=== PATIENT | male | born 1975 | race Two or more races ===

== ENCOUNTER 2020-06-17 22:03 | Inpatient (IN) | payer MEDICARE, MEDICAID ==
[~2020-06-17] VITALS: Ht 170.2 cm; Wt 74.8 kg
[~2020-06-17 22:03] MED LIST: ATOR10TA PO; CYCL10TA6 PO; ERGO400T PO; GABA300C10 PO
[2020-06-17] MEDS ORDERED: HYDROmorphone HCL 2 MG/ML VL IV ONE (23:00)
[2020-06-17] MEDS ORDERED: ONDANSETRON HCL 4 MG/2 ML VIAL IV ONE (23:00)
[2020-06-17] MEDS ORDERED: SODIUM CHLORIDE 0.9% 500 ML IV ONE (23:00)
[2020-06-17 23:03] LABS: Basophils # (auto) 0.2 10 ^3/uL (0-0.2); Basophils % (auto) 2.6 % (0.0-2.0); Eosinophils # (auto) 0 10 ^3/uL (0-0.8); Hematocrit 38.9 % (41.0-53.0); Hemoglobin 13.3 g/dL (13.5-17.5); Lymphocytes # (auto) 0.4 10 ^3/uL (0.4-5.4); Lymphocytes % (auto) 5.9 % (10.0-50.0); Mean Corpuscular Hemoglobin 28.1 pg (28.0-32.0); Mean Corpuscular Hgb Conc. 34.3 g/dL (32.0-36.0); Monocytes # (auto) 0.3 10 ^3/uL (0-1.3); Monocytes % (auto) 3.6 % (0.0-12.0); Neutrophils # (auto) 6.2 10 ^3/uL (1.6-8.6); Neutrophils % (auto) 87.9 % (37.0-80.0); Nucleated Red Blood Cells % 0.1 %; Platelet Count (auto) 194 10^3/uL (140-450); Red Blood Cells 4.74 10^6/uL (4.5-5.90); Red Cell Distribution Width 15.4 % (11.8-14.3)
[2020-06-17 23:21] LABS: Albumin 2.9 g/dL (3.4-5.0); Calcium 8.7 mg/dL (8.5-10.1); Magnesium 2.1 mg/dL (1.6-2.6); Potassium 3.7 mmol/L (3.5-5.1)
[2020-06-17 23:23] LABS: INR 1.04 (0.9-1.15); Partial Thromboplastin Time 29.3 sec (23.0-31.2)
[2020-06-17 23:28] LABS: BUN/Creatinine Ratio 17.4; Bilirubin, Total 1.1 mg/dL (0.2-1.0); Total Protein 7.1 g/dL (6.4-8.2)
[2020-06-17] MEDS ORDERED: VANCOMYCIN PER PHARMACY 0 MG IV SCH (23:30)
[2020-06-17] MEDS ORDERED: levoFLOXacin 500MG 100 ML IV ONE (23:30)
[2020-06-17] MEDS ORDERED: DexAMETHasone SOD PHOS 10MG/1ML VIAL INJ IV ONE (23:30)
[2020-06-18] MEDS ORDERED: ENOXAPARIN SOD 80 MG/0.8ML SYRINGE SC ONE
[2020-06-18] MEDS ORDERED: VANCOMYCIN 1GM/250ML 250 ML IV ONE
[2020-06-18] MEDS ORDERED: TEMAZEPAM 15 MG CAP PO PRN (01:15)
[2020-06-18] MEDS ORDERED: HYDROcodone-ACET 5/325MG TAB PO PRN (01:15)
[2020-06-18] MEDS ORDERED: MORPHINE SULFATE 4 MG/ML SYR/VIAL IV PRN (01:15)
[2020-06-18] MEDS ORDERED: MORPHINE SULF INJ 2 MG/ML SYRINGE 1ML IV PRN ×2 (01:15→07:45)
[2020-06-18] MEDS ORDERED: DEXTROSE (50%) 50ML SYRG IV PRN (01:15)
[2020-06-18] MEDS ORDERED: DOCUSATE SOD 100 MG CAP PO PRN (01:15)
[2020-06-18] MEDS ORDERED: NITROGLYCERIN 0.4 MG SL TAB SL PRN (01:15)
[2020-06-18] MEDS ORDERED: ACETAMINOPHEN 325 MG TAB PO PRN (01:15)
[2020-06-18] MEDS ORDERED: ONDANSETRON HCL 4 MG/2 ML VIAL IV PRN (01:15)
[2020-06-18 02:00] VITALS: BP 130/96
[2020-06-18] MEDS ORDERED: DOXYCYCLINE 100MG/250ML 250 ML IV SCH ×2 (02:00→15:00)
[2020-06-18] MEDS ORDERED: FUROSEMIDE 20 MG/2 ML VIAL IV SCH (06:00)
[2020-06-18] MEDS ORDERED: SODIUM CHLOR 0.9% PF (SALINE LOCK) 10ML VIAL/SYR IV SCH (06:00)
[2020-06-18] MEDS ORDERED: metroNIDAZOLE 500MG/100ML 100 ML IV SCH (06:00)
[2020-06-18] MEDS ORDERED: InsuLIN REG 1unit/0.01ml Soln (100units/ml) SC SCH ×2 (07:00→22:00)
[2020-06-18] MEDS ORDERED: ACCU-CHEK COMFORT CURVE STRIP VI SCH (07:00)
[2020-06-18] MEDS ORDERED: ASPirin 81 mg TAB PO SCH (10:00)
[2020-06-18] MEDS ORDERED: MULTIPLE VITAMIN TAB PO SCH (10:00)
[2020-06-18] MEDS ORDERED: ASCORBIC ACID 500 MG TAB PO SCH (10:00)
[2020-06-18] MEDS ORDERED: ZINC SULFATE 220mg CAP or TAB PO SCH (10:00)
[2020-06-18] MEDS ORDERED: FAMOTIDINE 20 MG TAB PO SCH (10:00)
[2020-06-18] MEDS ORDERED: VANCOMYCIN 1GM/250ML 250 ML IV SCH (12:00)
[2020-06-18] MEDS ORDERED: ENOXAPARIN SOD 80 MG/0.8ML SYRINGE SC SCH (12:00)
[2020-06-18] MEDS ORDERED: ATORVASTATIN 20 MG TAB PO SCH (22:00)
== END 2020-06-18 02:56 | disposition left against medical advice (07) | DRG 280 ==
LOC: EDBD 22:03 → ER 22:04 → TELE 06-18 01:21
PROVIDERS: ADMIT Nurse Practitioner Family; ATTEND Nurse Practitioner Family
DX: I13.0 Hypertensive heart and chronic kidney disease with heart failure and stage 1 through stage 4 chronic kidney disease, or unspecified chronic kidney disease (principal); I21.A1 Myocardial infarction type 2; I50.33 Acute on chronic diastolic (congestive) heart failure; J18.9 Pneumonia, unspecified organism; E87.1 Hypo-osmolality and hyponatremia; E44.0 Moderate protein-calorie malnutrition; R65.10 Systemic inflammatory response syndrome (SIRS) of non-infectious origin without acute organ dysfunction; D63.8 Anemia in other chronic diseases classified elsewhere; E11.22 Type 2 diabetes mellitus with diabetic chronic kidney disease; E11.40 Type 2 diabetes mellitus with diabetic neuropathy, unspecified; K21.9 Gastro-esophageal reflux disease without esophagitis; E78.5 Hyperlipidemia, unspecified; R10.9 Unspecified abdominal pain; N18.9 Chronic kidney disease, unspecified; Z53.29 Procedure and treatment not carried out because of patient's decision for other reasons; E11.649 Type 2 diabetes mellitus with hypoglycemia without coma; Z68.25 Body mass index [BMI] 25.0-25.9, adult; I25.2 Old myocardial infarction; Z82.49 Family history of ischemic heart disease and other diseases of the circulatory system
CPT/HCPCS: 36415; 71045; 74176; 80053; 82150; 82728; 83605; 83690; 83735; 83880; 84484; 85025; 85610; 85730; 87040; 96361; 96374; 96375; G0378; J1100; J1956; J2405; J3490

== ENCOUNTER 2020-07-15 22:25 | Inpatient (IN) | payer MEDICARE, MEDICAID ==
[~2020-07-15] VITALS: Ht 170.2 cm; Wt 82.9 kg
[2020-07-15 23:12] LABS: Basophils # (auto) 0.2 10 ^3/uL (0-0.2); Basophils % (auto) 2.2 % (0.0-2.0); Eosinophils # (auto) 0 10 ^3/uL (0-0.8); Eosinophils % (auto) 0.2 % (0.0-7.0); Hematocrit 31.4 % (41.0-53.0); Hemoglobin 10.2 g/dL (13.5-17.5); Lymphocytes # (auto) 1.4 10 ^3/uL (0.4-5.4); Lymphocytes % (auto) 13.7 % (10.0-50.0); Mean Corpuscular Hgb Conc. 32.5 g/dL (32.0-36.0); Mean Corpuscular Volume 86.1 fL (80.0-100.0); Monocytes # (auto) 0.8 10 ^3/uL (0-1.3); Monocytes % (auto) 7.5 % (0.0-12.0); Neutrophils % (auto) 76.4 % (37.0-80.0); Nucleated Red Blood Cells % 0.2 %; Platelet Count (auto) 428 10^3/uL (140-450); Red Blood Cells 3.65 10^6/uL (4.5-5.90); Red Cell Distribution Width 17.8 % (11.8-14.3); White Blood Cell 10.4 10^3/uL (4.4-10.8)
[2020-07-15] MEDS ORDERED: ONDANSETRON HCL 4 MG/2 ML VIAL IV ONE (23:15)
[2020-07-15] MEDS ORDERED: FAMOTIDINE (10MG/ML) 2ML VL IV ONE (23:15)
[2020-07-15] MEDS ORDERED: SUCRALFATE 1 GM/10 ML ORAL SUSP PO ONE (23:15)
[2020-07-15] MEDS ORDERED: LIDOCAINE VISCOUS 2% 15ML UD PO ONE (23:45)
[2020-07-15] MEDS ORDERED: DONNATAL 5ml ORAL Elix (BELLADONNA ALK-PHENOBARB) PO ONE (23:45)
[2020-07-15 23:48] LABS: INR 1.13 (0.9-1.15); Partial Thromboplastin Time 27.9 sec (23.0-31.2)
[2020-07-15 23:53] LABS: Albumin 2.9 g/dL (3.4-5.0); Calcium 8.9 mg/dL (8.5-10.1); Magnesium 2.4 mg/dL (1.6-2.6); Potassium 4.9 mmol/L (3.5-5.1)
[2020-07-15 23:59] LABS: BUN/Creatinine Ratio 19.2; Bilirubin, Total 1.5 mg/dL (0.2-1.0); Total Protein 7.5 g/dL (6.4-8.2)
[2020-07-16] MEDS ORDERED: ACETAMINOPHEN 500 MG TAB PO PRN (04:00)
[2020-07-16] MEDS ORDERED: hydrALAZINE HCL 20 MG/ML VL IV PRN (04:00)
[2020-07-16] MEDS ORDERED: MORPHINE SULF INJ 2 MG/ML SYRINGE 1ML IV PRN (04:00)
[2020-07-16] MEDS ORDERED: NITROGLYCERIN 0.4 MG SL TAB SL PRN (04:00)
[2020-07-16] MEDS ORDERED: DEXTROSE (50%) 50ML SYRG IV PRN (04:00)
[2020-07-16] MEDS: ONDANSETRON HCL 4 MG/2 ML VIAL IV PRN ×3 (04:44→17:15)
[2020-07-16] MEDS: MORPHINE SULF INJ 2 MG/ML SYRINGE 1ML IV PRN ×5 (04:45→21:41)
[2020-07-16 05:17] VITALS: BP 157/100
[2020-07-16] MEDS ORDERED: CARV3.1240 PO (05:53)
[2020-07-16] MEDS ORDERED: ESCI5TAB PO (05:53)
[2020-07-16] MEDS ORDERED: CLOP75TA28 PO (05:53)
[2020-07-16] MEDS ORDERED: FAMO-12 PO (05:53)
[2020-07-16] MEDS ORDERED: TRAZ50TA2 PO (05:53)
[2020-07-16] MEDS ORDERED: ASPI-231 PO (05:53)
[2020-07-16] MEDS ORDERED: FURO1TAB33 PO (05:53)
[2020-07-16] MEDS ORDERED: METO25TA93 PO (05:53)
[2020-07-16 05:56] VITALS: BP 157/100
[2020-07-16] MEDS: HYDROcodone-ACET 5/325MG TAB PO PRN (06:11)
[2020-07-16] MEDS: InsuLIN REG 1unit/0.01ml Soln (100units/ml) SC SCH ×4 (07:02→22:18)
[2020-07-16] MEDS: ACCU-CHEK COMFORT CURVE STRIP VI SCH ×4 (07:03→21:42)
[2020-07-16 09:00] VITALS: BP 140/94
[2020-07-16] MEDS ORDERED: CARVEDILOL 3.125 MG TAB PO SCH (10:00)
[2020-07-16] MEDS: ASPirin-EC 81 mg tab PO SCH (10:35)
[2020-07-16] MEDS: PANTOPRAZOLE 40 MG TAB PO SCH (10:35)
[2020-07-16] MEDS: LISINOPRIL 20 MG TAB PO SCH (10:37)
[2020-07-16 13:00] VITALS: BP 125/81
[2020-07-16] MEDS ORDERED: METOPROLOL SUCCINATE XL 50 MG TAB PO ONE (13:00)
[2020-07-16] MEDS ORDERED: CYCLOBENZAPRINE HCL 10 MG TAB PO PRN (13:00)
[2020-07-16] MEDS ORDERED: ERGOCALCIFEROL 50,000 UNIT(1.25MG) CAP PO SCH (13:00)
[2020-07-16] MEDS ORDERED: AZITHROMYCIN 250 MG TAB PO ONE (13:15)
[2020-07-16] MEDS ORDERED: levoFLOXacin 500MG 100 ML IV ONE (13:15)
[2020-07-16] MEDS: GABAPENTIN 300 MG CAP PO SCH ×2 (14:14→21:42)
[2020-07-16 15:29] LABS: Urine Bacteria NONE SEEN /hpf (None Seen); Urine Blood 2+ /uL (Negative); Urine Mucus FEW (None Seen); Urine Specific Gravity 1.031 (1.001-1.035); Urine WBC 3 /hpf (0 - 3)
[2020-07-16] MEDS: metroNIDAZOLE 500MG/100ML 100 ML IV SCH ×2 (15:47→21:39)
[2020-07-16 16:55] VITALS: BP 130/87
[2020-07-16] MEDS: traZODone HCL 50 MG TAB PO SCH (21:41)
[2020-07-16] MEDS: ATORVASTATIN 20 MG TAB PO SCH (21:43)
[2020-07-16 22:00] VITALS: BP 136/96
[2020-07-17] MEDS: ONDANSETRON HCL 4 MG/2 ML VIAL IV PRN ×4 (01:54→23:16)
[2020-07-17 05:00] VITALS: BP 112/76
[2020-07-17] MEDS: GABAPENTIN 300 MG CAP PO SCH ×3 (06:00→21:45)
[2020-07-17] MEDS: InsuLIN REG 1unit/0.01ml Soln (100units/ml) SC SCH ×4 (06:23→22:00)
[2020-07-17] MEDS: ACCU-CHEK COMFORT CURVE STRIP VI SCH ×4 (06:24→21:46)
[2020-07-17 06:28] LABS: Basophils # (auto) 0.1 10 ^3/uL (0-0.2); Basophils % (auto) 1.2 % (0.0-2.0); Eosinophils # (auto) 0.1 10 ^3/uL (0-0.8); Eosinophils % (auto) 1.6 % (0.0-7.0); Hematocrit 28.4 % (41.0-53.0); Hemoglobin 9.2 g/dL (13.5-17.5); Lymphocytes # (auto) 2.3 10 ^3/uL (0.4-5.4); Lymphocytes % (auto) 26.1 % (10.0-50.0); Mean Corpuscular Hemoglobin 27.1 pg (28.0-32.0); Mean Corpuscular Hgb Conc. 32.5 g/dL (32.0-36.0); Mean Corpuscular Volume 83.4 fL (80.0-100.0); Monocytes # (auto) 0.9 10 ^3/uL (0-1.3); Monocytes % (auto) 10.5 % (0.0-12.0); Neutrophils # (auto) 5.3 10 ^3/uL (1.6-8.6); Neutrophils % (auto) 60.6 % (37.0-80.0); Nucleated Red Blood Cells % 0.1 %; Platelet Count (auto) 349 10^3/uL (140-450); Red Blood Cells 3.41 10^6/uL (4.5-5.90); Red Cell Distribution Width 17.6 % (11.8-14.3); White Blood Cell 8.8 10^3/uL (4.4-10.8)
[2020-07-17] MEDS: metroNIDAZOLE 500MG/100ML 100 ML IV SCH ×3 (06:28→21:45)
[2020-07-17] MEDS: MORPHINE SULF INJ 2 MG/ML SYRINGE 1ML IV PRN ×4 (06:40→22:15)
[2020-07-17 06:57] LABS: Albumin 2.3 g/dL (3.4-5.0); BUN/Creatinine Ratio 20.2; Bilirubin, Total 0.8 mg/dL (0.2-1.0); Calcium 8.2 mg/dL (8.5-10.1); Total Protein 6.3 g/dL (6.4-8.2)
[2020-07-17 09:00] VITALS: BP 139/93
[2020-07-17] MEDS: FUROSEMIDE 20 MG TAB PO SCH (09:59)
[2020-07-17] MEDS: ASPirin-EC 81 mg tab PO SCH (09:59)
[2020-07-17] MEDS: PANTOPRAZOLE 40 MG TAB PO SCH (09:59)
[2020-07-17] MEDS: METOPROLOL SUCCINATE XL 50 MG TAB PO SCH (10:00)
[2020-07-17] MEDS: LISINOPRIL 20 MG TAB PO SCH (10:00)
[2020-07-17] MEDS ORDERED: AZITHROMYCIN 250 MG TAB PO SCH (10:00)
[2020-07-17] MEDS ORDERED: levoFLOXacin 500MG 100 ML IV SCH (10:00)
[2020-07-17 13:00] VITALS: BP 142/87
[2020-07-17] MEDS ORDERED: ONDANSETRON HCL 4 MG/2 ML VIAL IV ONE (13:30)
[2020-07-17 17:14] VITALS: BP 114/69
[2020-07-17] MEDS: ATORVASTATIN 20 MG TAB PO SCH (21:45)
[2020-07-17] MEDS: traZODone HCL 50 MG TAB PO SCH (21:45)
[2020-07-17 22:00] VITALS: BP 141/88
[2020-07-18] MEDS: MORPHINE SULF INJ 2 MG/ML SYRINGE 1ML IV PRN ×4 (03:34→18:56)
[2020-07-18 05:00] VITALS: BP 135/94
[2020-07-18] MEDS: ONDANSETRON HCL 4 MG/2 ML VIAL IV PRN ×3 (05:06→18:44)
[2020-07-18] MEDS: metroNIDAZOLE 500MG/100ML 100 ML IV SCH ×3 (05:26→21:55)
[2020-07-18] MEDS: GABAPENTIN 300 MG CAP PO SCH ×3 (05:26→21:54)
[2020-07-18] MEDS: ACCU-CHEK COMFORT CURVE STRIP VI SCH ×4 (06:16→21:55)
[2020-07-18] MEDS: InsuLIN REG 1unit/0.01ml Soln (100units/ml) SC SCH ×4 (06:22→22:04)
[2020-07-18 06:37] LABS: Basophils # (auto) 0.2 10 ^3/uL (0-0.2); Eosinophils # (auto) 0.2 10 ^3/uL (0-0.8); Eosinophils % (auto) 1.9 % (0.0-7.0); Hemoglobin 9.6 g/dL (13.5-17.5); Lymphocytes # (auto) 2.5 10 ^3/uL (0.4-5.4); Lymphocytes % (auto) 28.2 % (10.0-50.0); Mean Corpuscular Hemoglobin 27.4 pg (28.0-32.0); Mean Corpuscular Hgb Conc. 32.9 g/dL (32.0-36.0); Mean Corpuscular Volume 83.2 fL (80.0-100.0); Monocytes # (auto) 1.1 10 ^3/uL (0-1.3); Monocytes % (auto) 12.4 % (0.0-12.0); Neutrophils % (auto) 55.5 % (37.0-80.0); Nucleated Red Blood Cells % 0.1 %; Platelet Count (auto) 368 10^3/uL (140-450); Red Blood Cells 3.49 10^6/uL (4.5-5.90); Red Cell Distribution Width 17.7 % (11.8-14.3)
[2020-07-18 06:46] LABS: Potassium 3.7 mmol/L (3.5-5.1)
[2020-07-18 06:55] LABS: Albumin 2.3 g/dL (3.4-5.0); BUN/Creatinine Ratio 15.7; Bilirubin, Total 0.8 mg/dL (0.2-1.0); Total Protein 6.3 g/dL (6.4-8.2)
[2020-07-18] MEDS: ASPirin-EC 81 mg tab PO SCH (09:09)
[2020-07-18] MEDS: levoFLOXacin 500MG 100 ML IV SCH (09:09)
[2020-07-18] MEDS: PANTOPRAZOLE 40 MG TAB PO SCH (09:09)
[2020-07-18] MEDS: FUROSEMIDE 20 MG TAB PO SCH (09:10)
[2020-07-18] MEDS: LISINOPRIL 20 MG TAB PO SCH (09:10)
[2020-07-18] MEDS: METOPROLOL SUCCINATE XL 50 MG TAB PO SCH (09:11)
[2020-07-18 09:29] VITALS: BP 119/67
[2020-07-18] MEDS: SUCRALFATE 1 GM/10 ML ORAL SUSP PO SCH ×3 (11:31→21:53)
[2020-07-18 13:00] VITALS: BP 120/77
[2020-07-18 16:54] VITALS: BP 117/63
[2020-07-18] MEDS: FUROSEMIDE 40 MG/4 ML VIAL IV SCH (18:49)
[2020-07-18] MEDS: ATORVASTATIN 20 MG TAB PO SCH (21:53)
[2020-07-18] MEDS: traZODone HCL 50 MG TAB PO SCH (21:54)
[2020-07-18 22:00] VITALS: BP 128/66
[2020-07-19] VITALS (9 sets, daily range): BP systolic 103–162; BP diastolic 64–103
[2020-07-19] MEDS: ONDANSETRON HCL 4 MG/2 ML VIAL IV PRN ×6 (02:33→23:59)
[2020-07-19] MEDS: metroNIDAZOLE 500MG/100ML 100 ML IV SCH (05:50)
[2020-07-19] MEDS: GABAPENTIN 300 MG CAP PO SCH ×3 (05:52→21:36)
[2020-07-19] MEDS: FUROSEMIDE 40 MG/4 ML VIAL IV SCH ×2 (05:52→17:24)
[2020-07-19] MEDS: InsuLIN REG 1unit/0.01ml Soln (100units/ml) SC SCH ×4 (06:05→21:49)
[2020-07-19] MEDS: ACCU-CHEK COMFORT CURVE STRIP VI SCH ×4 (06:05→21:37)
[2020-07-19] MEDS: SUCRALFATE 1 GM/10 ML ORAL SUSP PO SCH ×4 (06:34→21:35)
[2020-07-19 06:46] LABS: INR 1.26 (0.9-1.15); Partial Thromboplastin Time 30.2 sec (23.0-31.2)
[2020-07-19] MEDS ORDERED: MIDAZOLAM HCL 5 MG/ML-1ML VIAL ONE (09:20)
[2020-07-19] MEDS ORDERED: SODIUM CHLORIDE LOCK 10 ML ONE (09:20)
[2020-07-19] MEDS ORDERED: LIDOCAINE VISCOUS 2% 15ML UD ONE (09:20)
[2020-07-19] MEDS ORDERED: diphenhdrAMINE HCL 50 MG/1 ML VL ONE (09:21)
[2020-07-19] MEDS ORDERED: fentaNYL CITRATE 100 MCG/2 ML VL ONE ×2 (09:21→14:11)
[2020-07-19] MEDS: ASPirin-EC 81 mg tab PO SCH (10:00)
[2020-07-19] MEDS: PANTOPRAZOLE 40 MG TAB PO SCH (10:00)
[2020-07-19] MEDS: LISINOPRIL 20 MG TAB PO SCH (10:00)
[2020-07-19] MEDS: METOPROLOL SUCCINATE XL 50 MG TAB PO SCH (10:00)
[2020-07-19] MEDS: levoFLOXacin 500MG 100 ML IV SCH (10:52)
[2020-07-19] MEDS: MORPHINE SULF INJ 2 MG/ML SYRINGE 1ML IV PRN ×4 (10:53→23:59)
[2020-07-19] MEDS ORDERED: MIDAZOLAM HCL 1MG/1ML-2 ML VIAL ONE (14:12)
[2020-07-19] MEDS ORDERED: ONDANSETRON HCL 4 MG/2 ML VIAL IV PRN (14:45)
[2020-07-19] MEDS: ATORVASTATIN 20 MG TAB PO SCH (21:36)
[2020-07-19] MEDS: HYDROcodone-ACET 5/325MG TAB PO PRN (21:36)
[2020-07-19] MEDS: traZODone HCL 50 MG TAB PO SCH (21:36)
[2020-07-20] MEDS: ONDANSETRON HCL 4 MG/2 ML VIAL IV PRN (04:39)
[2020-07-20] MEDS: MORPHINE SULF INJ 2 MG/ML SYRINGE 1ML IV PRN ×2 (04:39→09:26)
[2020-07-20 05:00] VITALS: BP 112/62
[2020-07-20] MEDS: HYDROcodone-ACET 5/325MG TAB PO PRN ×2 (05:16→12:36)
[2020-07-20] MEDS: SUCRALFATE 1 GM/10 ML ORAL SUSP PO SCH ×2 (06:03→11:30)
[2020-07-20] MEDS: FUROSEMIDE 40 MG/4 ML VIAL IV SCH (06:03)
[2020-07-20] MEDS: GABAPENTIN 300 MG CAP PO SCH ×2 (06:03→14:03)
[2020-07-20] MEDS: ACCU-CHEK COMFORT CURVE STRIP VI SCH ×2 (06:04→11:30)
[2020-07-20] MEDS: InsuLIN REG 1unit/0.01ml Soln (100units/ml) SC SCH ×2 (06:41→11:31)
[2020-07-20 09:00] VITALS: BP 114/61
[2020-07-20] MEDS: ASPirin-EC 81 mg tab PO SCH (09:26)
[2020-07-20] MEDS: LISINOPRIL 20 MG TAB PO SCH (09:26)
[2020-07-20] MEDS: PANTOPRAZOLE 40 MG TAB PO SCH (09:27)
[2020-07-20] MEDS: METOPROLOL SUCCINATE XL 50 MG TAB PO SCH (09:27)
[2020-07-20] MEDS: levoFLOXacin 500MG 100 ML IV SCH (09:28)
[2020-07-20 09:49] LABS: Hepatitis B Surface Antibody Positive
[2020-07-20 10:19] LABS: Hepatitis A Total Antibody Negative
[2020-07-20 13:00] VITALS: BP 103/66
[2020-07-20 13:04] LABS: Hepatitis B Surface Antigen Negative (Negative)
[2020-07-20 13:18] LABS: Hepatitis C Antibody Negative (Negative)
[2020-07-20 13:28] VITALS: BP 114/61
[2020-07-20 13:32] LABS: Hepatitis B Core Total AB Negative
== END 2020-07-20 14:00 | disposition home or self-care (01) | DRG 444 ==
LOC: ER 22:26 → TELE-WESTW 07-16 03:53
PROVIDERS: ADMIT Nurse Practitioner Acute Care; ATTEND Family Medicine
PROC: 0DB68ZX Excision of Stomach, Via Natural or Artificial Opening Endoscopic, Diagnostic (ICD-10-PCS; 2020-07-19)
PROC: 0DB98ZX Excision of Duodenum, Via Natural or Artificial Opening Endoscopic, Diagnostic (ICD-10-PCS; principal; 2020-07-19 14:05)
DX: K80.00 Calculus of gallbladder with acute cholecystitis without obstruction (principal); I21.A1 Myocardial infarction type 2; I50.43 Acute on chronic combined systolic (congestive) and diastolic (congestive) heart failure; J69.0 Pneumonitis due to inhalation of food and vomit; I13.0 Hypertensive heart and chronic kidney disease with heart failure and stage 1 through stage 4 chronic kidney disease, or unspecified chronic kidney disease; E87.1 Hypo-osmolality and hyponatremia; E44.0 Moderate protein-calorie malnutrition; J98.11 Atelectasis; E88.09 Other disorders of plasma-protein metabolism, not elsewhere classified; D63.8 Anemia in other chronic diseases classified elsewhere; E11.21 Type 2 diabetes mellitus with diabetic nephropathy; I25.10 Atherosclerotic heart disease of native coronary artery without angina pectoris; K21.9 Gastro-esophageal reflux disease without esophagitis; E78.5 Hyperlipidemia, unspecified; E11.22 Type 2 diabetes mellitus with diabetic chronic kidney disease; E78.00 Pure hypercholesterolemia, unspecified; K29.70 Gastritis, unspecified, without bleeding; K29.80 Duodenitis without bleeding; Z20.822 Contact with and (suspected) exposure to COVID-19; K44.9 Diaphragmatic hernia without obstruction or gangrene; Z79.82 Long term (current) use of aspirin; Z79.899 Other long term (current) drug therapy; Z82.49 Family history of ischemic heart disease and other diseases of the circulatory system; Z79.84 Long term (current) use of oral hypoglycemic drugs; Z95.1 Presence of aortocoronary bypass graft; Z87.891 Personal history of nicotine dependence; Z83.3 Family history of diabetes mellitus; Z68.28 Body mass index [BMI] 28.0-28.9, adult; N18.31 Chronic kidney disease, stage 3a
CPT/HCPCS: 36415; 43239; 71045; 74181; 76705; 78226; 80053; 81001; 82150; 82962; 83036; 83690; 83735; 83880; 84443; 84484; 85025; 85610; 85730; 86704; 86706; 86708; 86803; 86850; 86900; 86901; 87040; 87081; 87340; 87426; 93005; 93306; 96374; 96375; A4565; G0378; J1815; J1956; J2250; J2405; J3490

== ENCOUNTER 2020-07-28 22:15 | Inpatient (IN) | payer MEDICARE, MEDICAID ==
[~2020-07-28] VITALS: Ht 170.2 cm; Wt 86.2 kg
[~2020-07-28 22:15] MED LIST changes: +ASPI1TAB20 PO; +CARV3.1240 PO; +CLOP75TA28 PO; +CYCL-839 PO; -CYCL10TA6 PO; +ESCI5TAB PO; +FAMO-12 PO; +FURO1TAB33 PO; +METO25TA93 PO; +TRAZ50TA2 PO
[2020-07-28] MEDS ORDERED: ASPirin 325 MG TAB PO ONE (23:00)
[2020-07-28] MEDS ORDERED: ACETAMINOPHEN 325 MG TAB PO ONE (23:00)
[2020-07-28 23:23] LABS: Basophils # (auto) 0.2 10 ^3/uL (0-0.2); Basophils % (auto) 1.7 % (0.0-2.0); Eosinophils # (auto) 0 10 ^3/uL (0-0.8); Hematocrit 34.3 % (41.0-53.0); Nucleated Red Blood Cells % 0.1 %
[2020-07-28 23:26] LABS: Eosinophils % (auto) 0.2 % (0.0-7.0); Hemoglobin 11.4 g/dL (13.5-17.5); Lymphocytes % (auto) 18.7 % (10.0-50.0); Mean Corpuscular Hgb Conc. 33.3 g/dL (32.0-36.0); Mean Corpuscular Volume 81.2 fL (80.0-100.0); Monocytes # (auto) 0.9 10 ^3/uL (0-1.3); Monocytes % (auto) 8.6 % (0.0-12.0); Neutrophils # (auto) 7.4 10 ^3/uL (1.6-8.6); Neutrophils % (auto) 70.8 % (37.0-80.0); Red Blood Cells 4.23 10^6/uL (4.5-5.90); Red Cell Distribution Width 18.2 % (11.8-14.3); White Blood Cell 10.5 10^3/uL (4.4-10.8)
[2020-07-28 23:33] LABS: Calcium 8.9 mg/dL (8.5-10.1); Magnesium 2.4 mg/dL (1.6-2.6); Potassium 4.3 mmol/L (3.5-5.1)
[2020-07-28 23:39] LABS: BUN/Creatinine Ratio 16.5; Bilirubin, Total 1.2 mg/dL (0.2-1.0); Total Protein 7.7 g/dL (6.4-8.2)
[2020-07-28 23:43] LABS: INR 1.17 (0.9-1.15)
[2020-07-29] VITALS (7 sets, daily range): BP systolic 124–157; BP diastolic 76–114
[2020-07-29] MEDS ORDERED: SUCRALFATE 1 GM/10 ML ORAL SUSP PO ONE
[2020-07-29] MEDS ORDERED: DONNATAL 5ml ORAL Elix (BELLADONNA ALK-PHENOBARB) PO ONE
[2020-07-29] MEDS ORDERED: MORPHINE SULFATE 4 MG/ML SYR/VIAL IV ONE
[2020-07-29] MEDS ORDERED: ONDANSETRON HCL 4 MG/2 ML VIAL IV ONE (00:15)
[2020-07-29] MEDS ORDERED: IOHEXOL 300 MG/ML 100ML BOTTLE IJ ONE (01:12)
[2020-07-29] MEDS ORDERED: METOPROLOL TARTRATE 1MG/1ML-5ML VIAL IV ONE (01:15)
[2020-07-29] MEDS ORDERED: NITROGLYCERIN 0.4 MG SL TAB SL PRN (02:45)
[2020-07-29] MEDS ORDERED: DEXTROSE (50%) 50ML SYRG IV PRN (02:45)
[2020-07-29] MEDS ORDERED: ALUM & MAG HYDROX-SIMETH LIQ(MAALOX) 30 ML PO PRN (02:45)
[2020-07-29] MEDS ORDERED: ACETAMINOPHEN 325 MG TAB PO PRN (02:45)
[2020-07-29] MEDS ORDERED: MORPHINE SULFATE INJECTION 2 MG/ML SYRG IV PRN (02:45)
[2020-07-29] MEDS: ONDANSETRON HCL 4 MG/2 ML VIAL IV PRN ×4 (02:55→17:17)
[2020-07-29] MEDS: HYDROmorphone HCL 2 MG/ML VL IV PRN ×2 (02:55→06:44)
[2020-07-29] MEDS: SODIUM CHLORIDE 0.9% 1,000 ML IV SCH (02:55)
[2020-07-29 03:07] LABS: Urine Bacteria NONE SEEN /hpf (None Seen); Urine Blood 1+ /uL (Negative); Urine Hyaline Cast MANY /lpf (0 - 2); Urine Mucus FEW (None Seen); Urine WBC 4 /hpf (0 - 3)
[2020-07-29 03:18] LABS: Urine Specific Gravity > 1.050 (1.001-1.035)
[2020-07-29] MEDS ORDERED: PANT40TA2 PO (04:42)
[2020-07-29] MEDS ORDERED: CLOP75TA70 PO (04:42)
[2020-07-29] MEDS ORDERED: BISA-65 PO (04:42)
[2020-07-29] MEDS ORDERED: SUCR1TAB PO (04:42)
[2020-07-29] MEDS ORDERED: ATOR40TA52 PO (04:42)
[2020-07-29] MEDS ORDERED: metroNIDAZOLE 500MG/100ML 100 ML IV SCH (06:00)
[2020-07-29] MEDS: ACCU-CHEK COMFORT CURVE STRIP VI SCH ×4 (06:33→21:42)
[2020-07-29] MEDS: InsuLIN REG 1unit/0.01ml Soln (100units/ml) SC SCH ×3 (06:38→17:00)
[2020-07-29] MEDS ORDERED: PROMETHAZINE HCL 25 MG/ML 1ML IV PRN (09:00)
[2020-07-29 09:25] LABS: Basophils # (auto) 0.2 10 ^3/uL (0-0.2); Eosinophils # (auto) 0.1 10 ^3/uL (0-0.8); Neutrophils % (auto) 62.9 % (37.0-80.0)
[2020-07-29 09:27] LABS: Basophils % (auto) 2.1 % (0.0-2.0); Eosinophils % (auto) 0.7 % (0.0-7.0); Lymphocytes # (auto) 2.7 10 ^3/uL (0.4-5.4); Lymphocytes % (auto) 25.1 % (10.0-50.0); Mean Corpuscular Hemoglobin 26.5 pg (28.0-32.0); Mean Corpuscular Hgb Conc. 32.3 g/dL (32.0-36.0); Mean Corpuscular Volume 82.1 fL (80.0-100.0); Monocytes % (auto) 9.2 % (0.0-12.0); Neutrophils # (auto) 6.7 10 ^3/uL (1.6-8.6); Nucleated Red Blood Cells % 0.1 %; Red Blood Cells 4.14 10^6/uL (4.5-5.90); White Blood Cell 10.6 10^3/uL (4.4-10.8)
[2020-07-29 09:47] LABS: Albumin 2.7 g/dL (3.4-5.0); Calcium 8.5 mg/dL (8.5-10.1); Potassium 4.4 mmol/L (3.5-5.1)
[2020-07-29 09:52] LABS: BUN/Creatinine Ratio 20.9
[2020-07-29] MEDS ORDERED: ASPirin 81 mg TAB PO SCH (10:00)
[2020-07-29] MEDS ORDERED: PANTOPRAZOLE 40 MG/10 ML VIAL INJ IV SCH (10:00)
[2020-07-29 10:13] LABS: Cholesterol 185 mg/dL (< 200); HDL Cholesterol 34 mg/dL (40-59); LDL Cholesterol 134 mg/dL (< 100); Triglycerides 104 mg/dL (< 150)
[2020-07-29] MEDS: ENOXAPARIN SOD 40 MG/0.4 ML SYRINGE SC SCH (10:26)
[2020-07-29] MEDS: CARVEDILOL 12.5 MG TAB PO SCH ×2 (10:27→21:41)
[2020-07-29] MEDS: SUCRALFATE 1 GM/10 ML ORAL SUSP PO SCH ×3 (11:30→21:41)
[2020-07-29] MEDS: MORPHINE SULFATE INJECTION 2 MG/ML SYRG IV PRN ×2 (12:12→19:38)
[2020-07-29] MEDS: METOCLOPRAMIDE HCL 5MG/ml INJ 2ml VIAL IV SCH ×2 (15:41→21:40)
[2020-07-29] MEDS: HYDROcodone-ACET 5/325MG TAB PO PRN ×2 (17:17→21:59)
[2020-07-29] MEDS ORDERED: InsuLIN REG 1unit/0.01ml Soln (100units/ml) SC SCH (22:00)
[2020-07-29] MEDS ORDERED: ATORVASTATIN 20 MG TAB PO SCH ×2 (22:00)
[2020-07-30] MEDS: SODIUM CHLORIDE 0.9% 1,000 ML IV SCH (01:02)
[2020-07-30] MEDS: MORPHINE SULFATE INJECTION 2 MG/ML SYRG IV PRN ×2 (01:35→08:00)
[2020-07-30] MEDS: HYDROcodone-ACET 5/325MG TAB PO PRN (04:58)
[2020-07-30 05:00] VITALS: BP 123/71
[2020-07-30 05:57] LABS: Basophils # (auto) 0.2 10 ^3/uL (0-0.2); Basophils % (auto) 2.4 % (0.0-2.0); Eosinophils # (auto) 0.3 10 ^3/uL (0-0.8); Eosinophils % (auto) 3.5 % (0.0-7.0); Hematocrit 30.9 % (41.0-53.0); Hemoglobin 10.3 g/dL (13.5-17.5); Lymphocytes # (auto) 2.4 10 ^3/uL (0.4-5.4); Lymphocytes % (auto) 31.8 % (10.0-50.0); Mean Corpuscular Hemoglobin 27.5 pg (28.0-32.0); Mean Corpuscular Hgb Conc. 33.3 g/dL (32.0-36.0); Mean Corpuscular Volume 82.7 fL (80.0-100.0); Monocytes # (auto) 0.9 10 ^3/uL (0-1.3); Monocytes % (auto) 11.6 % (0.0-12.0); Neutrophils # (auto) 3.8 10 ^3/uL (1.6-8.6); Neutrophils % (auto) 50.7 % (37.0-80.0); Nucleated Red Blood Cells % 0.2 %; Red Blood Cells 3.73 10^6/uL (4.5-5.90); White Blood Cell 7.6 10^3/uL (4.4-10.8)
[2020-07-30 06:13] LABS: Albumin 2.3 g/dL (3.4-5.0); Calcium 7.8 mg/dL (8.5-10.1); Potassium 3.8 mmol/L (3.5-5.1)
[2020-07-30] MEDS: METOCLOPRAMIDE HCL 5MG/ml INJ 2ml VIAL IV SCH (06:14)
[2020-07-30] MEDS: InsuLIN REG 1unit/0.01ml Soln (100units/ml) SC SCH (06:14)
[2020-07-30] MEDS: SUCRALFATE 1 GM/10 ML ORAL SUSP PO SCH (06:14)
[2020-07-30] MEDS: ACCU-CHEK COMFORT CURVE STRIP VI SCH (06:15)
[2020-07-30 06:23] LABS: BUN/Creatinine Ratio 14.4; Bilirubin, Total 0.9 mg/dL (0.2-1.0); Total Protein 5.9 g/dL (6.4-8.2)
[2020-07-30 09:00] VITALS: BP 123/86
[2020-07-30] MEDS ORDERED: ASPirin 81 mg TAB PO SCH (10:00)
[2020-07-30] MEDS: ENOXAPARIN SOD 40 MG/0.4 ML SYRINGE SC SCH (10:44)
[2020-07-30] MEDS: CARVEDILOL 12.5 MG TAB PO SCH (10:44)
[2020-08-10] MEDS ORDERED: SUCR1TAB PO (15:08)
[2020-08-10] MEDS ORDERED: PANT40TA2 PO (15:08)
[2020-08-10] MEDS ORDERED: FURO1TAB33 PO (15:08)
[2020-08-10] MEDS ORDERED: MUPI2CRE17 EX (15:08)
[2020-08-10] MEDS ORDERED: RAM10T PO (15:08)
[2020-08-10] MEDS ORDERED: CARV6.25 PO (15:16)
== END 2020-07-30 11:30 | disposition home or self-care (01) | DRG 392 ==
LOC: ER 22:15 → TELE-WESTW 07-29 02:34
PROVIDERS: ADMIT Nurse Practitioner Family; ATTEND Nurse Practitioner Family
DX: K29.70 Gastritis, unspecified, without bleeding (principal); E87.1 Hypo-osmolality and hyponatremia; I13.0 Hypertensive heart and chronic kidney disease with heart failure and stage 1 through stage 4 chronic kidney disease, or unspecified chronic kidney disease; K21.00 Gastro-esophageal reflux disease with esophagitis, without bleeding; E11.22 Type 2 diabetes mellitus with diabetic chronic kidney disease; E11.65 Type 2 diabetes mellitus with hyperglycemia; E78.5 Hyperlipidemia, unspecified; I25.10 Atherosclerotic heart disease of native coronary artery without angina pectoris; I50.9 Heart failure, unspecified; K27.9 Peptic ulcer, site unspecified, unspecified as acute or chronic, without hemorrhage or perforation; N18.9 Chronic kidney disease, unspecified; E11.43 Type 2 diabetes mellitus with diabetic autonomic (poly)neuropathy; K31.84 Gastroparesis; Z20.822 Contact with and (suspected) exposure to COVID-19; Z87.11 Personal history of peptic ulcer disease; I25.2 Old myocardial infarction; Z95.1 Presence of aortocoronary bypass graft; Z82.49 Family history of ischemic heart disease and other diseases of the circulatory system
CPT/HCPCS: 36415; 71260; 74177; 80053; 80061; 81001; 82962; 83735; 84484; 85025; 85610; 85730; 87081; 87426; 93005; 96365; 96375; C9113; G0378; J1815; J2405; J3490

== ENCOUNTER 2020-08-07 03:33 | Inpatient (IN) | payer MEDICARE, MEDICAID ==
[~2020-08-07] VITALS: Ht 170.2 cm; Wt 83.1 kg
[~2020-08-07 03:33] MED LIST changes: +ASPI-231 PO; -ASPI1TAB20 PO; -ATOR10TA PO; +ATOR40TA52 PO; +BISA-4 PO; -CLOP75TA28 PO; +CLOP75TA70 PO; -CYCL-839 PO; -ESCI5TAB PO; +PANT40TA2 PO; +SUCR1TAB PO
[2020-08-07 04:45] LABS: Basophils # (auto) 0.2 10 ^3/uL (0-0.2); Basophils % (auto) 2.2 % (0.0-2.0); Eosinophils # (auto) 0.5 10 ^3/uL (0-0.8); Eosinophils % (auto) 5.5 % (0.0-7.0); Hematocrit 35.7 % (41.0-53.0); Hemoglobin 11.6 g/dL (13.5-17.5); Lymphocytes # (auto) 1.8 10 ^3/uL (0.4-5.4); Mean Corpuscular Hemoglobin 26.7 pg (28.0-32.0); Mean Corpuscular Hgb Conc. 32.6 g/dL (32.0-36.0); Mean Corpuscular Volume 81.8 fL (80.0-100.0); Monocytes # (auto) 0.7 10 ^3/uL (0-1.3); Monocytes % (auto) 8.1 % (0.0-12.0); Neutrophils # (auto) 5.6 10 ^3/uL (1.6-8.6); Neutrophils % (auto) 63.2 % (37.0-80.0); Platelet Count (auto) 320 10^3/uL (140-450); Red Blood Cells 4.36 10^6/uL (4.5-5.90); Red Cell Distribution Width 19.9 % (11.8-14.3); White Blood Cell 8.8 10^3/uL (4.4-10.8)
[2020-08-07] MEDS ORDERED: ONDANSETRON HCL 4 MG/2 ML VIAL IV ONE ×2 (04:45→08:30)
[2020-08-07] MEDS ORDERED: fentaNYL CITRATE 100 MCG/2 ML VL IV ONE (04:45)
[2020-08-07 05:04] LABS: INR 1.07 (0.9-1.15); Partial Thromboplastin Time 22.5 sec (23.0-31.2)
[2020-08-07 05:06] LABS: Albumin 2.9 g/dL (3.4-5.0); Calcium 8.8 mg/dL (8.5-10.1); Magnesium 2.2 mg/dL (1.6-2.6); Potassium 4.2 mmol/L (3.5-5.1)
[2020-08-07 05:09] LABS: BUN/Creatinine Ratio 19.3; Bilirubin, Total 1.1 mg/dL (0.2-1.0); Total Protein 6.8 g/dL (6.4-8.2)
[2020-08-07] MEDS ORDERED: LABETALOL HCL 5 MG/ML 4ML SYRINGE IV ONE (07:30)
[2020-08-07] MEDS ORDERED: FUROSEMIDE 20 MG/2 ML VIAL IV ONE (08:15)
[2020-08-07] MEDS ORDERED: ENALAPRILAT 1.25 MG/ML-1ML VIAL IV ONE (08:30)
[2020-08-07] MEDS ORDERED: MORPHINE SULF INJ 2 MG/ML SYRINGE 1ML IV ONE (08:30)
[2020-08-07] MEDS ORDERED: DEXTROSE (50%) 50ML SYRG IV PRN (09:00)
[2020-08-07] MEDS ORDERED: ONDANSETRON HCL 4 MG/2 ML VIAL IV PRN (09:00)
[2020-08-07] MEDS ORDERED: NITROGLYCERIN 0.4 MG SL TAB SL PRN (09:00)
[2020-08-07] MEDS: ASPirin-EC 81 mg tab PO SCH (09:31)
[2020-08-07] MEDS: traZODone HCL 50 MG TAB PO SCH (09:31)
[2020-08-07] MEDS: DOCUSATE SOD 100 MG CAP PO SCH ×2 (09:31→21:44)
[2020-08-07 09:36] LABS: CRP High Sensitivity 0.82 mg/dL (< 0.3)
[2020-08-07] MEDS: RAMIPRIL 10 MG CAP PO SCH (09:37)
[2020-08-07] MEDS ORDERED: FAMOTIDINE 20 MG TAB PO SCH (10:00)
[2020-08-07] MEDS ORDERED: PANTOPRAZOLE 40 MG TAB PO SCH (10:00)
[2020-08-07] MEDS ORDERED: CARVEDILOL 3.125 MG TAB PO SCH (10:00)
[2020-08-07] MEDS: ACCU-CHEK COMFORT CURVE STRIP VI SCH ×3 (11:38→21:46)
[2020-08-07] MEDS: InsuLIN REG 1unit/0.01ml Soln (100units/ml) SC SCH ×3 (11:40→21:43)
[2020-08-07] MEDS: MORPHINE SULF INJ 2 MG/ML SYRINGE 1ML IV PRN ×2 (13:07→18:43)
[2020-08-07] MEDS: GABAPENTIN 300 MG CAP PO SCH ×2 (14:25→21:45)
[2020-08-07] MEDS ORDERED: PROCHLORPERAZINE EDISYLATE 5 MG/ML 2ML VIAL ONE (16:22)
[2020-08-07] MEDS ORDERED: PROCHLORPERAZINE EDISYLATE 5 MG/ML 2ML VIAL IV ONE (16:30)
[2020-08-07] MEDS ORDERED: LORazepam 2MG/ML-1ML VIAL IV ONE (17:00)
[2020-08-07] MEDS: SUCRALFATE 1 GM/10 ML ORAL SUSP PO SCH ×2 (17:17→21:44)
[2020-08-07] MEDS: FUROSEMIDE 20 MG/2 ML VIAL IV SCH (18:43)
[2020-08-07] MEDS: CARVEDILOL 12.5 MG TAB PO SCH (21:45)
[2020-08-07] MEDS: ATORVASTATIN 20 MG TAB PO SCH (21:45)
[2020-08-07] MEDS: PANTOPRAZOLE 40 MG TAB PO SCH (21:46)
[2020-08-07 23:47] VITALS: BP 112/75
[2020-08-08] MEDS: MORPHINE SULF INJ 2 MG/ML SYRINGE 1ML IV PRN ×3 (02:24→21:36)
[2020-08-08] MEDS: ONDANSETRON HCL 4 MG/2 ML VIAL IV PRN (02:30)
[2020-08-08] MEDS: InsuLIN REG 1unit/0.01ml Soln (100units/ml) SC SCH ×4 (05:37→21:38)
[2020-08-08] MEDS: GABAPENTIN 300 MG CAP PO SCH ×3 (05:41→21:38)
[2020-08-08] MEDS: SUCRALFATE 1 GM/10 ML ORAL SUSP PO SCH ×4 (05:41→21:36)
[2020-08-08] MEDS: FUROSEMIDE 20 MG/2 ML VIAL IV SCH ×2 (05:41→17:23)
[2020-08-08] MEDS: ACCU-CHEK COMFORT CURVE STRIP VI SCH ×4 (05:42→21:38)
[2020-08-08 05:55] VITALS: BP 95/61
[2020-08-08 09:00] VITALS: BP 130/85
[2020-08-08] MEDS: DOCUSATE SOD 100 MG CAP PO SCH ×2 (09:17→21:36)
[2020-08-08] MEDS: traZODone HCL 50 MG TAB PO SCH (09:17)
[2020-08-08] MEDS: CARVEDILOL 12.5 MG TAB PO SCH ×2 (09:17→21:37)
[2020-08-08] MEDS: RAMIPRIL 10 MG CAP PO SCH (09:17)
[2020-08-08] MEDS: PANTOPRAZOLE 40 MG TAB PO SCH ×2 (09:18→21:38)
[2020-08-08] MEDS: ASPirin-EC 81 mg tab PO SCH (09:18)
[2020-08-08 12:09] LABS: Urine Bacteria NONE SEEN /hpf (None Seen); Urine Blood Negative /uL (Negative); Urine Specific Gravity 1.004 (1.001-1.035); Urine WBC 3 /hpf (0 - 3)
[2020-08-08 12:22] VITALS: BP_SYST 106; BP_SYST 130; BP_DIAS 69; BP_DIAS 85
[2020-08-08] MEDS ORDERED: INSU100I4 SC (13:08)
[2020-08-08] MEDS ORDERED: DULA1INJ SC (13:08)
[2020-08-08] MEDS ORDERED: ESCI5TAB PO (13:08)
[2020-08-08] MEDS ORDERED: MULT-1018 PO (14:04)
[2020-08-08] MEDS ORDERED: DEXT4CHW PO (15:13)
[2020-08-08 16:52] VITALS: BP 113/76
[2020-08-08] MEDS: ATORVASTATIN 20 MG TAB PO SCH (21:37)
[2020-08-08 22:00] VITALS: BP 148/95
[2020-08-09] MEDS: MORPHINE SULF INJ 2 MG/ML SYRINGE 1ML IV PRN ×6 (01:34→21:50)
[2020-08-09 05:00] VITALS: BP 115/67
[2020-08-09] MEDS: ACCU-CHEK COMFORT CURVE STRIP VI SCH ×4 (05:22→21:52)
[2020-08-09] MEDS: InsuLIN REG 1unit/0.01ml Soln (100units/ml) SC SCH ×4 (05:25→21:51)
[2020-08-09] MEDS: SUCRALFATE 1 GM/10 ML ORAL SUSP PO SCH ×4 (05:31→21:26)
[2020-08-09] MEDS: GABAPENTIN 300 MG CAP PO SCH ×3 (05:31→21:27)
[2020-08-09] MEDS: FUROSEMIDE 20 MG/2 ML VIAL IV SCH ×2 (05:32→17:26)
[2020-08-09 08:09] LABS: Basophils # (auto) 0 10 ^3/uL (0-0.2); Eosinophils # (auto) 0.5 10 ^3/uL (0-0.8); Hematocrit 36.4 % (41.0-53.0); Hemoglobin 11.3 g/dL (13.5-17.5); Lymphocytes # (auto) 1.3 10 ^3/uL (0.4-5.4); Mean Corpuscular Hemoglobin 26.4 pg (28.0-32.0); Mean Corpuscular Hgb Conc. 31.1 g/dL (32.0-36.0); Monocytes # (auto) 0.5 10 ^3/uL (0-1.3); Nucleated Red Blood Cells % 0.1 %; Platelet Count (auto) 259 10^3/uL (140-450)
[2020-08-09 08:11] LABS: Basophils % (auto) 0.3 % (0.0-2.0); Eosinophils % (auto) 7.3 % (0.0-7.0); Lymphocytes % (auto) 20.2 % (10.0-50.0); Mean Corpuscular Volume 84.7 fL (80.0-100.0); Monocytes % (auto) 8.7 % (0.0-12.0); Neutrophils % (auto) 63.5 % (37.0-80.0); Red Cell Distribution Width 19.9 % (11.8-14.3); White Blood Cell 6.3 10^3/uL (4.4-10.8)
[2020-08-09 08:26] LABS: Albumin 2.6 g/dL (3.4-5.0); Calcium 8.2 mg/dL (8.5-10.1); Magnesium 1.9 mg/dL (1.6-2.6); Potassium 3.9 mmol/L (3.5-5.1)
[2020-08-09 08:31] LABS: BUN/Creatinine Ratio 11.9; Bilirubin, Total 0.8 mg/dL (0.2-1.0); Total Protein 6.5 g/dL (6.4-8.2)
[2020-08-09 09:00] VITALS: BP 101/67
[2020-08-09] MEDS: ONDANSETRON HCL 4 MG/2 ML VIAL IV PRN ×2 (09:24→17:27)
[2020-08-09] MEDS: DOCUSATE SOD 100 MG CAP PO SCH ×2 (09:24→21:26)
[2020-08-09] MEDS: BISACODYL 5 MG EC TAB PO PRN (09:25)
[2020-08-09] MEDS: traZODone HCL 50 MG TAB PO SCH (09:26)
[2020-08-09] MEDS: PANTOPRAZOLE 40 MG TAB PO SCH ×2 (09:26→21:27)
[2020-08-09] MEDS: RAMIPRIL 10 MG CAP PO SCH (09:29)
[2020-08-09] MEDS: CARVEDILOL 12.5 MG TAB PO SCH ×2 (09:29→21:50)
[2020-08-09] MEDS: ASPirin-EC 81 mg tab PO SCH (10:00)
[2020-08-09 13:00] VITALS: BP 106/69
[2020-08-09] MEDS ORDERED: MAGNESIUM SULFATE 1GM/100ML 100 ML IV ONE (14:15)
[2020-08-09 17:00] VITALS: BP 137/89
[2020-08-09] MEDS: ATORVASTATIN 20 MG TAB PO SCH (21:26)
[2020-08-09] MEDS: MUPIROCIN 2% OINT 15gm or 22gm EACHNOSTRI SCH (21:49)
[2020-08-09 22:00] VITALS: BP 122/45
[2020-08-10] MEDS: MORPHINE SULF INJ 2 MG/ML SYRINGE 1ML IV PRN ×2 (01:42→06:00)
[2020-08-10 05:00] VITALS: BP 134/88
[2020-08-10] MEDS: FUROSEMIDE 20 MG/2 ML VIAL IV SCH (06:00)
[2020-08-10] MEDS: GABAPENTIN 300 MG CAP PO SCH ×2 (06:00→14:27)
[2020-08-10] MEDS: InsuLIN REG 1unit/0.01ml Soln (100units/ml) SC SCH ×2 (06:11→11:30)
[2020-08-10] MEDS: SUCRALFATE 1 GM/10 ML ORAL SUSP PO SCH ×2 (06:12→14:26)
[2020-08-10] MEDS: ACCU-CHEK COMFORT CURVE STRIP VI SCH ×2 (06:12→11:30)
[2020-08-10] MEDS: ONDANSETRON HCL 4 MG/2 ML VIAL IV PRN (06:13)
[2020-08-10 06:34] LABS: Basophils # (auto) 0.1 10 ^3/uL (0-0.2); Basophils % (auto) 1.7 % (0.0-2.0); Eosinophils # (auto) 0.4 10 ^3/uL (0-0.8); Eosinophils % (auto) 4.9 % (0.0-7.0); Hematocrit 33.2 % (41.0-53.0); Hemoglobin 11.3 g/dL (13.5-17.5); Lymphocytes # (auto) 1.9 10 ^3/uL (0.4-5.4); Mean Corpuscular Hemoglobin 27.5 pg (28.0-32.0); Mean Corpuscular Volume 80.9 fL (80.0-100.0); Monocytes # (auto) 0.7 10 ^3/uL (0-1.3); Monocytes % (auto) 9.1 % (0.0-12.0); Neutrophils # (auto) 4.6 10 ^3/uL (1.6-8.6); Neutrophils % (auto) 59.3 % (37.0-80.0); Nucleated Red Blood Cells % 0.1 %; Platelet Count (auto) 248 10^3/uL (140-450); Red Cell Distribution Width 18.9 % (11.8-14.3); White Blood Cell 7.7 10^3/uL (4.4-10.8)
[2020-08-10 06:45] LABS: Potassium 3.8 mmol/L (3.5-5.1)
[2020-08-10 06:51] LABS: BUN/Creatinine Ratio 18.2; Calcium 7.8 mg/dL (8.5-10.1)
[2020-08-10 09:00] VITALS: BP 130/93
[2020-08-10] MEDS: MUPIROCIN 2% OINT 15gm or 22gm EACHNOSTRI SCH (10:00)
[2020-08-10] MEDS ORDERED: HYDROcodone-ACET 5/325MG TAB PO PRN (11:45)
[2020-08-10] MEDS: CARVEDILOL 12.5 MG TAB PO SCH (12:09)
[2020-08-10] MEDS: RAMIPRIL 10 MG CAP PO SCH (12:10)
[2020-08-10 13:00] VITALS: BP 144/89
[2020-08-10] MEDS: PANTOPRAZOLE 40 MG TAB PO SCH (14:26)
[2020-08-10] MEDS: BISACODYL 5 MG EC TAB PO PRN (14:26)
[2020-08-10] MEDS: DOCUSATE SOD 100 MG CAP PO SCH (14:26)
[2020-08-10] MEDS: ASPirin-EC 81 mg tab PO SCH (14:26)
[2020-08-10] MEDS: traZODone HCL 50 MG TAB PO SCH (14:26)
[2020-08-10] MEDS ORDERED: FURO1TAB33 PO (15:08)
[2020-08-10] MEDS ORDERED: SUCR1TAB PO (15:08)
[2020-08-10] MEDS ORDERED: MUPI2CRE17 EX (15:08)
[2020-08-10] MEDS ORDERED: RAM10T PO (15:08)
[2020-08-10] MEDS ORDERED: PANT40TA2 PO (15:08)
[2020-08-10] MEDS ORDERED: CARV6.25 PO (15:16)
[2020-08-10 16:17] VITALS: BP 144/89
== END 2020-08-10 17:00 | disposition home or self-care (01) | DRG 391 ==
LOC: ER 03:33 → TELE 08:48 → TELE-EAST 18:44
PROVIDERS: ADMIT Nurse Practitioner Acute Care; ATTEND Internal Medicine
PROC: 0W9B3ZZ Drainage of Left Pleural Cavity, Percutaneous Approach (ICD-10-PCS; principal; 2020-08-09)
DX: K29.80 Duodenitis without bleeding (principal); I21.A1 Myocardial infarction type 2; N17.0 Acute kidney failure with tubular necrosis; I50.23 Acute on chronic systolic (congestive) heart failure; J91.8 Pleural effusion in other conditions classified elsewhere; J98.11 Atelectasis; K29.70 Gastritis, unspecified, without bleeding; D63.8 Anemia in other chronic diseases classified elsewhere; I25.10 Atherosclerotic heart disease of native coronary artery without angina pectoris; B95.62 Methicillin resistant Staphylococcus aureus infection as the cause of diseases classified elsewhere; E11.9 Type 2 diabetes mellitus without complications; K59.00 Constipation, unspecified; K21.9 Gastro-esophageal reflux disease without esophagitis; Z20.822 Contact with and (suspected) exposure to COVID-19; E78.5 Hyperlipidemia, unspecified; I11.0 Hypertensive heart disease with heart failure; Z79.02 Long term (current) use of antithrombotics/antiplatelets; Z79.82 Long term (current) use of aspirin; Z83.3 Family history of diabetes mellitus; Z82.49 Family history of ischemic heart disease and other diseases of the circulatory system; Z95.1 Presence of aortocoronary bypass graft
CPT/HCPCS: 36415; 71045; 74177; 76705; 76942; 78226; 80048; 80053; 80061; 81001; 82150; 82306; 82962; 83605; 83690; 83735; 83880; 84443; 84484; 85025; 85610; 85730; 86141; 87070; 87081; 87205; 87426; 89051; 93005; 96372; 96374; 96375; 96376; G0378; J1815; J2405; J3490

== ENCOUNTER 2020-09-04 07:24 | Emergency (ER) | payer MEDICARE, MEDICAID ==
[~2020-09-04] VITALS: Ht 170.2 cm; Wt 72.6 kg
[~2020-09-04 07:24] MED LIST changes: -BISA-4 PO; -CARV3.1240 PO; +CARV6.25 PO; +DEXT4CHW PO; +DULA1INJ SC; -ERGO400T PO; +ESCI5TAB PO; +INSU100I4 SC; -METO25TA93 PO; +MUPI2CRE17 EX; +RAM10T PO
[2020-09-04 07:44] LABS: Basophils # (auto) 0 10 ^3/uL (0-0.2); Basophils % (auto) 0.4 % (0.0-2.0); Eosinophils # (auto) 0.1 10 ^3/uL (0-0.8); Eosinophils % (auto) 0.8 % (0.0-7.0); Hematocrit 34.3 % (41.0-53.0); Hemoglobin 11.2 g/dL (13.5-17.5); Lymphocytes # (auto) 1.4 10 ^3/uL (0.4-5.4); Lymphocytes % (auto) 17.9 % (10.0-50.0); Mean Corpuscular Hemoglobin 26.4 pg (28.0-32.0); Mean Corpuscular Hgb Conc. 32.7 g/dL (32.0-36.0); Mean Corpuscular Volume 80.7 fL (80.0-100.0); Monocytes # (auto) 0.5 10 ^3/uL (0-1.3); Monocytes % (auto) 6.6 % (0.0-12.0); Neutrophils # (auto) 5.6 10 ^3/uL (1.6-8.6); Neutrophils % (auto) 74.3 % (37.0-80.0); Nucleated Red Blood Cells % 0.1 %; Red Blood Cells 4.24 10^6/uL (4.5-5.90); Red Cell Distribution Width 19.7 % (11.8-14.3); White Blood Cell 7.6 10^3/uL (4.4-10.8)
[2020-09-04] MEDS ORDERED: ONDANSETRON HCL 4 MG/2 ML VIAL IV ONE (07:45)
[2020-09-04] MEDS ORDERED: SODIUM CHLORIDE 0.9% 1,000 ML IV ONE (07:45)
[2020-09-04] MEDS ORDERED: MORPHINE SULFATE 4 MG/ML SYR/VIAL IV ONE (07:45)
[2020-09-04 08:10] LABS: Albumin 2.6 g/dL (3.4-5.0); BUN/Creatinine Ratio 14.9; Calcium 8.7 mg/dL (8.5-10.1); Potassium 3.8 mmol/L (3.5-5.1)
[2020-09-04 08:15] LABS: Bilirubin, Total 1.2 mg/dL (0.2-1.0); Total Protein 7.3 g/dL (6.4-8.2)
[2020-09-04] MEDS ORDERED: cefTRIAXone 1GM/50ML D5W 50 ML IV ONE (09:30)
[2020-09-04] MEDS ORDERED: ASPirin 81 mg TAB PO ONE (09:30)
[2020-09-04] MEDS ORDERED: ENOXAPARIN SOD 80 MG/0.8ML SYRINGE SC ONE (09:30)
[2020-09-04] MEDS ORDERED: AZITHROMYCIN 500MG/ 250ML 250 ML IV ONE (09:30)
[2020-09-04] MEDS ORDERED: FUROSEMIDE 40 MG/4 ML VIAL IV ONE (09:30)
[2020-09-04] MEDS ORDERED: PROCHLORPERAZINE EDISYLATE 5 MG/ML 2ML VIAL ONE (09:43)
[2020-09-04] MEDS ORDERED: PROCHLORPERAZINE EDISYLATE 5 MG/ML 2ML VIAL IV ONE (09:45)
[2020-09-04 09:48] LABS: Alcohol, Urine < 3.0 mg/dL (0-10); Amphetamine Screen, Urine NEGATIVE (NEGATIVE); Barbiturate Scree,Urine NEGATIVE (NEGATIVE); Benzodiazephine Screen, Urine NEGATIVE (NEGATIVE); Cannabinoid Screen, Urine NEGATIVE (NEGATIVE); Cocaine Screen, Urine NEGATIVE (NEGATIVE); Opiate Scree,Urine POSITIVE (NEGATIVE); Phencyclidine Screen, Urine NEGATIVE (NEGATIVE)
[2020-09-04 12:07] VITALS: BP 131/96
== END 2020-09-04 13:29 | disposition left against medical advice (07) ==
LOC: ER 07:24
DX: J18.9 Pneumonia, unspecified organism (principal); R10.84 Generalized abdominal pain; I21.4 Non-ST elevation (NSTEMI) myocardial infarction; I13.0 Hypertensive heart and chronic kidney disease with heart failure and stage 1 through stage 4 chronic kidney disease, or unspecified chronic kidney disease; E11.22 Type 2 diabetes mellitus with diabetic chronic kidney disease; N18.9 Chronic kidney disease, unspecified; I50.9 Heart failure, unspecified; E78.5 Hyperlipidemia, unspecified; Z98.61 Coronary angioplasty status; Z95.1 Presence of aortocoronary bypass graft; Z20.822 Contact with and (suspected) exposure to COVID-19; Z79.4 Long term (current) use of insulin; Z79.899 Other long term (current) drug therapy; Z53.29 Procedure and treatment not carried out because of patient's decision for other reasons
CPT/HCPCS: 36415; 71250; 74176; 80053; 80307; 83605; 83690; 83880; 84484; 85025; 85049; 87040; 87426; 93005; 96361; 96365; 96368; 96372; 96375; 99285; J0456; J0696; J0780; J1650; J1940; J2270; J2405; J7030; 96366

== ENCOUNTER 2020-09-11 02:37 | Inpatient (IN) | payer MEDICARE, MEDICAID ==
[~2020-09-11] VITALS: Ht 170.2 cm; Wt 79.8 kg
[2020-09-11] MEDS ORDERED: FUROSEMIDE 40 MG/4 ML VIAL IV ONE (03:00)
[2020-09-11] MEDS ORDERED: NTG 0.1MG/HR TOPICAL PATCH TD ONE (03:00)
[2020-09-11 03:32] LABS: Basophils # (auto) 0.2 10 ^3/uL (0-0.2); Eosinophils # (auto) 0.2 10 ^3/uL (0-0.8); Mean Corpuscular Hgb Conc. 33.2 g/dL (32.0-36.0); Nucleated Red Blood Cells % 0.1 %
[2020-09-11 03:35] LABS: Basophils % (auto) 2.7 % (0.0-2.0); Eosinophils % (auto) 2.8 % (0.0-7.0); Hematocrit 32.7 % (41.0-53.0); Hemoglobin 10.9 g/dL (13.5-17.5); Lymphocytes # (auto) 2.1 10 ^3/uL (0.4-5.4); Lymphocytes % (auto) 29.1 % (10.0-50.0); Mean Corpuscular Hemoglobin 27.1 pg (28.0-32.0); Mean Corpuscular Volume 81.4 fL (80.0-100.0); Monocytes # (auto) 0.6 10 ^3/uL (0-1.3); Neutrophils # (auto) 4.1 10 ^3/uL (1.6-8.6); Neutrophils % (auto) 57.4 % (37.0-80.0); Red Blood Cells 4.01 10^6/uL (4.5-5.90); White Blood Cell 7.2 10^3/uL (4.4-10.8)
[2020-09-11 03:36] LABS: Red Cell Distribution Width 20.4 % (11.8-14.3)
[2020-09-11] MEDS ORDERED: MORPHINE SULFATE 4 MG/ML SYR/VIAL IV ONE ×2 (03:45→06:15)
[2020-09-11] MEDS ORDERED: ONDANSETRON HCL 4 MG/2 ML VIAL IV ONE (03:45)
[2020-09-11 04:08] LABS: Potassium 3.6 mmol/L (3.5-5.1)
[2020-09-11 04:12] LABS: Albumin 2.3 g/dL (3.4-5.0); BUN/Creatinine Ratio 16.9; Magnesium 2.2 mg/dL (1.6-2.6)
[2020-09-11 04:34] LABS: Bilirubin, Total 0.9 mg/dL (0.2-1.0); Total Protein 6.5 g/dL (6.4-8.2)
[2020-09-11] MEDS ORDERED: IOHEXOL 300 MG/ML 100ML BOTTLE IJ ONE (05:01)
[2020-09-11] MEDS ORDERED: TEMAZEPAM 15 MG CAP PO PRN (06:30)
[2020-09-11] MEDS ORDERED: DEXTROSE (50%) 50ML SYRG IV PRN (06:30)
[2020-09-11] MEDS ORDERED: MORPHINE SULF INJ 2 MG/ML SYRINGE 1ML IV PRN (06:30)
[2020-09-11] MEDS ORDERED: NITROGLYCERIN 0.4 MG SL TAB SL PRN (06:30)
[2020-09-11] MEDS ORDERED: ENOXAPARIN SOD 80 MG/0.8ML SYRINGE SC ONE (06:45)
[2020-09-11] MEDS: InsuLIN REG 1unit/0.01ml Soln (100units/ml) SC SCH ×4 (06:54→21:52)
[2020-09-11] MEDS: ACCU-CHEK COMFORT CURVE STRIP VI SCH ×4 (06:55→21:52)
[2020-09-11 07:29] LABS: INR 1.08 (0.9-1.15); Partial Thromboplastin Time 26.5 sec (23.0-31.2)
[2020-09-11] MEDS: CLOPIDOGREL BISULFATE 75 MG TAB PO SCH (07:49)
[2020-09-11] MEDS: FAMOTIDINE 20 MG TAB PO SCH ×2 (07:49→21:54)
[2020-09-11] MEDS: CARVEDILOL 3.125 MG TAB PO SCH ×2 (07:49→21:54)
[2020-09-11] MEDS: RAMIPRIL 10 MG CAP PO SCH (08:00)
[2020-09-11] MEDS ORDERED: hydrALAZINE HCL 20 MG/ML VL IV PRN (08:15)
[2020-09-11] MEDS: ONDANSETRON HCL 4 MG/2 ML VIAL IV PRN ×3 (08:33→16:00)
[2020-09-11] MEDS ORDERED: AZITHROMYCIN 500MG/ 250ML 250 ML IV SCH (10:00)
[2020-09-11] MEDS ORDERED: ASPirin 81 mg TAB PO SCH (10:00)
[2020-09-11] MEDS ORDERED: HYDROcodone-ACET 5/325MG TAB PO PRN (12:15)
[2020-09-11] MEDS: MORPHINE SULF INJ 2 MG/ML SYRINGE 1ML IV PRN ×3 (12:22→18:55)
[2020-09-11 15:30] VITALS: BP 129/94
[2020-09-11 17:00] VITALS: BP 134/96
[2020-09-11] MEDS: FUROSEMIDE 20 MG/2 ML VIAL IV SCH (18:46)
[2020-09-11] MEDS: ATORVASTATIN 20 MG TAB PO SCH (21:54)
[2020-09-11 22:00] VITALS: BP 141/85
[2020-09-12] MEDS: MORPHINE SULF INJ 2 MG/ML SYRINGE 1ML IV PRN ×5 (00:23→20:00)
[2020-09-12] MEDS: ONDANSETRON HCL 4 MG/2 ML VIAL IV PRN ×5 (00:26→20:56)
[2020-09-12 05:00] VITALS: BP 112/69
[2020-09-12] MEDS: FUROSEMIDE 20 MG/2 ML VIAL IV SCH ×2 (05:38→17:00)
[2020-09-12] MEDS: ACCU-CHEK COMFORT CURVE STRIP VI SCH ×4 (06:51→23:10)
[2020-09-12] MEDS: InsuLIN REG 1unit/0.01ml Soln (100units/ml) SC SCH ×4 (06:52→22:00)
[2020-09-12 07:50] VITALS: BP 114/69
[2020-09-12 07:50] LABS: Basophils # (auto) 0.2 10 ^3/uL (0-0.2); Basophils % (auto) 2.5 % (0.0-2.0); Eosinophils # (auto) 0.2 10 ^3/uL (0-0.8); Eosinophils % (auto) 3.4 % (0.0-7.0); Hematocrit 32.8 % (41.0-53.0); Hemoglobin 10.6 g/dL (13.5-17.5); Lymphocytes # (auto) 1.4 10 ^3/uL (0.4-5.4); Lymphocytes % (auto) 23.7 % (10.0-50.0); Mean Corpuscular Hemoglobin 26.4 pg (28.0-32.0); Mean Corpuscular Hgb Conc. 32.3 g/dL (32.0-36.0); Mean Corpuscular Volume 81.8 fL (80.0-100.0); Monocytes # (auto) 0.4 10 ^3/uL (0-1.3); Monocytes % (auto) 6.8 % (0.0-12.0); Neutrophils # (auto) 3.8 10 ^3/uL (1.6-8.6); Neutrophils % (auto) 63.6 % (37.0-80.0); Nucleated Red Blood Cells % 0.1 %; Red Blood Cells 4.01 10^6/uL (4.5-5.90); Red Cell Distribution Width 19.4 % (11.8-14.3)
[2020-09-12 07:52] LABS: Albumin 2.2 g/dL (3.4-5.0); Calcium 7.7 mg/dL (8.5-10.1); Magnesium 2.1 mg/dL (1.6-2.6); Potassium 3.4 mmol/L (3.5-5.1)
[2020-09-12 07:54] LABS: BUN/Creatinine Ratio 13.9
[2020-09-12 07:59] LABS: Bilirubin, Total 0.9 mg/dL (0.2-1.0); Total Protein 5.9 g/dL (6.4-8.2)
[2020-09-12 09:00] VITALS: BP 114/69
[2020-09-12] MEDS: FAMOTIDINE 20 MG TAB PO SCH (09:28)
[2020-09-12] MEDS: CLOPIDOGREL BISULFATE 75 MG TAB PO SCH (09:28)
[2020-09-12] MEDS: ENOXAPARIN SOD 40 MG/0.4 ML SYRINGE SC SCH (09:28)
[2020-09-12] MEDS: ASPirin 81 mg TAB PO SCH (09:28)
[2020-09-12] MEDS: CARVEDILOL 3.125 MG TAB PO SCH ×2 (09:29→23:11)
[2020-09-12] MEDS ORDERED: POTASSIUM CHL 20 Meq TABLET PO ONE (10:15)
[2020-09-12 11:53] LABS: Urine Bacteria NONE SEEN /hpf (None Seen); Urine Blood 3+ /uL (Negative); Urine Hyaline Cast MOD /lpf (0 - 2); Urine Specific Gravity 1.019 (1.001-1.035); Urine WBC 298 /hpf (0 - 3)
[2020-09-12] MEDS ORDERED: PANTOPRAZOLE 40 MG TAB PO ONE (12:15)
[2020-09-12] MEDS: RAMIPRIL 10 MG CAP PO SCH (12:56)
[2020-09-12 13:00] VITALS: BP 123/79
[2020-09-12 17:00] VITALS: BP 106/67
[2020-09-12] MEDS: SUCRALFATE 1 GM TAB PO SCH ×2 (17:00→23:09)
[2020-09-12] MEDS ORDERED: MORPHINE SULF INJ 2 MG/ML SYRINGE 1ML IV ONE (17:15)
[2020-09-12 21:35] VITALS: BP 124/72
[2020-09-12] MEDS: ATORVASTATIN 20 MG TAB PO SCH (23:09)
[2020-09-12] MEDS: PANTOPRAZOLE 40 MG TAB PO SCH (23:10)
[2020-09-13] MEDS: ONDANSETRON HCL 4 MG/2 ML VIAL IV PRN ×2 (01:10→13:58)
[2020-09-13] MEDS: MORPHINE SULF INJ 2 MG/ML SYRINGE 1ML IV PRN ×2 (02:50→13:58)
[2020-09-13] MEDS ORDERED: PROMETHAZINE HCL 25 MG/ML 1ML IV ONE (03:00)
[2020-09-13 06:06] VITALS: BP 142/89
[2020-09-13] MEDS: ACCU-CHEK COMFORT CURVE STRIP VI SCH ×2 (06:18→11:43)
[2020-09-13] MEDS: FUROSEMIDE 20 MG/2 ML VIAL IV SCH (06:18)
[2020-09-13] MEDS: SUCRALFATE 1 GM TAB PO SCH ×2 (06:18→11:43)
[2020-09-13] MEDS: InsuLIN REG 1unit/0.01ml Soln (100units/ml) SC SCH ×2 (06:19→11:46)
[2020-09-13 06:29] LABS: Basophils # (auto) 0.1 10 ^3/uL (0-0.2); Hemoglobin 11.6 g/dL (13.5-17.5); Lymphocytes # (auto) 1.3 10 ^3/uL (0.4-5.4); Monocytes # (auto) 0.4 10 ^3/uL (0-1.3); Neutrophils # (auto) 4.2 10 ^3/uL (1.6-8.6); White Blood Cell 6.1 10^3/uL (4.4-10.8)
[2020-09-13 06:31] LABS: Basophils % (auto) 2.4 % (0.0-2.0); Eosinophils # (auto) 0 10 ^3/uL (0-0.8); Eosinophils % (auto) 0.7 % (0.0-7.0); Hematocrit 35.4 % (41.0-53.0); Lymphocytes % (auto) 20.8 % (10.0-50.0); Mean Corpuscular Hemoglobin 26.8 pg (28.0-32.0); Mean Corpuscular Hgb Conc. 32.8 g/dL (32.0-36.0); Mean Corpuscular Volume 81.6 fL (80.0-100.0); Monocytes % (auto) 6.4 % (0.0-12.0); Neutrophils % (auto) 69.7 % (37.0-80.0); Nucleated Red Blood Cells % 0.1 %; Red Blood Cells 4.34 10^6/uL (4.5-5.90); Red Cell Distribution Width 19.7 % (11.8-14.3)
[2020-09-13 06:55] LABS: Potassium 4.5 mmol/L (3.5-5.1)
[2020-09-13 06:56] LABS: Albumin 2.5 g/dL (3.4-5.0); BUN/Creatinine Ratio 13.7; Calcium 8.2 mg/dL (8.5-10.1); Magnesium 2.2 mg/dL (1.6-2.6)
[2020-09-13 06:59] LABS: Total Protein 6.6 g/dL (6.4-8.2)
[2020-09-13 09:00] VITALS: BP 147/100
[2020-09-13] MEDS ORDERED: cefTRIAXone 1GM/50ML D5W 50 ML IV SCH (09:00)
[2020-09-13] MEDS: PANTOPRAZOLE 40 MG TAB PO SCH (09:35)
[2020-09-13] MEDS: RAMIPRIL 10 MG CAP PO SCH (09:35)
[2020-09-13] MEDS: CARVEDILOL 3.125 MG TAB PO SCH (09:35)
[2020-09-13] MEDS: CLOPIDOGREL BISULFATE 75 MG TAB PO SCH (09:35)
[2020-09-13] MEDS: ASPirin 81 mg TAB PO SCH (09:35)
[2020-09-13] MEDS: ENOXAPARIN SOD 40 MG/0.4 ML SYRINGE SC SCH (09:36)
[2020-09-13 12:28] VITALS: BP 115/73
[2020-09-13 15:48] VITALS: BP 123/92
== END 2020-09-13 16:05 | disposition home or self-care (01) | DRG 280 ==
LOC: ER 02:37 → EDBD 02:37 → TELE 06:24 → TELE-EAST 14:33
PROVIDERS: ADMIT Nurse Practitioner; ATTEND Internal Medicine
PROC: 5A09357 Assistance with Respiratory Ventilation, Less than 24 Consecutive Hours, Continuous Positive Airway Pressure (ICD-10-PCS; principal; 2020-09-11)
DX: I13.0 Hypertensive heart and chronic kidney disease with heart failure and stage 1 through stage 4 chronic kidney disease, or unspecified chronic kidney disease (principal); J96.00 Acute respiratory failure, unspecified whether with hypoxia or hypercapnia; I21.A1 Myocardial infarction type 2; E43 Unspecified severe protein-calorie malnutrition; J18.9 Pneumonia, unspecified organism; K85.90 Acute pancreatitis without necrosis or infection, unspecified; I50.43 Acute on chronic combined systolic (congestive) and diastolic (congestive) heart failure; K55.1 Chronic vascular disorders of intestine; J91.8 Pleural effusion in other conditions classified elsewhere; I25.10 Atherosclerotic heart disease of native coronary artery without angina pectoris; K21.9 Gastro-esophageal reflux disease without esophagitis; E88.09 Other disorders of plasma-protein metabolism, not elsewhere classified; Z20.822 Contact with and (suspected) exposure to COVID-19; D63.8 Anemia in other chronic diseases classified elsewhere; E11.22 Type 2 diabetes mellitus with diabetic chronic kidney disease; E78.5 Hyperlipidemia, unspecified; I25.2 Old myocardial infarction; K21.00 Gastro-esophageal reflux disease with esophagitis, without bleeding; K27.9 Peptic ulcer, site unspecified, unspecified as acute or chronic, without hemorrhage or perforation; K44.9 Diaphragmatic hernia without obstruction or gangrene; K81.9 Cholecystitis, unspecified; E78.00 Pure hypercholesterolemia, unspecified; E11.21 Type 2 diabetes mellitus with diabetic nephropathy; K29.90 Gastroduodenitis, unspecified, without bleeding; N18.9 Chronic kidney disease, unspecified; Z79.02 Long term (current) use of antithrombotics/antiplatelets; Z79.4 Long term (current) use of insulin; Z79.82 Long term (current) use of aspirin; Z79.899 Other long term (current) drug therapy; Z82.49 Family history of ischemic heart disease and other diseases of the circulatory system; Z83.3 Family history of diabetes mellitus; Z86.73 Personal history of transient ischemic attack (TIA), and cerebral infarction without residual deficits; Z95.1 Presence of aortocoronary bypass graft
CPT/HCPCS: 36415; 36600; 51702; 71045; 74177; 80053; 81001; 82805; 82962; 83690; 83735; 83880; 84484; 85025; 85049; 85379; 85610; 85730; 87426; 93005; 94660; 96365; 96366; 96372; 96375; 96376; G0378; J0696; J1815; J2405

== ENCOUNTER 2020-09-22 02:17 | Inpatient (IN) | payer MEDICARE, MEDICAID ==
[~2020-09-22] VITALS: Ht 170.2 cm; Wt 108.0 kg
[2020-09-22 03:44] LABS: Eosinophils # (auto) 0.1 10 ^3/uL (0-0.8); Lymphocytes # (auto) 1.3 10 ^3/uL (0.4-5.4); Lymphocytes % (auto) 16.8 % (10.0-50.0); Monocytes # (auto) 0.4 10 ^3/uL (0-1.3); Neutrophils # (auto) 5.9 10 ^3/uL (1.6-8.6)
[2020-09-22] MEDS ORDERED: ALUM & MAG HYDROX-SIMETH LIQ(MAALOX) 30 ML PO ONE (03:45)
[2020-09-22] MEDS ORDERED: HYDROmorphone HCL 2 MG/ML VL IV ONE (03:45)
[2020-09-22] MEDS ORDERED: SODIUM CHLORIDE 0.9% 500 ML IVB ONE (03:45)
[2020-09-22] MEDS ORDERED: LIDOCAINE VISCOUS 2% 15ML UD MT ONE (03:45)
[2020-09-22] MEDS ORDERED: ONDANSETRON HCL 4 MG/2 ML VIAL IV ONE (03:45)
[2020-09-22 03:46] LABS: Basophils # (auto) 0.2 10 ^3/uL (0-0.2); Basophils % (auto) 2.1 % (0.0-2.0); Hematocrit 33.8 % (41.0-53.0); Hemoglobin 11.3 g/dL (13.5-17.5); Mean Corpuscular Hemoglobin 26.8 pg (28.0-32.0); Mean Corpuscular Hgb Conc. 33.6 g/dL (32.0-36.0); Mean Corpuscular Volume 79.8 fL (80.0-100.0); Monocytes % (auto) 5.5 % (0.0-12.0); Neutrophils % (auto) 74.6 % (37.0-80.0); Nucleated Red Blood Cells % 0.2 %; Red Blood Cells 4.23 10^6/uL (4.5-5.90); White Blood Cell 7.9 10^3/uL (4.4-10.8)
[2020-09-22 03:47] LABS: Albumin 2.8 g/dL (3.4-5.0); BUN/Creatinine Ratio 16.3; Calcium 8.9 mg/dL (8.5-10.1); Potassium 4.2 mmol/L (3.5-5.1); Red Cell Distribution Width 20.1 % (11.8-14.3)
[2020-09-22 03:55] LABS: Total Protein 7.2 g/dL (6.4-8.2)
[2020-09-22 05:24] LABS: INR 1.01 (0.9-1.15); Partial Thromboplastin Time 27.1 sec (23.0-31.2)
[2020-09-22] MEDS ORDERED: DEXTROSE (50%) 50ML SYRG IV PRN (06:30)
[2020-09-22] MEDS ORDERED: NITROGLYCERIN 0.4 MG SL TAB SL PRN (06:30)
[2020-09-22] MEDS ORDERED: MORPHINE SULF INJ 2 MG/ML SYRINGE 1ML IV PRN (06:30)
[2020-09-22] MEDS: ACCU-CHEK COMFORT CURVE STRIP VI SCH ×4 (07:25→21:46)
[2020-09-22] MEDS: InsuLIN REG 1unit/0.01ml Soln (100units/ml) SC SCH ×4 (07:33→21:56)
[2020-09-22] MEDS: SODIUM CHLORIDE 0.9% 1,000 ML IV SCH ×2 (07:33→21:56)
[2020-09-22 08:12] LABS: Eosinophils # (auto) 0 10 ^3/uL (0-0.8); Monocytes # (auto) 0.4 10 ^3/uL (0-1.3)
[2020-09-22 08:14] LABS: Basophils # (auto) 0.2 10 ^3/uL (0-0.2); Basophils % (auto) 3.1 % (0.0-2.0); Eosinophils % (auto) 0.4 % (0.0-7.0); Hematocrit 35.2 % (41.0-53.0); Hemoglobin 11.6 g/dL (13.5-17.5); Lymphocytes # (auto) 1.4 10 ^3/uL (0.4-5.4); Lymphocytes % (auto) 17.6 % (10.0-50.0); Mean Corpuscular Hemoglobin 26.4 pg (28.0-32.0); Mean Corpuscular Hgb Conc. 32.8 g/dL (32.0-36.0); Mean Corpuscular Volume 80.5 fL (80.0-100.0); Monocytes % (auto) 5.6 % (0.0-12.0); Neutrophils # (auto) 5.8 10 ^3/uL (1.6-8.6); Neutrophils % (auto) 73.3 % (37.0-80.0); Red Blood Cells 4.38 10^6/uL (4.5-5.90); Red Cell Distribution Width 19.9 % (11.8-14.3); White Blood Cell 7.9 10^3/uL (4.4-10.8)
[2020-09-22] MEDS: HYDROmorphone HCL 2 MG/ML VL IV PRN ×4 (08:22→19:56)
[2020-09-22] MEDS: ONDANSETRON HCL 4 MG/2 ML VIAL IV PRN ×4 (08:22→22:55)
[2020-09-22 08:36] LABS: Albumin 2.6 g/dL (3.4-5.0); Calcium 8.7 mg/dL (8.5-10.1); Potassium 4.4 mmol/L (3.5-5.1)
[2020-09-22 08:43] LABS: Bilirubin, Total 1.1 mg/dL (0.2-1.0); Total Protein 7.2 g/dL (6.4-8.2)
[2020-09-22] MEDS: ASPirin 81 mg TAB PO SCH (10:31)
[2020-09-22] MEDS: ENOXAPARIN SOD 40 MG/0.4 ML SYRINGE SC SCH (10:32)
[2020-09-22] MEDS: FAMOTIDINE (10MG/ML) 2ML VL IV SCH ×2 (10:32→21:45)
[2020-09-22] MEDS: FUROSEMIDE 40 MG/4 ML VIAL IV SCH (10:32)
[2020-09-22] MEDS ORDERED: CLOPIDOGREL BISULFATE 75 MG TAB PO ONE (11:45)
[2020-09-22] MEDS ORDERED: cefTRIAXone 1GM/50ML D5W 50 ML IV ONE (11:45)
[2020-09-22] MEDS ORDERED: PANTOPRAZOLE 40 MG/10 ML VIAL INJ IV ONE (12:00)
[2020-09-22 12:38] VITALS: BP 153/116
[2020-09-22 13:10] VITALS: BP 120/70
[2020-09-22 13:34] VITALS: BP 146/100
[2020-09-22] MEDS: hydrALAZINE HCL 20 MG/ML VL IV PRN (16:23)
[2020-09-22 17:00] VITALS: BP 151/108
[2020-09-22] MEDS: SUCRALFATE 1 GM/10 ML ORAL SUSP PO SCH ×2 (17:00→21:46)
[2020-09-22] MEDS ORDERED: INSUINJ37 SC (18:54)
[2020-09-22] MEDS ORDERED: OMEP20TA PO (18:55)
[2020-09-22] MEDS: PANTOPRAZOLE 40 MG/10 ML VIAL INJ IV SCH (21:45)
[2020-09-22 22:29] LABS: Urine Bacteria NONE SEEN /hpf (None Seen); Urine Blood TRACE /uL (Negative); Urine Mucus FEW (None Seen); Urine Specific Gravity 1.018 (1.001-1.035); Urine WBC 3 /hpf (0 - 3)
[2020-09-22] MEDS: MORPHINE SULF INJ 2 MG/ML SYRINGE 1ML IV PRN (22:55)
[2020-09-22 23:22] VITALS: BP 149/95
[2020-09-23] MEDS: ONDANSETRON HCL 4 MG/2 ML VIAL IV PRN ×4 (02:52→17:00)
[2020-09-23] MEDS: MORPHINE SULF INJ 2 MG/ML SYRINGE 1ML IV PRN ×3 (02:52→12:10)
[2020-09-23 05:40] VITALS: BP 155/108
[2020-09-23] MEDS: ACCU-CHEK COMFORT CURVE STRIP VI SCH ×4 (06:30→21:35)
[2020-09-23] MEDS: SUCRALFATE 1 GM/10 ML ORAL SUSP PO SCH ×4 (06:30→21:34)
[2020-09-23] MEDS: InsuLIN REG 1unit/0.01ml Soln (100units/ml) SC SCH ×4 (06:58→21:42)
[2020-09-23] MEDS: SODIUM CHLORIDE 0.9% 1,000 ML IV SCH (07:02)
[2020-09-23 07:27] LABS: Basophils # (auto) 0.1 10 ^3/uL (0-0.2); Eosinophils # (auto) 0 10 ^3/uL (0-0.8); Lymphocytes # (auto) 1.4 10 ^3/uL (0.4-5.4); Lymphocytes % (auto) 16.5 % (10.0-50.0); Nucleated Red Blood Cells % 0.1 %; White Blood Cell 8.7 10^3/uL (4.4-10.8)
[2020-09-23 07:30] LABS: Basophils % (auto) 1.1 % (0.0-2.0); Hematocrit 36.9 % (41.0-53.0); Hemoglobin 12.2 g/dL (13.5-17.5); Mean Corpuscular Hemoglobin 26.5 pg (28.0-32.0); Mean Corpuscular Hgb Conc. 33.2 g/dL (32.0-36.0); Mean Corpuscular Volume 79.9 fL (80.0-100.0); Monocytes # (auto) 0.6 10 ^3/uL (0-1.3); Monocytes % (auto) 6.9 % (0.0-12.0); Neutrophils # (auto) 6.6 10 ^3/uL (1.6-8.6); Neutrophils % (auto) 75.5 % (37.0-80.0); Red Blood Cells 4.62 10^6/uL (4.5-5.90); Red Cell Distribution Width 19.8 % (11.8-14.3)
[2020-09-23 08:00] VITALS: BP 146/109
[2020-09-23 08:02] LABS: Albumin 2.7 g/dL (3.4-5.0); BUN/Creatinine Ratio 20.8; Calcium 8.8 mg/dL (8.5-10.1); Total Protein 7.5 g/dL (6.4-8.2)
[2020-09-23 09:00] VITALS: BP 146/109
[2020-09-23] MEDS: cefTRIAXone 1GM/50ML D5W 50 ML IV SCH (09:20)
[2020-09-23] MEDS: PANTOPRAZOLE 40 MG/10 ML VIAL INJ IV SCH ×2 (09:21→21:34)
[2020-09-23] MEDS: FAMOTIDINE (10MG/ML) 2ML VL IV SCH (09:21)
[2020-09-23] MEDS: FUROSEMIDE 40 MG/4 ML VIAL IV SCH (09:21)
[2020-09-23] MEDS: CLOPIDOGREL BISULFATE 75 MG TAB PO SCH (09:21)
[2020-09-23] MEDS: ASPirin 81 mg TAB PO SCH (09:21)
[2020-09-23] MEDS: ENOXAPARIN SOD 40 MG/0.4 ML SYRINGE SC SCH (09:22)
[2020-09-23 13:00] VITALS: BP 141/104
[2020-09-23] MEDS: MORPHINE SULFATE 4 MG/ML SYR/VIAL IV PRN ×3 (13:37→21:35)
[2020-09-23] MEDS: METOCLOPRAMIDE HCL 5MG/ml INJ 2ml VIAL IV SCH ×2 (13:55→21:34)
[2020-09-23 16:45] VITALS: BP 131/93
[2020-09-23 22:00] VITALS: BP 137/99
[2020-09-24] MEDS: ONDANSETRON HCL 4 MG/2 ML VIAL IV PRN (01:36)
[2020-09-24] MEDS: MORPHINE SULFATE 4 MG/ML SYR/VIAL IV PRN ×5 (01:36→21:38)
[2020-09-24 05:00] VITALS: BP 146/102
[2020-09-24] MEDS: METOCLOPRAMIDE HCL 5MG/ml INJ 2ml VIAL IV SCH ×3 (05:32→21:38)
[2020-09-24] MEDS: ACCU-CHEK COMFORT CURVE STRIP VI SCH ×4 (06:25→21:31)
[2020-09-24] MEDS: SUCRALFATE 1 GM/10 ML ORAL SUSP PO SCH ×4 (06:25→21:38)
[2020-09-24] MEDS: InsuLIN REG 1unit/0.01ml Soln (100units/ml) SC SCH ×4 (06:31→21:32)
[2020-09-24] MEDS: SODIUM CHLORIDE 0.9% 1,000 ML IV SCH ×2 (06:58→21:44)
[2020-09-24 07:02] LABS: Basophils # (auto) 0.1 10 ^3/uL (0-0.2); Eosinophils # (auto) 0.1 10 ^3/uL (0-0.8); Neutrophils # (auto) 4.8 10 ^3/uL (1.6-8.6); Nucleated Red Blood Cells % 0.1 %
[2020-09-24 07:06] LABS: Basophils % (auto) 1.6 % (0.0-2.0); Lymphocytes % (auto) 25.8 % (10.0-50.0); Mean Corpuscular Hemoglobin 26.8 pg (28.0-32.0); Mean Corpuscular Hgb Conc. 33.5 g/dL (32.0-36.0); Monocytes # (auto) 0.8 10 ^3/uL (0-1.3); Monocytes % (auto) 9.7 % (0.0-12.0); Neutrophils % (auto) 61.9 % (37.0-80.0); Red Cell Distribution Width 19.5 % (11.8-14.3); White Blood Cell 7.8 10^3/uL (4.4-10.8)
[2020-09-24 07:23] LABS: BUN/Creatinine Ratio 17.4; Calcium 8.4 mg/dL (8.5-10.1); Potassium 3.8 mmol/L (3.5-5.1)
[2020-09-24 08:00] VITALS: BP 151/108
[2020-09-24 09:00] VITALS: BP 151/108
[2020-09-24] MEDS: cefTRIAXone 1GM/50ML D5W 50 ML IV SCH (10:04)
[2020-09-24] MEDS: CLOPIDOGREL BISULFATE 75 MG TAB PO SCH (10:06)
[2020-09-24] MEDS: ENOXAPARIN SOD 40 MG/0.4 ML SYRINGE SC SCH (10:06)
[2020-09-24] MEDS: ASPirin 81 mg TAB PO SCH (10:06)
[2020-09-24] MEDS: PANTOPRAZOLE 40 MG/10 ML VIAL INJ IV SCH ×2 (10:06→21:37)
[2020-09-24] MEDS: FUROSEMIDE 40 MG/4 ML VIAL IV SCH (10:06)
[2020-09-24 13:00] VITALS: BP 159/117
[2020-09-24 17:00] VITALS: BP 133/95
[2020-09-24 22:00] VITALS: BP 147/107
[2020-09-25] MEDS: ONDANSETRON HCL 4 MG/2 ML VIAL IV PRN ×2 (01:54→23:02)
[2020-09-25] MEDS: MORPHINE SULFATE 4 MG/ML SYR/VIAL IV PRN ×6 (01:54→22:55)
[2020-09-25 05:00] VITALS: BP 146/102
[2020-09-25] MEDS: METOCLOPRAMIDE HCL 5MG/ml INJ 2ml VIAL IV SCH ×3 (06:05→21:14)
[2020-09-25] MEDS: ACCU-CHEK COMFORT CURVE STRIP VI SCH ×4 (06:06→21:44)
[2020-09-25] MEDS: SUCRALFATE 1 GM/10 ML ORAL SUSP PO SCH ×4 (06:06→21:14)
[2020-09-25 06:16] LABS: Hemoglobin 11.6 g/dL (13.5-17.5); Monocytes # (auto) 0.8 10 ^3/uL (0-1.3); Neutrophils # (auto) 4.4 10 ^3/uL (1.6-8.6)
[2020-09-25 06:21] LABS: Basophils # (auto) 0.1 10 ^3/uL (0-0.2); Basophils % (auto) 1.6 % (0.0-2.0); Eosinophils # (auto) 0.2 10 ^3/uL (0-0.8); Eosinophils % (auto) 2.2 % (0.0-7.0); Lymphocytes # (auto) 1.5 10 ^3/uL (0.4-5.4); Lymphocytes % (auto) 21.6 % (10.0-50.0); Mean Corpuscular Hemoglobin 26.8 pg (28.0-32.0); Mean Corpuscular Hgb Conc. 33.2 g/dL (32.0-36.0); Mean Corpuscular Volume 80.8 fL (80.0-100.0); Monocytes % (auto) 10.9 % (0.0-12.0); Neutrophils % (auto) 63.7 % (37.0-80.0); Red Blood Cells 4.33 10^6/uL (4.5-5.90)
[2020-09-25] MEDS: InsuLIN REG 1unit/0.01ml Soln (100units/ml) SC SCH ×4 (06:31→21:45)
[2020-09-25 07:01] LABS: Potassium 3.6 mmol/L (3.5-5.1)
[2020-09-25 07:17] LABS: BUN/Creatinine Ratio 16.3; Calcium 8.3 mg/dL (8.5-10.1)
[2020-09-25] MEDS: cefTRIAXone 1GM/50ML D5W 50 ML IV SCH (08:12)
[2020-09-25 09:00] VITALS: BP 152/111
[2020-09-25] MEDS: ENOXAPARIN SOD 40 MG/0.4 ML SYRINGE SC SCH (09:25)
[2020-09-25] MEDS: ASPirin 81 mg TAB PO SCH (09:25)
[2020-09-25] MEDS: CLOPIDOGREL BISULFATE 75 MG TAB PO SCH (09:25)
[2020-09-25] MEDS: FUROSEMIDE 40 MG/4 ML VIAL IV SCH (09:25)
[2020-09-25] MEDS: PANTOPRAZOLE 40 MG/10 ML VIAL INJ IV SCH ×2 (09:25→21:14)
[2020-09-25 13:00] VITALS: BP 147/106
[2020-09-25 17:00] VITALS: BP 157/124
[2020-09-25] MEDS: SODIUM CHLORIDE 0.9% 1,000 ML IV SCH (17:13)
[2020-09-25 22:00] VITALS: BP 138/98
[2020-09-26 05:00] VITALS: BP 157/105
[2020-09-26] MEDS: ONDANSETRON HCL 4 MG/2 ML VIAL IV PRN ×2 (05:13→09:29)
[2020-09-26] MEDS: SODIUM CHLORIDE 0.9% 1,000 ML IV SCH (05:22)
[2020-09-26] MEDS: hydrALAZINE HCL 20 MG/ML VL IV PRN (05:31)
[2020-09-26] MEDS: METOCLOPRAMIDE HCL 5MG/ml INJ 2ml VIAL IV SCH (05:59)
[2020-09-26] MEDS: SUCRALFATE 1 GM/10 ML ORAL SUSP PO SCH ×2 (06:24→11:18)
[2020-09-26] MEDS: InsuLIN REG 1unit/0.01ml Soln (100units/ml) SC SCH ×2 (06:24→11:16)
[2020-09-26] MEDS: ACCU-CHEK COMFORT CURVE STRIP VI SCH ×2 (06:25→11:16)
[2020-09-26 08:30] VITALS: BP 143/102
[2020-09-26] MEDS: cefTRIAXone 1GM/50ML D5W 50 ML IV SCH (08:42)
[2020-09-26] MEDS: FUROSEMIDE 40 MG/4 ML VIAL IV SCH (09:02)
[2020-09-26] MEDS: CLOPIDOGREL BISULFATE 75 MG TAB PO SCH (09:03)
[2020-09-26] MEDS: PANTOPRAZOLE 40 MG/10 ML VIAL INJ IV SCH (09:03)
[2020-09-26] MEDS: ASPirin 81 mg TAB PO SCH (09:03)
[2020-09-26] MEDS: ENOXAPARIN SOD 40 MG/0.4 ML SYRINGE SC SCH (09:03)
[2020-09-26] MEDS: MORPHINE SULFATE 4 MG/ML SYR/VIAL IV PRN (12:25)
[2020-09-26 12:30] VITALS: BP 159/111
== END 2020-09-26 12:45 | disposition home or self-care (01) | DRG 74 ==
LOC: ER 02:17 → TELE 06:29 → TELE-WESTW 09:50
PROVIDERS: ADMIT Nurse Practitioner Family; ATTEND Family Medicine
DX: E11.43 Type 2 diabetes mellitus with diabetic autonomic (poly)neuropathy (principal); N39.0 Urinary tract infection, site not specified; I13.0 Hypertensive heart and chronic kidney disease with heart failure and stage 1 through stage 4 chronic kidney disease, or unspecified chronic kidney disease; K29.70 Gastritis, unspecified, without bleeding; I50.9 Heart failure, unspecified; E11.65 Type 2 diabetes mellitus with hyperglycemia; I25.10 Atherosclerotic heart disease of native coronary artery without angina pectoris; K21.9 Gastro-esophageal reflux disease without esophagitis; E78.5 Hyperlipidemia, unspecified; K31.84 Gastroparesis; Z20.822 Contact with and (suspected) exposure to COVID-19; N18.9 Chronic kidney disease, unspecified; E11.22 Type 2 diabetes mellitus with diabetic chronic kidney disease; E11.40 Type 2 diabetes mellitus with diabetic neuropathy, unspecified; E88.09 Other disorders of plasma-protein metabolism, not elsewhere classified; I25.2 Old myocardial infarction; Z82.49 Family history of ischemic heart disease and other diseases of the circulatory system; Z95.1 Presence of aortocoronary bypass graft; Z79.4 Long term (current) use of insulin; Z79.899 Other long term (current) drug therapy; K29.80 Duodenitis without bleeding
CPT/HCPCS: 36415; 74176; 76705; 80048; 80053; 80061; 81001; 82150; 82962; 83036; 83605; 83690; 83735; 84443; 84484; 85025; 85610; 85730; 87086; 87426; 93005; 96361; 96374; 96375; C9113; G0378; J0696; J1815; J2405; J3490

== ENCOUNTER 2020-10-03 10:01 | Emergency (ER) | payer MEDICARE, MEDICAID ==
[~2020-10-03] VITALS: Ht 175.3 cm; Wt 81.6 kg
[~2020-10-03 10:01] MED LIST changes: +INSUINJ37 SC; +OMEP20TA PO
[2020-10-03 10:08] VITALS: BP 143/98
[2020-10-03] MEDS ORDERED: SODIUM CHLORIDE 0.9% 500 ML IVB ONE (10:15)
[2020-10-03] MEDS ORDERED: ONDANSETRON HCL 4 MG/2 ML VIAL IV ONE (10:15)
[2020-10-03] MEDS ORDERED: MORPHINE SULFATE 4 MG/ML SYR/VIAL IV ONE (10:15)
[2020-10-03 10:28] LABS: Basophils # (auto) 0.1 10 ^3/uL (0-0.2); Eosinophils # (auto) 0.1 10 ^3/uL (0-0.8); Eosinophils % (auto) 1.1 % (0.0-7.0); Hemoglobin 11.7 g/dL (13.5-17.5); Lymphocytes # (auto) 1.4 10 ^3/uL (0.4-5.4); Mean Corpuscular Hemoglobin 26.7 pg (28.0-32.0); Mean Corpuscular Hgb Conc. 33.4 g/dL (32.0-36.0); Monocytes # (auto) 0.5 10 ^3/uL (0-1.3)
[2020-10-03 10:29] LABS: Basophils % (auto) 1.8 % (0.0-2.0); Hematocrit 34.9 % (41.0-53.0); Lymphocytes % (auto) 20.7 % (10.0-50.0); Mean Corpuscular Volume 79.9 fL (80.0-100.0); Monocytes % (auto) 7.7 % (0.0-12.0); Neutrophils # (auto) 4.7 10 ^3/uL (1.6-8.6); Neutrophils % (auto) 68.7 % (37.0-80.0); Red Blood Cells 4.36 10^6/uL (4.5-5.90); Red Cell Distribution Width 19.3 % (11.8-14.3); White Blood Cell 6.8 10^3/uL (4.4-10.8)
[2020-10-03 10:48] LABS: Potassium 3.6 mmol/L (3.5-5.1)
[2020-10-03 10:59] LABS: Albumin 2.4 g/dL (3.4-5.0); BUN/Creatinine Ratio 10.6; Bilirubin, Total 1.3 mg/dL (0.2-1.0); Calcium 8.3 mg/dL (8.5-10.1); Total Protein 6.8 g/dL (6.4-8.2)
== END 2020-10-03 12:49 | disposition left against medical advice (07) ==
LOC: ER 10:01
DX: K85.90 Acute pancreatitis without necrosis or infection, unspecified (principal); D64.9 Anemia, unspecified; R18.8 Other ascites; I13.0 Hypertensive heart and chronic kidney disease with heart failure and stage 1 through stage 4 chronic kidney disease, or unspecified chronic kidney disease; E11.22 Type 2 diabetes mellitus with diabetic chronic kidney disease; N18.9 Chronic kidney disease, unspecified; I50.9 Heart failure, unspecified; K21.9 Gastro-esophageal reflux disease without esophagitis; E78.5 Hyperlipidemia, unspecified; I25.2 Old myocardial infarction; Z95.1 Presence of aortocoronary bypass graft; Z79.82 Long term (current) use of aspirin; Z79.4 Long term (current) use of insulin; Z79.899 Other long term (current) drug therapy; Z79.01 Long term (current) use of anticoagulants
CPT/HCPCS: 36415; 71045; 74176; 80053; 83690; 83735; 85025; 93005

== ENCOUNTER 2020-10-31 19:02 | Emergency (ER) | payer MEDICARE, MEDICAID ==
[2020-10-31 22:26] LABS: Basophils # (auto) 0.1 10 ^3/uL (0-0.2); Basophils % (auto) 1.9 % (0.0-2.0); Eosinophils # (auto) 0.1 10 ^3/uL (0-0.8); Eosinophils % (auto) 1.2 % (0.0-7.0); Hematocrit 34.8 % (41.0-53.0); Hemoglobin 11.3 g/dL (13.5-17.5); Lymphocytes # (auto) 1.4 10 ^3/uL (0.4-5.4); Lymphocytes % (auto) 20.2 % (10.0-50.0); Mean Corpuscular Hemoglobin 26.3 pg (28.0-32.0); Mean Corpuscular Hgb Conc. 32.5 g/dL (32.0-36.0); Mean Corpuscular Volume 80.8 fL (80.0-100.0); Monocytes # (auto) 0.6 10 ^3/uL (0-1.3); Monocytes % (auto) 8.9 % (0.0-12.0); Neutrophils # (auto) 4.8 10 ^3/uL (1.6-8.6); Neutrophils % (auto) 67.8 % (37.0-80.0); Nucleated Red Blood Cells % 0.1 %; Red Blood Cells 4.31 10^6/uL (4.5-5.90); Red Cell Distribution Width 19.4 % (11.8-14.3)
[2020-10-31 22:30] LABS: Urine Bacteria NONE SEEN /hpf (None Seen); Urine Blood 1+ /uL (Negative); Urine Specific Gravity 1.029 (1.001-1.035); Urine WBC 3 /hpf (0 - 3)
[2020-10-31] MEDS ORDERED: ONDANSETRON HCL 4 MG/2 ML VIAL IV ONE (22:30)
[2020-10-31] MEDS ORDERED: MORPHINE SULFATE INJECTION 2 MG/ML SYRG IV ONE (22:30)
[2020-10-31 22:40] LABS: INR 1.11 (0.9-1.15)
[2020-10-31 22:41] LABS: Albumin 2.1 g/dL (3.4-5.0); Calcium 8.4 mg/dL (8.5-10.1); Magnesium 1.9 mg/dL (1.6-2.6); Potassium 3.4 mmol/L (3.5-5.1)
[2020-10-31 22:47] LABS: BUN/Creatinine Ratio 17.2; Bilirubin, Total 1.5 mg/dL (0.2-1.0); Total Protein 6.4 g/dL (6.4-8.2)
[2020-10-31] MEDS ORDERED: POTASSIUM EFFERVESENT TAB 25 MEQ PO ONE (23:30)
[2020-10-31] MEDS ORDERED: FUROSEMIDE 40 MG/4 ML VIAL IV ONE (23:30)
[2020-10-31] MEDS ORDERED: ASPirin 325 MG TAB PO ONE (23:45)
[2020-11-01] MEDS ORDERED: NITROGLYCERIN 2% OINT 1GM PKG TD ONE (01:00)
[2020-11-01] MEDS ORDERED: METOCLOPRAMIDE HCL 5MG/ml INJ 2ml VIAL IV ONE (01:00)
[2020-11-01] MEDS ORDERED: MORPHINE SULFATE 4 MG/ML SYR/VIAL IV ONE (01:00)
[2020-11-01 04:00] VITALS: BP 134/90
[2020-11-01] MEDS ORDERED: TEMAZEPAM 15 MG CAP PO PRN ×2 (05:00→05:45)
[2020-11-01] MEDS ORDERED: NITROGLYCERIN 0.4 MG SL TAB SL PRN ×2 (05:00→05:45)
[2020-11-01] MEDS ORDERED: ONDANSETRON HCL 4 MG/2 ML VIAL IV PRN ×2 (05:00→05:45)
[2020-11-01] MEDS ORDERED: DEXTROSE (50%) 50ML SYRG IV PRN ×2 (05:00→05:45)
[2020-11-01] MEDS ORDERED: MORPHINE SULFATE INJECTION 2 MG/ML SYRG IV PRN ×2 (05:00→05:45)
[2020-11-01] MEDS ORDERED: ACETAMINOPHEN 325 MG TAB PO PRN ×2 (05:00→05:45)
[2020-11-01] MEDS ORDERED: InsuLIN REG 1unit/0.01ml Soln (100units/ml) SC SCH ×2 (06:00→06:15)
[2020-11-01] MEDS ORDERED: ACCU-CHEK COMFORT CURVE STRIP VI SCH ×2 (06:00→06:15)
[2020-11-01] MEDS ORDERED: GABAPENTIN 300 MG CAP PO SCH ×2 (06:00→06:15)
[2020-11-01] MEDS ORDERED: FUROSEMIDE 20 MG/2 ML VIAL IV SCH ×2 (06:00→06:15)
[2020-11-01] MEDS ORDERED: CARVEDILOL 3.125 MG TAB PO SCH ×2 (10:00)
[2020-11-01] MEDS ORDERED: ASPirin 81 mg TAB PO SCH ×2 (10:00)
[2020-11-01] MEDS ORDERED: CLOPIDOGREL BISULFATE 75 MG TAB PO SCH ×2 (10:00)
[2020-11-01] MEDS ORDERED: RAMIPRIL 10 MG CAP PO SCH ×2 (10:00)
[2020-11-01] MEDS ORDERED: PANTOPRAZOLE 40 MG TAB PO SCH ×2 (10:00)
[2020-11-01] MEDS ORDERED: ATORVASTATIN 20 MG TAB PO SCH ×2 (22:00)
== END 2020-11-01 04:53 | disposition left against medical advice (07) ==
LOC: EDUNIT# 19:02 → EDBD 19:02 → ER 19:20 → TELE 11-01 04:48 → UNDOADMIN 11-01 04:48 → TELE 11-01 04:53 → UNDODISIN 11-01 05:34
DX: I13.0 Hypertensive heart and chronic kidney disease with heart failure and stage 1 through stage 4 chronic kidney disease, or unspecified chronic kidney disease (principal); I50.9 Heart failure, unspecified; E11.22 Type 2 diabetes mellitus with diabetic chronic kidney disease; R07.89 Other chest pain; R11.2 Nausea with vomiting, unspecified; N18.9 Chronic kidney disease, unspecified; I25.2 Old myocardial infarction; Z95.1 Presence of aortocoronary bypass graft; Z98.61 Coronary angioplasty status; Z79.4 Long term (current) use of insulin; Z79.899 Other long term (current) drug therapy; Z20.822 Contact with and (suspected) exposure to COVID-19; Z53.29 Procedure and treatment not carried out because of patient's decision for other reasons
CPT/HCPCS: 36415; 71045; 80053; 81001; 83605; 83690; 83735; 83880; 84484; 85025; 85610; 87426; 93005; 96374; 96375; 96376; 99285; J1940; J2270; J2405; J2765; J7030

== ENCOUNTER 2020-11-03 12:18 | Emergency (ER) | payer MEDICARE, MEDICAID ==
[~2020-11-03] VITALS: Ht 170.2 cm; Wt 81.6 kg
[2020-11-03 12:25] VITALS: BP 177/116
== END 2020-11-03 15:04 | disposition left against medical advice (07) ==
LOC: ER 12:18 → EDBD 12:18 → ER 15:04
DX: I50.33 Acute on chronic diastolic (congestive) heart failure (principal); I11.0 Hypertensive heart disease with heart failure; R10.9 Unspecified abdominal pain; E11.9 Type 2 diabetes mellitus without complications; K21.9 Gastro-esophageal reflux disease without esophagitis; E78.5 Hyperlipidemia, unspecified; I25.2 Old myocardial infarction; Z95.1 Presence of aortocoronary bypass graft; Z98.890 Other specified postprocedural states; Z79.82 Long term (current) use of aspirin; Z79.4 Long term (current) use of insulin; Z79.899 Other long term (current) drug therapy
CPT/HCPCS: 71045; 74176; 93005

== ENCOUNTER 2021-01-11 04:48 | Emergency (ER) | payer MEDICARE, MEDICAID ==
[~2021-01-11] VITALS: Ht 170.2 cm; Wt 81.6 kg
[~2021-01-11 04:48] MED LIST changes: -ASPI-231 PO; +ASPI1TAB20 PO
[2021-01-11 04:50] VITALS: BP 154/99
[2021-01-11 06:55] LABS: Basophils # (auto) 0.2 10 ^3/uL (0-0.2); Basophils % (auto) 2.3 % (0.0-2.0); Eosinophils # (auto) 0 10 ^3/uL (0-0.8); Eosinophils % (auto) 0.5 % (0.0-7.0); Hematocrit 35.6 % (41.0-53.0); Hemoglobin 11.9 g/dL (13.5-17.5); Lymphocytes # (auto) 1.1 10 ^3/uL (0.4-5.4); Lymphocytes % (auto) 15.3 % (10.0-50.0); Mean Corpuscular Hemoglobin 28.2 pg (28.0-32.0); Mean Corpuscular Hgb Conc. 33.5 g/dL (32.0-36.0); Mean Corpuscular Volume 84.1 fL (80.0-100.0); Monocytes # (auto) 0.5 10 ^3/uL (0-1.3); Monocytes % (auto) 6.3 % (0.0-12.0); Neutrophils # (auto) 5.5 10 ^3/uL (1.6-8.6); Neutrophils % (auto) 75.6 % (37.0-80.0); Nucleated Red Blood Cells % 0.1 %; Red Blood Cells 4.24 10^6/uL (4.5-5.90); Red Cell Distribution Width 18.6 % (11.8-14.3); White Blood Cell 7.2 10^3/uL (4.4-10.8)
[2021-01-11 07:02] LABS: INR 1.08 (0.9-1.15); Partial Thromboplastin Time 27.5 sec (23.6-33.0)
[2021-01-11 07:05] LABS: Potassium 3.4 mmol/L (3.5-5.1)
[2021-01-11 07:12] LABS: Albumin 2.5 g/dL (3.4-5.0); BUN/Creatinine Ratio 16.8; Bilirubin, Total 2.5 mg/dL (0.2-1.0); Calcium 8.8 mg/dL (8.5-10.1); Total Protein 7.5 g/dL (6.4-8.2)
== END 2021-01-11 08:18 | disposition left against medical advice (07) ==
LOC: ER 04:48
DX: R10.84 Generalized abdominal pain (principal); Z53.21 Procedure and treatment not carried out due to patient leaving prior to being seen by health care provider
CPT/HCPCS: 36415; 80053; 82150; 83690; 83880; 84484; 85025; 85610; 85730; 93005

== ENCOUNTER 2021-02-04 19:23 | Emergency (ER) | payer MEDICARE, MEDICAID ==
[~2021-02-04] VITALS: Ht 170.2 cm; Wt 81.6 kg
[2021-02-04 20:48] VITALS: BP 142/84
== END 2021-02-04 23:20 | disposition left against medical advice (07) ==
LOC: EDBD 19:23 → ER 19:27
DX: R10.13 Epigastric pain (principal); I13.0 Hypertensive heart and chronic kidney disease with heart failure and stage 1 through stage 4 chronic kidney disease, or unspecified chronic kidney disease; E11.22 Type 2 diabetes mellitus with diabetic chronic kidney disease; N18.9 Chronic kidney disease, unspecified; I50.9 Heart failure, unspecified; I25.2 Old myocardial infarction; Z95.1 Presence of aortocoronary bypass graft; Z98.61 Coronary angioplasty status; E78.5 Hyperlipidemia, unspecified; Z79.4 Long term (current) use of insulin; Z79.899 Other long term (current) drug therapy; Z53.29 Procedure and treatment not carried out because of patient's decision for other reasons

== ENCOUNTER 2021-03-25 04:02 | Emergency (ER) | payer MEDICARE, MEDICAID ==
[~2021-03-25] VITALS: Ht 170.2 cm; Wt 81.6 kg
[2021-03-25 04:07] VITALS: BP 148/84
== END 2021-03-25 07:11 | disposition left against medical advice (07) ==
LOC: ER 04:02 → EDBD 04:02 → ER 05:10
DX: R10.11 Right upper quadrant pain (principal); Z53.21 Procedure and treatment not carried out due to patient leaving prior to being seen by health care provider

== ENCOUNTER 2021-05-10 09:51 | Inpatient (IN) | payer MEDICARE, MEDICAID ==
[~2021-05-10] VITALS: Ht 170.2 cm; Wt 80.0 kg
[2021-05-10] MEDS ORDERED: NITROGLYCERIN 0.4 MG SL TAB SL ONE ×2 (10:50→11:00)
[2021-05-10] MEDS ORDERED: MORPHINE SULFATE 4 MG/ML SYR/VIAL ONE (10:50)
[2021-05-10 10:51] LABS: Urine Bacteria NONE SEEN /hpf (None Seen); Urine Blood Negative /uL (Negative); Urine Specific Gravity 1.004 (1.001-1.035); Urine WBC <1 /hpf (0 - 3)
[2021-05-10] MEDS ORDERED: ONDANSETRON HCL 4 MG/2 ML VIAL ONE (10:51)
[2021-05-10] MEDS ORDERED: MORPHINE SULFATE 4 MG/ML SYR/VIAL IV ONE (11:00)
[2021-05-10] MEDS ORDERED: ASPirin 81 mg TAB PO ONE (11:00)
[2021-05-10] MEDS ORDERED: ONDANSETRON HCL 4 MG/2 ML VIAL IV ONE (11:00)
[2021-05-10 11:10] LABS: Basophils # (auto) 0.2 10 ^3/uL (0-0.2); Basophils % (auto) 2.4 % (0.0-2.0); Eosinophils # (auto) 0 10 ^3/uL (0-0.8); Eosinophils % (auto) 0.5 % (0.0-7.0); Hematocrit 34.4 % (41.0-53.0); Hemoglobin 11.4 g/dL (13.5-17.5); Lymphocytes # (auto) 1.1 10 ^3/uL (0.4-5.4); Lymphocytes % (auto) 12.8 % (10.0-50.0); Mean Corpuscular Hemoglobin 27.5 pg (28.0-32.0); Mean Corpuscular Hgb Conc. 33.3 g/dL (32.0-36.0); Mean Corpuscular Volume 82.5 fL (80.0-100.0); Monocytes # (auto) 1.2 10 ^3/uL (0-1.3); Monocytes % (auto) 12.9 % (0.0-12.0); Neutrophils # (auto) 6.4 10 ^3/uL (1.6-8.6); Neutrophils % (auto) 71.4 % (37.0-80.0); Nucleated Red Blood Cells % 0.1 %; Red Blood Cells 4.16 10^6/uL (4.5-5.90); Red Cell Distribution Width 18.9 % (11.8-14.3)
[2021-05-10 11:19] LABS: Albumin 2.7 g/dL (3.4-5.0); Calcium 8.6 mg/dL (8.5-10.1); Potassium 4.4 mmol/L (3.5-5.1)
[2021-05-10 11:36] LABS: BUN/Creatinine Ratio 18.2; Total Protein 7.7 g/dL (6.4-8.2)
[2021-05-10] MEDS ORDERED: IOHEXOL 350 MG/ML 100ML IJ ONE (12:25)
[2021-05-10] MEDS ORDERED: chlordiazePOXIDE HCL 25 MG CAP PO ONE (14:45)
[2021-05-10] MEDS ORDERED: ALUM & MAG HYDROX-SIMETH LIQ(MAALOX) 30 ML PO ONE (14:45)
[2021-05-10] MEDS ORDERED: LORazepam 2MG/ML-1ML VIAL IV ONE (14:45)
[2021-05-10] MEDS ORDERED: LIDOCAINE VISCOUS 2% 15ML UD PO ONE (14:45)
[2021-05-10] MEDS ORDERED: FAMOTIDINE (10MG/ML) 2ML VL IV ONE (14:45)
[2021-05-10] MEDS ORDERED: LACTATED RINGER'S 1,000 ML IV ONE (15:00)
[2021-05-10] MEDS ORDERED: DOCUSATE SOD 100 MG CAP PO PRN (15:30)
[2021-05-10] MEDS ORDERED: MORPHINE SULFATE INJECTION 2 MG/ML SYRG IV PRN (15:30)
[2021-05-10] MEDS ORDERED: hydrALAZINE HCL 20 MG/ML VL IV PRN (15:30)
[2021-05-10] MEDS ORDERED: ACETAMINOPHEN 325 MG TAB PO PRN (15:30)
[2021-05-10] MEDS ORDERED: SODIUM CHLORIDE 0.9% 1,000 ML IV ONE (15:30)
[2021-05-10] MEDS ORDERED: ONDANSETRON HCL 4 MG/2 ML VIAL IV PRN (15:30)
[2021-05-10] MEDS ORDERED: HYDROcodone-ACET 5/325MG TAB PO PRN (15:30)
[2021-05-10] MEDS ORDERED: NITROGLYCERIN 0.4 MG SL TAB SL PRN (15:30)
[2021-05-10] MEDS ORDERED: MORPHINE SULFATE 4 MG/ML SYR/VIAL IV PRN (15:30)
[2021-05-10] MEDS ORDERED: ONDANSETRON HCL 4 MG/2 ML VIAL IM PRN ×3 (15:30→15:45)
[2021-05-10] MEDS ORDERED: TEMAZEPAM 15 MG CAP PO PRN (15:30)
[2021-05-10 15:38] LABS: INR 1.31 (0.9-1.15); Partial Thromboplastin Time 31.9 sec (23.6-33.0)
[2021-05-10] MEDS: SUCRALFATE 1 GM/10 ML ORAL SUSP PO SCH ×2 (18:44→21:44)
[2021-05-10 22:00] VITALS: BP 110/61
[2021-05-10] MEDS ORDERED: ASCORBIC ACID 500 MG TAB PO SCH (22:00)
[2021-05-10] MEDS ORDERED: PANTOPRAZOLE 40 MG/10 ML VIAL INJ IV SCH (22:00)
[2021-05-11 05:00] VITALS: BP 124/90
[2021-05-11 06:14] LABS: Basophils # (auto) 0.2 10 ^3/uL (0-0.2); Basophils % (auto) 2.4 % (0.0-2.0); Eosinophils # (auto) 0.1 10 ^3/uL (0-0.8); Eosinophils % (auto) 0.8 % (0.0-7.0); Hematocrit 32.3 % (41.0-53.0); Hemoglobin 10.9 g/dL (13.5-17.5); Lymphocytes % (auto) 15.3 % (10.0-50.0); Mean Corpuscular Hemoglobin 27.7 pg (28.0-32.0); Mean Corpuscular Hgb Conc. 33.9 g/dL (32.0-36.0); Mean Corpuscular Volume 81.7 fL (80.0-100.0); Monocytes # (auto) 0.8 10 ^3/uL (0-1.3); Neutrophils # (auto) 4.6 10 ^3/uL (1.6-8.6); Neutrophils % (auto) 69.5 % (37.0-80.0); Nucleated Red Blood Cells % 0.1 %; Red Blood Cells 3.95 10^6/uL (4.5-5.90); Red Cell Distribution Width 19.1 % (11.8-14.3); White Blood Cell 6.6 10^3/uL (4.4-10.8)
[2021-05-11] MEDS: SUCRALFATE 1 GM/10 ML ORAL SUSP PO SCH (06:26)
[2021-05-11 06:46] LABS: Potassium 4.7 mmol/L (3.5-5.1)
[2021-05-11 07:05] LABS: Albumin 2.6 g/dL (3.4-5.0); BUN/Creatinine Ratio 18.1; Bilirubin, Total 3.8 mg/dL (0.2-1.0); Calcium 8.8 mg/dL (8.5-10.1); Total Protein 7.2 g/dL (6.4-8.2)
[2021-05-11] MEDS ORDERED: MULTIPLE VITAMIN TAB PO SCH (10:00)
[2021-05-11] MEDS ORDERED: ENOXAPARIN SOD 40 MG/0.4 ML SYRINGE SC SCH (10:00)
[2021-05-11] MEDS ORDERED: ZINC SULFATE 220mg CAP or TAB PO SCH (10:00)
[2021-05-11] MEDS ORDERED: PANTOPRAZOLE 40 MG/10 ML VIAL INJ IV SCH (10:00)
== END 2021-05-11 06:30 | disposition left against medical advice (07) | DRG 280 ==
LOC: ER 09:51 → OVERFLOW 15:21 → TELE-WESTW 17:33
PROVIDERS: ADMIT Nurse Practitioner; ATTEND Nurse Practitioner
DX: I21.4 Non-ST elevation (NSTEMI) myocardial infarction (principal); I50.21 Acute systolic (congestive) heart failure; N17.9 Acute kidney failure, unspecified; G93.40 Encephalopathy, unspecified; I13.0 Hypertensive heart and chronic kidney disease with heart failure and stage 1 through stage 4 chronic kidney disease, or unspecified chronic kidney disease; E87.1 Hypo-osmolality and hyponatremia; E86.0 Dehydration; E11.22 Type 2 diabetes mellitus with diabetic chronic kidney disease; E78.5 Hyperlipidemia, unspecified; I25.10 Atherosclerotic heart disease of native coronary artery without angina pectoris; Z20.822 Contact with and (suspected) exposure to COVID-19; K21.9 Gastro-esophageal reflux disease without esophagitis; R10.9 Unspecified abdominal pain; N18.9 Chronic kidney disease, unspecified; Z53.29 Procedure and treatment not carried out because of patient's decision for other reasons; Z79.02 Long term (current) use of antithrombotics/antiplatelets; I25.2 Old myocardial infarction; Z95.1 Presence of aortocoronary bypass graft
CPT/HCPCS: 36415; 70450; 70496; 70498; 71046; 71275; 73630; 74175; 76705; 80053; 80061; 81001; 82140; 83735; 83880; 84484; 85025; 85610; 85730; 86850; 86900; 86901; 93005; 93306; 96361; 96374; 96375; C9113; G0378; J2405; J3490

== ENCOUNTER 2024-10-01 18:16 | Inpatient (IN) | payer MEDICARE, MEDICAID ==
[~2024-10-01] VITALS: Ht 167.6 cm; Wt 88.0 kg
[~2024-10-01 18:16] MED LIST changes: -CARV6.25 PO; +CARV6.2517 PO; +GABA-1250 PO; -GABA300C10 PO; +HYDR-4798 PO; +NALO4SPR2; +TAMS-35 PO; +TRAZ-227 PO; -TRAZ50TA2 PO
--- NOTE | 2024-10-01 19:06 | ED.PDOC ---
General HPI Comments 49 year old male with a Hx of CHF, CKF, HTN, Hyperlipidemia, Quadruple Bypass Surgery and DM presents to the ED for the c/c of Urinary Retention w/ associated SOB,Swollen lower abdomen and scrotum, and 2x Syncopal Episodes. Pt states that is symptoms started 2x days ago, and notes he has not urinated for the same amount of time. Pt notes that he has been compliant w/ his medication. No other associated symptoms, modifiers, recent injuries or sick contacts present at this time. Chief Complaint: Urinary Time Seen by MD: 19:01 Primary Care Provider: ANDREW Reviewed notes: Nurses Notes, Medications, Allergies Allergies: Coded Allergies: Penicillins (Verified Allergy, Intermediate, RASH, 07/06/24) Home Meds Active Scripts Tamsulosin Hcl (Flomax) 0.4 Mg Cap, 1 CAP PO DAILY for 30 Days, #30 CAP 11 Refills Prov:FABIO BARNEY 07/10/24 Naloxone HCl (Narcan) 4 Mg/0.1 Ml Spr, 4 MG NA ONCE, #1 SPRAY Prov:FABIO BARNEY 07/10/24 Hydrocodone-Acetaminophen (Hydrocodone Bitartrate/AC 10-325 mg) 1 Tab Tab, 1 TAB PO Q8HP PRN for 7 Days, #21 TAB Prov:FABIO BARNEY 07/10/24 Clopidogrel Bisulfate (CLOPIDOGREL) 75 Mg Tab, 75 MG PO DAILY for 30 Days, #30 TAB Prov:FABIO BARNEY 07/10/24 Carvedilol (Coreg) 6.25 Mg Tab, 1 TAB PO BID, #60 TAB Prov:TEX CHARLES MD 08/10/20 Ramipril (Altace) 10 Mg Cp, 10 MG PO DAILY for 30 Days, #30 CAP Prov:TEX CHARLES MD 08/10/20 Mupirocin Calcium (Topical) (MUPIROCIN) 2 % Cre, 2 % EX BID for 5 Days, #1 CRE 1 application each nostril twice a day for 5 days Prov:TEX CHARLES MD 08/10/20 Pantoprazole Sodium Sesquihydr (Protonix) 40 Mg Tab, 40 MG PO BID for 30 Days, #60 TAB Prov:TEX CHARLES MD 08/10/20 Sucralfate (Sucralfate) 1 Gm Tab, 1 GM PO QIDACHS for 30 Days, #120 TAB Prov:TEX CHARLES MD 08/10/20 Furosemide (Lasix) 20 Mg Tb, 1 TAB PO BID for 30 Days, #60 TAB Prov:TEX CHARLES MD 08/10/20 Reported Medications Omeprazole (Gnp Omeprazole) 20 Mg Tab, 20 MG PO DAILY, TAB 09/22/20 Insulin Glargine (Lantus Solostar) 100 Unit/Ml Inj, 100 UNIT SC, INJ 09/22/20 Dextrose (Glucose) Unknown Strength Chw, PO PRN 08/08/20 Insulin Lispro (Humalog Kwikpen) 100 Unit/Ml Inj, 0 SC PER SLIDING SCALE 08/08/20 Escitalopram Oxalate (Lexapro) 5 Mg Tab, 2 TAB PO DAILY 08/08/20 Atorvastatin Calcium (ATORVASTATIN CALCIUM) 40 Mg Tab, 1 TAB PO DAILY 07/29/20 Trazodone Hcl (Trazodone Hcl) 50 Mg Tab, 50 MG PO HS 07/16/20 Famotidine (Famotidine) 20 Mg Tab, 20 MG PO BID 07/16/20 Aspirin (Aspir-81) 81 Mg Tab, 1 TAB PO DAILY for prevent heart attack 07/16/20 Gabapentin (Gabapentin) 300 Mg Cap, 300 MG PO TID for 30 Days, MG 06/05/20 Discontinued Reported Medications Dulaglutide (Trulicity) 0.75 Mg/0.5 Ml Inj, 0.75 MG SC QWEEKLY 08/08/20 Information Source: Patient Mode of Arrival: Wheelchair Severity: Moderate Inability to void: Complete Timing: Days Duration: Since onset, Days Has not urinated for: Hours Prehospital treatment: None Onset: Spontaneous Symptoms: Dysuria, Inability to void History of: None Location: Suprapubic Penile discharge: None Modifying factors: None associated signs and symptoms: Abdominal Pain Past Medical History PAST MEDICAL HISTORY: CAD, CHF, CKF, DM, GERD, High Lipids, HTN, Liver, [place] Surgical History: CABG, PTCA Family History Family History: Reviewed,noncontributory to illness Social History Smoker: Non-Smoker Alcohol: Denies ETOH Use Drugs: Denies Drug Use Lives In: Home Constitutional: denies: chills, diaphoresis, fatigue, fever, malaise, sweats, weakness, others EENTM: denies: blurred vision, double vision, ear bleeding, ear discharge, ear drainage, ear pain, ear ringing, eye pain, eye redness, hearing loss, mouth pain, mouth swelling, nasal discharge, nose bleeding, nose congestion, nose pain, photophobia, tearing, throat pain, throat swelling, voice changes, others Respiratory: denies: cough, hemoptysis, orthopnea, SOB at rest, shortness of breath, SOB with excertion, stridor, wheezing, others Cardiovascular: denies: chest pain, dizzy spells, diaphoresis, Dyspnea on exe rtion, edema, irregular heart beat, left arm pain, lightheadedness, palpitations, PND, syncope, others Gastrointestinal: reports: abdominal pain; denies: abdomen distended, blood streaked bowels, constipated, diarrhea, dysphagia, difficulty swallowing, hematemesis, melena, nausea, poor appetite, poor fluid intake, rectal bleeding, rectal pain, vomiting, others Genitourinary: denies: burning, dysuria, flank pain, frequency, hematuria, incontinence, penile discharge, penile sore, pain, testicle pain, testicle swelling, urgency, others Neurological: denies: dizziness, fainting, headache, left sided numbness, left sided weakness, numbness, paresthesia, pre-existing deficit, right sided numbness, right sided weakness, seizure, speech problems, tingling, tremors, weakness, others Musculoskeletal: denies: back pain, gout, joint pain, joint swelling, muscle pain, muscle stiffness, neck pain, others Integumetry: denies: bruises, change in color, change in hair/nails, dryness, laceration, lesions, lumps, rash, wounds, others Allergic/Immunocompromised: denies: Difficulty Healing, Frequent Infections, Hives, Itching, others Hematologic/Lymphatic: denies: anemia, blood clots, easy bleeding, easy bruising, swollen glands, others Endocrine: denies: excessive hunger, excessive sweating, excessive thirst, excessive urination, flushing, intolerance to cold, intolerance to heat, unexplained weight gain, unexplained weight loss, others Psychiatric: denies: anxiety, bipolar disorder, depression, hopeless, panic disorder, schizophrenia, sleepless, suicidal, others All Other Systems: Reviewed and Negative Physical Exam General Appearance: Mild Distress HEENT: Other (No facial asymmetry) Neck: Full Range of Motion, Normal Inspection Respiratory: Decreased Breath Sounds (Left base), Other (Tachypneic) Cardiovascular: No JVD, Regular Rate/Rhythm Breast Exam: Deferred Gastrointestinal: Soft, Suprapubic, Tenderness Genitalia: Scrotum (Moderate edema) Pelvic: Deferred Rectal: Deferred Extremities: Leg edema, Normal range of motion, Non-tender, Pedal edema Neurologic: Alert (Oriented x4), Normal Affect, Normal Mood, Other (Ambulatory) Cerebellar Function: NOT DONE Reflexes: NOT DONE Skin: Dry, Normal Color, Warm Lymphatic: NOT DONE Was a procedure done? Was a procedure done?: No Differential Diagnosis Kidney stone (Female): N/A Kidney stone (Male): Bowel obstruction, Cholelithiasis, Pyelonephritis, Renal failure, Urinary obstruction, Urolithiasis, Renal infarction, Urinary tract infection Penile/Scrotal: N/A Urinary Problem (Male): Bladder Outlet, Bladder Obstruction, Epididymitis, Prostatitis, Urolithiasis, UTI Urinary Problem (Female): N/A Other Differential Diagnosis Fluid overload/CHF, among others X-Ray, Labs, Meds, VS Vital Signs Date Time Temp Pulse Resp B/P (MAP) Pulse Ox O2 Delivery O2 Flow Rate FiO2 10/01/24 18:17 98.1 83 20 149/55 95 98.1 PROCEDURE(s): CXR1 - CHEST XRAY 1 VIEW REASON: sob ORDER NUMBER(s): [id number], ACCESSION NUMBER(s): [id number] CHEST RADIOGRAPH Indication: sob Technique: Single frontal view of the chest was obtained Comparison: XY CHEST PORTABLE on DOS: 07/06/24, CT ANGIO CHEST CONTRAST on DOS: 05/10/21, CHEST TWO VIEWS ROUTINE on DOS: 05/10/21 FINDINGS: Lines and Tubes: None Lungs: Left lower lung zone opacity with obscuration of the left hemidiaphragm. Minimal blunting of the right costophrenic angle. Mild interstitial prominence. Pleura: No effusion. No pneumothorax. Cardiomediastinal contours: Borderline cardiomegaly. Midline sternotomy wires are noted. Bones: No acute osseous abnormality. IMPRESSION: Borderline cardiomegaly with pulmonary vascular congestion and trace right-sided pleural effusion. Small to moderate left-sided pleural effusion with associated atelectasis. Underlying pneumonia can not be excluded. EDURE(s): ABDC - ABDOMEN COMPLETE SONOGRAM REASON: FLUID CHECK ORDER NUMBER(s): [id number], ACCESSION NUMBER(s): [id number] ABDOMINAL ULTRASOUND CLINICAL HISTORY: FLUID CHECK TECHNIQUE: Limited grayscale ultrasound images obtained of the abdomen for fluid check. WID: COMPARISON: ABPL on DOS: 11/03/20 FINDINGS /impression: Bilateral pleural effusions. No abdominal or pelvic ascites. ATED BY: KUNAL PIPER MD X-Ray, Labs, Meds, VS Comment 49 year old male with a Hx of CHF, CKF, HTN, Hyperlipidemia, Quadruple Bypass Surgery and DM presents to the ED for the c/c of Urinary Retention w/ associated SOB,Swollen lower abdomen and scrotum, and 2x Syncopal Episodes vitals remarkable for BP 149/55 Exam remarkable for tachypnea, diminished breath sounds, lower abdominal distention and tenderness Rhythm strip independently interpreted by me: Sinus rhythm, rate 83, no ectopy. Chest x-ray IMPRESSION: Borderline cardiomegaly with pulmonary vascular congestion and trace right-sided pleural effusion. Small to moderate left-sided pleural effusion with associated atelectasis. Underlying pneumonia can not be excluded. CBC unremarkable, metabolic panel remarkable for sodium 130, potassium 5.2, CO2 16, BUN 48, creatinine 1.82, glucose 151. Two serial troponins negative. BNP 802.07 Patient treated with the following in the ED: Bumex 1 mg IV b.i.d., morphine 2 mg IV prn, Nitrostat 0.4 mg sublingual prn, ordered by Dr. Espinal. Lokelma 10 g p.o., regular insulin 10 units IV, D50 1 amp IV, sodium bicarb 50 mEq IV, calcium gluconate 1 g IV, albuterol 5 mg nebulized Gonzalez catheter was inserted with adequate urine output and relief of lower ab dominal discomfort. Case was discussed with Dr. Espinal, who will admit the patient. Time of 1ST Reevaluation: 19:32 Reevaluation 1ST: Unchanged Patient Education/Counseling: Diagnosis, Treatment, Need For Follow Up Family Education/Counseling: No Family Present SEPSIS Sepsis Screen Date sepsis recognized/suspect: Oct 01, 2024 Time Sepsis recognized/suspect: 1816 Recent Procedure: No On Antibiotic Therapy: No Respiratory Rate >20: No Heart Rate >90: No Temp<36 C (96.8 F) or >38.3 C: No SBP <90 or MAP <65 mmHG: No New Acute Mental Status Change: No Is the patient on CPAP, BIPAP,: No Physician Orders Gonzalez Catheters (10/01/24 ) Chest Xray 1 View (10/01/24 18:40) Electrocardigram (10/01/24 18:40) Vital Signs Date Time Temp Pulse Resp B/P (MAP) Pulse Ox O2 Delivery O2 Flow Rate FiO2 10/01/24 18:17 98.1 83 20 149/55 95 98.1 Departure 1 Departure Time of Disposition: 21:10 Impression: Primary Impression: CHF exacerbation Additional Impressions: Acute kidney injury Electrolyte imbalance Urinary retention Pleural effusion Disposition: ADMITTED INPATIENT Admit to: Tele Condition: Guarded Critical Care Note Critical Care Time?: Yes (35 min-critical care time only) Critical care comment: Critical care time including multiple bedside re-evaluations, review of lab and imaging studies, and discussion of the case with the admitting provider. Patient is high risk for hemodynamic and/or metabolic decompensation. Stability Stability form required: No Heart Score Heart Score: Heart Score Response (Comments) Value History N/A 0 EKG N/A 0 Age N/A 0 Risk Factors N/A 0 Troponin N/A 0 Total 0 I personally scribed for CRISSY MCCORMICK MD ([email or web address]) on 10/01/24 at 19:06. Electronically submitted by Cordell Adan ([email or web address]). CRISSY MCCORMICK MD Oct 01, 2024 19:06
--- NOTE | 2024-10-01 19:18 | DVH ---
ABDOMINAL ULTRASOUND CLINICAL HISTORY: FLUID CHECK TECHNIQUE: Limited grayscale ultrasound images obtained of the abdomen for fluid check. WID: COMPARISON: ABPL on DOS: 11/03/20 FINDINGS /impression: Bilateral pleural effusions. No abdominal or pelvic ascites.
--- NOTE | 2024-10-01 19:25 | DVH ---
CHEST RADIOGRAPH Indication: sob Technique: Single frontal view of the chest was obtained Comparison: XY CHEST PORTABLE on DOS: 07/06/24, CT ANGIO CHEST CONTRAST on DOS: 05/10/21, CHEST TWO VIEW S ROUTINE on DOS: 05/10/21 FINDINGS: Lines and Tubes: None Lungs: Left lower lung zone opacity with obscuration of the left hemidiaphragm. Minimal blunting of the right costophrenic angle. Mild interstitial prominence. Pleura: No effusion. No pneumothorax. Cardiomediastinal contours: Borderline cardiomegaly. Midline sternotomy wires are noted. Bones: No acute osseous abnormality. IMPRESSION: Borderline cardiomegaly with pulmonary vascular congestion and trace right-sided pleural effusion. Small to moderate left-sided pleural effusion with associated atelectasis. Underlying pneumonia can not be excluded.
[2024-10-01 19:26] LABS: Hematocrit 39.9 % (41.0-53.0); Hemoglobin 13.4 g/dL (13.5-17.5); Mean Corpuscular Hemoglobin 27.7 pg (28.0-32.0); Mean Corpuscular Volume 82.2 fL (80.0-100.0); Nucleated Red Blood Cells % 0.1 %
[2024-10-01 19:30] LABS: Chloride 105 mmol/L (98-107)
[2024-10-01 19:31] LABS: Anion Gap 9 (5-15)
[2024-10-01 19:36] LABS: Calcium 8.2 mg/dL (8.7-10.4); Carbon Dioxide 16 mmol/L (20-31); Potassium 5.2 mmol/L (3.5-5.1); Sodium 130 mmol/L (136-145)
[2024-10-01 19:37] LABS: BUN/Creatinine Ratio 26.4 (10.0-20.0); Blood Urea Nitrogen 48 mg/dL (9-23); Glucose 151 mg/dL (74-106)
[2024-10-01] MEDS: ALBUTEROL SULF 2.5 MG/0.5ML(0.5%) NEB SOLN NEB ONE (21:15)
[2024-10-01] MEDS: MORPHINE SULFATE INJ 2 MG/ml SYRG IV PRN (21:33)
[2024-10-01] MEDS: SODIUM ZIRCONIUM CYCL 10 GM PAK PO ONE (22:15)
[2024-10-02] MEDS: DEXTROSE (50%) 50ML SYRG IV ONE (02:38)
[2024-10-02] MEDS: CALCIUM GLUC 1,000mg/50ml-NS 50 ML IV ONE (02:38)
[2024-10-02] MEDS: SODIUM BICARB 8.4% 50Meq/50ml SYR Vial IV ONE (02:38)
[2024-10-02] MEDS: InsuLIN REG 1unit/0.01ml Soln (100units/ml) IV ONE (02:40)
[2024-10-02 04:41] LABS: Hematocrit 42.2 % (41.0-53.0); Hemoglobin 14.0 g/dL (13.5-17.5); Mean Corpuscular Hemoglobin 27.9 pg (28.0-32.0); Mean Corpuscular Volume 84.1 fL (80.0-100.0); Nucleated Red Blood Cells % 0.2 %
[2024-10-02 04:50] LABS: Alanine Aminotransferase 33 U/L (7-40); Albumin 3.2 g/dL (3.2-4.8); Anion Gap 10 (5-15); BUN/Creatinine Ratio 22.5 (10.0-20.0); Calcium 8.8 mg/dL (8.7-10.4); Chloride 106 mmol/L (98-107); Potassium 4.2 mmol/L (3.5-5.1); Total Protein 5.8 g/dL (5.7-8.2)
[2024-10-02 04:51] LABS: Bilirubin, Total 1.1 mg/dL (0.2-1.0)
[2024-10-02 04:53] LABS: Alkaline Phosphatase 377 U/L (46-116); Blood Urea Nitrogen 41 mg/dL (9-23); Carbon Dioxide 18 mmol/L (20-31); Glucose 55 mg/dL (74-106); Sodium 134 mmol/L (136-145)
[2024-10-02] MEDS: BUMETANIDE 1mg/4ml VIAL (0.25mg/ml) IV SCH (05:20)
--- NOTE | 2024-10-02 07:04 | DVHHP2 ---
History of Present Illness History of Present Illness a 49-year-old male with a history of CHF, CKD, hypertension, hyperlipidemia, and diabetes, presents to the emergency room with bilateral lower extremity swelling, abdominal distension, and scrotal swelling for the past 2 days. The patient was recently discharged from [facility] for hyperammonemia related to cirrhosis. Review of Systems Respiratory: Cough, Shortness of breath Cardiovascular: No: Chest Pain, Palpitations, Orthopnea, Paroxysmal Noc. Dyspnea, Edema, Lt Headedness, Other Gastrointestinal: No: Nausea, Vomiting, Abdominal Pain, Diarrhea, Constipation, Melena, Hematochezia, Other Allergies: Coded Allergies: Penicillins (Verified Allergy, Intermediate, RASH, 07/06/24) Medications Current Medications Medications Dose Ordered Sig/Aubrie Route Start Time Stop Time Status Last Admin Dose Admin Morphine Sulfate 2 mg Q4HPRN PRN IV 10/01/24 18:45 10/02/24 02:46 2 MG Nitroglycerin 0.4 mg Q5MINP PRN SL 10/01/24 18:45 Morphine Sulfate 2 mg Q30M PRN IV 10/01/24 18:45 Bumetanide 1 mg BIDD IV 10/02/24 06:00 10/02/24 05:20 1 MG Clopidogrel Bisulfate 75 mg DAILY PO 10/02/24 10:00 UNV Famotidine 20 mg BID PO 10/02/24 10:00 UNV Tamsulosin HCl 0.4 mg DAILY PO 10/02/24 10:00 UNV Rifaximin 550 mg BID PO 10/02/24 10:00 UNV Lactulose 30 ml Q2HR PO 10/02/24 08:00 UNV Doxycycline Monohydrate 100 mg Q12HR PO 10/02/24 10:00 UNV Cefpodoxime Proxetil 200 mg BID PO 10/02/24 10:00 UNV Spironolactone 25 mg DAILY PO 10/02/24 10:00 UNV Atorvastatin Calcium 80 mg HS PO 10/02/24 22:00 UNV Exam Vital Signs Vital Signs Date Time Temp Pulse Resp B/P (MAP) Pulse Ox O2 Delivery O2 Flow Rate FiO2 10/02/24 06:00 92 15 127/83 (98) 95 10/02/24 04:00 97.8 97.8 10/02/24 02:30 Room Air* 0 21 General Appearance: Alert, Oriented X3, Cooperative, No acute distress Respiratory: Other (Diminished in upper anterior lobes) Cardiovascular: Regular rate, Normal S1 Abdominal: Normal bowel sounds, Soft, Other (Abdominal distention) Extremities: No clubbing, No cyanosis Skin: No rashes Labs/Xrays Labs Test 10/02/24 04:08 10/01/24 21:37 10/01/24 18:49 Range/Units White Blood Count 12.6 #H 4.4-10.8 10^3/uL Red Blood Count 5.02 4.5-5.90 10^6/uL Hemoglobin 14.0 13.5-17.5 g/dL Hematocrit 42.2 41.0-53.0 % Mean Corpuscular Volume 84.1 80.0-100.0 fL Mean Corpuscular Hemoglobin 27.9 L 28.0-32.0 pg Mean Corpuscular Hemoglobin Concent 33.2 32.0-36.0 g/dL Red Cell Distribution Width 15.5 H 11.8-14.3 % Platelet Count 262 140-450 10^3/uL Mean Platelet Volume 8.5 6.9-10.8 fL Neutrophils (%) (Auto) 65.9 37.0-80.0 % Lymphocytes (%) (Auto) 15.9 10.0-50.0 % Monocytes (%) (Auto) 15.4 H 0.0-12.0 % Eosinophils (%) (Auto) 2.1 0.0-7.0 % Basophils (%) (Auto) 0.7 0.0-2.0 % Neutrophils # (Auto) 8.3 1.6-8.6 10 ^3/uL Lymphocytes # (Auto) 2.0 0.4-5.4 10 ^3/uL Monocytes # (Auto) 1.9 H 0-1.3 10 ^3/uL Eosinophils # (Auto) 0.3 0-0.8 10 ^3/uL Basophils # (Auto) 0.1 0-0.2 10 ^3/uL Nucleated Red Blood Cells 0.2 % Sodium Level 134 L 136-145 mmol/L Potassium Level 4.2 3.5-5.1 mmol/L Chloride Level 106 98-107 mmol/L Carbon Dioxide Level 18 L 20-31 mmol/L Anion Gap 10 5-15 Blood Urea Nitrogen 41 H 9-23 mg/dL Creatinine 1.82 H 0.700-1.30 mg/dL Glomerular Filtration Rate Calc 45 >90 mL/min BUN/Creatinine Ratio 22.5 H 10.0-20.0 Serum Glucose 55 L 74-106 mg/dL Calcium Level 8.8 8.7-10.4 mg/dL Total Bilirubin 1.1 H 0.2-1.0 mg/dL Aspartate Amino Transferase (AST) 86 H 13-40 U/L Alanine Aminotransferase (ALT) 33 7-40 U/L Alkaline Phosphatase 377 H 46-116 U/L Total Protein 5.8 5.7-8.2 g/dL Albumin 3.2 3.2-4.8 g/dL Troponin I High Sensitivity 42 </=54 ng/L B-Type Natriuretic Peptide 802.07 0-100 pg/mL SEPSIS Sepsis Screen Date sepsis recognized/suspect: Oct 02, 2024 Time Sepsis recognized/suspect: 229 Recent Procedure: No On Antibiotic Therapy: No Respiratory Rate >20: No Heart Rate >90: No Temp<36 C (96.8 F) or >38.3 C: No SBP <90 or MAP <65 mmHG: No New Acute Mental Status Change: No Is the patient on CPAP, BIPAP,: No Physician Orders Mrsa Screen (10/02/24 02:43) *Dr. Berta Alvares -Da Pau (10/02/24 06:55) Clopidogrel Bisulfate (Plavix) (10/02/24 10:00) Famotidine Tablet (Pepcid Tablet) (10/02/24 10:00) Tamsulosin Hydrochloride (Flomax) (10/02/24 10:00) Rifaximin (Xifaxan) (10/02/24 10:00) Lactulose Oral (10/02/24 08:00) Doxycycline Tablet (Vibramycin Tablet) (10/02/24 10:00) Cefpodoxime Proxetil (Vantin) (10/02/24 10:00) Spironolactone (Aldactone) (10/02/24 10:00) Atorvastatin (Lipitor) (10/02/24 22:00) Hemoglobin A1c (10/02/24 07:01) Ammonia (10/02/24 07:01) *Consult / (10/02/24 07:02) Glucose Blood (Accu-Chek Comfort Curve T (10/02/24 11:30) Mild Sliding Scale (10/02/24 11:30) Dextrose 50% Syringe (10/02/24 07:15) Vital Signs Date Time Temp Pulse Resp B/P (MAP) Pulse Ox O2 Delivery O2 Flow Rate FiO2 10/02/24 06:00 92 15 127/83 (98) 95 10/02/24 05:20 134/83 10/02/24 04:00 97.8 102 20 156/93 (114) 96 97.8 10/02/24 04:00 102 10/02/24 03:16 96 20 145/94 10/02/24 02:46 90 20 152/98 10/02/24 02:30 Room Air* 0 21 10/02/24 02:28 97.5 94 20 142/83 (102) 98 97.5 10/02/24 01:33 92 10/02/24 00:00 88 Laboratory Tests Test 10/02/24 04:08 White Blood Count 12.6 10^3/uL (4.4-10.8) #H Medications Medications Dose Ordered Sig/Aubrie Route Start Time Stop Time Status Last Admin Dose Admin Albuterol 5 mg ONCE ONCE NEB 10/01/24 21:15 10/01/24 22:30 DC 10/01/24 21:15 5 MG Bumetanide 1 mg BIDD IV 10/02/24 06:00 10/02/24 05:20 1 MG Calcium Gluconate/ Sodium Chloride 50 ml @ 100 mls/hr ONCE ONCE IV 10/01/24 21:15 10/01/24 22:30 DC 10/02/24 02:38 100 MLS/HR Dextrose 50 ml ONCE ONCE IV 10/01/24 21:15 10/01/24 22:30 DC 10/02/24 02:38 50 ML Insulin Human Regular 10 units ONCE ONCE IV 10/01/24 21:15 10/01/24 22:30 DC 10/02/24 02:40 10 UNITS Sodium Bicarbonate 50 ml ONCE ONCE IV 10/01/24 21:15 10/01/24 22:30 DC 10/02/24 02:38 50 ML Zirconium Oxide 10 gm ONCE ONCE PO 10/01/24 21:15 10/01/24 22:30 DC 10/01/24 22:15 10 GM Assessment/Plan Assessment/Plan 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 Plan: - Avoid nephrotoxic medications - Consult nephrology Acute on chronic combined systolic and diastolic heart failure Plan: - Bumetanide 1 mg BID - Fluid restriction to 1000 mL daily - Consult cardiology Diabetic left foot ulcer Plan: - Consult podiatry - Initiate antibiotics (specifics not provided) Hypertension Plan: - Continue home medications Type 2 Diabetes Mellitus Assessment: Patient has a history of diabetes mellitus, which requires ongoing management. Plan: - Implement insulin sliding scale Pleural Effusion Assessment: Patient has pleural effusion, which may be related to the heart failure exacerbation or other underlying conditions. Plan: - Perform thoracentesis as needed - Consult pulmonology Hyperlipidemia Monitor History of CABG Hyperkalemia Plan: Hyperkalemia cocktail Plan discussed with: Patient My Orders Orders - FABIO BARNEY Procedure Category Date Status Time *Dr. Berta Alvares -Da CONS 10/02/24 Transmitted Pau 06:55 Clopidogrel Bisulfate PHA 10/02/24 Logged (Plavix) 10:00 Famotidine Tablet PHA 10/02/24 Logged (Pepcid Tablet) 10:00 Tamsulosin PHA 10/02/24 Logged Hydrochloride (Flomax) 10:00 Rifaximin (Xifaxan) PHA 10/02/24 Logged 10:00 Lactulose Oral PHA 10/02/24 Logged 08:00 Doxycycline Tablet PHA 10/02/24 Logged (Vibramycin Tablet) 10:00 Cefpodoxime Proxetil PHA 10/02/24 Logged (Vantin) 10:00 Spironolactone PHA 10/02/24 Logged (Aldactone) 10:00 Atorvastatin (Lipitor) PHA 10/02/24 Logged 22:00 Hemoglobin A1c LAB 10/02/24 Logged 07:01 Ammonia LAB 10/02/24 Logged 07:01 *Consult CONS 10/02/24 Transmitted / 07:02 Glucose Blood PHA 10/02/24 Transmitted (Accu-Chek Comfort 11:30 Mild Sliding Scale PHA 10/02/24 Verified 11:30 Dextrose 50% Syringe PHA 10/02/24 Transmitted 07:15 Date of Service: Oct 01, 2024 Billing Provider: ROSSY MORALES MD Common Visit Codes: [id number] INP/OBS CARE (MOD) FABIO BARNEY RN RADIATION ONCOLOGY Oct 02, 2024 07:04
[2024-10-02] MEDS ORDERED: DEXTROSE (50%) 50ML SYRG IV PRN (07:15)
[2024-10-02 07:50] VITALS: PULSE 97; RESP 17; O2SAT 99
[2024-10-02 08:08] LABS: Urine Protein, UAD Negative (Negative)
[2024-10-02] MEDS: FAMOTIDINE 20 MG TAB PO SCH (09:49)
[2024-10-02] MEDS: LACTULOSE 20Gm/30ML SOLN PO SCH ×2 (09:49→21:10)
[2024-10-02] MEDS: DOXYCYCLINE 100 MG TAB/CAP PO SCH (09:49)
[2024-10-02] MEDS: TAMSULOSIN HYDROCHLORIDE 0.4 MG CAP PO SCH (09:49)
[2024-10-02] MEDS: CLOPIDOGREL BISULFATE 75 MG TAB PO SCH (09:50)
[2024-10-02] MEDS: SPIRONOLACTONE 25 MG TAB PO SCH (09:50)
[2024-10-02] MEDS ORDERED: hydrALAZINE HCL 20 MG/ML VL IV PRN (10:30)
[2024-10-02] MEDS: CEFPODOXIME PROXETIL 200 MG TAB PO SCH (10:47)
--- NOTE | 2024-10-02 10:47 | DVHINCON2 ---
Date of service: Oct 02, 2024 Referring Physician Jose C Trotter NP Reason for Consultation Elevated creatinine History of Present Illness This is a 41-year-old male with history of Chronic kidney disease stage IIIA, type 2 diabetes, hypertension, coronary artery disease status post CABG in 2020, peripheral vascular disease, hyperlipidemia, history of liver cirrhosis presenting to the emergency room because of abdominal distention along with edema to bilateral lower extremities. Patient also giving history of scrotal edema and difficulty voiding. He says he is on diuretics at home but is unsure of the name and feels that his diuretics are not working at this time. Patient was admitted to this facility in July because of nonhealing wound to his left foot. Continues to have the wound on the left foot. Chest x-ray done on admission showing evidence of bilateral pleural effusions. Nephrology has been consulted because of an elevated creatinine of 1.8. His baseline creatinine has ranged from 1.4-1.6. His last hemoglobin A1c was 7.8. Patient seen and examined in the emergency room. Past Medical History As stated above Past Surgical History As stated above Family History: Cardiovascular disease G8 FATHER Diabetes mellitus G8 MOTHER Family History Noncontributory Social History Patient is an ex-smoker. Allergies: Coded Allergies: Penicillins (Verified Allergy, Intermediate, RASH, 07/06/24) Home Meds Active Scripts Tamsulosin Hcl (Flomax) 0.4 Mg Cap, 1 CAP PO DAILY for 30 Days, #30 CAP 11 Refills Prov:JOSE C BARNEY 07/10/24 Naloxone HCl (Narcan) 4 Mg/0.1 Ml Spr, 4 MG NA ONCE, #1 SPRAY Prov:JOSE C BARNEY 07/10/24 Hydrocodone-Acetaminophen (Hydrocodone Bitartrate/AC 10-325 mg) 1 Tab Tab, 1 TAB PO Q8HP PRN for 7 Days, #21 TAB Prov:JOSE C BARNEY 07/10/24 Clopidogrel Bisulfate (CLOPIDOGREL) 75 Mg Tab, 75 MG PO DAILY for 30 Days, #30 TAB Prov:JOSE C BARNEY 07/10/24 Carvedilol (Coreg) 6.25 Mg Tab, 1 TAB PO BID, #60 TAB Prov:TEX CHARLES MD 08/10/20 Ramipril (Altace) 10 Mg Cp, 10 MG PO DAILY for 30 Days, #30 CAP Prov:TEX CHARLES MD 08/10/20 Mupirocin Calcium (Topical) (MUPIROCIN) 2 % Cre, 2 % EX BID for 5 Days, #1 CRE 1 application each nostril twice a day for 5 days Prov:TEX CHARLES MD 08/10/20 Pantoprazole Sodium Sesquihydr (Protonix) 40 Mg Tab, 40 MG PO BID for 30 Days, #60 TAB Prov:TEX CHARLES MD 08/10/20 Sucralfate (Sucralfate) 1 Gm Tab, 1 GM PO QIDACHS for 30 Days, #120 TAB Prov:TEX CHARLES MD 08/10/20 Furosemide (Lasix) 20 Mg Tb, 1 TAB PO BID for 30 Days, #60 TAB Prov:TEX CHARLES MD 08/10/20 Reported Medications Omeprazole (Gnp Omeprazole) 20 Mg Tab, 20 MG PO DAILY, TAB 09/22/20 Insulin Glargine (Lantus Solostar) 100 Unit/Ml Inj, 100 UNIT SC, INJ 09/22/20 Dextrose (Glucose) Unknown Strength Chw, PO PRN 08/08/20 Dulaglutide (Trulicity) 0.75 Mg/0.5 Ml Inj, 0.75 MG SC QWEEKLY 08/08/20 Insulin Lispro (Humalog Kwikpen) 100 Unit/Ml Inj, 0 SC PER SLIDING SCALE 08/08/20 Escitalopram Oxalate (Lexapro) 5 Mg Tab, 2 TAB PO DAILY 08/08/20 Atorvastatin Calcium (ATORVASTATIN CALCIUM) 40 Mg Tab, 1 TAB PO DAILY 07/29/20 Trazodone Hcl (Trazodone Hcl) 50 Mg Tab, 50 MG PO HS 07/16/20 Famotidine (Famotidine) 20 Mg Tab, 20 MG PO BID 07/16/20 Aspirin (Aspir-81) 81 Mg Tab, 1 TAB PO DAILY 07/16/20 Gabapentin (Gabapentin) 300 Mg Cap, 300 MG PO TID for 30 Days, MG 06/05/20 Current Medications Current Medications Medications (Trade) Dose Ordered Sig/Aubrie Route PRN Reason Start Time Stop Time Status Last Admin Morphine Sulfate 2 mg Q4HPRN PRN IV SEVERE PAIN (7-10 PAIN SCALE) 10/01/24 18:45 10/02/24 08:37 Nitroglycerin (Ntrostat Sublingual) 0.4 mg Q5MINP PRN SL FOR CHEST PAIN 10/01/24 18:45 Morphine Sulfate 2 mg Q30M PRN IV FOR CHEST PAIN 10/01/24 18:45 Bumetanide (Bumex Injection) 1 mg BIDD IV 10/02/24 06:00 10/02/24 05:20 Clopidogrel Bisulfate (Plavix) 75 mg DAILY PO 10/02/24 10:00 10/02/24 09:50 Famotidine (Pepcid Tablet) 20 mg BID PO 10/02/24 10:00 10/02/24 09:49 Tamsulosin HCl (Flomax) 0.4 mg DAILY PO 10/02/24 10:00 10/02/24 09:49 Rifaximin (Xifaxan) 550 mg BID PO 10/02/24 10:00 10/02/24 09:49 Lactulose 30 ml Q2HR PO 10/02/24 08:00 10/02/24 09:59 DC 10/02/24 09:49 Doxycycline Monohydrate (Vibramycin Tablet) 100 mg Q12HR PO 10/02/24 10:00 10/02/24 09:49 Cefpodoxime Proxetil (Vantin) 200 mg BID PO 10/02/24 10:00 Spironolactone (Aldactone) 25 mg DAILY PO 10/02/24 10:00 10/02/24 09:50 Atorvastatin Calcium (Lipitor) 80 mg HS PO 10/02/24 22:00 Diagnostic Test (Pha) (Accu-Chek Comfort Curve T) 1 strip ACHS 10/02/24 11:30 Insulin Human Regular (InsuLIN R) ACHS SC 10/02/24 11:30 Dextrose 50 ml UD PRN IV Blood Sugar LESS THAN 60 10/02/24 07:15 Lactulose 30 ml BID PO 10/02/24 22:00 Carvedilol (Coreg Tablet) 6.25 mg Q12HR PO 10/02/24 22:00 UNV Hydralazine HCl (Apresoline Injection) 10 mg Q4HR PRN IV SBP>150 10/02/24 10:30 UNV Albumin Human 50 ml @ 100 mls/hr Q8H IV 10/02/24 10:30 10/03/24 02:59 UNV Review of Systems Twelve point review of system negative except as stated in the HPI Vital Signs Vital Signs Date Time Temp Pulse Resp B/P (MAP) Pulse Ox O2 Delivery O2 Flow Rate FiO2 10/02/24 09:27 90 13 142/102 10/02/24 07:50 97.2 99 97.2 10/02/24 07:50 Nasal Cannula* 2 28 Physical Exam Alert awake oriented x3 HEENT: Normocephalic. Blind in the right eye. Lungs: Bibasilar rales CVS: S1, S2 regular rate rhythm Abdomen: Distended [employer]: No focal deficits Extremities: He has bilateral lower extremity edema extending up to the thigh with nonhealing wound on his left foot. Labs/Diagnostic Data Labs Test 10/02/24 07:54 10/02/24 07:37 10/02/24 04:08 10/01/24 21:37 Range/Units Urine Color Light-yellow Yellow Urine Clarity Clear Clear Urine pH 5.0 5.0-9.0 Urine Specific Bruner 1.008 1.001-1.035 Urine Protein Negative Negative Urine Ketones Negative Negative Urine Blood 3+ H Negative /uL Urine Nitrite Negative Negative Urine Bilirubin Negative Negative Urine Urobilinogen Normal Negative mg/dL Urine Leukocyte Esterase Trace Negative /uL Urine RBC 61 0 - 3 /hpf Urine Microscopic WBC 4 H 0-3 /HPF Urine Squamous Epithelial Cells None seen <5 /hpf Urine Bacteria None seen None Seen /hpf Urine Glucose Normal Normal mg/dL Ammonia 83 H 11-32 umol/L White Blood Count 12.6 #H 4.4-10.8 10^3/uL Red Blood Count 5.02 4.5-5.90 10^6/uL Hemoglobin 14.0 13.5-17.5 g/dL Hematocrit 42.2 41.0-53.0 % Mean Corpuscular Volume 84.1 80.0-100.0 fL Mean Corpuscular Hemoglobin 27.9 L 28.0-32.0 pg Mean Corpuscular Hemoglobin Concent 33.2 32.0-36.0 g/dL Red Cell Distribution Width 15.5 H 11.8-14.3 % Platelet Count 262 140-450 10^3/uL Mean Platelet Volume 8.5 6.9-10.8 fL Neutrophils (%) (Auto) 65.9 37.0-80.0 % Lymphocytes (%) (Auto) 15.9 10.0-50.0 % Monocytes (%) (Auto) 15.4 H 0.0-12.0 % Eosinophils (%) (Auto) 2.1 0.0-7.0 % Basophils (%) (Auto) 0.7 0.0-2.0 % Neutrophils # (Auto) 8.3 1.6-8.6 10 ^3/uL Lymphocytes # (Auto) 2.0 0.4-5.4 10 ^3/uL Monocytes # (Auto) 1.9 H 0-1.3 10 ^3/uL Eosinophils # (Auto) 0.3 0-0.8 10 ^3/uL Basophils # (Auto) 0.1 0-0.2 10 ^3/uL Nucleated Red Blood Cells 0.2 % Sodium Level 134 L 136-145 mmol/L Potassium Level 4.2 3.5-5.1 mmol/L Chloride Level 106 98-107 mmol/L Carbon Dioxide Level 18 L 20-31 mmol/L Anion Gap 10 5-15 Blood Urea Nitrogen 41 H 9-23 mg/dL Creatinine 1.82 H 0.700-1.30 mg/dL Glomerular Filtration Rate Calc 45 >90 mL/min BUN/Creatinine Ratio 22.5 H 10.0-20.0 Serum Glucose 55 L 74-106 mg/dL Hemoglobin A1c 7.8 H <5.7 % A1C Calcium Level 8.8 8.7-10.4 mg/dL Total Bilirubin 1.1 H 0.2-1.0 mg/dL Aspartate Amino Transferase (AST) 86 H 13-40 U/L Alanine Aminotransferase (ALT) 33 7-40 U/L Alkaline Phosphatase 377 H 46-116 U/L Total Protein 5.8 5.7-8.2 g/dL Albumin 3.2 3.2-4.8 g/dL Troponin I High Sensitivity 42 </=54 ng/L Test 10/01/24 18:49 Range/Units B-Type Natriuretic Peptide 802.07 0-100 pg/mL Assessment Acute kidney injury superimposed on Chronic kidney disease stage IIIA Anasarca Urinary retention Type 2 diabetes with its complications History of CAD status post CABG Hypertension Hyperlipidemia Peripheral vascular disease Liver cirrhosis Plan/Recommendation Continue with Bumex 2 mg IV b.i.d.. Gonzalez catheter has been placed. Strict I's and O's. Thoracentesis as per Pulmonary Repeat UA with micro and UPCR Check renal ultrasound Labs in a.m. Plan discussed with: Patient ANGELINE KENYON MD Oct 02, 2024 10:47
--- NOTE | 2024-10-02 10:52 | DVHPN2 ---
Progress Note Date Seen: Oct 02, 2024 Medical Necessity Reason Pt with a Central, PICC or Fol: No Subjective Review of Systems: CVS:Normal, RESPIRATORY:Abnormal (Short of breath), GI:Normal, :Normal, NEURO:Normal Objective vital signs Vital Sign Date Time Temp Pulse Resp B/P (MAP) Pulse Ox O2 Delivery O2 Flow Rate FiO2 10/02/24 09:27 90 13 142/102 10/02/24 07:50 97.2 99 97.2 10/02/24 07:50 Nasal Cannula* 2 28 Total Intake and Output 10/01/24 10/01/24 10/02/24 15:00 23:00 07:00 Intake Total 0 ml Output Total 900 ml Balance -900 ml medications Current Medications Medications Dose Ordered Sig/Aubrie Route Start Time Stop Time Status Last Admin Dose Admin Morphine Sulfate 2 mg Q4HPRN PRN IV 10/01/24 18:45 10/02/24 08:37 2 MG Nitroglycerin 0.4 mg Q5MINP PRN SL 10/01/24 18:45 Morphine Sulfate 2 mg Q30M PRN IV 10/01/24 18:45 Bumetanide 1 mg BIDD IV 10/02/24 06:00 10/02/24 05:20 1 MG Clopidogrel Bisulfate 75 mg DAILY PO 10/02/24 10:00 10/02/24 09:50 75 MG Famotidine 20 mg BID PO 10/02/24 10:00 10/02/24 09:49 20 MG Tamsulosin HCl 0.4 mg DAILY PO 10/02/24 10:00 10/02/24 09:49 0.4 MG Rifaximin 550 mg BID PO 10/02/24 10:00 10/02/24 09:49 550 MG Doxycycline Monohydrate 100 mg Q12HR PO 10/02/24 10:00 10/02/24 09:49 100 MG Cefpodoxime Proxetil 200 mg BID PO 10/02/24 10:00 Spironolactone 25 mg DAILY PO 10/02/24 10:00 10/02/24 09:50 25 MG Atorvastatin Calcium 80 mg HS PO 10/02/24 22:00 Diagnostic Test (Pha) 1 strip ACHS 10/02/24 11:30 Insulin Human Regular ACHS SC 10/02/24 11:30 Dextrose 50 ml UD PRN IV 10/02/24 07:15 Lactulose 30 ml BID PO 10/02/24 22:00 Carvedilol 6.25 mg Q12HR PO 10/02/24 22:00 Hydralazine HCl 10 mg Q4HR PRN IV 10/02/24 10:30 Albumin Human 50 ml @ 100 mls/hr Q8H IV 10/02/24 10:30 10/03/24 02:59 Examination: GENERAL:Normal, LUNGS:Normal, CVS:Normal, ABDOMEN:Normal, SKIN:Normal, NEURO:Normal laboratory and microbiology Laboratory Tests 10/02/24 04:08 Test 10/02/24 04:08 Range/Units Serum Glucose 55 L 74-106 mg/dL Labs and/or images reviewed: Labs reviewed by me, Image(s) reviewed by me Problem List/Assessment/Plan Problem List/Assessment/Plan 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 Plan: - Avoid nephrotoxic medications - Consult nephrology Acute on chronic combined systolic and diastolic heart failure Plan: - Bumetanide 1 mg BID - Fluid restriction to 1000 mL daily - Consult cardiology Diabetic left foot ulcer Plan: - Consult podiatry - Initiate antibiotic Hypertension Plan: - Continue home medications Type 2 Diabetes Mellitus Assessment: Patient has a history of diabetes mellitus, which requires ongoing management. Plan: - Implement insulin sliding scale Pleural Effusion Assessment: Patient has pleural effusion, which may be related to the heart failure exacerbation or other underlying conditions. Plan: - Perform thoracentesis as needed - Consult pulmonology Hyperlipidemia Plan: -Monitor History of CABG Plan; -cardiology consult Hyperkalemia Plan: -Hyperkalemia cocktail Subjective: Awake and alert Objective: Patient was admitted for acute on chronic combined systolic and diastolic heart failure. Patient was placed on IV Bumex at 1 mg b.i.d. patient has underlying history of liver cirrhosis ammonia is currently at 81, we will resume rifaximin and lactulose. Patient has chronic left foot diabetic ulcer and sees Dr. Sutton as outpatient. Patient has necessitated may need thoracentesis, chest ultrasound is showing moderate pleural effusion we will discuss case with pulmonology for possible thoracentesis. Plan: Nephrology consult, IV Bumex, 1000 mL fluid restriction, thoracentesis p.r.n., IV albumin, insulin sliding scale, cardiology consult Plan discussed with: Patient My Orders My Orders Orders - FABIO BARNEY Procedure Category Date Status Time *Dr. Berta Nunez CONS 10/02/24 Transmitted Pau 06:55 Clopidogrel Bisulfate PHA 10/02/24 In Process (Plavix) 10:00 Famotidine Tablet PHA 10/02/24 In Process (Pepcid Tablet) 10:00 Tamsulosin PHA 10/02/24 In Process Hydrochloride (Flomax) 10:00 Rifaximin (Xifaxan) PHA 10/02/24 In Process 10:00 Doxycycline Tablet PHA 10/02/24 In Process (Vibramycin Tablet) 10:00 Cefpodoxime Proxetil PHA 10/02/24 In Process (Vantin) 10:00 Spironolactone PHA 10/02/24 In Process (Aldactone) 10:00 Atorvastatin (Lipitor) PHA 10/02/24 In Process 22:00 *Consult CONS 10/02/24 Transmitted / 07:02 Glucose Blood PHA 10/02/24 In Process (Accu-Chek Comfort 11:30 Insulin R (Human) PHA 10/02/24 In Process (Insulin R) 11:30 Dextrose 50% Syringe PHA 10/02/24 In Process 07:15 Consistent DIET 10/02/24 Transmitted Carb(Ccho)Diabetes Breakfast Maintain Fluid DOV 10/02/24 In Process Restrictions 09:56 Lactulose Oral PHA 10/02/24 In Process 22:00 Echo 2d Mode Cardiac US 10/02/24 Logged DOP 10:21 Carvedilol Tablet PHA 10/02/24 In Process (Coreg Tablet) 22:00 Hydralazine Injection PHA 10/02/24 In Process (Apresoline Inject 10:30 Albumin 25% (Albutein) PHA 10/02/24 Logged 10:30 Date of Service: Oct 02, 2024 Billing Provider: ROSSY MORALES MD Common Visit Codes: [id number] INP/OBS CARE (MOD) FABIO BARNEY Oct 02, 2024 10:52
[2024-10-02] MEDS: CARVEDILOL 3.125 MG TAB PO ONE (11:00)
[2024-10-02] MEDS: ALBUMIN 25% 50 ML IV SCH (11:02)
[2024-10-02 11:18] LABS: Protein, Urine 23.8 mg/dL (1-14)
--- NOTE | 2024-10-02 11:27 | DVH ---
EXAM DESCRIPTION: RENAL ULTRASOUND CLINICAL HISTORY: elevated BUN/Cr and urinary retention COMPARISON: None. TECHNIQUE: Multiplanar ultrasound examination of the kidneys and urinary bladder was performed. FINDINGS: The right kidney measures 9.5 cm. No renal calculus. No hydronephrosis.. No solid renal masses. The left kidney measures 7.7 cm. No renal calculus. No hydronephrosis.. No solid renal masses. Renal cortices are echogenic bilaterally. The bladder is decompressed with a montano catheter. IMPRESSION: 1. Echogenic kidneys, suggesting medical renal disease. No hydronephrosis.
[2024-10-02] MEDS: ACCU-CHEK COMFORT CURVE STRIP VI SCH (11:50)
[2024-10-02] MEDS: InsuLIN REG 1unit/0.01ml Soln (100units/ml) SC SCH (11:51)
[2024-10-02 14:22] LABS: INR 1.01 (0.9-1.15); Prothrombin Time 10.7 sec (9.3-11.8)
--- NOTE | 2024-10-02 16:02 | DVHSR ---
APPROVED REPORT EXAM: Two-dimensional and M-mode echocardiogram with Doppler and color Doppler. Blood Pressure: 143/89 mmHg INDICATION CHF RISK FACTORS Height: 5' 6", Weight: 180 DIMENSIONS LVDd5.6 (3.8-5.7cm)LA (2D)3.9 (1.9-4.0cm)Aortic Root2.9 (2.0-3.7cm) LVDs4.8 (2.5-4.0cm)LA (MM) (1.9-4.0cm)Aortic Cusp Exc0.7 (1.5-2.0cm) EF (%) 30.0 (55-70%)Rt. Atrium4.2 (1.9-4.0cm)Asc. Aorta cm IVSd1.2 (0.7-1.1cm)RV (D) (1.8-2.4cm) PWd1.1 (0.7-1.1cm) Mitral Valve MitralMitral Stenosis E wave1.10m/sMV Mean GR.mmHg E/A ratio0.02D MVAcm2 Aortic Valve Aortic ValveAortic Stenosis V10.50m/Americo Mean GR.10mmHg V22.00m/Americo Peak GR.17mmHg LVOT Diameter2.3 (1.8-2.4cm)Doppler AVA1.04cm2 Pulmonic Valve V20.40m/s Tricuspid Valve TR Velocity2.60m/s [id number] Conclusion DILATED ALL CARDIAC CHAMBERS SEVERE LV AND RV HYPOKINESIS LV EF IS 30% AND IS MODERATELY REDUCED DECREASED EXCURSION OF VALVES DUE TO DILATED AND HYPOKINETIC LV AND RV NO EFFUSION MILD PULMONARY HYPERTENSION
--- NOTE | 2024-10-02 16:10 | DVHNC2 ---
Procedure - Ultrasound-guided RIGHT thoracentesis procedure note: Physician: Dr Diogo Robertson Time out time: 1551 Patient medications and allergies reviewed. The risks and benefits of the procedure and the sedation options and risk were discussed with the patient's healthcare proxy. All questions were answered and informed consent was obtained. Patient identification and proposed procedure were verified prior to the procedure by the physician, and a nurse in the patient's room. The heart rate, respiratory rate, oxygen saturations, blood pressure, adequacy of pulmonary ventilation, and response to care were monitored throughout the procedure. The physical status of the patient was reassessed after the procedure. Date: 10/02/2024 Consent: Consent was obtained from patient prior to procedure. Indication, risks, and benefits were explained at length. Procedure summary: A time-out was performed and a chest x-ray was reviewed prior to procedure. The appropriate site was confirmed and marked. My hands were washed immediately prior to the procedure, I wore a surgical cap, mask with protective eyewear, sterile gown and sterile gloves throughout the procedure. The patient was prepped and draped in a sterile manner using chlorhexidine scrub after the appropriate level was percussed and confirmed by ultrasound. 1% lidocaine was used to anesthetize the skin, subcutaneous tissue, superior aspect of the rib periosteum and parietal pleura. A finder needle was then introduced over the superior aspect of the rib to locate the pleural fluid; DESIREE colored fluid was aspirated. Thoracentesis needle was then introduced through the skin incision into the pleural space using negative aspiration pressure. The thoracentesis catheter was then threaded without difficulty. 550 mL's of DESIREE colored fluid were removed without difficulty. The catheter was then removed. No immediate complications were noted during the procedure. A post-procedure chest x-ray is pending at the time of this note. The pleural fluid will be sent for cultures and cytology. Estimated blood loss is less than 5 mL's. CPT: 44072 BUCKY ROBERTSON MD Oct 02, 2024 16:10
--- NOTE | 2024-10-02 17:01 | DVH ---
CHEST RADIOGRAPH Indication: s/p right thoracentesis r/o pneumothorax Technique: Single frontal view of the chest was obtained Comparison: XY CHEST XRAY 1 VIEW on DOS: 10/01/24 FINDINGS: Lines and Tubes: None Lungs: No focal consolidation. Pleura: Moderate left pleural effusion appears similar to prior study. Trace right pleural effusion. No pneumothorax. Cardiomediastinal contours: Stable cardiomegaly Bones: No acute osseous abnormality. IMPRESSION: 1. No pneumothorax. Bilateral pleural effusions left greater than right, not significantly changed b y chest radiograph since prior study.
[2024-10-02 17:41] VITALS: BP 143/87; PULSE 86; RESP 20; TEMP 96; O2SAT 99
[2024-10-02 18:51] VITALS: BP 143/87; PULSE 86; RESP 20; TEMP 96; O2SAT 99
[2024-10-02 18:56] VITALS: PULSE 86; RESP 20; O2SAT 99
[2024-10-02 20:00] VITALS: PULSE 82; PULSE 84; RESP 20; O2SAT 99
[2024-10-02 21:00] VITALS: BP_SYST 116; BP_SYST 141; BP_DIAS 80; BP_DIAS 92; PULSE 81; PULSE 84; RESP 16; RESP 20; TEMP 97.7; TEMP 98; O2SAT 97; O2SAT 99
[2024-10-02] MEDS: CARVEDILOL 3.125 MG TAB PO SCH (21:12)
[2024-10-02] MEDS: ATORVASTATIN 20 MG TAB PO SCH (21:38)
--- NOTE | 2024-10-02 23:10 | DVHINCON2 ---
Date of service: Oct 02, 2024 Referring Physician Manny Espinal MD [facility] Reason for Consultation Acute hypoxic respiratory failure and pleural effusion. History of Present Illness A 49-year-old man with past medical history that includes hypertension, CHF, coronary artery disease s/p CABG, diabetes and CKD who presented to ED on 10/01/24 with c/o bilateral lower extremity swelling, abdominal distension, and scrotal swelling for the past 2 days. The patient was recently discharged from [facility] for hyperammonemia related to cirrhosis. Pt reports he is on diuretic at home. Of note, he was admitted to this facility in July because of nonhealing wound to his left foot. He continues to have the wound on the left foot. Chest x-ray done on admission showing evidence of bilateral pleural effusions. Patient was admitted for further care, and pulmonary consultation is requested for evaluation and management of acute hypoxic respiratory failure and pleural effusion. Review of Systems: 14-point review of systems negative unless otherwise noted above. Past Medical History: Hypertension, CHF, CAD, hyperlipidemia, diabetes, liver cirrhosis, chronic kidney disease stage IIIA. Past Surgical History: CABG in 2020. Medications: Reviewed. Allergies: Penicillins. Family History: Family history positive for DM and heart disease. Social History: Former smoker. No alcohol or illicit drug use. Family History: Cardiovascular disease G8 FATHER Diabetes mellitus G8 MOTHER Allergies: Coded Allergies: Penicillins (Verified Allergy, Intermediate, RASH, 07/06/24) Home Meds Active Scripts Tamsulosin Hcl (Flomax) 0.4 Mg Cap, 1 CAP PO DAILY for 30 Days, #30 CAP 11 Refills Prov:FABIO BARNEY RESPIRATORY CARE ASSISTANT 07/10/24 Naloxone HCl (Narcan) 4 Mg/0.1 Ml Spr, 4 MG NA ONCE, #1 SPRAY Prov:FABIO BARNEY 07/10/24 Hydrocodone-Acetaminophen (Hydrocodone Bitartrate/AC 10-325 mg) 1 Tab Tab, 1 TAB PO Q8HP PRN for 7 Days, #21 TAB Prov:FABIO BARNEY RESPIRATORY CARE ASSISTANT 07/10/24 Clopidogrel Bisulfate (CLOPIDOGREL) 75 Mg Tab, 75 MG PO DAILY for 30 Days, #30 TAB Prov:FABIO BARNEYP 07/10/24 Carvedilol (Coreg) 6.25 Mg Tab, 1 TAB PO BID, #60 TAB Prov:TEX CHARLES MD 08/10/20 Ramipril (Altace) 10 Mg Cp, 10 MG PO DAILY for 30 Days, #30 CAP Prov:TEX CHARLES MD 08/10/20 Mupirocin Calcium (Topical) (MUPIROCIN) 2 % Cre, 2 % EX BID for 5 Days, #1 CRE 1 application each nostril twice a day for 5 days Prov:TEX CHARLES MD 08/10/20 Pantoprazole Sodium Sesquihydr (Protonix) 40 Mg Tab, 40 MG PO BID for 30 Days, #60 TAB Prov:TEX CHARLES MD 08/10/20 Sucralfate (Sucralfate) 1 Gm Tab, 1 GM PO QIDACHS for 30 Days, #120 TAB Prov:TEX CHARLES MD 08/10/20 Furosemide (Lasix) 20 Mg Tb, 1 TAB PO BID for 30 Days, #60 TAB Prov:TEX CHARLES MD 08/10/20 Reported Medications Omeprazole (Gnp Omeprazole) 20 Mg Tab, 20 MG PO DAILY, TAB 09/22/20 Insulin Glargine (Lantus Solostar) 100 Unit/Ml Inj, 100 UNIT SC, INJ 09/22/20 Dextrose (Glucose) Unknown Strength Chw, PO PRN 08/08/20 Insulin Lispro (Humalog Kwikpen) 100 Unit/Ml Inj, 0 SC PER SLIDING SCALE 08/08/20 Escitalopram Oxalate (Lexapro) 5 Mg Tab, 2 TAB PO DAILY 08/08/20 Atorvastatin Calcium (ATORVASTATIN CALCIUM) 40 Mg Tab, 1 TAB PO DAILY 07/29/20 Trazodone Hcl (Trazodone Hcl) 50 Mg Tab, 50 MG PO HS 07/16/20 Famotidine (Famotidine) 20 Mg Tab, 20 MG PO BID 07/16/20 Aspirin (Aspir-81) 81 Mg Tab, 1 TAB PO DAILY for prevent heart attack 07/16/20 Gabapentin (Gabapentin) 300 Mg Cap, 300 MG PO TID for 30 Days, MG 06/05/20 Discontinued Reported Medications Dulaglutide (Trulicity) 0.75 Mg/0.5 Ml Inj, 0.75 MG SC QWEEKLY 08/08/20 Current Medications Current Medications Medications (Trade) Dose Ordered Sig/Aubrie Route PRN Reason Start Time Stop Time Status Last Admin Bumetanide (Bumex Injection) 1 mg BIDD IV 10/02/24 06:00 10/02/24 17:54 Clopidogrel Bisulfate (Plavix) 75 mg DAILY PO 10/02/24 10:00 10/02/24 09:50 Famotidine (Pepcid Tablet) 20 mg BID PO 10/02/24 10:00 10/02/24 21:13 Tamsulosin HCl (Flomax) 0.4 mg DAILY PO 10/02/24 10:00 10/02/24 09:49 Rifaximin (Xifaxan) 550 mg BID PO 10/02/24 10:00 10/02/24 21:13 Lactulose 30 ml Q2HR PO 10/02/24 08:00 10/02/24 09:59 DC 10/02/24 09:49 Doxycycline Monohydrate (Vibramycin Tablet) 100 mg Q12HR PO 10/02/24 10:00 10/02/24 21:13 Cefpodoxime Proxetil (Vantin) 200 mg BID PO 10/02/24 10:00 Spironolactone (Aldactone) 25 mg DAILY PO 10/02/24 10:00 10/02/24 09:50 Atorvastatin Calcium (Lipitor) 80 mg HS PO 10/02/24 22:00 10/02/24 21:38 Diagnostic Test (Pha) (Accu-Chek Comfort Curve T) 1 strip ACHS 10/02/24 11:30 10/02/24 21:40 Insulin Human Regular (InsuLIN R) ACHS SC 10/02/24 11:30 10/02/24 21:39 Dextrose 50 ml UD PRN IV Blood Sugar LESS THAN 60 10/02/24 07:15 Lactulose 30 ml BID PO 10/02/24 22:00 10/02/24 21:10 Carvedilol (Coreg Tablet) 6.25 mg Q12HR PO 10/02/24 22:00 10/02/24 21:12 Hydralazine HCl (Apresoline Injection) 10 mg Q4HR PRN IV SBP>150 10/02/24 10:30 Albumin Human 50 ml @ 100 mls/hr Q8H IV 10/02/24 10:30 10/03/24 02:59 10/02/24 20:21 Vital Signs Vital Signs Date Time Temp Pulse Resp B/P (MAP) Pulse Ox O2 Delivery O2 Flow Rate FiO2 10/02/24 21:14 80 20 116/80 10/02/24 21:00 98.0 97 98.0 10/02/24 18:56 Nasal Cannula* 2 28 Physical Exam Gen.: Patient lying in bed in no apparent distress. On supplemental oxygen. Head: Normocephalic, atraumatic. Eyes: EOMI/PERRLA. Ears: Normal hearing. Normal anatomy. Neck/trachea: Trachea midline, supple. Nose: Normal external anatomy. Mouth: Moist mucous membranes. Chest: Decreased air entry bilaterally. No wheezing or rhonchi. Cardiovascular: Positive S1, positive S2. Regular rate and rhythm. Abdomen: Positive bowel sounds in all 4 quadrants. Soft, non-tender, non- distended. : Deferred. Rectal: Deferred. Skin: Warm, dry. Intact. Extremities: 2+ radial pulses bilaterally. No lower extremity edema. Neuro: Awake, alert, oriented x3. No gross motor or sensory deficits. Cranial nerves II through XII intact. Gait not assessed. Labs/Diagnostic Data Labs Test 10/02/24 21:21 10/02/24 16:00 10/02/24 13:56 10/02/24 07:54 Range/Units POC Glucose 145 H 70-106 mg/dl Body Fluid Source Pleural fluid Body Fluid pH 8.0 Body Fluid WBC (Manual) 596 H 0-200 CUMM Body Fluid RBC (Manual) 1899 0-2000 CUMM Body Fluid Mononuclear Cells 50 % Body Fluid Polymorphonuclear Cells 50 H 0-25 % Prothrombin Time 10.7 9.3-11.8 sec Prothrombin Time INR 1.01 0.9-1.15 Urine Color Light-yellow Yellow Urine Clarity Clear Clear Urine pH 5.0 5.0-9.0 Urine Specific Center 1.008 1.001-1.035 Urine Protein Negative Negative Urine Ketones Negative Negative Urine Blood 3+ H Negative /uL Urine Nitrite Negative Negative Urine Bilirubin Negative Negative Urine Urobilinogen Normal Negative mg/dL Urine Leukocyte Esterase Trace Negative /uL Urine RBC 61 0 - 3 /hpf Urine Microscopic WBC 4 H 0-3 /HPF Urine Squamous Epithelial Cells None seen <5 /hpf Urine Bacteria None seen None Seen /hpf Urine Creatinine 27.73 L 30.0-125.0 mg/dL Urine Glucose Normal Normal mg/dL Urine Total Protein 23.8 H 1-14 mg/dL Test 10/02/24 07:37 10/02/24 04:08 10/01/24 21:37 10/01/24 18:49 Range/Units Ammonia 83 H 11-32 umol/L White Blood Count 12.6 #H 4.4-10.8 10^3/uL Red Blood Count 5.02 4.5-5.90 10^6/uL Hemoglobin 14.0 13.5-17.5 g/dL Hematocrit 42.2 41.0-53.0 % Mean Corpuscular Volume 84.1 80.0-100.0 fL Mean Corpuscular Hemoglobin 27.9 L 28.0-32.0 pg Mean Corpuscular Hemoglobin Concent 33.2 32.0-36.0 g/dL Red Cell Distribution Width 15.5 H 11.8-14.3 % Platelet Count 262 140-450 10^3/uL Mean Platelet Volume 8.5 6.9-10.8 fL Neutrophils (%) (Auto) 65.9 37.0-80.0 % Lymphocytes (%) (Auto) 15.9 10.0-50.0 % Monocytes (%) (Auto) 15.4 H 0.0-12.0 % Eosinophils (%) (Auto) 2.1 0.0-7.0 % Basophils (%) (Auto) 0.7 0.0-2.0 % Neutrophils # (Auto) 8.3 1.6-8.6 10 ^3/uL Lymphocytes # (Auto) 2.0 0.4-5.4 10 ^3/uL Monocytes # (Auto) 1.9 H 0-1.3 10 ^3/uL Eosinophils # (Auto) 0.3 0-0.8 10 ^3/uL Basophils # (Auto) 0.1 0-0.2 10 ^3/uL Nucleated Red Blood Cells 0.2 % Sodium Level 134 L 136-145 mmol/L Potassium Level 4.2 3.5-5.1 mmol/L Chloride Level 106 98-107 mmol/L Carbon Dioxide Level 18 L 20-31 mmol/L Anion Gap 10 5-15 Blood Urea Nitrogen 41 H 9-23 mg/dL Creatinine 1.82 H 0.700-1.30 mg/dL Glomerular Filtration Rate Calc 45 >90 mL/min BUN/Creatinine Ratio 22.5 H 10.0-20.0 Serum Glucose 55 L 74-106 mg/dL Hemoglobin A1c 7.8 H <5.7 % A1C Calcium Level 8.8 8.7-10.4 mg/dL Total Bilirubin 1.1 H 0.2-1.0 mg/dL Aspartate Amino Transferase (AST) 86 H 13-40 U/L Alanine Aminotransferase (ALT) 33 7-40 U/L Alkaline Phosphatase 377 H 46-116 U/L Total Protein 5.8 5.7-8.2 g/dL Albumin 3.2 3.2-4.8 g/dL Troponin I High Sensitivity 42 </=54 ng/L B-Type Natriuretic Peptide 802.07 0-100 pg/mL Microbiology Date/Time Source Procedure Growth Status 10/02/24 04:43 Nose MRSA Screen - Final Complete Assessment Impression: Acute hypoxic respiratory failure 2/2 congestive heart failure Dependence on supplemental oxygen Pleural effusions, bilateral Atelectasis Coronary artery disease, s/p CABG Metabolic acidosis Anasarca 2/2 liver cirrhosis Hx of nicotine dependence Obesity Plan: Supplemental oxygen, on 2 LPM NC Titrate to keep O2 sats above 92%. Taper O2 as tolerated. Obtain consent for right thoracentesis for evacuation of pleural effusion. Pt received albumin. Continue antibiotics Incentive spirometry for atelectasis Follow up Cardiology recs Pepcid for GI ppx Diurese with Bumex as tolerated Monitor renal function. Monitor electrolytes. Supplement as necessary. Monitor ins and outs. Diet and lifestyle modifications for weight reduction GI/DVT prophylaxis. Prognosis: Poor given patient's multiple co-morbidities. Rest of plan per hospitalist and other consultants. Thank you, Dr. Espinal, for allowing me to participate in this patient's care. Further recommendations will depend on the patient's clinical course. Please do not hesitate to contact me if you have any questions or concerns. This medical document was created using an electronic medical record system with [employer] system. Although these documentations are being carefully reviewed, there may still be some phonetic and typographical changes. The errors are purely typographical, due to imperfection on the software program, and do not reflect any compromise in the patient's medical care. Plan discussed with: Other (JUDIE Evans/Dr. Espinal) BUCKY HUDSON MD Oct 02, 2024 23:10
[2024-10-03] VITALS (9 sets, daily range): BP systolic 113–137; BP diastolic 81–96; PULSE 77–89; RESP 16–20; TEMP 97.4–98.7; O2SAT 83–100
--- NOTE | 2024-10-03 00:11 | DVHINCON2 ---
Date of service: Oct 02, 2024 Referring Physician Aubrey Reason for Consultation CHF History of Present Illness This is a 49 year old male with a PMH of CHF, CKF, HTN, Hyperlipidemia, Quadruple Bypass Surgery and DM presents to the ED on 10/01/24 with complaint of urinary retention with associated SOB, swollen lower abdomen and scrotum, and 2 syncopal episodes. Patient states that his symptoms started 2 days prior to admission and notes he has not urinated for the same amount of time. Patient notes that he has been compliant with his medications. Chest x-ray showed borderline cardiomegaly with pulmonary vascular congestion and trace right-sided pleural effusion, small to moderate left-sided pleural effusion with associated atelectasis. Abdominal US showed bilateral pleural effusions. Patient was admi tted to the hospital. I am asked to consult on this patient. Family History: Cardiovascular disease G8 FATHER Diabetes mellitus G8 MOTHER Allergies: Coded Allergies: Penicillins (Verified Allergy, Intermediate, RASH, 07/06/24) Home Meds Active Scripts Tamsulosin Hcl (Flomax) 0.4 Mg Cap, 1 CAP PO DAILY for 30 Days, #30 CAP 11 Refills Prov:FABIO BARNEY 07/10/24 Naloxone HCl (Narcan) 4 Mg/0.1 Ml Spr, 4 MG NA ONCE, #1 SPRAY Prov:FABIO BARNEY 07/10/24 Hydrocodone-Acetaminophen (Hydrocodone Bitartrate/AC 10-325 mg) 1 Tab Tab, 1 TAB PO Q8HP PRN for 7 Days, #21 TAB Prov:FABIO BARNEY 07/10/24 Clopidogrel Bisulfate (CLOPIDOGREL) 75 Mg Tab, 75 MG PO DAILY for 30 Days, #30 TAB Prov:FABIO BARNEY 07/10/24 Carvedilol (Coreg) 6.25 Mg Tab, 1 TAB PO BID, #60 TAB Prov:TEX CHARLES MD 08/10/20 Ramipril (Altace) 10 Mg Cp, 10 MG PO DAILY for 30 Days, #30 CAP Prov:TEX CHARLES MD 08/10/20 Mupirocin Calcium (Topical) (MUPIROCIN) 2 % Cre, 2 % EX BID for 5 Days, #1 CRE 1 application each nostril twice a day for 5 days Prov:TXE CHARLES MD 08/10/20 Pantoprazole Sodium Sesquihydr (Protonix) 40 Mg Tab, 40 MG PO BID for 30 Days, #60 TAB Prov:TEX CHARLES MD 08/10/20 Sucralfate (Sucralfate) 1 Gm Tab, 1 GM PO QIDACHS for 30 Days, #120 TAB Prov:TEX CHARLES MD 08/10/20 Furosemide (Lasix) 20 Mg Tb, 1 TAB PO BID for 30 Days, #60 TAB Prov:TEX CHARLES MD 08/10/20 Reported Medications Omeprazole (Gnp Omeprazole) 20 Mg Tab, 20 MG PO DAILY, TAB 09/22/20 Insulin Glargine (Lantus Solostar) 100 Unit/Ml Inj, 100 UNIT SC, INJ 09/22/20 Dextrose (Glucose) Unknown Strength Chw, PO PRN 08/08/20 Insulin Lispro (Humalog Kwikpen) 100 Unit/Ml Inj, 0 SC PER SLIDING SCALE 08/08/20 Escitalopram Oxalate (Lexapro) 5 Mg Tab, 2 TAB PO DAILY 08/08/20 Atorvastatin Calcium (ATORVASTATIN CALCIUM) 40 Mg Tab, 1 TAB PO DAILY 07/29/20 Trazodone Hcl (Trazodone Hcl) 50 Mg Tab, 50 MG PO HS 07/16/20 Famotidine (Famotidine) 20 Mg Tab, 20 MG PO BID 07/16/20 Aspirin (Aspir-81) 81 Mg Tab, 1 TAB PO DAILY for prevent heart attack 07/16/20 Gabapentin (Gabapentin) 300 Mg Cap, 300 MG PO TID for 30 Days, MG 06/05/20 Discontinued Reported Medications Dulaglutide (Trulicity) 0.75 Mg/0.5 Ml Inj, 0.75 MG SC QWEEKLY 08/08/20 Current Medications Current Medications Medications (Trade) Dose Ordered Sig/Aubrie Route PRN Reason Start Time Stop Time Status Last Admin Bumetanide (Bumex Injection) 1 mg BIDD IV 10/02/24 06:00 10/02/24 17:54 Clopidogrel Bisulfate (Plavix) 75 mg DAILY PO 10/02/24 10:00 10/02/24 09:50 Famotidine (Pepcid Tablet) 20 mg BID PO 10/02/24 10:00 10/02/24 21:13 Tamsulosin HCl (Flomax) 0.4 mg DAILY PO 10/02/24 10:00 10/02/24 09:49 Rifaximin (Xifaxan) 550 mg BID PO 10/02/24 10:00 10/02/24 21:13 Lactulose 30 ml Q2HR PO 10/02/24 08:00 10/02/24 09:59 DC 10/02/24 09:49 Doxycycline Monohydrate (Vibramycin Tablet) 100 mg Q12HR PO 10/02/24 10:00 10/02/24 21:13 Cefpodoxime Proxetil (Vantin) 200 mg BID PO 10/02/24 10:00 Spironolactone (Aldactone) 25 mg DAILY PO 10/02/24 10:00 10/02/24 09:50 Atorvastatin Calcium (Lipitor) 80 mg HS PO 10/02/24 22:00 10/02/24 21:38 Diagnostic Test (Pha) (Accu-Chek Comfort Curve T) 1 strip ACHS 10/02/24 11:30 10/02/24 21:40 Insulin Human Regular (InsuLIN R) ACHS SC 10/02/24 11:30 10/02/24 21:39 Dextrose 50 ml UD PRN IV Blood Sugar LESS THAN 60 10/02/24 07:15 Lactulose 30 ml BID PO 10/02/24 22:00 10/02/24 21:10 Carvedilol (Coreg Tablet) 6.25 mg Q12HR PO 10/02/24 22:00 10/02/24 21:12 Hydralazine HCl (Apresoline Injection) 10 mg Q4HR PRN IV SBP>150 10/02/24 10:30 Albumin Human 50 ml @ 100 mls/hr Q8H IV 10/02/24 10:30 10/03/24 02:59 10/02/24 20:21 Review of Systems Constitutional: denies: chills, diaphoresis, fatigue, fever, malaise, sweats, weakness, others EENTM: denies: blurred vision, double vision, ear bleeding, ear discharge, ear drainage, ear pain, ear ringing, eye pain, eye redness, hearing loss, mouth pain, mouth swelling, nasal discharge, nose bleeding, nose congestion, nose pain, photophobia, tearing, throat pain, throat swelling, voice changes, others Respiratory: denies: cough, hemoptysis, orthopnea, SOB at rest, shortness of breath, SOB with excertion, stridor, wheezing, others Cardiovascular: denies: chest pain, dizzy spells, diaphoresis, Dyspnea on exertion, edema, irregular heart beat, left arm pain, lightheadedness, palpitations, PND, syncope, others Gastrointestinal: reports: abdominal pain; denies: abdomen distended, blood streaked bowels, constipated, diarrhea, dysphagia, difficulty swallowing, hematemesis, melena, nausea, poor appetite, poor fluid intake, rectal bleeding, rectal pain, vomiting, others Genitourinary: denies: burning, dysuria, flank pain, frequency, hematuria, incontinence, penile discharge, penile sore, pain, testicle pain, testicle swelling, urgency, others Neurological: denies: dizziness, fainting, headache, left sided numbness, left sided weakness, numbness, paresthesia, pre-existing deficit, right sided numbness, right sided weakness, seizure, speech problems, tingling, tremors, weakness, others Musculoskeletal: denies: back pain, gout, joint pain, joint swelling, muscle pain, muscle stiffness, neck pain, others Integumetry: denies: bruises, change in color, change in hair/nails, dryness, laceration, lesions, lumps, rash, wounds, others Allergic/Immunocompromised: denies: Difficulty Healing, Frequent Infections, Hives, Itching, others Hematologic/Lymphatic: denies: anemia, blood clots, easy bleeding, easy bruising, swollen glands, others Endocrine: denies: excessive hunger, excessive sweating, excessive thirst, excessive urination, flushing, intolerance to cold, intolerance to heat, unexplained weight gain, unexplained weight loss, others Psychiatric: denies: anxiety, bipolar disorder, depression, hopeless, panic disorder, schizophrenia, sleepless, suicidal, others All Other Systems: Reviewed and Negative Vital Signs Vital Signs Date Time Temp Pulse Resp B/P (MAP) Pulse Ox O2 Delivery O2 Flow Rate FiO2 10/02/24 21:14 80 20 116/80 10/02/24 21:00 98.0 97 98.0 10/02/24 18:56 Nasal Cannula* 2 28 Physical Exam GENERAL: Alert and oriented x 3. No acute distress. EYES: PERRL, EOMI. Anicteric. HENT: Moist mucous membranes. LUNGS: Decreased breath sounds. CARDIOVASCULAR: Regular rate and rhythm. ABDOMEN: Soft, nontender and nondistended. EXTREMITIES: No edema. NEUROLOGIC: No focal neurological deficits. SKIN: Warm, dry. : Scrotal edema. Labs/Diagnostic Data Labs Test 10/02/24 21:21 10/02/24 16:00 10/02/24 13:56 10/02/24 07:54 Range/Units POC Glucose 145 H 70-106 mg/dl Body Fluid Source Pleural fluid Body Fluid pH 8.0 Body Fluid WBC (Manual) 596 H 0-200 CUMM Body Fluid RBC (Manual) 1899 0-2000 CUMM Body Fluid Mononuclear Cells 50 % Body Fluid Polymorphonuclear Cells 50 H 0-25 % Prothrombin Time 10.7 9.3-11.8 sec Prothrombin Time INR 1.01 0.9-1.15 Urine Color Light-yellow Yellow Urine Clarity Clear Clear Urine pH 5.0 5.0-9.0 Urine Specific [place] 1.008 1.001-1.035 Urine Protein Negative Negative Urine Ketones Negative Negative Urine Blood 3+ H Negative /uL Urine Nitrite Negative Negative Urine Bilirubin Negative Negative Urine Urobilinogen Normal Negative mg/dL Urine Leukocyte Esterase Trace Negative /uL Urine RBC 61 0 - 3 /hpf Urine Microscopic WBC 4 H 0-3 /HPF Urine Squamous Epithelial Cells None seen <5 /hpf Urine Bacteria None seen None Seen /hpf Urine Creatinine 27.73 L 30.0-125.0 mg/dL Urine Glucose Normal Normal mg/dL Urine Total Protein 23.8 H 1-14 mg/dL Test 10/02/24 07:37 10/02/24 04:08 10/01/24 21:37 10/01/24 18:49 Range/Units Ammonia 83 H 11-32 umol/L White Blood Count 12.6 #H 4.4-10.8 10^3/uL Red Blood Count 5.02 4.5-5.90 10^6/uL Hemoglobin 14.0 13.5-17.5 g/dL Hematocrit 42.2 41.0-53.0 % Mean Corpuscular Volume 84.1 80.0-100.0 fL Mean Corpuscular Hemoglobin 27.9 L 28.0-32.0 pg Mean Corpuscular Hemoglobin Concent 33.2 32.0-36.0 g/dL Red Cell Distribution Width 15.5 H 11.8-14.3 % Platelet Count 262 140-450 10^3/uL Mean Platelet Volume 8.5 6.9-10.8 fL Neutrophils (%) (Auto) 65.9 37.0-80.0 % Lymphocytes (%) (Auto) 15.9 10.0-50.0 % Monocytes (%) (Auto) 15.4 H 0.0-12.0 % Eosinophils (%) (Auto) 2.1 0.0-7.0 % Basophils (%) (Auto) 0.7 0.0-2.0 % Neutrophils # (Auto) 8.3 1.6-8.6 10 ^3/uL Lymphocytes # (Auto) 2.0 0.4-5.4 10 ^3/uL Monocytes # (Auto) 1.9 H 0-1.3 10 ^3/uL Eosinophils # (Auto) 0.3 0-0.8 10 ^3/uL Basophils # (Auto) 0.1 0-0.2 10 ^3/uL Nucleated Red Blood Cells 0.2 % Sodium Level 134 L 136-145 mmol/L Potassium Level 4.2 3.5-5.1 mmol/L Chloride Level 106 98-107 mmol/L Carbon Dioxide Level 18 L 20-31 mmol/L Anion Gap 10 5-15 Blood Urea Nitrogen 41 H 9-23 mg/dL Creatinine 1.82 H 0.700-1.30 mg/dL Glomerular Filtration Rate Calc 45 >90 mL/min BUN/Creatinine Ratio 22.5 H 10.0-20.0 Serum Glucose 55 L 74-106 mg/dL Hemoglobin A1c 7.8 H <5.7 % A1C Calcium Level 8.8 8.7-10.4 mg/dL Total Bilirubin 1.1 H 0.2-1.0 mg/dL Aspartate Amino Transferase (AST) 86 H 13-40 U/L Alanine Aminotransferase (ALT) 33 7-40 U/L Alkaline Phosphatase 377 H 46-116 U/L Total Protein 5.8 5.7-8.2 g/dL Albumin 3.2 3.2-4.8 g/dL Troponin I High Sensitivity 42 </=54 ng/L B-Type Natriuretic Peptide 802.07 0-100 pg/mL Microbiology Date/Time Source Procedure Growth Status 10/02/24 04:43 Nose MRSA Screen - Final Complete Assessment Hyperammonemia related to liver cirrhosis. Chronic Kidney Disease Stage 3A. Acute on chronic combined systolic and diastolic heart failure. Diabetic left foot ulcer. Hypertension. Type 2 Diabetes Mellitus. Pleural Effusion. Hyperlipidemia. History of CABG. Hyperkalemia. Plan/Recommendation I agree with your ongoing assessment and care of plan. Telemetry reviewed. Echocardiogram. Plavix, Lipitor. Diuretics with Bumex. Coreg. Oral antibiotics as ordered. IV Hydralazine for SBP > 150. Morphine for pain management. Nitro SL. Additional plan as per the hospital course. A total of 45 minutes was spent reviewing the patient record, examining the patient, making a diagnostic and therapeutic plan, discussing this plan with medical personnel, following up on diagnostic studies and following the patient for clinical stability excluding any and all procedures. At least 50% of this time was spent in direct, [id number] contact. Plan discussed with: Patient JOE SIMMONS MD Oct 02, 2024 22:55
[2024-10-03 10:20] LABS: Chloride 103 mmol/L (98-107); Potassium 5.1 mmol/L (3.5-5.1)
[2024-10-03 10:21] LABS: Anion Gap 8 (5-15); Carbon Dioxide 22 mmol/L (20-31)
[2024-10-03 10:24] LABS: Hematocrit 36.6 % (41.0-53.0); Hemoglobin 12.2 g/dL (13.5-17.5); Mean Corpuscular Hemoglobin 28.0 pg (28.0-32.0); Mean Corpuscular Volume 83.8 fL (80.0-100.0); Nucleated Red Blood Cells % 0.0 %
[2024-10-03 10:27] LABS: BUN/Creatinine Ratio 22.8 (10.0-20.0); Blood Urea Nitrogen 43 mg/dL (9-23); Calcium 8.2 mg/dL (8.7-10.4); Glucose 117 mg/dL (74-106); Magnesium 1.9 mg/dL (1.6-2.6); Sodium 133 mmol/L (136-145)
--- NOTE | 2024-10-03 12:09 | ECG ---
[facility] Test Date: 2024-10-03 Test Time: 12:07:18 Pat Name: JIN TIM Department: Respiratoy Room: 0216T A Gender: M [employer]: [place] : 1975 Requested By: KELLEE TIERNEY Order Number: [id number] Reading MD: Alessandro Rankin Measurements Intervals [place] Rate: 81 P: 98 [place]: 182 QRS: 145 QRSD: 127 T: 32 QT: 427 QTc: 496 Interpretive Statements Sinus rhythm Ventricular premature complex RBBB and LPFB Anterior infarct, old Electronically Signed On 10-04-2024 21:42:49 PDT by Alessandro Rankin Please click the below link to view image of tracing.
[2024-10-03] MEDS: NITROGLYCERIN 0.4 MG SL TAB SL PRN (12:20)
--- NOTE | 2024-10-03 13:23 | DVH ---
EXAM: XY CHEST XRAY 1 VIEW TECHNIQUE: Single frontal chest radiograph CLINICAL HISTORY: shortness of breath COMPARISON: XY CHEST XRAY 1 VIEW on DOS: 10/02/24, XY CHEST XRAY 1 VIEW on DOS: 10/01/24, XY CHEST PORTAB LE on DOS: 07/06/24 Findings/Impression: Frontal chest radiograph demonstrates no acute osseous or superficial soft tissue abnormalities. The trachea is midline. Cardiomegaly with pulmonary vascular congestion. Moderate left pleural effusion with compressive atelectasis, similar to prior. A superimposed infecti ous process is not excluded. No pneumothorax.
[2024-10-03] MEDS: MORPHINE SULFATE INJ 2 MG/ml SYRG IV PRN (15:10)
--- NOTE | 2024-10-03 15:24 | DVHPN2 ---
Progress Note Date Seen: Oct 03, 2024 Medical Necessity Reason Pt with a Central, PICC or Fol: No Subjective Review of Systems: CVS:Normal, RESPIRATORY:Normal, :Normal, NEURO:Normal Objective vital signs Vital Sign Date Time Temp Pulse Resp B/P (MAP) Pulse Ox O2 Delivery O2 Flow Rate FiO2 10/03/24 15:10 81 18 137/96 10/03/24 12:58 98.0 95 98.0 10/03/24 08:00 Nasal Cannula* 3 32 Total Intake and Output 10/02/24 10/02/24 10/03/24 15:00 23:00 07:00 Intake Total 50 ml 1450 ml Output Total 2650 ml 450 ml Balance 50 ml -2650 ml 1000 ml medications Current Medications Medications Dose Ordered Sig/Aubrie Route Start Time Stop Time Status Last Admin Dose Admin Morphine Sulfate 2 mg Q4HPRN PRN IV 10/01/24 18:45 10/03/24 11:57 2 MG Nitroglycerin 0.4 mg Q5MINP PRN SL 10/01/24 18:45 10/03/24 12:20 0.4 MG Morphine Sulfate 2 mg Q30M PRN IV 10/01/24 18:45 10/03/24 15:10 2 MG Bumetanide 1 mg BIDD IV 10/02/24 06:00 10/03/24 05:44 1 MG Clopidogrel Bisulfate 75 mg DAILY PO 10/02/24 10:00 10/03/24 09:21 75 MG Famotidine 20 mg BID PO 10/02/24 10:00 10/03/24 09:20 20 MG Tamsulosin HCl 0.4 mg DAILY PO 10/02/24 10:00 10/03/24 09:21 0.4 MG Rifaximin 550 mg BID PO 10/02/24 10:00 10/03/24 09:22 550 MG Doxycycline Monohydrate 100 mg Q12HR PO 10/02/24 10:00 10/03/24 09:19 100 MG Cefpodoxime Proxetil 200 mg BID PO 10/02/24 10:00 10/03/24 13:04 200 MG Spironolactone 25 mg DAILY PO 10/02/24 10:00 10/03/24 09:21 25 MG Atorvastatin Calcium 80 mg HS PO 10/02/24 22:00 10/02/24 21:38 80 MG Diagnostic Test (Pha) 1 strip ACHS 10/02/24 11:30 10/03/24 11:30 1 STRIP Insulin Human Regular ACHS SC 10/02/24 11:30 10/03/24 11:30 3 UNITS Dextrose 50 ml UD PRN IV 10/02/24 07:15 Lactulose 30 ml BID PO 10/02/24 22:00 10/03/24 09:21 30 ML Carvedilol 6.25 mg Q12HR PO 10/02/24 22:00 10/03/24 09:21 6.25 MG Hydralazine HCl 10 mg Q4HR PRN IV 10/02/24 10:30 Albumin Human 50 ml @ 100 mls/hr Q8H IV 10/03/24 14:15 10/04/24 06:44 Examination: GENERAL:Normal, LUNGS:Abnormal (Diminished), CVS:Normal, ABDOMEN:Abnormal (Abdominal distention), SKIN:Normal laboratory and microbiology Laboratory Tests 10/03/24 09:48 Test 10/03/24 09:48 Range/Units Serum Glucose 117 H 74-106 mg/dL Microbiology Date/Time Source Procedure Growth Status 10/02/24 16:00 Pleural Fluid Gram Stain - Final Resulted 10/02/24 16:00 Pleural Fluid Body Fluid Culture - Preliminary Resulted 10/02/24 04:43 Nose MRSA Screen - Final Complete Labs and/or images reviewed: Labs reviewed by me, Image(s) reviewed by me Problem List/Assessment/Plan Problem List/Assessment/Plan 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 Plan: - Avoid nephrotoxic medications - Consult nephrology Acute on chronic combined systolic and diastolic heart failure Plan: - Bumetanide 1 mg BID - Fluid restriction to 1000 mL daily - Consult cardiology Diabetic left foot ulcer Plan: - Consult podiatry - Initiate antibiotic Hypertension Plan: - Continue home medications Type 2 Diabetes Mellitus Assessment: Patient has a history of diabetes mellitus, which requires ongoing management. Plan: - Implement insulin sliding scale Pleural Effusion Assessment: Patient has pleural effusion, which may be related to the heart failure exacerbation or other underlying conditions. Plan: - Perform thoracentesis as needed - Consult pulmonology Hyperlipidemia Plan: -Monitor History of CABG Plan; -cardiology consult Hyperkalemia Plan: -Hyperkalemia cocktail Subjective: Awake and alert Objective: Patient was admitted for acute on chronic combined systolic and diastolic heart failure. Patient was placed on IV Bumex at 1 mg b.i.d. patient has underlying history of liver cirrhosis ammonia is currently normal, we will resume rifaximin and lactulose. Patient has chronic left foot diabetic ulcer and sees Dr. Sutton as outpatient. Patient is S/P right thoracentesis which 550 mL was removed by Dr. Robertson. Repeat chest x-ray showing moderate size left pleural effusion. Patient continues to have testicular swelling related to CHF exacerbation. Plan: Nephrology consult, IV Bumex, 1000 mL fluid restriction, thoracentesis p.r.n., IV albumin, insulin sliding scale Plan discussed with: Patient My Orders My Orders Orders - FABIO BARNEY Procedure Category Date Status Time Chest Xray 1 View XY 10/03/24 Resulted 12:45 Albumin 25% (Albutein) PHA 10/03/24 In Process 14:15 Dietary Evaluation Review Recommendations by RD: Dietary education by RD Comments: 1) Initiate MVI @ 1 tb qd 2) Initiate vitamin C @ 500 mg bid and zinc sulfate @ 220 mg qd for 7 days 3) Continue 60g CCHO cardiac diet. Promote optimal PO intake 4) Encourage patient to limit intake of added sugar including pastries, desserts, candy, and sugar-sweetened beverages. Prioritize natural sugar substitutes such as Stevia and/or monk fruit. Aim for a consistent intake of complex carbohydrates throughout day, paired with lean protein to promote glycemic control. 5) Refer to outpatient RD/CDCES for diabetes counseling 6) Follow-up with cardiology, gastroenterology, nephrology, and podiatry 7) Continue to monitor I&O, labs, and skin integrity Expected Outcomes/Goals: 1) appetite and labs to improve 2) wound to improve 3) gradual wt loss 4) f/u in 3-5 days Date of Service: Oct 03, 2024 Billing Provider: ROSSY MORALES MD Common Visit Codes: [id number] INP/OBS CARE (MOD) FABIO BARNEY Oct 03, 2024 15:24
[2024-10-03] MEDS: ALBUMIN 25% 50 ML IV SCH (15:40)
--- NOTE | 2024-10-03 16:38 | DVHPN2 ---
Progress Note - Dictate Date Seen: Oct 03, 2024 Medical Necessity Reason Pt with a Central, PICC or Fol: No Subjective no acute issues overnight UOP 3 liters Underwent right-sided thoracentesis. vital signs Vital Sign Date Time Temp Pulse Resp B/P (MAP) Pulse Ox O2 Delivery O2 Flow Rate FiO2 10/03/24 15:10 81 18 137/96 10/03/24 12:58 98.0 95 98.0 10/03/24 08:00 Nasal Cannula* 3 32 Total Intake and Output 10/02/24 10/02/24 10/03/24 15:00 23:00 07:00 Intake Total 50 ml 1450 ml Output Total 2650 ml 450 ml Balance 50 ml -2650 ml 1000 ml medications Current Medications Medications Dose Ordered Sig/Aubrie Route Start Time Stop Time Status Last Admin Dose Admin Morphine Sulfate 2 mg Q4HPRN PRN IV 10/01/24 18:45 10/03/24 11:57 2 MG Nitroglycerin 0.4 mg Q5MINP PRN SL 10/01/24 18:45 10/03/24 12:20 0.4 MG Morphine Sulfate 2 mg Q30M PRN IV 10/01/24 18:45 10/03/24 15:10 2 MG Bumetanide 1 mg BIDD IV 10/02/24 06:00 10/03/24 05:44 1 MG Clopidogrel Bisulfate 75 mg DAILY PO 10/02/24 10:00 10/03/24 09:21 75 MG Famotidine 20 mg BID PO 10/02/24 10:00 10/03/24 09:20 20 MG Tamsulosin HCl 0.4 mg DAILY PO 10/02/24 10:00 10/03/24 09:21 0.4 MG Rifaximin 550 mg BID PO 10/02/24 10:00 10/03/24 09:22 550 MG Doxycycline Monohydrate 100 mg Q12HR PO 10/02/24 10:00 10/03/24 09:19 100 MG Cefpodoxime Proxetil 200 mg BID PO 10/02/24 10:00 10/03/24 13:04 200 MG Spironolactone 25 mg DAILY PO 10/02/24 10:00 10/03/24 09:21 25 MG Atorvastatin Calcium 80 mg HS PO 10/02/24 22:00 10/02/24 21:38 80 MG Diagnostic Test (Pha) 1 strip ACHS 10/02/24 11:30 10/03/24 11:30 1 STRIP Insulin Human Regular ACHS SC 10/02/24 11:30 10/03/24 11:30 3 UNITS Dextrose 50 ml UD PRN IV 10/02/24 07:15 Lactulose 30 ml BID PO 10/02/24 22:00 10/03/24 09:21 30 ML Carvedilol 6.25 mg Q12HR PO 10/02/24 22:00 10/03/24 09:21 6.25 MG Hydralazine HCl 10 mg Q4HR PRN IV 10/02/24 10:30 Albumin Human 50 ml @ 100 mls/hr Q8H IV 10/03/24 14:15 10/04/24 06:44 10/03/24 15:40 100 MLS/HR objective Alert awake oriented x3 HEENT: Normocephalic. Blind in the right eye. 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 laboratory and microbiology Laboratory Tests 10/03/24 09:48 Test 10/03/24 09:48 Range/Units Serum Glucose 117 H 74-106 mg/dL Problem List Acute kidney injury superimposed on Chronic kidney disease stage III A Anasarca Urinary retention Type 2 diabetes with its complications History of CAD status post CABG Hypertension Hyperlipidemia Peripheral vascular disease Liver cirrhosis Hyperkalemia next week Assessment/Plan Continue diuresis with the Bumex. Renal ultrasound done showing bilateral increased echogenicity. Podiatry evaluation. Continue with the IV antibiotics. Strict Is&Os. Monitor potassium closely. Daily labs. Dietary Evaluation Review Recommendations by RD: Dietary education by RD Comments: 1) Initiate MVI @ 1 tb qd 2) Initiate vitamin C @ 500 mg bid and zinc sulfate @ 220 mg qd for 7 days 3) Continue 60g CCHO cardiac diet. Promote optimal PO intake 4) Encourage patient to limit intake of added sugar including pastries, desserts, candy, and sugar-sweetened beverages. Prioritize natural sugar substitutes such as Stevia and/or monk fruit. Aim for a consistent intake of complex carbohydrates throughout day, paired with lean protein to promote glycemic control. 5) Refer to outpatient RD/[facility]CES for diabetes counseling 6) Follow-up with cardiology, gastroenterology, nephrology, and podiatry 7) Continue to monitor I&O, labs, and skin integrity Expected Outcomes/Goals: 1) appetite and labs to improve 2) wound to improve 3) gradual wt loss 4) f/u in 3-5 days Plan discussed with: Patient ANGELINE KENYON MD Oct 03, 2024 16:37
[2024-10-03] MEDS: HYDROmorphone HCL 2 MG/ML VL/or syr IV PRN (19:54)
--- NOTE | 2024-10-03 23:28 | DVHPN2 ---
Progress Note - Dictate Date Seen: Oct 03, 2024 Medical Necessity Reason Pt with a Central, PICC or Fol: No Subjective Patient seen and examined at bedside. Remains on supplemental oxygen Overnight events reviewed. vital signs Vital Sign Date Time Temp Pulse Resp B/P (MAP) Pulse Ox O2 Delivery O2 Flow Rate FiO2 10/03/24 21:51 83 123/85 10/03/24 21:00 97.9 18 98 97.9 10/03/24 20:00 Room Air* 0 21 Total Intake and Output 10/02/24 10/02/24 10/03/24 15:00 23:00 07:00 Intake Total 50 ml 1450 ml Output Total 2650 ml 450 ml Balance 50 ml -2650 ml 1000 ml medications Current Medications Medications Dose Ordered Sig/Aubrie Route Start Time Stop Time Status Last Admin Dose Admin Nitroglycerin 0.4 mg Q5MINP PRN SL 10/01/24 18:45 10/03/24 12:20 0.4 MG Morphine Sulfate 2 mg Q30M PRN IV 10/01/24 18:45 10/03/24 15:10 2 MG Bumetanide 1 mg BIDD IV 10/02/24 06:00 10/03/24 18:28 1 MG Clopidogrel Bisulfate 75 mg DAILY PO 10/02/24 10:00 10/03/24 09:21 75 MG Famotidine 20 mg BID PO 10/02/24 10:00 10/03/24 21:50 20 MG Tamsulosin HCl 0.4 mg DAILY PO 10/02/24 10:00 10/03/24 09:21 0.4 MG Rifaximin 550 mg BID PO 10/02/24 10:00 10/03/24 21:50 550 MG Doxycycline Monohydrate 100 mg Q12HR PO 10/02/24 10:00 10/03/24 21:50 100 MG Cefpodoxime Proxetil 200 mg BID PO 10/02/24 10:00 10/03/24 21:51 200 MG Spironolactone 25 mg DAILY PO 10/02/24 10:00 10/03/24 09:21 25 MG Atorvastatin Calcium 80 mg HS PO 10/02/24 22:00 10/03/24 21:50 80 MG Diagnostic Test (Pha) 1 strip ACHS 10/02/24 11:30 10/03/24 22:00 1 STRIP Insulin Human Regular ACHS SC 10/02/24 11:30 10/03/24 17:25 2 UNITS Dextrose 50 ml UD PRN IV 10/02/24 07:15 Lactulose 30 ml BID PO 10/02/24 22:00 10/03/24 21:48 30 ML Carvedilol 6.25 mg Q12HR PO 10/02/24 22:00 10/03/24 21:51 6.25 MG Hydralazine HCl 10 mg Q4HR PRN IV 10/02/24 10:30 Albumin Human 50 ml @ 100 mls/hr Q8H IV 10/03/24 14:15 10/04/24 06:44 10/03/24 21:49 100 MLS/HR Oxycodone HCl 5 mg Q6HP PRN PO 10/03/24 18:00 Hydromorphone HCl 0.5 mg Q4HPRN PRN IV 10/03/24 18:15 10/03/24 19:54 0.5 MG objective Gen.: Patient lying in bed in no apparent distress. On supplemental oxygen. Head: Normocephalic, atraumatic. Eyes: EOMI/PERRLA. Ears: Normal hearing. Normal anatomy. Neck/trachea: Trachea midline, supple. Nose: Normal external anatomy. Mouth: Moist mucous membranes. Chest: Decreased air entry bilaterally. No wheezing or rhonchi. Cardiovascular: Positive S1, positive S2. Regular rate and rhythm. Abdomen: Positive bowel sounds in all 4 quadrants. Soft, non-tender, non- distended. : Deferred. Rectal: Deferred. Skin: Warm, dry. Intact. Extremities: 2+ radial pulses bilaterally. No lower extremity edema. Neuro: Awake, alert, oriented x3. No gross motor or sensory deficits. Cranial nerves II through XII intact. Gait not assessed. laboratory and microbiology Laboratory Tests 10/03/24 09:48 Test 10/03/24 09:48 Range/Units Serum Glucose 117 H 74-106 mg/dL Assessment/Plan Impression: Acute hypoxic respiratory failure 2/2 congestive heart failure Dependence on supplemental oxygen Pleural effusions, bilateral Atelectasis Coronary artery disease, s/p CABG Metabolic acidosis Anasarca 2/2 liver cirrhosis Hx of nicotine dependence Obesity Events: Remains on supplemental oxygen, 3 LPM NC Taper O2 as tolerated S/p right thoracentesis on 10/02/24 with removal of 550 mL natalya fluid See separate procedure note for details. CXR demonstrates interval reduction in pleural effusions. Continue diuresis Patient c/o chest pain - troponins negative. Pain control - Hydrocodone PRN for moderate pain Dilaudid 0.5 mg IVP q.4 hours PRN severe pain Avoid oversedation Cardiology recs appreciated Continue antibiotics Incentive spirometry Labs and imaging reviewed. Rest of plan as noted below. Plan: Supplemental oxygen Titrate to keep O2 sats above 92%. Pt received albumin. Continue antibiotics Incentive spirometry for atelectasis Follow up Cardiology recs Pepcid for GI ppx Pain control Avoid oversedation Diurese with Bumex as tolerated Monitor renal function. Monitor electrolytes. Supplement as necessary. Monitor ins and outs. Diet and lifestyle modifications for weight reduction GI/DVT prophylaxis. Prognosis: Poor given patient's multiple co-morbidities. Rest of plan per hospitalist and other consultants. Thank you, Dr. Espinal, for allowing me to participate in this patient's care. Further recommendations will depend on the patient's clinical course. Please do not hesitate to contact me if you have any questions or concerns. This medical document was created using an electronic medical record system with [email or web address] computerized dictation system. Although these documentations are being carefully reviewed, there may still be some phonetic and typographical changes. The errors are purely typographical, due to imperfection on the software program, and do not reflect any compromise in the patient's medical care. Dietary Evaluation Review Recommendations by RD: Dietary education by RD Comments: 1) Initiate MVI @ 1 tb qd 2) Initiate vitamin C @ 500 mg bid and zinc sulfate @ 220 mg qd for 7 days 3) Continue 60g CCHO cardiac diet. Promote optimal PO intake 4) Encourage patient to limit intake of added sugar including pastries, desserts, candy, and sugar-sweetened beverages. Prioritize natural sugar substitutes such as Stevia and/or monk fruit. Aim for a consistent intake of complex carbohydrates throughout day, paired with lean protein to promote glycemic control. 5) Refer to outpatient RD/CDCES for diabetes counseling 6) Follow-up with cardiology, gastroenterology, nephrology, and podiatry 7) Continue to monitor I&O, labs, and skin integrity Expected Outcomes/Goals: 1) appetite and labs to improve 2) wound to improve 3) gradual wt loss 4) f/u in 3-5 days Plan discussed with: Patient, Other (JUDIE Fine) BUCKY HUDSON MD Oct 03, 2024 23:28
--- NOTE | 2024-10-03 23:28 | DVHPN2 ---
Progress Note - Dictate Date Seen: Oct 03, 2024 Medical Necessity Reason Pt with a Central, PICC or Fol: No Subjective Patient was seen and evaluated in follow up. Patient is complaining of scrotal griffith/itchiness. Echocardiogram shows an EF of 30%. BUN 43, HEEL SCORER 1.89, CA 8.2. Chest x-ray shows bilateral pleural effusions left greater than right, not significantly changed by chest radiograph since prior study. Renal US demonstrated echogenic kidneys, suggesting medical renal disease. No hydronephrosis. Telemetry reviewed. vital signs Vital Sign Date Time Temp Pulse Resp B/P (MAP) Pulse Ox O2 Delivery O2 Flow Rate FiO2 10/03/24 12:58 98.0 81 19 137/96 (110) 95 98.0 10/02/24 20:00 Nasal Cannula* 2 28 Total Intake and Output 10/02/24 10/02/24 10/03/24 15:00 23:00 07:00 Intake Total 50 ml 1450 ml Output Total 2650 ml 450 ml Balance 50 ml -2650 ml 1000 ml medications Current Medications Medications Dose Ordered Sig/Aubrie Route Start Time Stop Time Status Last Admin Dose Admin Morphine Sulfate 2 mg Q4HPRN PRN IV 10/01/24 18:45 10/03/24 11:57 2 MG Nitroglycerin 0.4 mg Q5MINP PRN SL 10/01/24 18:45 10/03/24 12:20 0.4 MG Morphine Sulfate 2 mg Q30M PRN IV 10/01/24 18:45 Bumetanide 1 mg BIDD IV 10/02/24 06:00 10/03/24 05:44 1 MG Clopidogrel Bisulfate 75 mg DAILY PO 10/02/24 10:00 10/03/24 09:21 75 MG Famotidine 20 mg BID PO 10/02/24 10:00 10/03/24 09:20 20 MG Tamsulosin HCl 0.4 mg DAILY PO 10/02/24 10:00 10/03/24 09:21 0.4 MG Rifaximin 550 mg BID PO 10/02/24 10:00 10/03/24 09:22 550 MG Doxycycline Monohydrate 100 mg Q12HR PO 10/02/24 10:00 10/03/24 09:19 100 MG Cefpodoxime Proxetil 200 mg BID PO 10/02/24 10:00 Spironolactone 25 mg DAILY PO 10/02/24 10:00 10/03/24 09:21 25 MG Atorvastatin Calcium 80 mg HS PO 10/02/24 22:00 10/02/24 21:38 80 MG Diagnostic Test (Pha) 1 strip ACHS 10/02/24 11:30 10/03/24 06:25 1 STRIP Insulin Human Regular ACHS SC 10/02/24 11:30 10/03/24 06:25 2 UNITS Dextrose 50 ml UD PRN IV 10/02/24 07:15 Lactulose 30 ml BID PO 10/02/24 22:00 10/03/24 09:21 30 ML Carvedilol 6.25 mg Q12HR PO 10/02/24 22:00 10/03/24 09:21 6.25 MG Hydralazine HCl 10 mg Q4HR PRN IV 10/02/24 10:30 objective GENERAL: Alert and oriented x 3. No acute distress. EYES: PERRL, EOMI. Anicteric. HENT: Moist mucous membranes. LUNGS: Decreased breath sounds. CARDIOVASCULAR: Regular rate and rhythm. ABDOMEN: Soft, nontender and nondistended. EXTREMITIES: No edema. NEUROLOGIC: No focal neurological deficits. SKIN: Warm, dry. : Scrotal edema. laboratory and microbiology Laboratory Tests 10/03/24 09:48 Test 10/03/24 09:48 Range/Units Serum Glucose 117 H 74-106 mg/dL Problem List Hyperammonemia related to liver cirrhosis. Chronic Kidney Disease Stage 3A. Acute on chronic combined systolic and diastolic heart failure. Diabetic left foot ulcer. Hypertension. Type 2 Diabetes Mellitus. Pleural Effusion. Hyperlipidemia. History of CABG. Hyperkalemia. Assessment/Plan Continued all current supportive medical care. Lipitor, Plavix. Diuretics with Bumex. Coreg. Oral antibiotics as ordered. IV Hydralazine for SBP > 150. Dilaudid for pain management. Nitro SL. Additional plan as per the hospital course. Dietary Evaluation Review Recommendations by RD: Dietary education by RD Comments: 1) Initiate MVI @ 1 tb qd 2) Initiate vitamin C @ 500 mg bid and zinc sulfate @ 220 mg qd for 7 days 3) Continue 60g CCHO cardiac diet. Promote optimal PO intake 4) Encourage patient to limit intake of added sugar including pastries, desserts, candy, and sugar-sweetened beverages. Prioritize natural sugar substitutes such as Stevia and/or monk fruit. Aim for a consistent intake of complex carbohydrates throughout day, paired with lean protein to promote glycemic control. 5) Refer to outpatient RD/CDCES for diabetes counseling 6) Follow-up with cardiology, gastroenterology, nephrology, and podiatry 7) Continue to monitor I&O, labs, and skin integrity Expected Outcomes/Goals: 1) appetite and labs to improve 2) wound to improve 3) gradual wt loss 4) f/u in 3-5 days Plan discussed with: Patient JOE SIMMONS MD Oct 03, 2024 13:05
[2024-10-04] VITALS (7 sets, daily range): BP systolic 101–137; BP diastolic 71–101; PULSE 75–87; RESP 18; TEMP 97.4–98.2; O2SAT 90–99
[2024-10-04 06:50] LABS: Hematocrit 35.3 % (41.0-53.0); Hemoglobin 11.8 g/dL (13.5-17.5); Mean Corpuscular Hemoglobin 27.9 pg (28.0-32.0); Mean Corpuscular Volume 83.3 fL (80.0-100.0); Nucleated Red Blood Cells % 0.0 %
[2024-10-04 06:53] LABS: Anion Gap 11 (5-15); Chloride 101 mmol/L (98-107); Potassium 4.7 mmol/L (3.5-5.1)
[2024-10-04 06:54] LABS: Carbon Dioxide 19 mmol/L (20-31); Sodium 131 mmol/L (136-145)
[2024-10-04 06:56] LABS: Calcium 8.2 mg/dL (8.7-10.4)
[2024-10-04 06:59] LABS: BUN/Creatinine Ratio 20.6 (10.0-20.0); Glucose 142 mg/dL (74-106)
[2024-10-04 07:00] LABS: Blood Urea Nitrogen 41 mg/dL (9-23)
--- NOTE | 2024-10-04 08:10 | ECG ---
[facility] Test Date: 2024-10-02 Test Time: 01:33:08 Pat Name: JIN ITM Department: ER Room: 0216T A Gender: M Cane Cutter: KRISTINE : 1975 Requested By: CRISSY CONTRERAS Order Number: [id number] Reading MD: Alessandro Rankin Measurements Intervals [place] Rate: 92 P: 88 ID: [id number] QRS: 153 QRSD: 133 T: 12 QT: 391 QTc: 484 Interpretive Statements Sinus rhythm Right bundle branch block Anterolateral infarct, age indeterminate Electronically Signed On 10-04-2024 22:03:42 PDT by Alessandro Rankin Please click the below link to view image of tracing.
--- NOTE | 2024-10-04 13:02 | DVHPN2 ---
Progress Note - Dictate Date Seen: Oct 04, 2024 Medical Necessity Reason Pt with a Central, PICC or Fol: No vital signs Vital Sign Date Time Temp Pulse Resp B/P (MAP) Pulse Ox O2 Delivery O2 Flow Rate FiO2 10/04/24 12:42 97.9 87 18 131/79 (96) 90 97.9 10/04/24 08:00 Room Air* 0 21 Total Intake and Output 10/03/24 10/03/24 10/04/24 15:00 23:00 07:00 Intake Total 560 ml 700 ml Output Total 3000 ml 400 ml Balance -3000 ml 160 ml 700 ml medications Current Medications Medications Dose Ordered Sig/Aubrie Route Start Time Stop Time Status Last Admin Dose Admin Nitroglycerin 0.4 mg Q5MINP PRN SL 10/01/24 18:45 10/03/24 12:20 0.4 MG Morphine Sulfate 2 mg Q30M PRN IV 10/01/24 18:45 10/03/24 15:10 2 MG Bumetanide 1 mg BIDD IV 10/02/24 06:00 10/04/24 05:39 1 MG Clopidogrel Bisulfate 75 mg DAILY PO 10/02/24 10:00 10/04/24 10:03 75 MG Famotidine 20 mg BID PO 10/02/24 10:00 10/04/24 10:03 20 MG Tamsulosin HCl 0.4 mg DAILY PO 10/02/24 10:00 10/04/24 10:02 0.4 MG Rifaximin 550 mg BID PO 10/02/24 10:00 10/04/24 10:02 550 MG Doxycycline Monohydrate 100 mg Q12HR PO 10/02/24 10:00 10/04/24 10:01 100 MG Cefpodoxime Proxetil 200 mg BID PO 10/02/24 10:00 10/03/24 21:51 200 MG Spironolactone 25 mg DAILY PO 10/02/24 10:00 10/04/24 10:03 25 MG Atorvastatin Calcium 80 mg HS PO 10/02/24 22:00 10/03/24 21:50 80 MG Diagnostic Test (Pha) 1 strip ACHS 10/02/24 11:30 10/04/24 12:47 1 STRIP Insulin Human Regular ACHS SC 10/02/24 11:30 10/04/24 12:47 2 UNITS Dextrose 50 ml UD PRN IV 10/02/24 07:15 Lactulose 30 ml BID PO 10/02/24 22:00 10/03/24 21:48 30 ML Carvedilol 6.25 mg Q12HR PO 10/02/24 22:00 10/04/24 10:02 6.25 MG Hydralazine HCl 10 mg Q4HR PRN IV 10/02/24 10:30 Oxycodone HCl 5 mg Q6HP PRN PO 10/03/24 18:00 Hydromorphone HCl 0.5 mg Q4HPRN PRN IV 10/03/24 18:15 10/04/24 10:01 0.5 MG objective General Appearance: alert, no distress HEENT: EOMI, PERRLA, normal external inspect of ears, no icterus, no nasal drainage Neck: no carotid bruit, no jugular venous distention (JVD), no lymphadenopathy Chest: normal thorax Respiratory: clear to auscultation, normal air movement Cardiovascular: regular rate and rhythm, no diastolic murmur, no jugular venous distention (JVD), no rub, no systolic murmur Abdominal: soft, no hepatomegaly, no mass, no splenomegaly, no tenderness Genitourinary: grossly normal external Musculoskeletal: no joint tenderness, no swelling Extremities: normal pulses, no calf tenderness, no clubbing, no cyanosis, no edema Skin: no bruising, no jaundice, no rash Neurological: alert, No focal deficit laboratory and microbiology Laboratory Tests 10/04/24 06:00 Test 10/04/24 06:00 Range/Units Serum Glucose 142 H 74-106 mg/dL Problem List 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 Plan: - Avoid nephrotoxic medications - Consult nephrology Acute on chronic combined systolic and diastolic heart failure Plan: - Bumetanide 1 mg BID - Fluid restriction to 1000 mL daily - Consult cardiology Diabetic left foot ulcer Plan: - Consult podiatry - Initiate antibiotic Hypertension Plan: - Continue home medications Type 2 Diabetes Mellitus Assessment: Patient has a history of diabetes mellitus, which requires ongoing management. Plan: - Implement insulin sliding scale Pleural Effusion Assessment: Patient has pleural effusion, which may be related to the heart failure exacerbation or other underlying conditions. Plan: - Perform thoracentesis as needed - Consult pulmonology Hyperlipidemia Plan: -Monitor History of CABG Plan; -cardiology consult Hyperkalemia Plan: -Hyperkalemia cocktail Assessment/Plan Subjective Patient is awake and alert. Objective Patient was admitted for ALOC related to hyperammonemia. Patient has a history of liver cirrhosis and CKD stage IIIa. Patient is complaining of weakness. Patient states he uses a walker periodically at home. Patient is complaining of improved abdominal pain related to ascites. Plan Continue current treatment. PT eval pending. Discharge planning. Dietary Evaluation Review Recommendations by RD: Dietary education by RD Comments: 1) Initiate MVI @ 1 tb qd 2) Initiate vitamin C @ 500 mg bid and zinc sulfate @ 220 mg qd for 7 days 3) Continue 60g CCHO cardiac diet. Promote optimal PO intake 4) Encourage patient to limit intake of added sugar including pastries, desserts, candy, and sugar-sweetened beverages. Prioritize natural sugar substitutes such as Stevia and/or monk fruit. Aim for a consistent intake of complex carbohydrates throughout day, paired with lean protein to promote glycemic control. 5) Refer to outpatient RD/CD[facility] for diabetes counseling 6) Follow-up with cardiology, gastroenterology, nephrology, and podiatry 7) Continue to monitor I&O, labs, and skin integrity Expected Outcomes/Goals: 1) appetite and labs to improve 2) wound to improve 3) gradual wt loss 4) f/u in 3-5 days Plan discussed with: Patient, Other ANGELINE HEARN NP Oct 04, 2024 13:02
--- NOTE | 2024-10-04 14:22 | DVHPN2 ---
Progress Note - Dictate Date Seen: Oct 04, 2024 Medical Necessity Reason Pt with a Central, PICC or Fol: No Subjective Patient is overall feeling better except for right-sided chest pain endorsed. vital signs Vital Sign Date Time Temp Pulse Resp B/P (MAP) Pulse Ox O2 Delivery O2 Flow Rate FiO2 10/04/24 14:09 87 18 131/79 10/04/24 12:42 97.9 90 97.9 10/04/24 08:00 Room Air* 0 21 Total Intake and Output 10/03/24 10/03/24 10/04/24 15:00 23:00 07:00 Intake Total 560 ml 700 ml Output Total 3000 ml 400 ml Balance -3000 ml 160 ml 700 ml medications Current Medications Medications Dose Ordered Sig/Aubrie Route Start Time Stop Time Status Last Admin Dose Admin Nitroglycerin 0.4 mg Q5MINP PRN SL 10/01/24 18:45 10/03/24 12:20 0.4 MG Morphine Sulfate 2 mg Q30M PRN IV 10/01/24 18:45 10/03/24 15:10 2 MG Bumetanide 1 mg BIDD IV 10/02/24 06:00 10/04/24 05:39 1 MG Clopidogrel Bisulfate 75 mg DAILY PO 10/02/24 10:00 10/04/24 10:03 75 MG Famotidine 20 mg BID PO 10/02/24 10:00 10/04/24 10:03 20 MG Tamsulosin HCl 0.4 mg DAILY PO 10/02/24 10:00 10/04/24 10:02 0.4 MG Rifaximin 550 mg BID PO 10/02/24 10:00 10/04/24 10:02 550 MG Doxycycline Monohydrate 100 mg Q12HR PO 10/02/24 10:00 10/04/24 10:01 100 MG Cefpodoxime Proxetil 200 mg BID PO 10/02/24 10:00 10/03/24 21:51 200 MG Spironolactone 25 mg DAILY PO 10/02/24 10:00 10/04/24 10:03 25 MG Atorvastatin Calcium 80 mg HS PO 10/02/24 22:00 10/03/24 21:50 80 MG Diagnostic Test (Pha) 1 strip ACHS 10/02/24 11:30 10/04/24 12:47 1 STRIP Insulin Human Regular ACHS SC 10/02/24 11:30 10/04/24 12:47 2 UNITS Dextrose 50 ml UD PRN IV 10/02/24 07:15 Lactulose 30 ml BID PO 10/02/24 22:00 10/03/24 21:48 30 ML Carvedilol 6.25 mg Q12HR PO 10/02/24 22:00 10/04/24 10:02 6.25 MG Hydralazine HCl 10 mg Q4HR PRN IV 10/02/24 10:30 Oxycodone HCl 5 mg Q6HP PRN PO 10/03/24 18:00 Hydromorphone HCl 0.5 mg Q4HPRN PRN IV 10/03/24 18:15 10/04/24 14:09 0.5 MG objective HEENT: No evidence of JVD, no oral ulcers. Pulmonary: Lungs are clear on auscultation bilaterally Cardiovascular S1-S2, no S3 or S4 Abdomen: Bowel sounds positive, soft no rebound tenderness Skin: No rash Neurological: Alert, oriented, no focal weakness Extremities: Trace edema lower legs Gonzalez catheter in place laboratory and microbiology Laboratory Tests 10/04/24 06:00 Test 10/04/24 06:00 Range/Units Serum Glucose 142 H 74-106 mg/dL Assessment/Plan Assessment: Acute kidney injury superimposed on Chronic kidney disease stage III A Anasarca Urinary retention Type 2 diabetes with its complications History of CAD status post CABG Hypertension Hyperlipidemia Peripheral vascular disease Liver cirrhosis Recommendations and plan Continue diuresis with the Bumex. Urology consult to manage the obstructive uropathy I discussed with Rosy DIMAS about the chest pain recommend Cardiology consult Renal ultrasound done showing bilateral increased echogenicity. Podiatry evaluation. Continue with the IV antibiotics. Strict Is&Os. Monitor potassium closely. Daily labs. Dietary Evaluation Review Recommendations by RD: Dietary education by RD Comments: 1) Initiate MVI @ 1 tb qd 2) Initiate vitamin C @ 500 mg bid and zinc sulfate @ 220 mg qd for 7 days 3) Continue 60g CCHO cardiac diet. Promote optimal PO intake 4) Encourage patient to limit intake of added sugar including pastries, desserts, candy, and sugar-sweetened beverages. Prioritize natural sugar substitutes such as Stevia and/or monk fruit. Aim for a consistent intake of complex carbohydrates throughout day, paired with lean protein to promote glycemic control. 5) Refer to outpatient RD/[facility] for diabetes counseling 6) Follow-up with cardiology, gastroenterology, nephrology, and podiatry 7) Continue to monitor I&O, labs, and skin integrity Expected Outcomes/Goals: 1) appetite and labs to improve 2) wound to improve 3) gradual wt loss 4) f/u in 3-5 days Plan discussed with: Patient CLARA DAVIES MD Oct 04, 2024 14:22
--- NOTE | 2024-10-04 22:29 | DVHPN2 ---
Progress Note - Dictate Date Seen: Oct 04, 2024 Medical Necessity Reason Pt with a Central, PICC or Fol: No Subjective Patient was seen and evaluated in follow up. Patient is complaining of skin and throat itchiness. The patient believes the Lactulose caused his symptoms. Per IR, the patient does not have enough fluid for a thoracentesis. CO2 19, BUN 41, [employer] 1.99, CA 8.2. Telemetry reviewed. vital signs Vital Sign Date Time Temp Pulse Resp B/P (MAP) Pulse Ox O2 Delivery O2 Flow Rate FiO2 10/04/24 12:42 97.9 87 18 131/79 (96) 90 97.9 10/04/24 08:00 Room Air* 0 21 Total Intake and Output 10/03/24 10/03/24 10/04/24 15:00 23:00 07:00 Intake Total 560 ml 700 ml Output Total 3000 ml 400 ml Balance -3000 ml 160 ml 700 ml medications Current Medications Medications Dose Ordered Sig/Aubrie Route Start Time Stop Time Status Last Admin Dose Admin Nitroglycerin 0.4 mg Q5MINP PRN SL 10/01/24 18:45 10/03/24 12:20 0.4 MG Morphine Sulfate 2 mg Q30M PRN IV 10/01/24 18:45 10/03/24 15:10 2 MG Bumetanide 1 mg BIDD IV 10/02/24 06:00 10/04/24 05:39 1 MG Clopidogrel Bisulfate 75 mg DAILY PO 10/02/24 10:00 10/04/24 10:03 75 MG Famotidine 20 mg BID PO 10/02/24 10:00 10/04/24 10:03 20 MG Tamsulosin HCl 0.4 mg DAILY PO 10/02/24 10:00 10/04/24 10:02 0.4 MG Rifaximin 550 mg BID PO 10/02/24 10:00 10/04/24 10:02 550 MG Doxycycline Monohydrate 100 mg Q12HR PO 10/02/24 10:00 10/04/24 10:01 100 MG Cefpodoxime Proxetil 200 mg BID PO 10/02/24 10:00 10/03/24 21:51 200 MG Spironolactone 25 mg DAILY PO 10/02/24 10:00 10/04/24 10:03 25 MG Atorvastatin Calcium 80 mg HS PO 10/02/24 22:00 10/03/24 21:50 80 MG Diagnostic Test (Pha) 1 strip ACHS 10/02/24 11:30 10/04/24 12:47 1 STRIP Insulin Human Regular ACHS SC 10/02/24 11:30 10/04/24 12:47 2 UNITS Dextrose 50 ml UD PRN IV 10/02/24 07:15 Lactulose 30 ml BID PO 10/02/24 22:00 10/03/24 21:48 30 ML Carvedilol 6.25 mg Q12HR PO 10/02/24 22:00 10/04/24 10:02 6.25 MG Hydralazine HCl 10 mg Q4HR PRN IV 10/02/24 10:30 Oxycodone HCl 5 mg Q6HP PRN PO 10/03/24 18:00 Hydromorphone HCl 0.5 mg Q4HPRN PRN IV 10/03/24 18:15 10/04/24 10:01 0.5 MG objective GENERAL: Alert and oriented x 3. No acute distress. EYES: PERRL, EOMI. Anicteric. HENT: Moist mucous membranes. LUNGS: Decreased breath sounds. CARDIOVASCULAR: Regular rate and rhythm. ABDOMEN: Soft, nontender and nondistended. EXTREMITIES: No edema. NEUROLOGIC: No focal neurological deficits. SKIN: Warm, dry. : Scrotal edema. laboratory and microbiology Laboratory Tests 10/04/24 06:00 Test 10/04/24 06:00 Range/Units Serum Glucose 142 H 74-106 mg/dL Problem List Hyperammonemia related to liver cirrhosis. Chronic Kidney Disease Stage 3A. Acute on chronic combined systolic and diastolic heart failure. Diabetic left foot ulcer. Hypertension. Type 2 Diabetes Mellitus. Pleural Effusion. Hyperlipidemia. History of CABG. Hyperkalemia. Assessment/Plan Continued all current supportive medical care. Plavix. Coreg. Aldactone. Diuretics with Bumex. Oral antibiotics as ordered. IV Hydralazine for SBP > 150. Dilaudid and Oxycodone for pain management. Additional plan as per the hospital course. Dietary Evaluation Review Recommendations by RD: Dietary education by RD Comments: 1) Initiate MVI @ 1 tb qd 2) Initiate vitamin C @ 500 mg bid and zinc sulfate @ 220 mg qd for 7 days 3) Continue 60g CCHO cardiac diet. Promote optimal PO intake 4) Encourage patient to limit intake of added sugar including pastries, desserts, candy, and sugar-sweetened beverages. Prioritize natural sugar substitutes such as Stevia and/or monk fruit. Aim for a consistent intake of complex carbohydrates throughout day, paired with lean protein to promote glycemic control. 5) Refer to outpatient RD/[facility] for diabetes counseling 6) Follow-up with cardiology, gastroenterology, nephrology, and podiatry 7) Continue to monitor I&O, labs, and skin integrity Expected Outcomes/Goals: 1) appetite and labs to improve 2) wound to improve 3) gradual wt loss 4) f/u in 3-5 days Plan discussed with: Patient JOE SIMMONS MD Oct 04, 2024 13:14
--- NOTE | 2024-10-04 23:50 | DVHPN2 ---
Progress Note - Dictate Date Seen: Oct 04, 2024 Medical Necessity Reason Pt with a Central, PICC or Fol: Yes The following are medically ne: Montano Catheter Reason for montano catheter: Strict I&O Subjective Patient seen and examined at bedside. Breathing comfortably on room air Overnight events reviewed. vital signs Vital Sign Date Time Temp Pulse Resp B/P (MAP) Pulse Ox O2 Delivery O2 Flow Rate FiO2 10/04/24 22:22 78 124/73 10/04/24 21:00 98.2 18 92 98.2 10/04/24 20:00 Room Air* 0 21 Total Intake and Output 10/03/24 10/03/24 10/04/24 15:00 23:00 07:00 Intake Total 560 ml 700 ml Output Total 3000 ml 400 ml Balance -3000 ml 160 ml 700 ml medications Current Medications Medications Dose Ordered Sig/Aubrie Route Start Time Stop Time Status Last Admin Dose Admin Nitroglycerin 0.4 mg Q5MINP PRN SL 10/01/24 18:45 10/03/24 12:20 0.4 MG Morphine Sulfate 2 mg Q30M PRN IV 10/01/24 18:45 10/03/24 15:10 2 MG Bumetanide 1 mg BIDD IV 10/02/24 06:00 10/04/24 18:11 1 MG Clopidogrel Bisulfate 75 mg DAILY PO 10/02/24 10:00 10/04/24 10:03 75 MG Famotidine 20 mg BID PO 10/02/24 10:00 10/04/24 22:23 20 MG Tamsulosin HCl 0.4 mg DAILY PO 10/02/24 10:00 10/04/24 10:02 0.4 MG Rifaximin 550 mg BID PO 10/02/24 10:00 10/04/24 22:23 550 MG Doxycycline Monohydrate 100 mg Q12HR PO 10/02/24 10:00 10/04/24 22:22 100 MG Cefpodoxime Proxetil 200 mg BID PO 10/02/24 10:00 10/04/24 22:22 200 MG Spironolactone 25 mg DAILY PO 10/02/24 10:00 10/04/24 10:03 25 MG Atorvastatin Calcium 80 mg HS PO 10/02/24 22:00 10/04/24 22:22 80 MG Diagnostic Test (Pha) 1 strip ACHS 10/02/24 11:30 10/04/24 22:27 1 STRIP Insulin Human Regular ACHS SC 10/02/24 11:30 10/04/24 22:29 3 UNITS Dextrose 50 ml UD PRN IV 10/02/24 07:15 Lactulose 30 ml BID PO 10/02/24 22:00 10/03/24 21:48 30 ML Carvedilol 6.25 mg Q12HR PO 10/02/24 22:00 10/04/24 22:22 6.25 MG Hydralazine HCl 10 mg Q4HR PRN IV 10/02/24 10:30 Oxycodone HCl 5 mg Q6HP PRN PO 10/03/24 18:00 Hydromorphone HCl 0.5 mg Q4HPRN PRN IV 10/03/24 18:15 10/04/24 18:12 0.5 MG Ondansetron HCl 4 mg Q4HPRN PRN IV 10/04/24 18:45 objective Gen.: Patient lying in bed in no apparent distress. On room air. Head: Normocephalic, atraumatic. Eyes: EOMI/PERRLA. Ears: Normal hearing. Normal anatomy. Neck/trachea: Trachea midline, supple. Nose: Normal external anatomy. Mouth: Moist mucous membranes. Chest: Decreased air entry bilaterally. No wheezing or rhonchi. Cardiovascular: Positive S1, positive S2. Regular rate and rhythm. Abdomen: Positive bowel sounds in all 4 quadrants. Soft, non-tender, non- distended. : Deferred. Rectal: Deferred. Skin: Warm, dry. Intact. Extremities: 2+ radial pulses bilaterally. No lower extremity edema. Neuro: Awake, alert, oriented x3. No gross motor or sensory deficits. Cranial nerves II through XII intact. Gait not assessed. laboratory and microbiology Laboratory Tests 10/04/24 06:00 Test 10/04/24 06:00 Range/Units Serum Glucose 142 H 74-106 mg/dL Assessment/Plan Impression: Acute hypoxic respiratory failure 2/2 congestive heart failure Pleural effusions, bilateral Atelectasis Coronary artery disease, s/p CABG Metabolic acidosis Anasarca 2/2 liver cirrhosis Hx of nicotine dependence Obesity Events: Currently breathing on room air. No distress Supplemental oxygen PRN Chest ultrasound revealed not enough fluid for thoracentesis. S/p right thoracentesis on 10/02/24 with removal of 550 mL natalya fluid See separate procedure note for details. CXR demonstrated interval reduction in pleural effusions. Patient improving with diuresis Chest pain, improved - troponins negative. Pain control - Hydrocodone PRN for moderate pain Dilaudid 0.5 mg IVP q.4 hours PRN severe pain Avoid oversedation Antiemetic PRN for nausea. Cardiology recs appreciated Blood pressure control Complete antibiotics Incentive spirometry Accu-Cheks, ISS. Labs and imaging reviewed. Rest of plan as noted below. Plan: Supplemental oxygen PRN Titrate to keep O2 sats above 92%. Continue antibiotics Incentive spirometry for atelectasis Follow up Cardiology recs Blood pressure control Accu-Cheks, ISS. Pepcid for GI ppx Pain control Avoid oversedation Diurese with Bumex as tolerated Monitor renal function. Monitor electrolytes. Supplement as necessary. Monitor ins and outs. Diet and lifestyle modifications for weight reduction GI/DVT prophylaxis. Prognosis: Poor given patient's multiple co-morbidities. Rest of plan per hospitalist and other consultants. Thank you, Dr. Espinal, for allowing me to participate in this patient's care. Further recommendations will depend on the patient's clinical course. Please do not hesitate to contact me if you have any questions or concerns. This medical document was created using an electronic medical record system with [employer] dictation system. Although these documentations are being carefully reviewed, there may still be some phonetic and typographical changes. The errors are purely typographical, due to imperfection on the software program, and do not reflect any compromise in the patient's medical care. Dietary Evaluation Review Recommendations by RD: Dietary education by RD Comments: 1) Initiate MVI @ 1 tb qd 2) Initiate vitamin C @ 500 mg bid and zinc sulfate @ 220 mg qd for 7 days 3) Continue 60g CCHO cardiac diet. Promote optimal PO intake 4) Encourage patient to limit intake of added sugar including pastries, desserts, candy, and sugar-sweetened beverages. Prioritize natural sugar substitutes such as Stevia and/or monk fruit. Aim for a consistent intake of complex carbohydrates throughout day, paired with lean protein to promote glycemic control. 5) Refer to outpatient RD/[facility] for diabetes counseling 6) Follow-up with cardiology, gastroenterology, nephrology, and podiatry 7) Continue to monitor I&O, labs, and skin integrity Expected Outcomes/Goals: 1) appetite and labs to improve 2) wound to improve 3) gradual wt loss 4) f/u in 3-5 days Plan discussed with: Patient, Other (RN Daysi) BUCKY HUDSON MD Oct 04, 2024 23:50
[2024-10-05] VITALS (8 sets, daily range): BP systolic 104–138; BP diastolic 65–87; PULSE 70–94; RESP 17–22; TEMP 97.3–98.6; O2SAT 93–100
--- NOTE | 2024-10-05 11:14 | DVH ---
INDICATION: POST THORACENTESIS TECHNIQUE: Single frontal chest radiograph COMPARISON: XY CHEST XRAY 1 VIEW on DOS: 10/03/24, XY CHEST XRAY 1 VIEW on DOS: 10/02/24, XY CHEST XRAY 1 VIEW on DOS: 10/01/24, XY CHEST PORTABLE on DOS: 07/06/24, CT ANGIO CHEST CONTRAST on DOS: 05/10/21 FINDINGS: Cardiomegaly with CHF decreased left pleural effusion. No pneumothorax. IMPRESSION: Cardiomegaly with CHF decreased left pleural effusion. No pneumothorax.
[2024-10-05] MEDS: ONDANSETRON HCL 4 MG/2 ML VIAL IV PRN (11:41)
--- NOTE | 2024-10-05 11:44 | DVH ---
PROCEDURE: Ultrasound-guided thoracentesis Procedural Personnel Attending physician(s): Rene Joiner Fellow physician(s): None Resident physician(s): None A dvanced practice provider(s): None Pre-procedure diagnosis: Dyspnea Post-procedure diagnosis: Same Indication: Therapeutic Additional clinical history: None Complications: No immediate complications. IMPRESSION: Ultrasound-guided thoracentesis with drainage of 950 mL of serous fluid. Plan: Resume care by clinical team. PROCEDURE SUMMARY: - Ultrasound-guided thoracentesis - Additional procedure(s): None PROCEDURE DETAILS: Pre-procedure Consent: Informed consent for the procedure including risks, benefits and alternatives was obtained and time-out was performed prior to the procedure. Preparation: The site was prepared an d draped using maximal sterile barrier technique including cutaneous antisepsis. Anesthesia/sedation level of anesthesia/sedation: No sedation Anesthesia/sedation administered by: Not applicable Total intra-service sedation time (minutes): Not applicable Limited thoracic ultrasound Limited thoracic ultrasound was performed. Left hemithorax findings: Large pleural effusion Right hemithorax findings: Not investigated Thoracentesis Local anesthesia was administered. A safe window for thoracentesis was identified with ultrasound. Th e pleural space was accessed and fluid return confirmed position. The fluid was drained. The catheter was removed and a sterile dressing was applied. Catheter size (Fr):5 Catheter valve: Yes Fluid appearance: serous Volume drained (mL): 950 Post-drainage ultrasound: Small effusion Additional Details Additional description of procedure: None Registry event: V/3/f Device used: None Equipment details: None Specimens removed: Aspirated fluid was not sent for analysis. Estimated blood loss (mL): Less than 10 Standardized report: [id number] Attestation Signer name: Rene Joiner I attest that I was present for the entire procedure. I reviewed the stored images and agree with the report as written.
[2024-10-05 12:07] LABS: Glucose, Body Fluid 166.0 mg/dL (.); LD, Body Fluid 49.0 IU/L (.)
--- NOTE | 2024-10-05 13:09 | DVHPN2 ---
Progress Note - Dictate Date Seen: Oct 05, 2024 Medical Necessity Reason Pt with a Central, PICC or Fol: Yes The following are medically ne: Montano Catheter Reason for montano catheter: Strict I&O vital signs Vital Sign Date Time Temp Pulse Resp B/P (MAP) Pulse Ox O2 Delivery O2 Flow Rate FiO2 10/05/24 12:22 81 18 138/87 10/05/24 05:00 98.6 94 98.6 10/04/24 20:00 Room Air* 0 21 Total Intake and Output 10/04/24 10/04/24 10/05/24 15:00 23:00 07:00 Intake Total 900 ml 300 ml Balance 900 ml 300 ml medications Current Medications Medications Dose Ordered Sig/Aubrie Route Start Time Stop Time Status Last Admin Dose Admin Nitroglycerin 0.4 mg Q5MINP PRN SL 10/01/24 18:45 10/03/24 12:20 0.4 MG Morphine Sulfate 2 mg Q30M PRN IV 10/01/24 18:45 10/03/24 15:10 2 MG Bumetanide 1 mg BIDD IV 10/02/24 06:00 10/05/24 05:38 1 MG Clopidogrel Bisulfate 75 mg DAILY PO 10/02/24 10:00 10/05/24 09:53 75 MG Famotidine 20 mg BID PO 10/02/24 10:00 10/05/24 09:53 20 MG Tamsulosin HCl 0.4 mg DAILY PO 10/02/24 10:00 10/05/24 09:53 0.4 MG Rifaximin 550 mg BID PO 10/02/24 10:00 10/05/24 09:53 550 MG Doxycycline Monohydrate 100 mg Q12HR PO 10/02/24 10:00 10/05/24 09:53 100 MG Cefpodoxime Proxetil 200 mg BID PO 10/02/24 10:00 10/05/24 09:53 200 MG Spironolactone 25 mg DAILY PO 10/02/24 10:00 10/05/24 09:53 25 MG Atorvastatin Calcium 80 mg HS PO 10/02/24 22:00 10/04/24 22:22 80 MG Diagnostic Test (Pha) 1 strip ACHS 10/02/24 11:30 10/05/24 11:30 1 STRIP Insulin Human Regular ACHS SC 10/02/24 11:30 10/04/24 22:29 3 UNITS Dextrose 50 ml UD PRN IV 10/02/24 07:15 Lactulose 30 ml BID PO 10/02/24 22:00 10/05/24 09:53 30 ML Carvedilol 6.25 mg Q12HR PO 10/02/24 22:00 10/04/24 22:22 6.25 MG Hydralazine HCl 10 mg Q4HR PRN IV 10/02/24 10:30 Oxycodone HCl 5 mg Q6HP PRN PO 10/03/24 18:00 Hydromorphone HCl 0.5 mg Q4HPRN PRN IV 10/03/24 18:15 10/05/24 11:52 0.5 MG Ondansetron HCl 4 mg Q4HPRN PRN IV 10/04/24 18:45 10/05/24 11:41 4 MG objective General Appearance: alert, no distress HEENT: EOMI, PERRLA, normal external inspect of ears, no icterus, no nasal drainage Neck: no carotid bruit, no jugular venous distention (JVD), no lymphadenopathy Chest: normal thorax Respiratory: clear to auscultation, normal air movement Cardiovascular: regular rate and rhythm, no diastolic murmur, no jugular venous distention (JVD), no rub, no systolic murmur Abdominal: soft, no hepatomegaly, no mass, no splenomegaly, no tenderness Genitourinary: grossly normal external Musculoskeletal: no joint tenderness, no swelling Extremities: normal pulses, no calf tenderness, no clubbing, no cyanosis, no edema Skin: no bruising, no jaundice, no rash Neurological: alert, No focal deficit laboratory and microbiology Laboratory Tests 10/04/24 06:00 Test 10/04/24 06:00 Range/Units Serum Glucose 142 H 74-106 mg/dL Problem List 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 Plan: - Avoid nephrotoxic medications - Consult nephrology Acute on chronic combined systolic and diastolic heart failure Plan: - Bumetanide 1 mg BID - Fluid restriction to 1000 mL daily - Consult cardiology Diabetic left foot ulcer Plan: - Consult podiatry - Initiate antibiotic Hypertension Plan: - Continue home medications Type 2 Diabetes Mellitus Assessment: Patient has a history of diabetes mellitus, which requires ongoing management. Plan: - Implement insulin sliding scale Pleural Effusion Assessment: Patient has pleural effusion, which may be related to the heart failure exacerbation or other underlying conditions. Plan: - Perform thoracentesis as needed - Consult pulmonology Hyperlipidemia Plan: -Monitor History of CABG Plan; -cardiology consult Hyperkalemia Plan: -Hyperkalemia cocktail Assessment/Plan Subjective Patient is awake and alert. Objective Patient was admitted for fluid overload. Patient found to have combined systolic diastolic heart failure and liver cirrhosis. Patient is status post right thoracentesis. 550 mL of fluid was removed. Patient status post left thoracentesis done today. 950 mL of fluid was removed. Patient has a history of liver cirrhosis. Currently on Rixa and lactulose. Patient's mentation is at baseline. Patient has a diabetic foot ulcer. Plan Podiatry consult. Continue diuretics for CHF exacerbation and liver cirrhosis. Pulmonary recommendations appreciated. Dietary Evaluation Review Recommendations by RD: Dietary education by RD Comments: 1) Initiate MVI @ 1 tb qd 2) Initiate vitamin C @ 500 mg bid and zinc sulfate @ 220 mg qd for 7 days 3) Continue 60g CCHO cardiac diet. Promote optimal PO intake 4) Encourage patient to limit intake of added sugar including pastries, desserts, candy, and sugar-sweetened beverages. Prioritize natural sugar substitutes such as Stevia and/or monk fruit. Aim for a consistent intake of complex carbohydrates throughout day, paired with lean protein to promote glycemic control. 5) Refer to outpatient RD/ESTELAES for diabetes counseling 6) Follow-up with cardiology, gastroenterology, nephrology, and podiatry 7) Continue to monitor I&O, labs, and skin integrity Expected Outcomes/Goals: 1) appetite and labs to improve 2) wound to improve 3) gradual wt loss 4) f/u in 3-5 days Plan discussed with: Patient, Other ANGELINE HEARN NP Oct 05, 2024 13:09
--- NOTE | 2024-10-05 16:47 | DVHPN2 ---
Progress Note - Dictate Date Seen: Oct 05, 2024 Medical Necessity Reason Pt with a Central, PICC or Fol: Yes The following are medically ne: Montano Catheter Reason for montano catheter: Strict I&O Subjective Patient complains of heartburn chest pain vital signs Vital Sign Date Time Temp Pulse Resp B/P (MAP) Pulse Ox O2 Delivery O2 Flow Rate FiO2 10/05/24 13:00 97.4 81 18 138/87 (104) 100 97.4 10/04/24 20:00 Room Air* 0 21 Total Intake and Output 10/04/24 10/04/24 10/05/24 15:00 23:00 07:00 Intake Total 900 ml 300 ml Balance 900 ml 300 ml medications Current Medications Medications Dose Ordered Sig/Aubrie Route Start Time Stop Time Status Last Admin Dose Admin Nitroglycerin 0.4 mg Q5MINP PRN SL 10/01/24 18:45 10/03/24 12:20 0.4 MG Morphine Sulfate 2 mg Q30M PRN IV 10/01/24 18:45 10/03/24 15:10 2 MG Bumetanide 1 mg BIDD IV 10/02/24 06:00 10/05/24 05:38 1 MG Clopidogrel Bisulfate 75 mg DAILY PO 10/02/24 10:00 10/05/24 09:53 75 MG Famotidine 20 mg BID PO 10/02/24 10:00 10/05/24 09:53 20 MG Tamsulosin HCl 0.4 mg DAILY PO 10/02/24 10:00 10/05/24 09:53 0.4 MG Rifaximin 550 mg BID PO 10/02/24 10:00 10/05/24 09:53 550 MG Doxycycline Monohydrate 100 mg Q12HR PO 10/02/24 10:00 10/05/24 09:53 100 MG Cefpodoxime Proxetil 200 mg BID PO 10/02/24 10:00 10/05/24 09:53 200 MG Spironolactone 25 mg DAILY PO 10/02/24 10:00 10/05/24 09:53 25 MG Atorvastatin Calcium 80 mg HS PO 10/02/24 22:00 10/04/24 22:22 80 MG Diagnostic Test (Pha) 1 strip ACHS 10/02/24 11:30 10/05/24 11:30 1 STRIP Insulin Human Regular ACHS SC 10/02/24 11:30 10/04/24 22:29 3 UNITS Dextrose 50 ml UD PRN IV 10/02/24 07:15 Lactulose 30 ml BID PO 10/02/24 22:00 10/05/24 09:53 30 ML Carvedilol 6.25 mg Q12HR PO 10/02/24 22:00 10/04/24 22:22 6.25 MG Hydralazine HCl 10 mg Q4HR PRN IV 10/02/24 10:30 Oxycodone HCl 5 mg Q6HP PRN PO 10/03/24 18:00 Hydromorphone HCl 0.5 mg Q4HPRN PRN IV 10/03/24 18:15 10/05/24 11:52 0.5 MG Ondansetron HCl 4 mg Q4HPRN PRN IV 10/04/24 18:45 10/05/24 11:41 4 MG objective HEENT: No evidence of JVD, no oral ulcers. Pulmonary: Lungs are clear on auscultation bilaterally Cardiovascular S1-S2, no S3 or S4 Abdomen: Bowel sounds positive, soft no rebound tenderness Skin: No rash Neurological: Alert, oriented, no focal weakness Extremities: Trace edema lower legs Montano catheter in place laboratory and microbiology Laboratory Tests 10/04/24 06:00 Test 10/04/24 06:00 Range/Units Serum Glucose 142 H 74-106 mg/dL Assessment/Plan Assessment: Acute kidney injury superimposed on Chronic kidney disease stage III A Anasarca Urinary retention Type 2 diabetes with its complications History of CAD status post CABG Chest pain Hypertension Hyperlipidemia Peripheral vascular disease Liver cirrhosis Gastroesophageal reflux disease Recommendations and plan Continue diuresis with the Bumex. Check labs in a.m. Protonix and DC Pepcid, Carafate, consider GI consultation Urology consult to manage the obstructive uropathy Cardiology consult Renal ultrasound done showing bilateral increased echogenicity. Podiatry evaluation. Continue with the IV antibiotics. Strict Is&Os. Monitor potassium closely. Daily labs. Dietary Evaluation Review Recommendations by RD: Dietary education by RD Comments: 1) Initiate MVI @ 1 tb qd 2) Initiate vitamin C @ 500 mg bid and zinc sulfate @ 220 mg qd for 7 days 3) Continue 60g CCHO cardiac diet. Promote optimal PO intake 4) Encourage patient to limit intake of added sugar including pastries, desserts, candy, and sugar-sweetened beverages. Prioritize natural sugar substitutes such as Stevia and/or monk fruit. Aim for a consistent intake of complex carbohydrates throughout day, paired with lean protein to promote glycemic control. 5) Refer to outpatient RD/[facility] for diabetes counseling 6) Follow-up with cardiology, gastroenterology, nephrology, and podiatry 7) Continue to monitor I&O, labs, and skin integrity Expected Outcomes/Goals: 1) appetite and labs to improve 2) wound to improve 3) gradual wt loss 4) f/u in 3-5 days Plan discussed with: Patient CLARA DAVIES MD Oct 05, 2024 16:47
[2024-10-05] MEDS: SUCRALFATE 1 GM TAB PO SCH (17:00)
--- NOTE | 2024-10-05 22:45 | DVHPN2 ---
Progress Note - Dictate Date Seen: Oct 05, 2024 Medical Necessity Reason Pt with a Central, PICC or Fol: Yes The following are medically ne: Montano Catheter Reason for montano catheter: Strict I&O Subjective Patient was seen and evaluated in follow up. Patient reports improvement in skin/throat itchiness. BS are WNL. Patient underwent US guided thoracentesis with 950 mL of serous fluid removed. Chest x-ray shows cardiomegaly with CHF decreased left pleural effusion. Telemetry reviewed. vital signs Vital Sign Date Time Temp Pulse Resp B/P (MAP) Pulse Ox O2 Delivery O2 Flow Rate FiO2 10/05/24 11:52 98 22 118/72 10/05/24 05:00 98.6 94 98.6 10/04/24 20:00 Room Air* 0 21 Total Intake and Output 10/04/24 10/04/24 10/05/24 15:00 23:00 07:00 Intake Total 900 ml 300 ml Balance 900 ml 300 ml medications Current Medications Medications Dose Ordered Sig/Aubrie Route Start Time Stop Time Status Last Admin Dose Admin Nitroglycerin 0.4 mg Q5MINP PRN SL 10/01/24 18:45 10/03/24 12:20 0.4 MG Morphine Sulfate 2 mg Q30M PRN IV 10/01/24 18:45 10/03/24 15:10 2 MG Bumetanide 1 mg BIDD IV 10/02/24 06:00 10/05/24 05:38 1 MG Clopidogrel Bisulfate 75 mg DAILY PO 10/02/24 10:00 10/05/24 09:53 75 MG Famotidine 20 mg BID PO 10/02/24 10:00 10/05/24 09:53 20 MG Tamsulosin HCl 0.4 mg DAILY PO 10/02/24 10:00 10/05/24 09:53 0.4 MG Rifaximin 550 mg BID PO 10/02/24 10:00 10/05/24 09:53 550 MG Doxycycline Monohydrate 100 mg Q12HR PO 10/02/24 10:00 10/05/24 09:53 100 MG Cefpodoxime Proxetil 200 mg BID PO 10/02/24 10:00 10/05/24 09:53 200 MG Spironolactone 25 mg DAILY PO 10/02/24 10:00 10/05/24 09:53 25 MG Atorvastatin Calcium 80 mg HS PO 10/02/24 22:00 10/04/24 22:22 80 MG Diagnostic Test (Pha) 1 strip ACHS 10/02/24 11:30 10/05/24 05:45 1 STRIP Insulin Human Regular ACHS SC 10/02/24 11:30 10/04/24 22:29 3 UNITS Dextrose 50 ml UD PRN IV 10/02/24 07:15 Lactulose 30 ml BID PO 10/02/24 22:00 10/05/24 09:53 30 ML Carvedilol 6.25 mg Q12HR PO 10/02/24 22:00 10/04/24 22:22 6.25 MG Hydralazine HCl 10 mg Q4HR PRN IV 10/02/24 10:30 Oxycodone HCl 5 mg Q6HP PRN PO 10/03/24 18:00 Hydromorphone HCl 0.5 mg Q4HPRN PRN IV 10/03/24 18:15 10/05/24 11:52 0.5 MG Ondansetron HCl 4 mg Q4HPRN PRN IV 10/04/24 18:45 10/05/24 11:41 4 MG objective GENERAL: Alert and oriented x 3. No acute distress. EYES: PERRL, EOMI. Anicteric. HENT: Moist mucous membranes. LUNGS: Decreased breath sounds. CARDIOVASCULAR: Regular rate and rhythm. ABDOMEN: Soft, nontender and nondistended. EXTREMITIES: No edema. NEUROLOGIC: No focal neurological deficits. SKIN: Warm, dry. : Scrotal edema. laboratory and microbiology Laboratory Tests 10/04/24 06:00 Test 10/04/24 06:00 Range/Units Serum Glucose 142 H 74-106 mg/dL Problem List Hyperammonemia related to liver cirrhosis. Chronic Kidney Disease Stage 3A. Acute on chronic combined systolic and diastolic heart failure. Diabetic left foot ulcer. Hypertension. Type 2 Diabetes Mellitus. Pleural Effusion. Hyperlipidemia. History of CABG. Hyperkalemia. Assessment/Plan Continued all current supportive medical care. Lipitor, Plavix. Diuretics with Bumex. Coreg. IV Hydralazine for SBP > 150. Oral antibiotics as ordered. Dilaudid and Oxycodone for pain management. Additional plan as per the hospital course. Dietary Evaluation Review Recommendations by RD: Dietary education by RD Comments: 1) Initiate MVI @ 1 tb qd 2) Initiate vitamin C @ 500 mg bid and zinc sulfate @ 220 mg qd for 7 days 3) Continue 60g CCHO cardiac diet. Promote optimal PO intake 4) Encourage patient to limit intake of added sugar including pastries, desserts, candy, and sugar-sweetened beverages. Prioritize natural sugar substitutes such as Stevia and/or monk fruit. Aim for a consistent intake of complex carbohydrates throughout day, paired with lean protein to promote glycemic control. 5) Refer to outpatient RD/[facility] for diabetes counseling 6) Follow-up with cardiology, gastroenterology, nephrology, and podiatry 7) Continue to monitor I&O, labs, and skin integrity Expected Outcomes/Goals: 1) appetite and labs to improve 2) wound to improve 3) gradual wt loss 4) f/u in 3-5 days Plan discussed with: Patient JOE SIMMONS MD Oct 05, 2024 12:51
--- NOTE | 2024-10-05 23:54 | DVHPN2 ---
Progress Note - Dictate Date Seen: Oct 05, 2024 Medical Necessity Reason Pt with a Central, PICC or Fol: Yes The following are medically ne: Montano Catheter Reason for montano catheter: Strict I&O Subjective Patient seen and examined at bedside. Breathing comfortably on room air Overnight events reviewed. vital signs Vital Sign Date Time Temp Pulse Resp B/P (MAP) Pulse Ox O2 Delivery O2 Flow Rate FiO2 10/05/24 23:08 82 16 121/80 10/05/24 21:00 98.0 94 98.0 10/05/24 20:00 Room Air* 0 21 Total Intake and Output 10/04/24 10/04/24 10/05/24 15:00 23:00 07:00 Intake Total 900 ml 300 ml Balance 900 ml 300 ml medications Current Medications Medications Dose Ordered Sig/Aubrie Route Start Time Stop Time Status Last Admin Dose Admin Nitroglycerin 0.4 mg Q5MINP PRN SL 10/01/24 18:45 10/03/24 12:20 0.4 MG Morphine Sulfate 2 mg Q30M PRN IV 10/01/24 18:45 10/03/24 15:10 2 MG Bumetanide 1 mg BIDD IV 10/02/24 06:00 10/05/24 18:00 1 MG Clopidogrel Bisulfate 75 mg DAILY PO 10/02/24 10:00 10/05/24 09:53 75 MG Famotidine 20 mg BID PO 10/02/24 10:00 10/05/24 21:39 20 MG Tamsulosin HCl 0.4 mg DAILY PO 10/02/24 10:00 10/05/24 09:53 0.4 MG Rifaximin 550 mg BID PO 10/02/24 10:00 10/05/24 21:39 550 MG Doxycycline Monohydrate 100 mg Q12HR PO 10/02/24 10:00 10/05/24 21:39 100 MG Cefpodoxime Proxetil 200 mg BID PO 10/02/24 10:00 10/05/24 21:43 200 MG Spironolactone 25 mg DAILY PO 10/02/24 10:00 10/05/24 09:53 25 MG Atorvastatin Calcium 80 mg HS PO 10/02/24 22:00 10/05/24 21:39 80 MG Diagnostic Test (Pha) 1 strip ACHS 10/02/24 11:30 10/05/24 22:00 1 STRIP Insulin Human Regular ACHS SC 10/02/24 11:30 10/05/24 22:00 2 UNITS Dextrose 50 ml UD PRN IV 10/02/24 07:15 Lactulose 30 ml BID PO 10/02/24 22:00 10/05/24 09:53 30 ML Carvedilol 6.25 mg Q12HR PO 10/02/24 22:00 10/05/24 21:40 6.25 MG Hydralazine HCl 10 mg Q4HR PRN IV 10/02/24 10:30 Oxycodone HCl 5 mg Q6HP PRN PO 10/03/24 18:00 Hydromorphone HCl 0.5 mg Q4HPRN PRN IV 10/03/24 18:15 10/05/24 23:08 0.5 MG Ondansetron HCl 4 mg Q4HPRN PRN IV 10/04/24 18:45 10/05/24 11:41 4 MG Sucralfate 1 gm QIDACHS PO 10/05/24 17:00 10/05/24 21:39 1 GM objective Gen.: Patient lying in bed in no apparent distress. On room air. Head: Normocephalic, atraumatic. Eyes: EOMI/PERRLA. Ears: Normal hearing. Normal anatomy. Neck/trachea: Trachea midline, supple. Nose: Normal external anatomy. Mouth: Moist mucous membranes. Chest: Decreased air entry bilaterally. No wheezing or rhonchi. Cardiovascular: Positive S1, positive S2. Regular rate and rhythm. Abdomen: Positive bowel sounds in all 4 quadrants. Soft, non-tender, non- distended. : Deferred. Rectal: Deferred. Skin: Warm, dry. Intact. Extremities: 2+ radial pulses bilaterally. No lower extremity edema. Neuro: Awake, alert, oriented x3. No gross motor or sensory deficits. Cranial nerves II through XII intact. Gait not assessed. laboratory and microbiology Laboratory Tests 10/04/24 06:00 Test 10/04/24 06:00 Range/Units Serum Glucose 142 H 74-106 mg/dL Assessment/Plan Impression: Acute hypoxic respiratory failure 2/2 congestive heart failure Pleural effusions, bilateral Atelectasis Coronary artery disease, s/p CABG Metabolic acidosis Anasarca 2/2 liver cirrhosis Hx of nicotine dependence Obesity Events: Currently breathing on room air. No distress Supplemental oxygen PRN Chest ultrasound revealed trace pleural effusions, not amenable for thoracentesis. S/p right thoracentesis on 10/02/24 with removal of 550 mL natalya fluid See separate procedure note for details. CXR demonstrated interval reduction in pleural effusions. Patient improving with diuresis Chest pain, improved - troponins negative. Pain control - Hydrocodone PRN for moderate pain Dilaudid 0.5 mg IVP q.4 hours PRN severe pain Avoid oversedation Antiemetic PRN for nausea. Cardiology recs appreciated Blood pressure control Complete antibiotics Incentive spirometry Accu-Cheks, ISS. Continue diuresis with Bumex Monitor renal function Disposition per hospitalist. Labs and imaging reviewed. Rest of plan as noted below. Plan: Supplemental oxygen PRN Titrate to keep O2 sats above 92%. Continue antibiotics Incentive spirometry for atelectasis Follow up Cardiology recs Blood pressure control Accu-Cheks, ISS. Pepcid for GI ppx Pain control Avoid oversedation Diurese with Bumex as tolerated Monitor renal function. Monitor electrolytes. Supplement as necessary. Monitor ins and outs. Diet and lifestyle modifications for weight reduction GI/DVT prophylaxis. Prognosis: Poor given patient's multiple co-morbidities. Rest of plan per hospitalist and other consultants. Thank you, Dr. Espinal, for allowing me to participate in this patient's care. Further recommendations will depend on the patient's clinical course. Please do not hesitate to contact me if you have any questions or concerns. This medical document was created using an electronic medical record system with [employer] dictation system. Although these documentations are being carefully reviewed, there may still be some phonetic and typographical changes. The errors are purely typographical, due to imperfection on the software program, and do not reflect any compromise in the patient's medical care. Dietary Evaluation Review Recommendations by RD: Dietary education by RD Comments: 1) Initiate MVI @ 1 tb qd 2) Initiate vitamin C @ 500 mg bid and zinc sulfate @ 220 mg qd for 7 days 3) Continue 60g CCHO cardiac diet. Promote optimal PO intake 4) Encourage patient to limit intake of added sugar including pastries, desserts, candy, and sugar-sweetened beverages. Prioritize natural sugar substitutes such as Stevia and/or monk fruit. Aim for a consistent intake of complex carbohydrates throughout day, paired with lean protein to promote glycemic control. 5) Refer to outpatient RD/[facility] for diabetes counseling 6) Follow-up with cardiology, gastroenterology, nephrology, and podiatry 7) Continue to monitor I&O, labs, and skin integrity Expected Outcomes/Goals: 1) appetite and labs to improve 2) wound to improve 3) gradual wt loss 4) f/u in 3-5 days Plan discussed with: Patient, Other (RN Daysi) BUCKY HUDSON MD Oct 05, 2024 23:54
[2024-10-06] VITALS (8 sets, daily range): BP systolic 99–126; BP diastolic 63–86; PULSE 73–84; RESP 16–18; TEMP 97.8–98.7; O2SAT 3–96
[2024-10-06 06:16] LABS: Hematocrit 38.6 % (41.0-53.0); Hemoglobin 12.9 g/dL (13.5-17.5); Mean Corpuscular Hemoglobin 27.6 pg (28.0-32.0); Mean Corpuscular Volume 82.3 fL (80.0-100.0); Nucleated Red Blood Cells % 0.1 %
[2024-10-06 06:31] LABS: Alanine Aminotransferase 23 U/L (7-40); Anion Gap 8 (5-15); BUN/Creatinine Ratio 19.7 (10.0-20.0); Carbon Dioxide 22 mmol/L (20-31); Chloride 100 mmol/L (98-107)
[2024-10-06 06:32] LABS: Bilirubin, Total 0.9 mg/dL (0.2-1.0)
[2024-10-06 06:36] LABS: Albumin 3.2 g/dL (3.2-4.8); Alkaline Phosphatase 339 U/L (46-116); Blood Urea Nitrogen 56 mg/dL (9-23); Calcium 8.7 mg/dL (8.7-10.4); Glucose 154 mg/dL (74-106); Potassium 5.4 mmol/L (3.5-5.1); Sodium 130 mmol/L (136-145); Total Protein 5.3 g/dL (5.7-8.2)
--- NOTE | 2024-10-06 08:38 | DVHINCON2 ---
Date of service: Oct 06, [address] Teddy MD Reason for Consultation Multiple left foot ulcerations History of Present Illness This patient is a 49-year-old male who I am very familiar with at my office. I have been treating him for multiple left foot ulcerations and apparently he was admitted for abdominal distention once that [place] recently and now it does [facility]. The patient has a history of congestive heart failure, CKD, hypertension diabetes type 2 and hyperlipidemia. Patient was seen at bedside today resting comfortably declines any new complaints. Past Medical History Diabetes type 2 CKD Hyperlipidemia Hypertension Family History: Cardiovascular disease G8 FATHER Diabetes mellitus G8 MOTHER Family History Reviewed and is noncontributory to management of this case Social History Denies smoking Denies alcohol use Denies the use of illicit drugs Allergies: Coded Allergies: Penicillins (Verified Allergy, Intermediate, RASH, 07/06/24) Home Meds Active Scripts Tamsulosin Hcl (Flomax) 0.4 Mg Cap, 1 CAP PO DAILY for 30 Days, #30 CAP 11 Refills Prov:FABIO BARNEYP 07/10/24 Naloxone HCl (Narcan) 4 Mg/0.1 Ml Spr, 4 MG NA ONCE, #1 SPRAY Prov:FABIO BARNEY 07/10/24 Hydrocodone-Acetaminophen (Hydrocodone Bitartrate/AC 10-325 mg) 1 Tab Tab, 1 TAB PO Q8HP PRN for 7 Days, #21 TAB Prov:FABIO BARNEY 07/10/24 Clopidogrel Bisulfate (CLOPIDOGREL) 75 Mg Tab, 75 MG PO DAILY for 30 Days, #30 TAB Prov:FABIO BARNEY 07/10/24 Carvedilol (Coreg) 6.25 Mg Tab, 1 TAB PO BID, #60 TAB Prov:TEX CHARLES MD 08/10/20 Ramipril (Altace) 10 Mg Cp, 10 MG PO DAILY for 30 Days, #30 CAP Prov:TEX CHARLES MD 08/10/20 Mupirocin Calcium (Topical) (MUPIROCIN) 2 % Cre, 2 % EX BID for 5 Days, #1 CRE 1 application each nostril twice a day for 5 days Prov:TEX CHARLES MD 08/10/20 Pantoprazole Sodium Sesquihydr (Protonix) 40 Mg Tab, 40 MG PO BID for 30 Days, #60 TAB Prov:TEX CHARLES MD 08/10/20 Sucralfate (Sucralfate) 1 Gm Tab, 1 GM PO QIDACHS for 30 Days, #120 TAB Prov:TEX CHARLES MD 08/10/20 Furosemide (Lasix) 20 Mg Tb, 1 TAB PO BID for 30 Days, #60 TAB Prov:TEX CHARLES MD 08/10/20 Reported Medications Omeprazole (Gnp Omeprazole) 20 Mg Tab, 20 MG PO DAILY, TAB 09/22/20 Insulin Glargine (Lantus Solostar) 100 Unit/Ml Inj, 100 UNIT SC, INJ 09/22/20 Dextrose (Glucose) Unknown Strength Chw, PO PRN 08/08/20 Insulin Lispro (Humalog Kwikpen) 100 Unit/Ml Inj, 0 SC PER SLIDING SCALE 08/08/20 Escitalopram Oxalate (Lexapro) 5 Mg Tab, 2 TAB PO DAILY 08/08/20 Atorvastatin Calcium (ATORVASTATIN CALCIUM) 40 Mg Tab, 1 TAB PO DAILY 07/29/20 Trazodone Hcl (Trazodone Hcl) 50 Mg Tab, 50 MG PO HS 07/16/20 Famotidine (Famotidine) 20 Mg Tab, 20 MG PO BID 07/16/20 Aspirin (Aspir-81) 81 Mg Tab, 1 TAB PO DAILY for prevent heart attack 07/16/20 Gabapentin (Gabapentin) 300 Mg Cap, 300 MG PO TID for 30 Days, MG 06/05/20 Discontinued Reported Medications Dulaglutide (Trulicity) 0.75 Mg/0.5 Ml Inj, 0.75 MG SC QWEEKLY 08/08/20 Current Medications Current Medications Medications (Trade) Dose Ordered Sig/Aubrie Route PRN Reason Start Time Stop Time Status Last Admin Sucralfate (Carafate Tab) 1 gm QIDACHS PO 10/05/24 17:00 10/06/24 06:02 Review of Systems Review of Systems Respiratory: Cough, Shortness of breath Cardiovascular: No: Chest Pain, Palpitations, Orthopnea, Paroxysmal Noc. Dyspnea, Edema, Lt Headedness, Other Gastrointestinal: No: Nausea, Vomiting, Abdominal Pain, Diarrhea, Constipation, Melena, Hematochezia, Other Lower extremity: Multiple ulcerations to the left lateral heel, left medial foot, left dorsal foot, medial left great toe. Vascular status: DP/PT +1/4. CFT 3 seconds Allergies: Penicillin Vital Signs Vital Signs Date Time Temp Pulse Resp B/P (MAP) Pulse Ox O2 Delivery O2 Flow Rate FiO2 10/06/24 05:55 126/86 10/06/24 05:00 97.8 74 18 92 97.8 10/05/24 20:00 Room Air* 0 21 Physical Exam General Appearance: Alert, Oriented X3, Cooperative, No acute distress Respiratory: Other (Diminished in upper anterior lobes) Cardiovascular: Regular rate, Normal S1 Abdominal: Normal bowel sounds, Soft, Other (Abdominal distention) Extremities: Multiple ulcerations left heel measuring 1.0 x 1.0 x 0.5 cm, left medial foot 6.7 cm x 4.0 cm x 0.5 cm, left dorsal foot 1.0 cm x 1.2 cm by 0.5 cm, medial left great toe 4 cm by 3.0 cm x 0.5 cm. All ulcerations all full- thickness skin loss ulcerations extending all the way down to the deep base of the dermis and subcutaneous tissue. Necrotic devitalized nonviable tissues are noted in the bed of the wound as well as the perimeter of the wound. Ulcerations appear to be irregular in shape. There is no foul odor, no discharge, no ascending cellulitis noted to the left lower extremity. Vascular status is DP/PT +1/4, CFT 3 seconds. No focal deficit noted. Skin: No rashes Labs/Diagnostic Data Labs Test 10/06/24 06:05 10/06/24 05:24 10/05/24 10:30 10/03/24 15:22 Range/Units POC Glucose 157 H 70-106 mg/dl White Blood Count 7.9 4.4-10.8 10^3/uL Red Blood Count 4.69 4.5-5.90 10^6/uL Hemoglobin 12.9 L 13.5-17.5 g/dL Hematocrit 38.6 L 41.0-53.0 % Mean Corpuscular Volume 82.3 80.0-100.0 fL Mean Corpuscular Hemoglobin 27.6 L 28.0-32.0 pg Mean Corpuscular Hemoglobin Concent 33.5 32.0-36.0 g/dL Red Cell Distribution Width 15.6 H 11.8-14.3 % Platelet Count 230 140-450 10^3/uL Mean Platelet Volume 8.6 6.9-10.8 fL Neutrophils (%) (Auto) 72.8 37.0-80.0 % Lymphocytes (%) (Auto) 9.3 L 10.0-50.0 % Monocytes (%) (Auto) 15.3 H 0.0-12.0 % Eosinophils (%) (Auto) 1.2 0.0-7.0 % Basophils (%) (Auto) 1.4 0.0-2.0 % Neutrophils # (Auto) 5.8 1.6-8.6 10 ^3/uL Lymphocytes # (Auto) 0.7 0.4-5.4 10 ^3/uL Monocytes # (Auto) 1.2 0-1.3 10 ^3/uL Eosinophils # (Auto) 0.1 0-0.8 10 ^3/uL Basophils # (Auto) 0.1 0-0.2 10 ^3/uL Nucleated Red Blood Cells 0.1 % Sodium Level 130 L 136-145 mmol/L Potassium Level 5.4 H 3.5-5.1 mmol/L Chloride Level 100 98-107 mmol/L Carbon Dioxide Level 22 20-31 mmol/L Anion Gap 8 5-15 Blood Urea Nitrogen 56 #H 9-23 mg/dL Creatinine 2.84 H 0.700-1.30 mg/dL Glomerular Filtration Rate Calc 27 >90 mL/min BUN/Creatinine Ratio 19.7 10.0-20.0 Serum Glucose 154 H 74-106 mg/dL Calcium Level 8.7 8.7-10.4 mg/dL Total Bilirubin 0.9 0.2-1.0 mg/dL Aspartate Amino Transferase (AST) 60 H 13-40 U/L Alanine Aminotransferase (ALT) 23 7-40 U/L Alkaline Phosphatase 339 H 46-116 U/L Total Protein 5.3 L 5.7-8.2 g/dL Albumin 3.2 3.2-4.8 g/dL Body Fluid Source Pleural fluid Body Fluid pH 9.0 Body Fluid WBC (Manual) 1182 H 0-200 CUMM Body Fluid RBC (Manual) 3232 H 0-2000 CUMM Body Fluid Mononuclear Cells 15 % Body Fluid Polymorphonuclear Cells 85 H 0-25 % Troponin I High Sensitivity 41 </=54 ng/L Test 10/03/24 09:48 10/02/24 13:56 10/02/24 07:54 10/02/24 04:08 Range/Units Magnesium Level 1.9 1.6-2.6 mg/dL Ammonia 17 11-32 umol/L Prothrombin Time 10.7 9.3-11.8 sec Prothrombin Time INR 1.01 0.9-1.15 Urine Color Light-yellow Yellow Urine Clarity Clear Clear Urine pH 5.0 5.0-9.0 Urine Specific [place] 1.008 1.001-1.035 Urine Protein Negative Negative Urine Ketones Negative Negative Urine Blood 3+ H Negative /uL Urine Nitrite Negative Negative Urine Bilirubin Negative Negative Urine Urobilinogen Normal Negative mg/dL Urine Leukocyte Esterase Trace Negative /uL Urine RBC 61 0 - 3 /hpf Urine Microscopic WBC 4 H 0-3 /HPF Urine Squamous Epithelial Cells None seen <5 /hpf Urine Bacteria None seen None Seen /hpf Urine Creatinine 27.73 L 30.0-125.0 mg/dL Urine Glucose Normal Normal mg/dL Urine Total Protein 23.8 H 1-14 mg/dL Hemoglobin A1c 7.8 H <5.7 % A1C Test 10/01/24 18:49 Range/Units B-Type Natriuretic Peptide 802.07 0-100 pg/mL Microbiology Date/Time Source Procedure Growth Status 10/02/24 16:00 Pleural Fluid Gram Stain - Final Resulted 10/02/24 16:00 Pleural Fluid Body Fluid Culture - Preliminary Resulted 10/02/24 04:43 Nose MRSA Screen - Final Complete Assessment Primary diagnosis: Chronic nonhealing ulcerations left foot. Secondary to diagnosis: Congestive heart failure CKD Hypertension Hyperlipidemia Pulmonary congestion Abdominal distention Plan/Recommendation Advised the patient to continue to be nonweightbearing to the left foot. Advised the patient to continue with IV antibiotics while in the hospital. Upon discharge the patient is advised to contact my office for continued follow-up and possible further debridements of ulcerations depending on patient's clinical progress. Further evaluation and management will depend on patient's clinical progress. All questions and concerns were answered the patient's satisfaction. Thank you for your consultation Plan discussed with: Patient FAITH CUNNINGHAM DPM Oct 06, 2024 08:38
[2024-10-06 12:07] LABS: Glucose, Body Fluid 123.0 mg/dL (.); LD, Body Fluid 146.0 IU/L (.)
[2024-10-06] MEDS: SODIUM CHLORIDE 0.9% 1,000 ML IV SCH ×2 (14:59→17:29)
--- NOTE | 2024-10-06 16:15 | DVHPN2 ---
Progress Note - Dictate Date Seen: Oct 06, 2024 Medical Necessity Reason Pt with a Central, PICC or Fol: Yes The following are medically ne: Montano Catheter Reason for montano catheter: Strict I&O vital signs Vital Sign Date Time Temp Pulse Resp B/P (MAP) Pulse Ox O2 Delivery O2 Flow Rate FiO2 10/06/24 15:16 86 18 124/85 10/06/24 12:39 98.3 96 98.3 10/06/24 08:00 Room Air* 0 21 Total Intake and Output 10/05/24 10/05/24 10/06/24 15:00 23:00 07:00 Intake Total 344 ml 1768 ml 400 ml Output Total 351 ml Balance 344 ml 1417 ml 400 ml medications Current Medications Medications Dose Ordered Sig/Aubrie Route Start Time Stop Time Status Last Admin Dose Admin Nitroglycerin 0.4 mg Q5MINP PRN SL 10/01/24 18:45 10/03/24 12:20 0.4 MG Morphine Sulfate 2 mg Q30M PRN IV 10/01/24 18:45 10/03/24 15:10 2 MG Clopidogrel Bisulfate 75 mg DAILY PO 10/02/24 10:00 10/06/24 10:00 75 MG Famotidine 20 mg BID PO 10/02/24 10:00 10/06/24 10:00 20 MG Tamsulosin HCl 0.4 mg DAILY PO 10/02/24 10:00 10/06/24 10:00 0.4 MG Rifaximin 550 mg BID PO 10/02/24 10:00 10/06/24 09:59 550 MG Doxycycline Monohydrate 100 mg Q12HR PO 10/02/24 10:00 10/06/24 09:58 100 MG Cefpodoxime Proxetil 200 mg BID PO 10/02/24 10:00 10/06/24 10:24 200 MG Atorvastatin Calcium 80 mg HS PO 10/02/24 22:00 10/05/24 21:39 80 MG Diagnostic Test (Pha) 1 strip ACHS 10/02/24 11:30 10/06/24 11:43 1 STRIP Insulin Human Regular ACHS SC 10/02/24 11:30 10/06/24 06:06 2 UNITS Dextrose 50 ml UD PRN IV 10/02/24 07:15 Lactulose 30 ml BID PO 10/02/24 22:00 8/6/25 10:00 30 ML Carvedilol 6.25 mg Q12HR PO 10/02/24 22:00 10/06/24 09:59 6.25 MG Hydralazine HCl 10 mg Q4HR PRN IV 10/02/24 10:30 Oxycodone HCl 5 mg Q6HP PRN PO 10/03/24 18:00 Hydromorphone HCl 0.5 mg Q4HPRN PRN IV 10/03/24 18:15 10/06/24 15:16 0.5 MG Ondansetron HCl 4 mg Q4HPRN PRN IV 10/04/24 18:45 10/06/24 05:54 4 MG Sucralfate 1 gm QIDACHS PO 10/05/24 17:00 10/06/24 11:42 1 GM Sodium Chloride 1,000 ml @ 50 mls/hr Q20H IV 10/06/24 14:00 10/06/24 14:59 50 MLS/HR objective General Appearance: alert, no distress HEENT: EOMI, PERRLA, normal external inspect of ears, no icterus, no nasal drainage Neck: no carotid bruit, no jugular venous distention (JVD), no lymphadenopathy Chest: normal thorax Respiratory: clear to auscultation, normal air movement Cardiovascular: regular rate and rhythm, no diastolic murmur, no jugular venous distention (JVD), no rub, no systolic murmur Abdominal: soft, no hepatomegaly, no mass, no splenomegaly, no tenderness Genitourinary: grossly normal external Musculoskeletal: no joint tenderness, no swelling Extremities: normal pulses, no calf tenderness, no clubbing, no cyanosis, no edema Skin: no bruising, no jaundice, no rash Neurological: alert, No focal deficit laboratory and microbiology Laboratory Tests 10/06/24 05:24 Test 10/06/24 05:24 Range/Units Serum Glucose 154 H 74-106 mg/dL Problem List 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 Plan: - Avoid nephrotoxic medications - Consult nephrology Acute on chronic combined systolic and diastolic heart failure Plan: - Bumetanide 1 mg BID - Fluid restriction to 1000 mL daily - Consult cardiology Diabetic left foot ulcer Plan: - Consult podiatry - Initiate antibiotic Hypertension Plan: - Continue home medications Type 2 Diabetes Mellitus Assessment: Patient has a history of diabetes mellitus, which requires ongoing management. Plan: - Implement insulin sliding scale Pleural Effusion Assessment: Patient has pleural effusion, which may be related to the heart failure exacerbation or other underlying conditions. Plan: - Perform thoracentesis as needed - Consult pulmonology Hyperlipidemia Plan: -Monitor History of CABG Plan; -cardiology consult Hyperkalemia Plan: -Hyperkalemia cocktail Assessment/Plan Subjective Patient is awake and alert. Objective Patient was admitted for CHF exacerbation and liver cirrhosis. Patient had anasarca. Scrotal edema has resolved. Patient has a mild CLARISA mostly from over diaeresis. Patient was started on gentle IV hydration. Patient was seen by podiatry. Patient has multiple left foot ulcerations. Patient is status post thoracentesis on 10/05/2024. (%) ml of fluid was removed from the left lower lobe. Patient is status post thoracentesis on 10/02/2024 and 550 ml of fluid was removed. Plan Continue current treatment. Patient had hyperkalemia. Patient was seen by nephrology for CLARISA. Patient started on IV hydration. Dietary Evaluation Review Recommendations by RD: Dietary education by RD Comments: 1) Initiate MVI @ 1 tb qd 2) Initiate vitamin C @ 500 mg bid and zinc sulfate @ 220 mg qd for 7 days 3) Continue 60g CCHO cardiac diet. Promote optimal PO intake 4) Encourage patient to limit intake of added sugar including pastries, desserts, candy, and sugar-sweetened beverages. Prioritize natural sugar substitutes such as Stevia and/or monk fruit. Aim for a consistent intake of complex carbohydrates throughout day, paired with lean protein to promote glycemic control. 5) Refer to outpatient RD/CDCES for diabetes counseling 6) Follow-up with cardiology, gastroenterology, nephrology, and podiatry 7) Continue to monitor I&O, labs, and skin integrity Expected Outcomes/Goals: 1) appetite and labs to improve 2) wound to improve 3) gradual wt loss 4) f/u in 3-5 days Plan discussed with: Patient, Other ANGELINE HEARN NP Oct 06, 2024 16:15
[2024-10-06] MEDS: SODIUM ZIRCONIUM CYCL 10 GM PAK PO ONE (16:40)
--- NOTE | 2024-10-06 16:50 | DVHPN2 ---
Progress Note - Dictate Date Seen: Oct 06, 2024 Medical Necessity Reason Pt with a Central, PICC or Fol: Yes The following are medically ne: Montano Catheter Reason for montano catheter: Strict I&O Subjective Last night patient wanted to leave AMA and his Montano catheter was removed. Today so far he has had 480 mL of urinary output he denies symptoms of retention. vital signs Vital Sign Date Time Temp Pulse Resp B/P (MAP) Pulse Ox O2 Delivery O2 Flow Rate FiO2 10/06/24 15:46 84 16 107/70 10/06/24 12:39 98.3 96 98.3 10/06/24 08:00 Room Air* 0 21 Total Intake and Output 10/05/24 10/05/24 10/06/24 15:00 23:00 07:00 Intake Total 344 ml 1768 ml 400 ml Output Total 351 ml Balance 344 ml 1417 ml 400 ml medications Current Medications Medications Dose Ordered Sig/Aubrie Route Start Time Stop Time Status Last Admin Dose Admin Nitroglycerin 0.4 mg Q5MINP PRN SL 10/01/24 18:45 10/03/24 12:20 0.4 MG Morphine Sulfate 2 mg Q30M PRN IV 10/01/24 18:45 10/03/24 15:10 2 MG Clopidogrel Bisulfate 75 mg DAILY PO 10/02/24 10:00 10/06/24 10:00 75 MG Famotidine 20 mg BID PO 10/02/24 10:00 10/06/24 10:00 20 MG Tamsulosin HCl 0.4 mg DAILY PO 10/02/24 10:00 10/06/24 10:00 0.4 MG Rifaximin 550 mg BID PO 10/02/24 10:00 10/06/24 09:59 550 MG Doxycycline Monohydrate 100 mg Q12HR PO 10/02/24 10:00 10/06/24 09:58 100 MG Cefpodoxime Proxetil 200 mg BID PO 10/02/24 10:00 10/06/24 10:24 200 MG Atorvastatin Calcium 80 mg HS PO 10/02/24 22:00 10/05/24 21:39 80 MG Diagnostic Test (Pha) 1 strip ACHS 10/02/24 11:30 10/06/24 11:43 1 STRIP Insulin Human Regular ACHS SC 10/02/24 11:30 10/06/24 06:06 2 UNITS Dextrose 50 ml UD PRN IV 10/02/24 07:15 Lactulose 30 ml BID PO 10/02/24 22:00 10/06/24 10:00 30 ML Carvedilol 6.25 mg Q12HR PO 10/02/24 22:00 10/06/24 09:59 6.25 MG Hydralazine HCl 10 mg Q4HR PRN IV 10/02/24 10:30 Oxycodone HCl 5 mg Q6HP PRN PO 10/03/24 18:00 Hydromorphone HCl 0.5 mg Q4HPRN PRN IV 10/03/24 18:15 10/06/24 15:16 0.5 MG Ondansetron HCl 4 mg Q4HPRN PRN IV 10/04/24 18:45 10/06/24 05:54 4 MG Sucralfate 1 gm QIDACHS PO 10/05/24 17:00 10/06/24 16:40 1 GM Sodium Chloride 1,000 ml @ 50 mls/hr Q20H IV 10/06/24 14:00 10/06/24 14:59 50 MLS/HR objective HEENT: No evidence of JVD, no oral ulcers. Pulmonary: Lungs are clear on auscultation bilaterally Cardiovascular S1-S2, no S3 or S4 Abdomen: Bowel sounds positive, soft no rebound tenderness Skin: No rash Neurological: Alert, oriented, no focal weakness Extremities: Trace edema lower legs laboratory and microbiology Laboratory Tests 10/06/24 05:24 Test 10/06/24 05:24 Range/Units Serum Glucose 154 H 74-106 mg/dL Assessment/Plan Assessment: Recurrent Acute kidney injury superimposed on Chronic kidney disease stage III A Anasarca Hyperkalemia Urinary retention Type 2 diabetes with its complications History of CAD status post CABG Chest pain Hypertension Hyperlipidemia Peripheral vascular disease Liver cirrhosis Gastroesophageal reflux disease Recommendations and plan Likely over-diuresis, stop Bumex, stop spironolactone, continue NS. Bladder scan q.shift if more than 300 mL insert Montano catheter and consult Urology Continue Flomax Lokelma x1 Protonix and DC Pepcid, Carafate, consider GI consultation Cardiology consult Renal ultrasound done showing bilateral increased echogenicity. Podiatry evaluation. Continue with the IV antibiotics. Strict Is&Os. Monitor potassium closely. Daily labs. Dietary Evaluation Review Recommendations by RD: Dietary education by RD Comments: 1) Initiate MVI @ 1 tb qd 2) Initiate vitamin C @ 500 mg bid and zinc sulfate @ 220 mg qd for 7 days 3) Continue 60g CCHO cardiac diet. Promote optimal PO intake 4) Encourage patient to limit intake of added sugar including pastries, desserts, candy, and sugar-sweetened beverages. Prioritize natural sugar substitutes such as Stevia and/or monk fruit. Aim for a consistent intake of complex carbohydrates throughout day, paired with lean protein to promote glycemic control. 5) Refer to outpatient RD/CDCES for diabetes counseling 6) Follow-up with cardiology, gastroenterology, nephrology, and podiatry 7) Continue to monitor I&O, labs, and skin integrity Expected Outcomes/Goals: 1) appetite and labs to improve 2) wound to improve 3) gradual wt loss 4) f/u in 3-5 days Plan discussed with: Patient CLARA DAVIES MD Oct 06, 2024 16:50
--- NOTE | 2024-10-06 17:33 | DVH ---
EXAM: US BILAT LOWER DVT Clinical History: rule out DVT Comparison: CL ANGIO EXTREMITY BILAT William on DOS: 07/08/24, US LT LOW EXT ART DUPLEX on DOS: 07/06/24, X Y L FOOT 3 VIEW XRAY on DOS: 07/06/24 Technique: Duplex Doppler evaluation of the deep venous systems of both lower extremities from the common femora l veins to the popliteal veins including color Doppler and spectral/pulsed waveform analysis was perf ormed. Findings: No visible intraluminal venous thrombus. No evidence of incompressibility or abnormal color or spectr al Doppler flow visualized in the deep bilateral lower extremity veins. Proximal greater saphenous ve ins are grossly unremarkable. Impression: 1. No sonographic evidence of deep venous thrombosis throughout the bilateral lower extremities from the popliteal veins to the common femoral veins.
--- NOTE | 2024-10-06 23:01 | DVHPN2 ---
Progress Note - Dictate Date Seen: Oct 06, 2024 Medical Necessity Reason Pt with a Central, PICC or Fol: Yes The following are medically ne: Montano Catheter Reason for montano catheter: Strict I&O Subjective Patient was seen and evaluated in follow up. Patient is complaining of heartburn and chest discomfort. K 5.4, BUN 56, [employer] 2.84, AST 60. Telemetry reviewed. vital signs Vital Sign Date Time Temp Pulse Resp B/P (MAP) Pulse Ox O2 Delivery O2 Flow Rate FiO2 10/06/24 10:59 83 114/70 10/06/24 10:28 17 10/06/24 09:00 98.7 94 98.7 10/06/24 08:00 Room Air* 0 21 Total Intake and Output 10/05/24 10/05/24 10/06/24 15:00 23:00 07:00 Intake Total 344 ml 1768 ml 400 ml Output Total 351 ml Balance 344 ml 1417 ml 400 ml medications Current Medications Medications Dose Ordered Sig/Aubrie Route Start Time Stop Time Status Last Admin Dose Admin Nitroglycerin 0.4 mg Q5MINP PRN SL 10/01/24 18:45 10/03/24 12:20 0.4 MG Morphine Sulfate 2 mg Q30M PRN IV 10/01/24 18:45 10/03/24 15:10 2 MG Bumetanide 1 mg BIDD IV 10/02/24 06:00 10/06/24 05:55 1 MG Clopidogrel Bisulfate 75 mg DAILY PO 10/02/24 10:00 10/06/24 10:00 75 MG Famotidine 20 mg BID PO 10/02/24 10:00 10/06/24 10:00 20 MG Tamsulosin HCl 0.4 mg DAILY PO 10/02/24 10:00 10/06/24 10:00 0.4 MG Rifaximin 550 mg BID PO 10/02/24 10:00 10/06/24 09:59 550 MG Doxycycline Monohydrate 100 mg Q12HR PO 10/02/24 10:00 10/06/24 09:58 100 MG Cefpodoxime Proxetil 200 mg BID PO 10/02/24 10:00 10/06/24 10:24 200 MG Spironolactone 25 mg DAILY PO 10/02/24 10:00 10/06/24 09:58 25 MG Atorvastatin Calcium 80 mg HS PO 10/02/24 22:00 10/05/24 21:39 80 MG Diagnostic Test (Pha) 1 strip ACHS 10/02/24 11:30 10/06/24 11:43 1 STRIP Insulin Human Regular ACHS SC 10/02/24 11:30 10/06/24 06:06 2 UNITS Dextrose 50 ml UD PRN IV 10/02/24 07:15 Lactulose 30 ml BID PO 10/02/24 22:00 10/06/24 10:00 30 ML Carvedilol 6.25 mg Q12HR PO 10/02/24 22:00 10/06/24 09:59 6.25 MG Hydralazine HCl 10 mg Q4HR PRN IV 10/02/24 10:30 Oxycodone HCl 5 mg Q6HP PRN PO 10/03/24 18:00 Hydromorphone HCl 0.5 mg Q4HPRN PRN IV 10/03/24 18:15 10/06/24 09:58 0.5 MG Ondansetron HCl 4 mg Q4HPRN PRN IV 10/04/24 18:45 10/06/24 05:54 4 MG Sucralfate 1 gm QIDACHS PO 10/05/24 17:00 10/06/24 11:42 1 GM objective GENERAL: Alert and oriented x 3. No acute distress. EYES: PERRL, EOMI. Anicteric. HENT: Moist mucous membranes. LUNGS: Decreased breath sounds. CARDIOVASCULAR: Regular rate and rhythm. ABDOMEN: Soft, nontender and nondistended. EXTREMITIES: No edema. NEUROLOGIC: No focal neurological deficits. SKIN: Warm, dry. : Scrotal edema. laboratory and microbiology Laboratory Tests 10/06/24 05:24 Test 10/06/24 05:24 Range/Units Serum Glucose 154 H 74-106 mg/dL Problem List Hyperammonemia related to liver cirrhosis. Chronic Kidney Disease Stage 3A. Acute on chronic combined systolic and diastolic heart failure. Diabetic left foot ulcer. Hypertension. Type 2 Diabetes Mellitus. Pleural Effusion. Hyperlipidemia. History of CABG. Hyperkalemia. Assessment/Plan Continued all current supportive medical care. Plavix. Diuretics with Bumex. Coreg. Aldactone. IV Hydralazine for SBP > 150. Oral antibiotics as ordered. Dilaudid and Oxycodone for pain management. Additional plan as per the hospital course. Dietary Evaluation Review Recommendations by RD: Dietary education by RD Comments: 1) Initiate MVI @ 1 tb qd 2) Initiate vitamin C @ 500 mg bid and zinc sulfate @ 220 mg qd for 7 days 3) Continue 60g CCHO cardiac diet. Promote optimal PO intake 4) Encourage patient to limit intake of added sugar including pastries, desserts, candy, and sugar-sweetened beverages. Prioritize natural sugar substitutes such as Stevia and/or monk fruit. Aim for a consistent intake of complex carbohydrates throughout day, paired with lean protein to promote glycemic control. 5) Refer to outpatient RD/CDCES for diabetes counseling 6) Follow-up with cardiology, gastroenterology, nephrology, and podiatry 7) Continue to monitor I&O, labs, and skin integrity Expected Outcomes/Goals: 1) appetite and labs to improve 2) wound to improve 3) gradual wt loss 4) f/u in 3-5 days Plan discussed with: Patient JOE SIMMONS MD Oct 06, 2024 12:30
--- NOTE | 2024-10-06 23:48 | DVHPN2 ---
Progress Note - Dictate Date Seen: Oct 06, 2024 Medical Necessity Reason Pt with a Central, PICC or Fol: Yes The following are medically ne: Montano Catheter Reason for montano catheter: Strict I&O Subjective Patient seen and examined at bedside. Breathing comfortably on room air Overnight events reviewed. vital signs Vital Sign Date Time Temp Pulse Resp B/P (MAP) Pulse Ox O2 Delivery O2 Flow Rate FiO2 10/06/24 22:42 83 20 126/70 10/06/24 21:00 97.8 91 97.8 10/06/24 08:00 Room Air* 0 21 Total Intake and Output 10/05/24 10/05/24 10/06/24 15:00 23:00 07:00 Intake Total 344 ml 1768 ml 400 ml Output Total 351 ml Balance 344 ml 1417 ml 400 ml medications Current Medications Medications Dose Ordered Sig/Aubrie Route Start Time Stop Time Status Last Admin Dose Admin Nitroglycerin 0.4 mg Q5MINP PRN SL 10/01/24 18:45 10/03/24 12:20 0.4 MG Morphine Sulfate 2 mg Q30M PRN IV 10/01/24 18:45 10/03/24 15:10 2 MG Clopidogrel Bisulfate 75 mg DAILY PO 10/02/24 10:00 10/06/24 10:00 75 MG Famotidine 20 mg BID PO 10/02/24 10:00 10/06/24 10:00 20 MG Tamsulosin HCl 0.4 mg DAILY PO 10/02/24 10:00 10/06/24 10:00 0.4 MG Rifaximin 550 mg BID PO 10/02/24 10:00 10/06/24 09:59 550 MG Doxycycline Monohydrate 100 mg Q12HR PO 10/02/24 10:00 10/06/24 09:58 100 MG Cefpodoxime Proxetil 200 mg BID PO 10/02/24 10:00 10/06/24 10:24 200 MG Atorvastatin Calcium 80 mg HS PO 10/02/24 22:00 10/05/24 21:39 80 MG Diagnostic Test (Pha) 1 strip ACHS 10/02/24 11:30 10/06/24 21:27 1 STRIP Insulin Human Regular ACHS SC 10/02/24 11:30 10/06/24 06:06 2 UNITS Dextrose 50 ml UD PRN IV 10/02/24 07:15 Lactulose 30 ml BID PO 10/02/24 22:00 10/06/24 10:00 30 ML Carvedilol 6.25 mg Q12HR PO 10/02/24 22:00 10/06/24 09:59 6.25 MG Hydralazine HCl 10 mg Q4HR PRN IV 10/02/24 10:30 Oxycodone HCl 5 mg Q6HP PRN PO 10/03/24 18:00 Hydromorphone HCl 0.5 mg Q4HPRN PRN IV 10/03/24 18:15 10/06/24 22:42 0.5 MG Ondansetron HCl 4 mg Q4HPRN PRN IV 10/04/24 18:45 10/06/24 05:54 4 MG Sucralfate 1 gm QIDACHS PO 10/05/24 17:00 10/06/24 16:40 1 GM Sodium Chloride 1,000 ml @ 50 mls/hr Q20H IV 10/06/24 16:45 10/07/24 10:00 10/06/24 17:29 50 MLS/HR objective Gen.: Patient lying in bed in no apparent distress. On room air. Head: Normocephalic, atraumatic. Eyes: EOMI/PERRLA. Ears: Normal hearing. Normal anatomy. Neck/trachea: Trachea midline, supple. Nose: Normal external anatomy. Mouth: Moist mucous membranes. Chest: Decreased air entry bilaterally. No wheezing or rhonchi. Cardiovascular: Positive S1, positive S2. Regular rate and rhythm. Abdomen: Positive bowel sounds in all 4 quadrants. Soft, non-tender, non- distended. : Deferred. Rectal: Deferred. Skin: Warm, dry. Intact. Extremities: 2+ radial pulses bilaterally. No lower extremity edema. Neuro: Awake, alert, oriented x3. No gross motor or sensory deficits. Cranial nerves II through XII intact. Gait not assessed. laboratory and microbiology Laboratory Tests 10/06/24 05:24 Test 10/06/24 05:24 Range/Units Serum Glucose 154 H 74-106 mg/dL Assessment/Plan Impression: Acute hypoxic respiratory failure 2/2 congestive heart failure Pleural effusions, bilateral Atelectasis Coronary artery disease, s/p CABG Metabolic acidosis Anasarca 2/2 liver cirrhosis Hx of nicotine dependence Obesity Events: Currently breathing on room air. No distress Supplemental oxygen PRN Note, pt is refusing medications today. He does complain of some heartburn/chest discomfort. Troponins were negative. Pain control - Hydrocodone PRN for moderate pain Dilaudid 0.5 mg IVP q.4 hours PRN severe pain Avoid oversedation Antiemetic PRN for nausea. Cardiology recs appreciated Blood pressure control Complete antibiotics Incentive spirometry Accu-Cheks, ISS. Lower extremity arterial duplex shows no DVT in BLE. Chest x-ray on 10/05/24 revealed cardiomegaly, CHF; decreased left pleural effusion. S/p right thoracentesis on 10/02/24 with removal of 550 mL natalya fluid See separate procedure note for details. Patient improving with diuresis Continue diuresis with Bumex Monitor renal function Wound care Disposition per hospitalist. Labs and imaging reviewed. Rest of plan as noted below. Plan: Supplemental oxygen PRN Titrate to keep O2 sats above 92%. Continue antibiotics Incentive spirometry for atelectasis Follow up Cardiology recs Blood pressure control Accu-Cheks, ISS. Pepcid for GI ppx Pain control Avoid oversedation Diurese with Bumex as tolerated Monitor renal function. Monitor electrolytes. Supplement as necessary. Monitor ins and outs. Diet and lifestyle modifications for weight reduction GI/DVT prophylaxis. Prognosis: Poor given patient's multiple co-morbidities. Rest of plan per hospitalist and other consultants. Thank you, Dr. Espinal, for allowing me to participate in this patient's care. Further recommendations will depend on the patient's clinical course. Please do not hesitate to contact me if you have any questions or concerns. This medical document was created using an electronic medical record system with [employer] dictation system. Although these documentations are being carefully reviewed, there may still be some phonetic and typographical changes. The errors are purely typographical, due to imperfection on the software program, and do not reflect any compromise in the patient's medical care. Dietary Evaluation Review Recommendations by RD: Dietary education by RD Comments: 1) Initiate MVI @ 1 tb qd 2) Initiate vitamin C @ 500 mg bid and zinc sulfate @ 220 mg qd for 7 days 3) Continue 60g CCHO cardiac diet. Promote optimal PO intake 4) Encourage patient to limit intake of added sugar including pastries, desserts, candy, and sugar-sweetened beverages. Prioritize natural sugar substitutes such as Stevia and/or monk fruit. Aim for a consistent intake of complex carbohydrates throughout day, paired with lean protein to promote glycemic control. 5) Refer to outpatient RD/CDCES for diabetes counseling 6) Follow-up with cardiology, gastroenterology, nephrology, and podiatry 7) Continue to monitor I&O, labs, and skin integrity Expected Outcomes/Goals: 1) appetite and labs to improve 2) wound to improve 3) gradual wt loss 4) f/u in 3-5 days Plan discussed with: Patient, Other (RN) BUCKY HUDSON MD Oct 06, 2024 23:48
[2024-10-07] VITALS (9 sets, daily range): BP systolic 105–132; BP diastolic 63–90; PULSE 72–82; RESP 17–19; TEMP 97–98.3; O2SAT 94–99
[2024-10-07 06:35] LABS: Hematocrit 36.8 % (41.0-53.0); Hemoglobin 12.4 g/dL (13.5-17.5); Mean Corpuscular Hemoglobin 27.7 pg (28.0-32.0); Mean Corpuscular Volume 82.3 fL (80.0-100.0); Nucleated Red Blood Cells % 0.0 %
[2024-10-07 06:49] LABS: Anion Gap 9 (5-15); Carbon Dioxide 22 mmol/L (20-31); Chloride 103 mmol/L (98-107); Potassium 4.4 mmol/L (3.5-5.1)
[2024-10-07 06:50] LABS: Sodium 134 mmol/L (136-145)
[2024-10-07 06:51] LABS: Calcium 8.1 mg/dL (8.7-10.4)
[2024-10-07 06:55] LABS: BUN/Creatinine Ratio 21.7 (10.0-20.0)
[2024-10-07 07:04] LABS: Blood Urea Nitrogen 58 mg/dL (9-23); Glucose 145 mg/dL (74-106)
--- NOTE | 2024-10-07 13:57 | DVHPN2 ---
Progress Note - Dictate Date Seen: Oct 07, 2024 Medical Necessity Reason Pt with a Central, PICC or Fol: Yes The following are medically ne: Montano Catheter Reason for montano catheter: Strict I&O Subjective Patient denies symptoms of urinary retention, he complains of left-sided chest pain where thoracentesis was done vital signs Vital Sign Date Time Temp Pulse Resp B/P (MAP) Pulse Ox O2 Delivery O2 Flow Rate FiO2 10/07/24 13:46 77 19 113/90 10/07/24 12:30 97.3 95 97.3 10/07/24 07:52 Room Air* 0 21 Total Intake and Output 10/06/24 10/06/24 10/07/24 15:00 23:00 07:00 Intake Total 450 ml 300 ml Output Total 730 ml 175 ml Balance -280 ml 125 ml medications Current Medications Medications Dose Ordered Sig/Aubrie Route Start Time Stop Time Status Last Admin Dose Admin Nitroglycerin 0.4 mg Q5MINP PRN SL 10/01/24 18:45 10/03/24 12:20 0.4 MG Morphine Sulfate 2 mg Q30M PRN IV 10/01/24 18:45 10/03/24 15:10 2 MG Clopidogrel Bisulfate 75 mg DAILY PO 10/02/24 10:00 10/07/24 08:58 75 MG Famotidine 20 mg BID PO 10/02/24 10:00 10/07/24 08:58 20 MG Tamsulosin HCl 0.4 mg DAILY PO 10/02/24 10:00 10/07/24 08:58 0.4 MG Rifaximin 550 mg BID PO 10/02/24 10:00 10/07/24 08:58 550 MG Doxycycline Monohydrate 100 mg Q12HR PO 10/02/24 10:00 10/07/24 08:58 100 MG Cefpodoxime Proxetil 200 mg BID PO 10/02/24 10:00 10/07/24 08:59 200 MG Atorvastatin Calcium 80 mg HS PO 10/02/24 22:00 10/05/24 21:39 80 MG Diagnostic Test (Pha) 1 strip ACHS 10/02/24 11:30 10/07/24 11:17 1 STRIP Insulin Human Regular ACHS SC 10/02/24 11:30 10/07/24 11:31 2 UNITS Dextrose 50 ml UD PRN IV 10/02/24 07:15 Lactulose 30 ml BID PO 10/02/24 22:00 10/06/24 10:00 30 ML Carvedilol 6.25 mg Q12HR PO 10/02/24 22:00 10/07/24 08:59 6.25 MG Hydralazine HCl 10 mg Q4HR PRN IV 10/02/24 10:30 Oxycodone HCl 5 mg Q6HP PRN PO 10/03/24 18:00 Hydromorphone HCl 0.5 mg Q4HPRN PRN IV 10/03/24 18:15 10/07/24 13:46 0.5 MG Ondansetron HCl 4 mg Q4HPRN PRN IV 10/04/24 18:45 10/06/24 05:54 4 MG Sucralfate 1 gm QIDACHS PO 10/05/24 17:00 10/07/24 11:17 1 GM objective HEENT: No evidence of JVD, no oral ulcers. Pulmonary: Lungs are clear on auscultation bilaterally Cardiovascular S1-S2, no S3 or S4 Abdomen: Bowel sounds positive, soft no rebound tenderness Skin: No rash Neurological: Alert, oriented, no focal weakness Extremities: Trace edema lower legs laboratory and microbiology Laboratory Tests 10/07/24 05:28 Test 10/07/24 05:28 Range/Units Serum Glucose 145 H 74-106 mg/dL Assessment/Plan Assessment: Recurrent Acute kidney injury superimposed on Chronic kidney disease stage III A Anasarca Hyperkalemia Urinary retention Type 2 diabetes with its complications History of CAD status post CABG Chest pain Hypertension Hyperlipidemia Peripheral vascular disease Liver cirrhosis Gastroesophageal reflux disease Recommendations and plan Chest x-ray No evidence of urinary retention as of now, management as per Urology Continue Flomax Lokelma p.r.n. Cardiology consult Minimize narcotic, management as per primary Renal ultrasound done showing bilateral increased echogenicity. Podiatry evaluation. Continue with the IV antibiotics. Strict Is&Os. Monitor potassium closely. Daily labs. Dietary Evaluation Review Recommendations by RD: Dietary education by RD Comments: 1) Initiate MVI @ 1 tb qd 2) Initiate vitamin C @ 500 mg bid and zinc sulfate @ 220 mg qd for 7 days 3) Continue 60g CCHO cardiac diet. Promote optimal PO intake 4) Encourage patient to limit intake of added sugar including pastries, desserts, candy, and sugar-sweetened beverages. Prioritize natural sugar substitutes such as Stevia and/or monk fruit. Aim for a consistent intake of complex carbohydrates throughout day, paired with lean protein to promote glycemic control. 5) Refer to outpatient RD/CD[facility] for diabetes counseling 6) Follow-up with cardiology, gastroenterology, nephrology, and podiatry 7) Continue to monitor I&O, labs, and skin integrity Expected Outcomes/Goals: 1) appetite and labs to improve 2) wound to improve 3) gradual wt loss 4) f/u in 3-5 days Plan discussed with: Patient CLARA DAVIES MD Oct 07, 2024 13:57
[2024-10-07] MEDS: CYCLOBENZAPRINE HCL 10 MG TAB PO SCH (16:47)
[2024-10-07] MEDS: HYDROcodone-ACET 10/325MG TAB PO PRN (18:23)
--- NOTE | 2024-10-07 20:22 | DVHPN2 ---
Progress Note - Dictate Date Seen: Oct 07, 2024 Medical Necessity Reason Pt with a Central, PICC or Fol: Yes The following are medically ne: Montano Catheter Reason for montano catheter: Strict I&O vital signs Vital Sign Date Time Temp Pulse Resp B/P (MAP) Pulse Ox O2 Delivery O2 Flow Rate FiO2 10/07/24 17:00 97.0 72 17 105/68 (80) 94 97.0 10/07/24 07:52 Room Air* 0 21 Total Intake and Output 10/06/24 10/06/24 10/07/24 15:00 23:00 07:00 Intake Total 450 ml 300 ml Output Total 730 ml 175 ml Balance -280 ml 125 ml medications Current Medications Medications Dose Ordered Sig/Aubrie Route Start Time Stop Time Status Last Admin Dose Admin Nitroglycerin 0.4 mg Q5MINP PRN SL 10/01/24 18:45 10/03/24 12:20 0.4 MG Morphine Sulfate 2 mg Q30M PRN IV 10/01/24 18:45 10/03/24 15:10 2 MG Clopidogrel Bisulfate 75 mg DAILY PO 10/02/24 10:00 10/07/24 08:58 75 MG Famotidine 20 mg BID PO 10/02/24 10:00 10/07/24 08:58 20 MG Tamsulosin HCl 0.4 mg DAILY PO 10/02/24 10:00 10/07/24 08:58 0.4 MG Rifaximin 550 mg BID PO 10/02/24 10:00 10/07/24 08:58 550 MG Doxycycline Monohydrate 100 mg Q12HR PO 10/02/24 10:00 10/07/24 08:58 100 MG Cefpodoxime Proxetil 200 mg BID PO 10/02/24 10:00 10/07/24 08:59 200 MG Atorvastatin Calcium 80 mg HS PO 10/02/24 22:00 10/05/24 21:39 80 MG Diagnostic Test (Pha) 1 strip ACHS 10/02/24 11:30 10/07/24 16:49 1 STRIP Insulin Human Regular ACHS SC 10/02/24 11:30 10/07/24 17:38 2 UNITS Dextrose 50 ml UD PRN IV 10/02/24 07:15 Lactulose 30 ml BID PO 10/02/24 22:00 10/06/24 10:00 30 ML Carvedilol 6.25 mg Q12HR PO 10/02/24 22:00 10/07/24 08:59 6.25 MG Hydralazine HCl 10 mg Q4HR PRN IV 10/02/24 10:30 Ondansetron HCl 4 mg Q4HPRN PRN IV 10/04/24 18:45 10/06/24 05:54 4 MG Sucralfate 1 gm QIDACHS PO 10/05/24 17:00 10/07/24 16:47 1 GM Hydromorphone HCl 0.5 mg Q8HP PRN IV 10/07/24 15:30 Acetaminophen/ Hydrocodone Bitart 1 tab Q6HP PRN PO 10/07/24 15:30 10/07/24 18:23 1 TAB Alprazolam 0.5 mg [id number] PRN PO 10/07/24 15:30 Cyclobenzaprine HCl 5 mg TID PO 10/07/24 15:30 10/09/24 15:29 10/07/24 16:47 5 MG objective General Appearance: alert, no distress HEENT: EOMI, PERRLA, normal external inspect of ears, no icterus, no nasal drainage Neck: no carotid bruit, no jugular venous distention (JVD), no lymphadenopathy Chest: normal thorax Respiratory: clear to auscultation, normal air movement Cardiovascular: regular rate and rhythm, no diastolic murmur, no jugular venous distention (JVD), no rub, no systolic murmur Abdominal: soft, no hepatomegaly, no mass, no splenomegaly, no tenderness Genitourinary: grossly normal external Musculoskeletal: no joint tenderness, no swelling Extremities: normal pulses, no calf tenderness, no clubbing, no cyanosis, no edema Skin: no bruising, no jaundice, no rash Neurological: alert, No focal deficit laboratory and microbiology Laboratory Tests 10/07/24 05:28 Test 10/07/24 05:28 Range/Units Serum Glucose 145 H 74-106 mg/dL Problem List 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 Plan: - Avoid nephrotoxic medications - Consult nephrology Acute on chronic combined systolic and diastolic heart failure Plan: - Bumetanide 1 mg BID - Fluid restriction to 1000 mL daily - Consult cardiology Diabetic left foot ulcer Plan: - Consult podiatry - Initiate antibiotic Hypertension Plan: - Continue home medications Type 2 Diabetes Mellitus Assessment: Patient has a history of diabetes mellitus, which requires ongoing management. Plan: - Implement insulin sliding scale Pleural Effusion Assessment: Patient has pleural effusion, which may be related to the heart failure exacerbation or other underlying conditions. Plan: - Perform thoracentesis as needed - Consult pulmonology Hyperlipidemia Plan: -Monitor History of CABG Plan; -cardiology consult Hyperkalemia Plan: -Hyperkalemia cocktail Assessment/Plan Subjective Patient is awake and alert. Objective I discussed plan of care with patient and patient's family. Ultrasound venous Doppler is negative for DVT to bilateral lower extremities. Patient is complaining of some pain to his left side Stating it is from thoracentesis. Patient is on room air and appears to be stable. Plan De-escalate IV pain medication. Continue home pain medication. Continue insulin sliding scale. Patient has a history of diabetes and left foot diabetic ulcer. Patient seen by podiatry. Patient will continue outpatient follow-up with his repairer pump. Patient has a resolving CLARISA. Repeat labs ordered for a.m. DC planning possibly in 1 to 2 days. Dietary Evaluation Review Recommendations by RD: Dietary education by RD Comments: 1) Initiate MVI @ 1 tb qd 2) Initiate vitamin C @ 500 mg bid and zinc sulfate @ 220 mg qd for 7 days 3) Continue 60g CCHO cardiac diet. Promote optimal PO intake 4) Encourage patient to limit intake of added sugar including pastries, desserts, candy, and sugar-sweetened beverages. Prioritize natural sugar substitutes such as Stevia and/or monk fruit. Aim for a consistent intake of complex carbohydrates throughout day, paired with lean protein to promote glycemic control. 5) Refer to outpatient RD/[facility] for diabetes counseling 6) Follow-up with cardiology, gastroenterology, nephrology, and podiatry 7) Continue to monitor I&O, labs, and skin integrity Expected Outcomes/Goals: 1) appetite and labs to improve 2) wound to improve 3) gradual wt loss 4) f/u in 3-5 days Plan discussed with: Patient, Other ANGELINE EHARN NP Oct 07, 2024 20:22
[2024-10-07] MEDS: ALPRAZolam 0.5 MG TAB PO PRN (21:03)
--- NOTE | 2024-10-07 22:24 | DVHPN2 ---
Progress Note - Dictate Date Seen: Oct 07, 2024 Medical Necessity Reason Pt with a Central, PICC or Fol: Yes The following are medically ne: Montano Catheter Reason for montano catheter: Strict I&O Subjective Patient was seen and evaluated in follow up. Patient complains of left-sided chest pain where thoracentesis was done. BLE US is negative for DVT. BUN 58, [employer] 2.67. Telemetry reviewed. vital signs Vital Sign Date Time Temp Pulse Resp B/P (MAP) Pulse Ox O2 Delivery O2 Flow Rate FiO2 10/07/24 21:44 80 115/74 10/07/24 17:00 97.0 17 94 97.0 10/07/24 07:52 Room Air* 0 21 Total Intake and Output 10/06/24 10/06/24 10/07/24 15:00 23:00 07:00 Intake Total 450 ml 300 ml Output Total 730 ml 175 ml Balance -280 ml 125 ml medications Current Medications Medications Dose Ordered Sig/Aubrie Route Start Time Stop Time Status Last Admin Dose Admin Nitroglycerin 0.4 mg Q5MINP PRN SL 10/01/24 18:45 10/03/24 12:20 0.4 MG Morphine Sulfate 2 mg Q30M PRN IV 10/01/24 18:45 10/03/24 15:10 2 MG Clopidogrel Bisulfate 75 mg DAILY PO 10/02/24 10:00 10/07/24 08:58 75 MG Famotidine 20 mg BID PO 10/02/24 10:00 10/07/24 21:43 20 MG Tamsulosin HCl 0.4 mg DAILY PO 10/02/24 10:00 10/07/24 08:58 0.4 MG Rifaximin 550 mg BID PO 10/02/24 10:00 10/07/24 21:43 550 MG Doxycycline Monohydrate 100 mg Q12HR PO 10/02/24 10:00 10/07/24 21:43 100 MG Cefpodoxime Proxetil 200 mg BID PO 10/02/24 10:00 10/07/24 21:43 200 MG Atorvastatin Calcium 80 mg HS PO 10/02/24 22:00 10/07/24 21:43 80 MG Diagnostic Test (Pha) 1 strip ACHS 10/02/24 11:30 10/07/24 21:46 1 STRIP Insulin Human Regular ACHS SC 10/02/24 11:30 10/07/24 17:38 2 UNITS Dextrose 50 ml UD PRN IV 10/02/24 07:15 Lactulose 30 ml BID PO 10/02/24 22:00 10/06/24 10:00 30 ML Carvedilol 6.25 mg Q12HR PO 10/02/24 22:00 10/07/24 21:44 6.25 MG Hydralazine HCl 10 mg Q4HR PRN IV 10/02/24 10:30 Ondansetron HCl 4 mg Q4HPRN PRN IV 10/04/24 18:45 10/06/24 05:54 4 MG Sucralfate 1 gm QIDACHS PO 10/05/24 17:00 10/07/24 21:43 1 GM Hydromorphone HCl 0.5 mg Q8HP PRN IV 10/07/24 15:30 Acetaminophen/ Hydrocodone Bitart 1 tab Q6HP PRN PO 10/07/24 15:30 10/07/24 18:23 1 TAB Alprazolam 0.5 mg [id number] PRN PO 10/07/24 15:30 10/07/24 21:03 0.5 MG Cyclobenzaprine HCl 5 mg TID PO 10/07/24 15:30 10/09/24 15:29 10/07/24 21:43 5 MG objective GENERAL: Alert and oriented x 3. No acute distress. EYES: PERRL, EOMI. Anicteric. HENT: Moist mucous membranes. LUNGS: Decreased breath sounds. CARDIOVASCULAR: Regular rate and rhythm. ABDOMEN: Soft, nontender and nondistended. EXTREMITIES: No edema. NEUROLOGIC: No focal neurological deficits. SKIN: Warm, dry. : Scrotal edema. laboratory and microbiology Laboratory Tests 10/07/24 05:28 Test 10/07/24 05:28 Range/Units Serum Glucose 145 H 74-106 mg/dL Problem List Hyperammonemia related to liver cirrhosis. Chronic Kidney Disease Stage 3A. Acute on chronic combined systolic and diastolic heart failure. Diabetic left foot ulcer. Hypertension. Type 2 Diabetes Mellitus. Pleural Effusion. Hyperlipidemia. History of CABG. Hyperkalemia. Assessment/Plan Continued all current supportive medical care. Plavix. Diuretics with Bumex. Coreg. Aldactone. IV Hydralazine for SBP > 150. Oral antibiotics as ordered. Dilaudid and Oxycodone for pain management. Additional plan as per the hospital course. Dietary Evaluation Review Recommendations by RD: Dietary education by RD Comments: 1) Initiate MVI @ 1 tb qd 2) Initiate vitamin C @ 500 mg bid and zinc sulfate @ 220 mg qd for 7 days 3) Continue 60g CCHO cardiac diet. Promote optimal PO intake 4) Encourage patient to limit intake of added sugar including pastries, desserts, candy, and sugar-sweetened beverages. Prioritize natural sugar substitutes such as Stevia and/or monk fruit. Aim for a consistent intake of complex carbohydrates throughout day, paired with lean protein to promote glycemic control. 5) Refer to outpatient RD/[facility] for diabetes counseling 6) Follow-up with cardiology, gastroenterology, nephrology, and podiatry 7) Continue to monitor I&O, labs, and skin integrity Expected Outcomes/Goals: 1) appetite and labs to improve 2) wound to improve 3) gradual wt loss 4) f/u in 3-5 days Plan discussed with: Patient JOE SIMMONS MD Oct 07, 2024 22:24
--- NOTE | 2024-10-07 22:54 | DVHPN2 ---
Progress Note - Dictate Date Seen: Oct 07, 2024 Medical Necessity Reason Pt with a Central, PICC or Fol: Yes The following are medically ne: Montano Catheter Reason for montano catheter: Strict I&O Subjective Patient seen and examined at bedside. Breathing comfortably on room air Overnight events reviewed. vital signs Vital Sign Date Time Temp Pulse Resp B/P (MAP) Pulse Ox O2 Delivery O2 Flow Rate FiO2 10/07/24 22:31 74 93/58 10/07/24 17:00 97.0 17 94 97.0 10/07/24 07:52 Room Air* 0 21 Total Intake and Output 10/06/24 10/06/24 10/07/24 15:00 23:00 07:00 Intake Total 450 ml 300 ml Output Total 730 ml 175 ml Balance -280 ml 125 ml medications Current Medications Medications Dose Ordered Sig/Aubrie Route Start Time Stop Time Status Last Admin Dose Admin Nitroglycerin 0.4 mg Q5MINP PRN SL 10/01/24 18:45 10/03/24 12:20 0.4 MG Morphine Sulfate 2 mg Q30M PRN IV 10/01/24 18:45 10/03/24 15:10 2 MG Clopidogrel Bisulfate 75 mg DAILY PO 10/02/24 10:00 10/07/24 08:58 75 MG Famotidine 20 mg BID PO 10/02/24 10:00 10/07/24 21:43 20 MG Tamsulosin HCl 0.4 mg DAILY PO 10/02/24 10:00 10/07/24 08:58 0.4 MG Rifaximin 550 mg BID PO 10/02/24 10:00 10/07/24 21:43 550 MG Doxycycline Monohydrate 100 mg Q12HR PO 10/02/24 10:00 10/07/24 21:43 100 MG Cefpodoxime Proxetil 200 mg BID PO 10/02/24 10:00 10/07/24 21:43 200 MG Atorvastatin Calcium 80 mg HS PO 10/02/24 22:00 10/07/24 21:43 80 MG Diagnostic Test (Pha) 1 strip ACHS 10/02/24 11:30 10/07/24 21:46 1 STRIP Insulin Human Regular ACHS SC 10/02/24 11:30 10/07/24 17:38 2 UNITS Dextrose 50 ml UD PRN IV 10/02/24 07:15 Lactulose 30 ml BID PO 10/02/24 22:00 10/06/24 10:00 30 ML Carvedilol 6.25 mg Q12HR PO 10/02/24 22:00 10/07/24 21:44 6.25 MG Hydralazine HCl 10 mg Q4HR PRN IV 10/02/24 10:30 Ondansetron HCl 4 mg Q4HPRN PRN IV 10/04/24 18:45 10/06/24 05:54 4 MG Sucralfate 1 gm QIDACHS PO 10/05/24 17:00 10/07/24 21:43 1 GM Hydromorphone HCl 0.5 mg Q8HP PRN IV 10/07/24 15:30 Acetaminophen/ Hydrocodone Bitart 1 tab Q6HP PRN PO 10/07/24 15:30 10/07/24 18:23 1 TAB Alprazolam 0.5 mg [id number] PRN PO 10/07/24 15:30 10/07/24 21:03 0.5 MG Cyclobenzaprine HCl 5 mg TID PO 10/07/24 15:30 10/09/24 15:29 10/07/24 21:43 5 MG objective Gen.: Patient lying in bed in no apparent distress. On room air. Head: Normocephalic, atraumatic. Eyes: EOMI/PERRLA. Ears: Normal hearing. Normal anatomy. Neck/trachea: Trachea midline, supple. Nose: Normal external anatomy. Mouth: Moist mucous membranes. Chest: Decreased air entry bilaterally. No wheezing or rhonchi. Cardiovascular: Positive S1, positive S2. Regular rate and rhythm. Abdomen: Positive bowel sounds in all 4 quadrants. Soft, non-tender, non- distended. : Deferred. Rectal: Deferred. Skin: Warm, dry. Intact. Extremities: 2+ radial pulses bilaterally. No lower extremity edema. Neuro: Awake, alert, oriented x3. No gross motor or sensory deficits. Cranial nerves II through XII intact. Gait not assessed. laboratory and microbiology Laboratory Tests 10/07/24 05:28 Test 10/07/24 05:28 Range/Units Serum Glucose 145 H 74-106 mg/dL Assessment/Plan Impression: Acute hypoxic respiratory failure 2/2 congestive heart failure Pleural effusions, bilateral Atelectasis Coronary artery disease, s/p CABG Metabolic acidosis Anasarca 2/2 liver cirrhosis Hx of nicotine dependence Obesity Events: Remains on room air. No distress Supplemental oxygen PRN Pt complains of some chest discomfort and back pain. Pain control - Hydrocodone PRN for moderate pain Dilaudid 0.5 mg IVP q.4 hours PRN severe pain Avoid oversedation Antiemetic PRN for nausea. Cardiology recs appreciated Blood pressure control Complete antibiotics Incentive spirometry Accu-Cheks, ISS. Lower extremity arterial duplex shows no DVT in BLE. Chest x-ray on 10/05/24 revealed cardiomegaly, CHF; decreased left pleural effusion. S/p right thoracentesis on 10/02/24 with removal of 550 mL natalya fluid See separate procedure note for details. Patient improving with diuresis Continue diuresis with Bumex Monitor renal function Wound care Disposition per hospitalist. Labs and imaging reviewed. Rest of plan as noted below. Plan: Supplemental oxygen PRN Titrate to keep O2 sats above 92%. Continue antibiotics Incentive spirometry for atelectasis Follow up Cardiology recs Blood pressure control Accu-Cheks, ISS. Pepcid for GI ppx Pain control Avoid oversedation Diurese with Bumex as tolerated Monitor renal function. Monitor electrolytes. Supplement as necessary. Monitor ins and outs. Diet and lifestyle modifications for weight reduction GI/DVT prophylaxis. Prognosis: Poor given patient's multiple co-morbidities. Rest of plan per hospitalist and other consultants. Thank you, Dr. Espinal, for allowing me to participate in this patient's care. Further recommendations will depend on the patient's clinical course. Please do not hesitate to contact me if you have any questions or concerns. This medical document was created using an electronic medical record system with [employer] dictation system. Although these documentations are being carefully reviewed, there may still be some phonetic and typographical changes. The errors are purely typographical, due to imperfection on the software program, and do not reflect any compromise in the patient's medical care. Dietary Evaluation Review Recommendations by RD: Dietary education by RD Comments: 1) Initiate MVI @ 1 tb qd 2) Initiate vitamin C @ 500 mg bid and zinc sulfate @ 220 mg qd for 7 days 3) Continue 60g CCHO cardiac diet. Promote optimal PO intake 4) Encourage patient to limit intake of added sugar including pastries, desserts, candy, and sugar-sweetened beverages. Prioritize natural sugar substitutes such as Stevia and/or monk fruit. Aim for a consistent intake of complex carbohydrates throughout day, paired with lean protein to promote glycemic control. 5) Refer to outpatient RD/CDCES for diabetes counseling 6) Follow-up with cardiology, gastroenterology, nephrology, and podiatry 7) Continue to monitor I&O, labs, and skin integrity Expected Outcomes/Goals: 1) appetite and labs to improve 2) wound to improve 3) gradual wt loss 4) f/u in 3-5 days Plan discussed with: Patient, Other (JUDIE Plaza) BUCKY HUDSON MD Oct 07, 2024 22:54
[2024-10-08 05:01] VITALS: BP 136/67; PULSE 77; RESP 19; TEMP 97.1; O2SAT 98
[2024-10-08] MEDS: HYDROmorphone HCL 2 MG/ML VL/or syr IV PRN (06:54)
--- NOTE | 2024-10-08 07:19 | ECG ---
[facility] Test Date: 2024-10-06 Test Time: 10:12:19 Pat Name: JIN TIM Department: Respiratoy Room: 0216T A Gender: M Physician Underwriter: LIZA : 1975 Requested By: ANGELINE HEARN Order Number: [id number] Reading MD: Alessandro Rankin Measurements Intervals [place] Rate: 86 P: 72 FL: 198 QRS: 146 QRSD: 132 T: -13 QT: 381 QTc: 456 Interpretive Statements Sinus rhythm Probable left atrial enlargement RBBB and LPFB Anterior and lateral infarct, possibly recent Baseline wander in lead(s) V5,V6 Electronically Signed On 10-11-2024 18:34:42 PDT by Alessandro Rankin Please click the below link to view image of tracing.
[2024-10-08 07:45] VITALS: PULSE 76; RESP 20; O2SAT 96
[2024-10-08 08:58] VITALS: PULSE 80
[2024-10-08 09:00] VITALS: BP 124/64; PULSE 76; RESP 20; TEMP 98.7; O2SAT 96
[2024-10-08 11:16] LABS: Hematocrit 37.0 % (41.0-53.0); Hemoglobin 12.3 g/dL (13.5-17.5); Mean Corpuscular Hemoglobin 27.3 pg (28.0-32.0); Mean Corpuscular Volume 82.2 fL (80.0-100.0); Nucleated Red Blood Cells % 0.0 %
[2024-10-08 11:22] LABS: Chloride 105 mmol/L (98-107); Potassium 4.6 mmol/L (3.5-5.1)
[2024-10-08 11:23] LABS: Anion Gap 7 (5-15); Carbon Dioxide 21 mmol/L (20-31)
[2024-10-08 11:28] LABS: BUN/Creatinine Ratio 26.5 (10.0-20.0)
[2024-10-08 11:29] LABS: Blood Urea Nitrogen 54 mg/dL (9-23); Calcium 8.0 mg/dL (8.7-10.4); Glucose 155 mg/dL (74-106); Sodium 133 mmol/L (136-145)
--- NOTE | 2024-10-08 12:24 | DVHPN2 ---
Progress Note - Dictate Date Seen: Oct 08, 2024 Medical Necessity Reason Pt with a Central, PICC or Fol: Yes The following are medically ne: Montano Catheter Reason for montano catheter: Strict I&O vital signs Vital Sign Date Time Temp Pulse Resp B/P (MAP) Pulse Ox O2 Delivery O2 Flow Rate FiO2 10/08/24 12:06 73 112/75 10/08/24 09:00 98.7 20 96 98.7 10/08/24 07:45 Room Air* 0 21 Total Intake and Output 10/07/24 10/07/24 10/08/24 15:00 23:00 07:00 Intake Total 537 ml 500 ml Output Total 450 ml 425 ml Balance 87 ml 75 ml medications Current Medications Medications Dose Ordered Sig/Aubrie Route Start Time Stop Time Status Last Admin Dose Admin Nitroglycerin 0.4 mg Q5MINP PRN SL 10/01/24 18:45 10/03/24 12:20 0.4 MG Morphine Sulfate 2 mg Q30M PRN IV 10/01/24 18:45 10/03/24 15:10 2 MG Clopidogrel Bisulfate 75 mg DAILY PO 10/02/24 10:00 10/08/24 09:30 75 MG Famotidine 20 mg BID PO 10/02/24 10:00 10/08/24 09:30 20 MG Tamsulosin HCl 0.4 mg DAILY PO 10/02/24 10:00 10/08/24 09:30 0.4 MG Rifaximin 550 mg BID PO 10/02/24 10:00 10/08/24 09:30 550 MG Doxycycline Monohydrate 100 mg Q12HR PO 10/02/24 10:00 10/08/24 09:31 100 MG Cefpodoxime Proxetil 200 mg BID PO 10/02/24 10:00 10/08/24 09:30 200 MG Atorvastatin Calcium 80 mg HS PO 10/02/24 22:00 10/07/24 21:43 80 MG Diagnostic Test (Pha) 1 strip ACHS 10/02/24 11:30 10/08/24 12:06 1 STRIP Insulin Human Regular ACHS SC 10/02/24 11:30 10/08/24 06:07 3 UNITS Dextrose 50 ml UD PRN IV 10/02/24 07:15 Lactulose 30 ml BID PO 10/02/24 22:00 10/06/24 10:00 30 ML Carvedilol 6.25 mg Q12HR PO 10/02/24 22:00 10/08/24 09:31 6.25 MG Hydralazine HCl 10 mg Q4HR PRN IV 10/02/24 10:30 Ondansetron HCl 4 mg Q4HPRN PRN IV 10/04/24 18:45 10/06/24 05:54 4 MG Sucralfate 1 gm QIDACHS PO 10/05/24 17:00 10/08/24 12:05 1 GM Hydromorphone HCl 0.5 mg Q8HP PRN IV 10/07/24 15:30 Acetaminophen/ Hydrocodone Bitart 1 tab Q6HP PRN PO 10/07/24 15:30 10/08/24 09:30 1 TAB Alprazolam 0.5 mg [id number] PRN PO 10/07/24 15:30 10/07/24 21:03 0.5 MG Cyclobenzaprine HCl 5 mg TID PO 10/07/24 15:30 10/09/24 15:29 10/08/24 05:37 5 MG laboratory and microbiology Laboratory Tests 10/08/24 10:17 10/08/24 10:03 Test 10/08/24 10:03 Range/Units Serum Glucose 155 H 74-106 mg/dL Assessment/Plan Acute hypoxic respiratory failure 2/2 congestive heart failure Pleural effusions, bilateral Atelectasis Coronary artery disease, s/p CABG Metabolic acidosis Anasarca 2/2 liver cirrhosis Hx of nicotine dependence Obesity Events: Remains on room air. No distress Supplemental oxygen PRN Pt complains of some chest discomfort and back pain. S/p right thoracentesis on 10/02/24 with removal of 550 mL natalya fluid See separate procedure note for details. Patient improving with diuresis Continue diuresis with Bumex Monitor renal function Wound care Disposition per hospitalist. Labs and imaging reviewed. Rest of plan as noted below. Plan: Supplemental oxygen PRN Titrate to keep O2 sats above 92%. Continue antibiotics Incentive spirometry for atelectasis Follow up Cardiology recs Blood pressure control Accu-Cheks, ISS. Pepcid for GI ppx Pain control Avoid oversedation Diurese with Bumex as tolerated Monitor renal function. Monitor electrolytes. Supplement as necessary. Monitor ins and outs. Diet and lifestyle modifications for weight reduction GI/DVT prophylaxis. Dietary Evaluation Review Recommendations by RD: Dietary education by RD Comments: 1) Initiate MVI @ 1 tb qd 2) Initiate vitamin C @ 500 mg bid and zinc sulfate @ 220 mg qd for 7 days 3) Continue 60g CCHO cardiac diet. Promote optimal PO intake 4) Encourage patient to limit intake of added sugar including pastries, desserts, candy, and sugar-sweetened beverages. Prioritize natural sugar substitutes such as Stevia and/or monk fruit. Aim for a consistent intake of complex carbohydrates throughout day, paired with lean protein to promote glycemic control. 5) Refer to outpatient RD/CDCES for diabetes counseling 6) Follow-up with cardiology, gastroenterology, nephrology, and podiatry 7) Continue to monitor I&O, labs, and skin integrity Expected Outcomes/Goals: 1) appetite and labs to improve 2) wound to improve 3) gradual wt loss 4) f/u in 3-5 days Plan discussed with: Patient SANA SEGAL MD Oct 08, 2024 12:24
[2024-10-08 13:00] VITALS: BP 112/68; PULSE 74; RESP 20; TEMP 97.8; O2SAT 94
--- NOTE | 2024-10-08 13:19 | DVHDS2 ---
Discharge Summary Date of Admission Oct 01, 2024 at 18:41 Labs/Diagnostic Data: Laboratory Results Test 10/08/24 12:05 10/08/24 10:17 10/08/24 10:03 10/06/24 05:24 POC Glucose 170 mg/dl (70-106) White Blood Count 7.7 10^3/uL (4.4-10.8) Red Blood Count 4.50 10^6/uL (4.5-5.90) Hemoglobin 12.3 g/dL (13.5-17.5) Hematocrit 37.0 % (41.0-53.0) Mean Corpuscular Volume 82.2 fL (80.0-100.0) Mean Corpuscular Hemoglobin 27.3 pg (28.0-32.0) Mean Corpuscular Hemoglobin Concent 33.2 g/dL (32.0-36.0) Red Cell Distribution Width 15.3 % (11.8-14.3) Platelet Count 185 10^3/uL (140-450) Mean Platelet Volume 8.1 fL (6.9-10.8) Neutrophils (%) (Auto) 75.8 % (37.0-80.0) Lymphocytes (%) (Auto) 6.4 % (10.0-50.0) Monocytes (%) (Auto) 15.2 % (0.0-12.0) Eosinophils (%) (Auto) 1.4 % (0.0-7.0) Basophils (%) (Auto) 1.2 % (0.0-2.0) Neutrophils # (Auto) 5.8 10 ^3/uL (1.6-8.6) Lymphocytes # (Auto) 0.5 10 ^3/uL (0.4-5.4) Monocytes # (Auto) 1.2 10 ^3/uL (0-1.3) Eosinophils # (Auto) 0.1 10 ^3/uL (0-0.8) Basophils # (Auto) 0.1 10 ^3/uL (0-0.2) Nucleated Red Blood Cells 0.0 % B-Type Natriuretic Peptide 617.79 pg/mL (0-100) Sodium Level 133 mmol/L (136-145) Potassium Level 4.6 mmol/L (3.5-5.1) Chloride Level 105 mmol/L (98-107) Carbon Dioxide Level 21 mmol/L (20-31) Anion Gap 7 (5-15) Blood Urea Nitrogen 54 mg/dL (9-23) Creatinine 2.04 mg/dL (0.700-1.30) Glomerular Filtration Rate Calc 39 mL/min (>90) BUN/Creatinine Ratio 26.5 (10.0-20.0) Serum Glucose 155 mg/dL (74-106) Calcium Level 8.0 mg/dL (8.7-10.4) Ammonia 48 umol/L (11-32) Total Bilirubin 0.9 mg/dL (0.2-1.0) Aspartate Amino Transferase (AST) 60 U/L (13-40) Alanine Aminotransferase (ALT) 23 U/L (7-40) Alkaline Phosphatase 339 U/L (46-116) Total Protein 5.3 g/dL (5.7-8.2) Albumin 3.2 g/dL (3.2-4.8) Test 10/05/24 10:30 10/03/24 15:22 10/03/24 09:48 10/02/24 13:56 Body Fluid Source Pleural fluid Body Fluid pH 9.0 Body Fluid WBC (Manual) 1182 CUMM (0-200) Body Fluid RBC (Manual) 3232 CUMM (0-2000) Body Fluid Mononuclear Cells 15 % Body Fluid Polymorphonuclear Cells 85 % (0-25) Body Fluid Glucose 123 mg/dL (.) Body Fluid Total Protein 0.8 g/dL (.) Body Fluid Lactate Dehydrogenase 146 IU/L (.) Troponin I High Sensitivity 41 ng/L (</=54) Magnesium Level 1.9 mg/dL (1.6-2.6) Prothrombin Time 10.7 sec (9.3-11.8) Prothrombin Time INR 1.01 (0.9-1.15) Test 10/02/24 07:54 10/02/24 04:08 Urine Color Light-yellow (Yellow) Urine Clarity Clear (Clear) Urine pH 5.0 (5.0-9.0) Urine Specific [place] 1.008 (1.001-1.035) Urine Protein Negative (Negative) Urine Ketones Negative (Negative) Urine Blood 3+ /uL (Negative) Urine Nitrite Negative (Negative) Urine Bilirubin Negative (Negative) Urine Urobilinogen Normal mg/dL (Negative) Urine Leukocyte Esterase Trace /uL (Negative) Urine RBC 61 /hpf (0 - 3) Urine Microscopic WBC 4 /HPF (0-3) Urine Squamous Epithelial Cells None seen /hpf (<5) Urine Bacteria None seen /hpf (None Seen) Urine Creatinine 27.73 mg/dL (30.0-125.0) Urine Glucose Normal mg/dL (Normal) Urine Total Protein 23.8 mg/dL (1-14) Hemoglobin A1c 7.8 % A1C (<5.7) Other Laboratory Tests 10/08/24 10:17 10/08/24 10:03 Discharge Instruct/Medications Scheduled Aspirin (Aspir-81), 1 TAB PO DAILY, (Reported) Atorvastatin Calcium (Atorvastatin Calcium), 1 TAB PO DAILY, (Reported) Carvedilol (Coreg), 1 TAB PO BID Clopidogrel Bisulfate (Clopidogrel), 75 MG PO DAILY Dextrose (Glucose), Unknown Dose PO PRN, (Reported) Doxycycline Monohydrate (Doxycycline Monohydrate), 100 MG PO Q12HR Escitalopram Oxalate (Lexapro), 2 TAB PO DAILY, (Reported) Famotidine (Famotidine), 20 MG PO BID, (Reported) Furosemide (Lasix), 1 TAB PO BID Gabapentin (Gabapentin), 300 MG PO TID, (Reported) Insulin Lispro (Humalog Kwikpen), 0 SC PER SLIDING SCALE, (Reported) Mupirocin Calcium (Topical) (Mupirocin), 2 % EX BID Naloxone HCl (Narcan), 4 MG NA ONCE Omeprazole (Gnp Omeprazole), 20 MG PO DAILY, (Reported) Pantoprazole Sodium Sesquihydr (Protonix), 40 MG PO BID Ramipril (Altace), 10 MG PO DAILY Rifaximin (Xifaxan), 550 MG PO BID Sucralfate (Sucralfate), 1 GM PO QIDACHS Sucralfate (Sucralfate), 1 GM PO QIDACHS Tamsulosin Hcl (Flomax), 1 CAP PO DAILY Tamsulosin Hcl (Flomax), 0.4 MG PO DAILY Trazodone Hcl (Trazodone Hcl), 50 MG PO HS, (Reported) Scheduled PRN Hydrocodone-Acetaminophen (Hydrocodone Bitartrate/AC 10-325 mg), 1 TAB PO Q8HP PRN Miscellaneous Medications Insulin Glargine (Lantus Solostar), 100 UNIT SC, (Reported) Discharge Statement: "Patient was advised to return to the ER or call 911 if any headaches, dizziness, shortness of breath, chest pain, abdominal pain, bleeding, fevers, or worsening of medical condition. Patient was counseled about treatment plan, medications, possible side effects, patientverbalized understanding. All questions were answered to the best of my ability. This discharge took greater then 30 minutes in planning, reviewing documentation, counseling the patient, and discussing with other team members." ASSESSMENT ASSESSMENT Assessment ANGELINE HEARN NP Oct 08, 2024 13:19
--- NOTE | 2024-10-08 13:52 | DVH ---
CHEST RADIOGRAPH Indication: f/u Technique: Single frontal view of the chest was obtained COMPARISON: XY CHEST PORTABLE on DOS: 10/05/24, XY CHEST XRAY 1 VIEW on DOS: 10/03/24, XY CHEST XRAY 1 EW on DOS: 10/02/24, XY CHEST XRAY 1 VIEW on DOS: 10/01/24, XY CHEST PORTABLE on DOS: 07/06/24 FINDINGS: Lines and Tubes: Median sternotomy Lungs: Left lower lobe airspace disease. Pleura: Small left pleural effusion No pneumothorax. Cardiomediastinal contours: Unremarkable Bones: Unremarkable IMPRESSION: Left lower lobe airspace disease.
[2024-10-08] MEDS ORDERED: TAMS-35 PO (17:49)
[2024-10-08] MEDS ORDERED: SUCR1TAB PO (17:49)
[2024-10-08] MEDS ORDERED: RIFA550T PO (17:49)
[2024-10-08] MEDS ORDERED: DOX100T PO (17:49)
--- NOTE | 2024-10-08 17:51 | DVHDS2 ---
Discharge Summary Date of Admission Oct 01, 2024 at 18:41 Date of Discharge: Oct 08, 2024 Labs/Diagnostic Data: Laboratory Results Test 10/08/24 17:29 10/08/24 10:17 10/08/24 10:03 10/06/24 05:24 POC Glucose 149 mg/dl (70-106) White Blood Count 7.7 10^3/uL (4.4-10.8) Red Blood Count 4.50 10^6/uL (4.5-5.90) Hemoglobin 12.3 g/dL (13.5-17.5) Hematocrit 37.0 % (41.0-53.0) Mean Corpuscular Volume 82.2 fL (80.0-100.0) Mean Corpuscular Hemoglobin 27.3 pg (28.0-32.0) Mean Corpuscular Hemoglobin Concent 33.2 g/dL (32.0-36.0) Red Cell Distribution Width 15.3 % (11.8-14.3) Platelet Count 185 10^3/uL (140-450) Mean Platelet Volume 8.1 fL (6.9-10.8) Neutrophils (%) (Auto) 75.8 % (37.0-80.0) Lymphocytes (%) (Auto) 6.4 % (10.0-50.0) Monocytes (%) (Auto) 15.2 % (0.0-12.0) Eosinophils (%) (Auto) 1.4 % (0.0-7.0) Basophils (%) (Auto) 1.2 % (0.0-2.0) Neutrophils # (Auto) 5.8 10 ^3/uL (1.6-8.6) Lymphocytes # (Auto) 0.5 10 ^3/uL (0.4-5.4) Monocytes # (Auto) 1.2 10 ^3/uL (0-1.3) Eosinophils # (Auto) 0.1 10 ^3/uL (0-0.8) Basophils # (Auto) 0.1 10 ^3/uL (0-0.2) Nucleated Red Blood Cells 0.0 % B-Type Natriuretic Peptide 617.79 pg/mL (0-100) Sodium Level 133 mmol/L (136-145) Potassium Level 4.6 mmol/L (3.5-5.1) Chloride Level 105 mmol/L (98-107) Carbon Dioxide Level 21 mmol/L (20-31) Anion Gap 7 (5-15) Blood Urea Nitrogen 54 mg/dL (9-23) Creatinine 2.04 mg/dL (0.700-1.30) Glomerular Filtration Rate Calc 39 mL/min (>90) BUN/Creatinine Ratio 26.5 (10.0-20.0) Serum Glucose 155 mg/dL (74-106) Calcium Level 8.0 mg/dL (8.7-10.4) Ammonia 48 umol/L (11-32) Total Bilirubin 0.9 mg/dL (0.2-1.0) Aspartate Amino Transferase (AST) 60 U/L (13-40) Alanine Aminotransferase (ALT) 23 U/L (7-40) Alkaline Phosphatase 339 U/L (46-116) Total Protein 5.3 g/dL (5.7-8.2) Albumin 3.2 g/dL (3.2-4.8) Test 10/05/24 10:30 10/03/24 15:22 10/03/24 09:48 10/02/24 13:56 Body Fluid Source Pleural fluid Body Fluid pH 9.0 Body Fluid WBC (Manual) 1182 CUMM (0-200) Body Fluid RBC (Manual) 3232 CUMM (0-2000) Body Fluid Mononuclear Cells 15 % Body Fluid Polymorphonuclear Cells 85 % (0-25) Body Fluid Glucose 123 mg/dL (.) Body Fluid Total Protein 0.8 g/dL (.) Body Fluid Lactate Dehydrogenase 146 IU/L (.) Troponin I High Sensitivity 41 ng/L (</=54) Magnesium Level 1.9 mg/dL (1.6-2.6) Prothrombin Time 10.7 sec (9.3-11.8) Prothrombin Time INR 1.01 (0.9-1.15) Test 10/02/24 07:54 10/02/24 04:08 Urine Color Light-yellow (Yellow) Urine Clarity Clear (Clear) Urine pH 5.0 (5.0-9.0) Urine Specific [place] 1.008 (1.001-1.035) Urine Protein Negative (Negative) Urine Ketones Negative (Negative) Urine Blood 3+ /uL (Negative) Urine Nitrite Negative (Negative) Urine Bilirubin Negative (Negative) Urine Urobilinogen Normal mg/dL (Negative) Urine Leukocyte Esterase Trace /uL (Negative) Urine RBC 61 /hpf (0 - 3) Urine Microscopic WBC 4 /HPF (0-3) Urine Squamous Epithelial Cells None seen /hpf (<5) Urine Bacteria None seen /hpf (None Seen) Urine Creatinine 27.73 mg/dL (30.0-125.0) Urine Glucose Normal mg/dL (Normal) Urine Total Protein 23.8 mg/dL (1-14) Hemoglobin A1c 7.8 % A1C (<5.7) Other Laboratory Tests 10/08/24 10:17 10/08/24 10:03 Brief Hx & Hospital Course: 49-year-old male with a history of CHF, CKD, hypertension, hyperlipidemia, and diabetes, presents to the emergency room with bilateral lower extremity swelling, abdominal distension, and scrotal swelling for the past 2 days. The patient was recently discharged from [facility] for hyperammonemia related to cirrhosis. Patient was admitted for fluid overload. Patient had CHF exacerbation as well as liver cirrhosis. Patient is status post thoracentesis patient was seen by pulmonary. Patient also has a history of diabetes with a diabetic left foot ulcer. Patient was seen by his napper runner. Patient will follow-up with Dr. Sutton outpatient. Patient had a slight CLARISA superimposed on CKD. Patient was seen by nephrology. Creatinine is 2. Patient cleared for discharge per nephrology. Patient was discharged home. He was instructed to be compliant with medication and to continue diuretics. Patient was also instructed to follow-up with his PCP in 1 week. The patient received proper medical treatment and medications. Vital signs, Imaging and Laboratory Work was monitored daily. All consults recommendations were followed as provided. There were no complaints or new complaints upon discharge, all questions and concerns were answered. Patient was advised to return to the ER or call 911 if any headaches, dizziness, shortness of breath, chest pain, bleeding, fevers, or worsening of medical condition. Patient/Family was counseled about treatment plan, medications, possible side effects, patient verbalized understanding. All questions were answered to the best of my ability. The patient symptoms improved and they are okay to be DC. Condition at Discharge: Stable Final Diagnosis/Problems List Hyperammonemia related to liver cirrhosis Chronic Kidney Disease Stage 3A Diabetic left foot ulcer Hypertension Type 2 Diabetes Mellitus Pleural Effusion Hyperlipidemia History of CABG Hyperkalemia SOB CHF exacerbation Liver Cirrhosis DM foot ulcer Discharge Disposition: Home Discharge Instruct/Medications Diet: Consistent carbohydrate, Cardiac 2g Na,low cholest Activity: No Restrictions, As Tolerated Follow Up/Referral: pcp 1 week nephrology 2 weeks podiatry 1 week Scheduled Aspirin (Aspir-81), 1 TAB PO DAILY, (Reported) Atorvastatin Calcium (Atorvastatin Calcium), 1 TAB PO DAILY, (Reported) Carvedilol (Coreg), 1 TAB PO BID Clopidogrel Bisulfate (Clopidogrel), 75 MG PO DAILY Dextrose (Glucose), Unknown Dose PO PRN, (Reported) Doxycycline Monohydrate (Doxycycline Monohydrate), 100 MG PO Q12HR Escitalopram Oxalate (Lexapro), 2 TAB PO DAILY, (Reported) Famotidine (Famotidine), 20 MG PO BID, (Reported) Furosemide (Lasix), 1 TAB PO BID Gabapentin (Gabapentin), 300 MG PO TID, (Reported) Insulin Lispro (Humalog Kwikpen), 0 SC PER SLIDING SCALE, (Reported) Mupirocin Calcium (Topical) (Mupirocin), 2 % EX BID Naloxone HCl (Narcan), 4 MG NA ONCE Omeprazole (Gnp Omeprazole), 20 MG PO DAILY, (Reported) Pantoprazole Sodium Sesquihydr (Protonix), 40 MG PO BID Ramipril (Altace), 10 MG PO DAILY Rifaximin (Xifaxan), 550 MG PO BID Sucralfate (Sucralfate), 1 GM PO QIDACHS Sucralfate (Sucralfate), 1 GM PO QIDACHS Tamsulosin Hcl (Flomax), 1 CAP PO DAILY Tamsulosin Hcl (Flomax), 0.4 MG PO DAILY Trazodone Hcl (Trazodone Hcl), 50 MG PO HS, (Reported) Scheduled PRN Hydrocodone-Acetaminophen (Hydrocodone Bitartrate/AC 10-325 mg), 1 TAB PO Q8HP PRN Miscellaneous Medications Insulin Glargine (Lantus Solostar), 100 UNIT SC, (Reported) Discontinued Medications Dulaglutide (Trulicity), 0.75 MG SC QWEEKLY, (Reported) Discharge Statement: "Patient was advised to return to the ER or call 911 if any headaches, dizziness, shortness of breath, chest pain, abdominal pain, bleeding, fevers, or worsening of medical condition. Patient was counseled about treatment plan, medications, possible side effects, patientverbalized understanding. All questions were answered to the best of my ability. This discharge took greater then 30 minutes in planning, reviewing documentation, counseling the patient, and discussing with other team members." ASSESSMENT ASSESSMENT Assessment SOB CHF exacerbation Liver Cirrhosis DM foot ulcer ANGELINE HEARN NP Oct 08, 2024 17:50
--- NOTE | 2024-10-08 18:00 | DVHPN2 ---
Progress Note - Dictate Date Seen: Oct 08, 2024 Medical Necessity Reason Pt with a Central, PICC or Fol: Yes The following are medically ne: Montano Catheter Reason for montano catheter: Strict I&O Subjective Some leg edema vital signs Vital Sign Date Time Temp Pulse Resp B/P (MAP) Pulse Ox O2 Delivery O2 Flow Rate FiO2 10/08/24 13:00 97.8 74 20 112/68 (83) 94 97.8 10/08/24 07:45 Room Air* 0 21 Total Intake and Output 10/07/24 10/07/24 10/08/24 15:00 23:00 07:00 Intake Total 537 ml 500 ml Output Total 450 ml 425 ml Balance 87 ml 75 ml medications Current Medications Medications Dose Ordered Sig/Aubrie Route Start Time Stop Time Status Last Admin Dose Admin Nitroglycerin 0.4 mg Q5MINP PRN SL 10/01/24 18:45 10/03/24 12:20 0.4 MG Morphine Sulfate 2 mg Q30M PRN IV 10/01/24 18:45 10/03/24 15:10 2 MG Clopidogrel Bisulfate 75 mg DAILY PO 10/02/24 10:00 10/08/24 09:30 75 MG Famotidine 20 mg BID PO 10/02/24 10:00 10/08/24 09:30 20 MG Tamsulosin HCl 0.4 mg DAILY PO 10/02/24 10:00 10/08/24 09:30 0.4 MG Rifaximin 550 mg BID PO 10/02/24 10:00 10/08/24 09:30 550 MG Doxycycline Monohydrate 100 mg Q12HR PO 10/02/24 10:00 10/08/24 09:31 100 MG Cefpodoxime Proxetil 200 mg BID PO 10/02/24 10:00 10/08/24 09:30 200 MG Atorvastatin Calcium 80 mg HS PO 10/02/24 22:00 10/07/24 21:43 80 MG Diagnostic Test (Pha) 1 strip ACHS 10/02/24 11:30 10/08/24 12:06 1 STRIP Insulin Human Regular ACHS SC 10/02/24 11:30 10/08/24 12:29 3 UNITS Dextrose 50 ml UD PRN IV 10/02/24 07:15 Lactulose 30 ml BID PO 10/02/24 22:00 10/06/24 10:00 30 ML Carvedilol 6.25 mg Q12HR PO 10/02/24 22:00 10/08/24 09:31 6.25 MG Hydralazine HCl 10 mg Q4HR PRN IV 10/02/24 10:30 Ondansetron HCl 4 mg Q4HPRN PRN IV 10/04/24 18:45 10/06/24 05:54 4 MG Sucralfate 1 gm QIDACHS PO 10/05/24 17:00 10/08/24 12:05 1 GM Hydromorphone HCl 0.5 mg Q8HP PRN IV 10/07/24 15:30 Acetaminophen/ Hydrocodone Bitart 1 tab Q6HP PRN PO 10/07/24 15:30 10/08/24 09:30 1 TAB Alprazolam 0.5 mg Q89NCNQ PRN PO 10/07/24 15:30 10/07/24 21:03 0.5 MG Cyclobenzaprine HCl 5 mg TID PO 10/07/24 15:30 10/09/24 15:29 10/08/24 14:13 5 MG objective HEENT: No evidence of JVD, no oral ulcers. Pulmonary: Diminished on auscultation bilaterally Cardiovascular S1-S2, no S3 or S4 Abdomen: Bowel sounds positive, soft no rebound tenderness Skin: No rash Neurological: Alert, oriented, no focal weakness Extremities: Trace edema lower legs laboratory and microbiology Laboratory Tests 10/08/24 10:17 10/08/24 10:03 Test 10/08/24 10:03 Range/Units Serum Glucose 155 H 74-106 mg/dL Assessment/Plan Assessment: Recurrent Acute kidney injury superimposed on Chronic kidney disease stage III A Anasarca Hyperkalemia Urinary retention Type 2 diabetes with its complications History of CAD status post CABG Chest pain Hypertension Hyperlipidemia Peripheral vascular disease Liver cirrhosis Gastroesophageal reflux disease Recommendations and plan Bumex 2 mg daily No evidence of urinary retention as of now, management as per Urology Continue Flomax Lokelma p.r.n. Cardiology consult Minimize narcotic, management as per primary Renal ultrasound done showing bilateral increased echogenicity. Podiatry evaluation. Continue with the IV antibiotics. Strict Is&Os. Monitor potassium closely. Daily labs. Follow up as an outpatient with nephrology recommended Dietary Evaluation Review Recommendations by RD: Dietary education by RD Comments: 1) Initiate MVI @ 1 tb qd 2) Initiate vitamin C @ 500 mg bid and zinc sulfate @ 220 mg qd for 7 days 3) Continue 60g CCHO cardiac diet. Promote optimal PO intake 4) Encourage patient to limit intake of added sugar including pastries, desserts, candy, and sugar-sweetened beverages. Prioritize natural sugar substitutes such as Stevia and/or monk fruit. Aim for a consistent intake of complex carbohydrates throughout day, paired with lean protein to promote glycemic control. 5) Refer to outpatient RD/CDCES for diabetes counseling 6) Follow-up with cardiology, gastroenterology, nephrology, and podiatry 7) Continue to monitor I&O, labs, and skin integrity Expected Outcomes/Goals: 1) appetite and labs to improve 2) wound to improve 3) gradual wt loss 4) f/u in 3-5 days Plan discussed with: Patient CLARA DAVIES MD Oct 08, 2024 18:00
--- NOTE | 2024-10-08 22:38 | DVHPN2 ---
Progress Note - Dictate Date Seen: Oct 08, 2024 Medical Necessity Reason Pt with a Central, PICC or Fol: Yes The following are medically ne: Montano Catheter Reason for montano catheter: Strict I&O Subjective Patient was seen and evaluated in follow up. No overnight events. Patient denies any complaints today.He is stable on room air. 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 Telemetry reviewed. vital signs Vital Sign Date Time Temp Pulse Resp B/P (MAP) Pulse Ox O2 Delivery O2 Flow Rate FiO2 10/08/24 13:00 97.8 74 20 112/68 (83) 94 97.8 10/08/24 07:45 Room Air* 0 21 Total Intake and Output 10/07/24 10/07/24 10/08/24 15:00 23:00 07:00 Intake Total 537 ml 500 ml Output Total 450 ml 425 ml Balance 87 ml 75 ml objective GENERAL: Alert and oriented x 3. No acute distress. EYES: PERRL, EOMI. Anicteric. HENT: Moist mucous membranes. LUNGS: Decreased breath sounds. CARDIOVASCULAR: Regular rate and rhythm. ABDOMEN: Soft, nontender and nondistended. EXTREMITIES: No edema. NEUROLOGIC: No focal neurological deficits. SKIN: Warm, dry. : Scrotal edema. laboratory and microbiology Laboratory Tests 10/08/24 10:17 10/08/24 10:03 Test 10/08/24 10:03 Range/Units Serum Glucose 155 H 74-106 mg/dL Problem List Hyperammonemia related to liver cirrhosis. Chronic Kidney Disease Stage 3A. Acute on chronic combined systolic and diastolic heart failure. Diabetic left foot ulcer. Hypertension. Type 2 Diabetes Mellitus. Pleural Effusion. Hyperlipidemia. History of CABG. Hyperkalemia. Assessment/Plan Continued all current supportive medical care. Plavix. Diuretics with Bumex. Coreg. Aldactone. IV Hydralazine for SBP > 150. Oral antibiotics as ordered. Dilaudid and Oxycodone for pain management. Additional plan as per the hospital course. Dietary Evaluation Review Recommendations by RD: Dietary education by RD Comments: 1) Initiate MVI @ 1 tb qd 2) Initiate vitamin C @ 500 mg bid and zinc sulfate @ 220 mg qd for 7 days 3) Continue 60g CCHO cardiac diet. Promote optimal PO intake 4) Encourage patient to limit intake of added sugar including pastries, desserts, candy, and sugar-sweetened beverages. Prioritize natural sugar substitutes such as Stevia and/or monk fruit. Aim for a consistent intake of complex carbohydrates throughout day, paired with lean protein to promote glycemic control. 5) Refer to outpatient RD/CDCES for diabetes counseling 6) Follow-up with cardiology, gastroenterology, nephrology, and podiatry 7) Continue to monitor I&O, labs, and skin integrity Expected Outcomes/Goals: 1) appetite and labs to improve 2) wound to improve 3) gradual wt loss 4) f/u in 3-5 days Plan discussed with: Patient JOE SIMMONS MD Oct 08, 2024 22:38
[2024-10-09] MEDS ORDERED: BUMETANIDE 1 MG TAB PO SCH (10:00)
== END 2024-10-08 17:45 | disposition left against medical advice (07) | DRG 291 ==
LOC: ER 18:16 → OVERFLOW 18:41 → TELE-CENTR 10-02 15:44
PROVIDERS: ADMIT Nurse Practitioner; ATTEND Nurse Practitioner
PROC: 0W993ZZ Drainage of Right Pleural Cavity, Percutaneous Approach (ICD-10-PCS; principal; 2024-10-02)
PROC: 0W9B3ZZ Drainage of Left Pleural Cavity, Percutaneous Approach (ICD-10-PCS; 2024-10-05)
DX: I13.0 Hypertensive heart and chronic kidney disease with heart failure and stage 1 through stage 4 chronic kidney disease, or unspecified chronic kidney disease (principal); I50.43 Acute on chronic combined systolic (congestive) and diastolic (congestive) heart failure; E87.20 Acidosis, unspecified; J91.8 Pleural effusion in other conditions classified elsewhere; N17.9 Acute kidney failure, unspecified; J98.11 Atelectasis; L97.528 Non-pressure chronic ulcer of other part of left foot with other specified severity; K74.60 Unspecified cirrhosis of liver; E66.9 Obesity, unspecified; N18.31 Chronic kidney disease, stage 3a; E11.621 Type 2 diabetes mellitus with foot ulcer; E11.51 Type 2 diabetes mellitus with diabetic peripheral angiopathy without gangrene; E11.22 Type 2 diabetes mellitus with diabetic chronic kidney disease; Z99.81 Dependence on supplemental oxygen; Z95.1 Presence of aortocoronary bypass graft; E87.5 Hyperkalemia; E78.5 Hyperlipidemia, unspecified; I25.10 Atherosclerotic heart disease of native coronary artery without angina pectoris; K21.9 Gastro-esophageal reflux disease without esophagitis; N50.89 Other specified disorders of the male genital organs; N13.9 Obstructive and reflux uropathy, unspecified; Z53.29 Procedure and treatment not carried out because of patient's decision for other reasons; Z88.0 Allergy status to penicillin; Z87.891 Personal history of nicotine dependence; Z83.3 Family history of diabetes mellitus; Z82.49 Family history of ischemic heart disease and other diseases of the circulatory system; Z79.899 Other long term (current) drug therapy; Z79.4 Long term (current) use of insulin; Z68.29 Body mass index [BMI] 29.0-29.9, adult
CPT/HCPCS: 32555; 36415; 71045; 76700; 76775; 76942; 80048; 80053; 81001; 82140; 82570; 82962; 83036; 83735; 83880; 83986; 84156; 84484; 85025; 85610; 87070; 87081; 87205; 89051; 93005; 93306; 93970; 94640; 99291; G0378; J1815; J2405

== ENCOUNTER 2024-10-21 16:03 | Emergency (ER) | payer MEDICARE, MEDICAID ==
[~2024-10-21] VITALS: Ht 167.6 cm; Wt 84.3 kg
[~2024-10-21 16:03] MED LIST changes: +DOX100T PO; -DULA1INJ SC; +RIFA550T PO
[2024-10-21 16:05] VITALS: BP 138/91; RESP 20; TEMP 98.5; O2SAT 97
[2024-10-21 16:17] VITALS: PULSE 101
--- NOTE | 2024-10-21 16:57 | DVH ---
Indication: Abdominal pain and swelling Technique: CT axial images of the abdomen and pelvis are obtained without contrast. Coronal and sagit odalis reformats were obtained. Radiation Dose Information: CTDI volume is 17.34 mGy. Dose-length product is 3.92 mGy*cm Comparison: [facility] on DOS: 05/10/21 FINDINGS: There is limited interpretation of the abdomen and pelvis without administration of intravenous contr ast. Cardiomegaly. Small pericardial effusion. Moderate bilateral pleural effusions. Left lower lobe consolidation/atelectasis. Adrenal glands unremarkable in shape. Splenic calcifications consistent with remote granulomatous di sease. Splenomegaly. Peripancreatic edema/ stranding. Cirrhotic morphology liver. Gallbladder contr acted. Kidneys demonstrate no hydronephrosis. Bilateral renal vascular calcifications. Nonobstructing left renal calculi measuring up to 4 mm. Stomach moderately distended. Small bowel loops normal in caliber. Colonic diverticula. Moderate volume stool in the colon. Normal appendix. Abdominal aortic atherosclerotic disease. Bladder partially distended. Soft tissue edema/anasarca. Moderate lumbar degenerative disc disease most pronounced at L4-5. IMPRESSION: Limited evaluation without contrast. Cirrhotic morphology liver, splenomegaly. Peripancreatic edema / stranding. Correlate for pancreatitis. Soft tissue edema/anasarca. Moderate bilateral pleural effusions. Cardiomegaly and small pericardial effusion. Colonic diverticula. Gastric distention. Other findings as described.
[2024-10-21 16:59] LABS: Hematocrit 39.0 % (41.0-53.0); Hemoglobin 12.7 g/dL (13.5-17.5); Mean Corpuscular Hemoglobin 27.2 pg (28.0-32.0); Mean Corpuscular Volume 83.4 fL (80.0-100.0); Nucleated Red Blood Cells % 0.1 %
[2024-10-21 17:15] LABS: Alanine Aminotransferase 35 U/L (7-40); Anion Gap 8 (5-15); BUN/Creatinine Ratio 12.5 (10.0-20.0); Blood Urea Nitrogen 17 mg/dL (9-23); Carbon Dioxide 22 mmol/L (20-31); Chloride 106 mmol/L (98-107); Potassium 4.5 mmol/L (3.5-5.1)
[2024-10-21 17:16] LABS: Bilirubin, Total 0.6 mg/dL (0.2-1.0)
[2024-10-21 17:18] LABS: Albumin 2.8 g/dL (3.2-4.8); Alkaline Phosphatase 623 U/L (46-116); Calcium 8.1 mg/dL (8.7-10.4); Glucose 148 mg/dL (74-106); Lipase 74 U/L (12-53); Sodium 136 mmol/L (136-145); Total Protein 5.4 g/dL (5.7-8.2)
--- NOTE | 2024-10-21 18:47 | ECG ---
[facility] [place]: [place]24-10-21 Test Time: 16:14:06 Pat Name: JIN TIM Department: ED Room: Gender: M [employer]: DEREK : [id number] Requested By: EMERGENCY EMERGENCY Order Number: [id number] Reading MD: Alessandro Rankin Measurements Intervals [place] Rate: 101 P: 68 TX: 183 QRS: 176 QRSD: 125 T: 29 QT: 360 QTc: 467 Interpretive Statements Sinus tachycardia Sinus pause RBBB and LPFB Abnormal lateral Q waves Anterior infarct, old Baseline wander in lead(s) V2 Electronically Signed On 10-26-2024 14:27:01 PDT by Alessandro Rankin Please click the below link to view image of tracing.
== END 2024-10-21 19:23 | disposition left against medical advice (07) ==
LOC: ER 16:03
DX: M79.89 Other specified soft tissue disorders (principal); R10.9 Unspecified abdominal pain; I50.9 Heart failure, unspecified; Z53.21 Procedure and treatment not carried out due to patient leaving prior to being seen by health care provider
CPT/HCPCS: 36415; 74176; 80053; 83605; 83690; 83880; 84484; 85025; 87040; 93005

== ENCOUNTER 2024-12-01 03:18 | Inpatient (IN) | payer MEDICARE, OTHER ==
[~2024-12-01] VITALS: Ht 172.7 cm; Wt 86.4 kg
[2024-12-01] VITALS (8 sets, daily range): BP systolic 92–120; BP diastolic 63–65; PULSE 102–123; RESP 14–44; O2SAT 95–100
[2024-12-01] MEDS: FUROSEMIDE 40 MG/4 ML VIAL ONE (03:26)
--- NOTE | 2024-12-01 03:33 | ED.PDOC ---
SOB-HPI HPI Comments 49-year-old male who came to ER via EMS for shortness a breath. Patient has history of hypertension, diabetes, congestive heart failure, end stage renal disease, on dialysis every Friday, status post CABG and cardiac stents. Unable to get his dialysis session yesterday. 2 hours prior to arrival patient developed sudden onset of shortness a breath, was saturating 80s on room air on scene. Patient was given nitro and placed on CPAP while in the ER Chief Complaint: Shortness of Breath Time Seen by MD: 03:33 Primary Care Provider: ANDREW Wright notes: Rail Equipment Operator Notes Information Source: Patient, Emergency Med Personnel Mode of Arrival: EMS Severity: Moderate Timing: Hours Duration: Since onset Context: At Rest, With Light Exertion History of: CHF, Other (ESRD) Past Medical History PAST MEDICAL HISTORY: CAD, CHF, DM, ESRD, GERD, High Lipids, HTN, Liver, IN Surgical History: CABG, PTCA Surgical History (Other): Dialysis Friday Family History Family History: Reviewed,noncontributory to illness Social History Smoker: Non-Smoker Alcohol: Denies ETOH Use Drugs: Denies Drug Use Lives In: Home Constitutional: denies: chills, diaphoresis, fatigue, fever, malaise, sweats, weakness, others EENTM: denies: blurred vision, double vision, ear bleeding, ear discharge, ear drainage, ear pain, ear ringing, eye pain, eye redness, hearing loss, mouth pain, mouth swelling, nasal discharge, nose bleeding, nose congestion, nose pain, photophobia, tearing, throat pain, throat swelling, voice changes, others Respiratory: reports: SOB at rest, shortness of breath; denies: cough, hemoptysis, orthopnea, SOB with excertion, stridor, wheezing, others Cardiovascular: denies: chest pain, dizzy spells, diaphoresis, Dyspnea on exertion, edema, irregular heart beat, left arm pain, lightheadedness, palpitations, PND, syncope, others Gastrointestinal: denies: abdomen distended, abdominal pain, blood streaked bowels, constipated, diarrhea, dysphagia, difficulty swallowing, hematemesis, melena, nausea, poor appetite, poor fluid intake, rectal bleeding, rectal pain, vomiting, others Genitourinary: denies: burning, dysuria, flank pain, frequency, hematuria, incontinence, penile discharge, penile sore, pain, testicle pain, testicle swelling, urgency, others Neurological: denies: dizziness, fainting, headache, left sided numbness, left sided weakness, numbness, paresthesia, pre-existing deficit, right sided numbness, right sided weakness, seizure, speech problems, tingling, tremors, weakness, others Musculoskeletal: denies: back pain, gout, joint pain, joint swelling, muscle pain, muscle stiffness, neck pain, others Integumetry: denies: bruises, change in color, change in hair/nails, dryness, laceration, lesions, lumps, rash, wounds, others Allergic/Immunocompromised: denies: Difficulty Healing, Frequent Infections, Hives, Itching, others Hematologic/Lymphatic: denies: anemia, blood clots, easy bleeding, easy bruising, swollen glands, others Endocrine: denies: excessive hunger, excessive sweating, excessive thirst, excessive urination, flushing, intolerance to cold, intolerance to heat, unexplained weight gain, unexplained weight loss, others Psychiatric: denies: anxiety, bipolar disorder, depression, hopeless, panic disorder, schizophrenia, sleepless, suicidal, others Physical Exam General Appearance: Moderate Distress HEENT: Normal ENT Inspection, Pharynx Normal, TMs Normal Neck: Full Range of Motion, Non-Tender, Normal, Normal Inspection Respiratory: Accessory Muscle Use, Chest Non-Tender, Decreased Breath Sounds, Respiratory Distress, Other (Patient on CPAP) Cardiovascular: No Edema, No JVD, No Murmur, No Gallop, Normal Peripheral Pulses, Regular Rate/Rhythm Breast Exam: Deferred Gastrointestinal: No Organomegaly, Non Tender, No Pulsatile Mass, Normal Bowel Sounds, Soft Genitalia: Deferred Pelvic: Deferred Rectal: Deferred Extremities: No calf tenderness, Normal capillary refill, Normal inspection, Normal range of motion, Non-tender, No pedal edema Musculoskeletal : Apperance: Normal Neurologic: Alert, registry np II-XII nml as Tested, No Motor Deficits, Normal Affect, Normal Mood, No Sensory Deficits Cerebellar Function: Normal Reflexes: Normal Skin: Dry, Normal Color, Warm Lymphatic: No Adenopathy Was a procedure done? Was a procedure done?: No Differential Dx Differential Diagnosis: Bronchitis, CHF, COPD, Pneumonia, Respiratory Distress, URI X-Ray, Labs, Meds, VS Vital Signs Date Time Temp Pulse Resp B/P (MAP) Pulse Ox O2 Delivery O2 Flow Rate FiO2 12/01/24 04:13 123 44 120/63 100 40 12/01/24 04:02 123 44 120/63 12/01/24 03:58 112 92/65 100 Facial BiPAP Mask 40 12/01/24 03:50 147/97 12/01/24 03:40 113 27 100 Bi-Pap+ 40 40 40 12/01/24 03:38 98.4 113 27 125/96 (106) 100 98.4 12/01/24 03:30 112 12/01/24 03:25 98.6 109 20 127/65 99 98.6 Lab Test 12/01/24 03:46 12/01/24 03:35 Range/Units Blood Gas Specimen Type Arterial Blood Gas Sample Site Right radial Blood Gas Patient Temperature 37.0 Arterial Blood Date Drawn [id number] Arterial Blood pH 7.413 7.350-7.450 Arterial Blood Partial Pressure CO2 33.1 L 35.0-48.0 mmHg Arterial Blood Partial Pressure O2 129.7 H 83.0-108.0 mmHg Arterial Blood HCO3 20.7 L 21.0-28.0 mmol/L Arterial Blood Oxygen Saturation 98.7 H 94.0-98.0 % Arterial Blood Base Excess -3.1 L -2.0-3.0 mmol/L Arterial Blood Oxyhemoglobin 97.5 94.0-98.0 % Arterial Blood Carboxyhemoglobin 0.8 0.5-1.5 % Arterial Blood Methemoglobin 0.4 0.0-1.5 % Onur Test Yes Blood Gas Total Hemoglobin 13.30 L 13.5-17.5 g/dL Blood Gas Modality Mask - bipap FiO2 % 40.0 White Blood Count 10.4 4.4-10.8 10^3/uL Red Blood Count 4.55 4.5-5.90 10^6/uL Hemoglobin 12.4 L 13.5-17.5 g/dL Hematocrit 37.0 L 41.0-53.0 % Mean Corpuscular Volume 81.4 80.0-100.0 fL Mean Corpuscular Hemoglobin 27.2 L 28.0-32.0 pg Mean Corpuscular Hemoglobin Concent 33.5 32.0-36.0 g/dL Red Cell Distribution Width 17.7 H 11.8-14.3 % Platelet Count 190 140-450 10^3/uL Mean Platelet Volume 8.1 6.9-10.8 fL Neutrophils (%) (Auto) 96.1 H 37.0-80.0 % Lymphocytes (%) (Auto) 1.2 L 10.0-50.0 % Monocytes (%) (Auto) 2.2 0.0-12.0 % Eosinophils (%) (Auto) 0.0 0.0-7.0 % Basophils (%) (Auto) 0.5 0.0-2.0 % Neutrophils # (Auto) 10.0 H 1.6-8.6 10 ^3/uL Lymphocytes # (Auto) 0.1 L 0.4-5.4 10 ^3/uL Monocytes # (Auto) 0.2 0-1.3 10 ^3/uL Eosinophils # (Auto) 0 0-0.8 10 ^3/uL Basophils # (Auto) 0.1 0-0.2 10 ^3/uL Nucleated Red Blood Cells 0.0 % Prothrombin Time 11.6 9.3-11.8 sec Prothrombin Time INR 1.11 0.9-1.15 Activated Partial Thromboplast Time 33.0 24.5-34.5 SEC Sodium Level 135 L 136-145 mmol/L Potassium Level 5.2 H 3.5-5.1 mmol/L Chloride Level 101 98-107 mmol/L Carbon Dioxide Level 25 20-31 mmol/L Anion Gap 9 5-15 Blood Urea Nitrogen 33 H 9-23 mg/dL Creatinine 1.64 H 0.700-1.30 mg/dL Glomerular Filtration Rate Calc 51 >90 mL/min BUN/Creatinine Ratio 20.1 H 10.0-20.0 Serum Glucose 111 H 74-106 mg/dL Calcium Level 8.5 L 8.7-10.4 mg/dL Total Bilirubin 3.1 H 0.2-1.0 mg/dL Aspartate Amino Transferase (AST) 51 H 13-40 U/L Alanine Aminotransferase (ALT) 22 7-40 U/L Alkaline Phosphatase 502 H 46-116 U/L Troponin I High Sensitivity 61 *H </=54 ng/L B-Type Natriuretic Peptide Pending Total Protein 5.8 5.7-8.2 g/dL Albumin 3.0 L 3.2-4.8 g/dL Current Medications Medications (Trade) Dose Ordered Sig/Aubrie Route Start Time Stop Time Status Last Admin Hydromorphone HCl (Dilaudid Injection) 0.5 mg ONCE ONCE IV 12/01/24 04:00 12/01/24 04:01 DC 12/01/24 04:02 Furosemide (Lasix Injection) 80 mg ONCE ONCE IV 12/01/24 04:00 12/01/24 04:01 DC 12/01/24 03:50 Time of 1ST Reevaluation: 03:27 Reevaluation 1ST: Unchanged Patient Education/Counseling: Diagnosis, Treatment Family Education/Counseling: No Family Present SEPSIS Sepsis Screen Physician Orders Chest Portable (12/01/24 03:22) B-Type Natriuretic Peptide (12/01/24 03:22) Troponin-I Hs (12/01/24 04:22) Troponin-I Hs (12/01/24 06:22) BIPAP (12/01/24 03:28) Abg W/ Co-Ox (12/01/24 03:49) Vital Signs Date Time Temp Pulse Resp B/P (MAP) Pulse Ox O2 Delivery O2 Flow Rate FiO2 12/01/24 04:13 123 44 120/63 100 40 12/01/24 04:02 123 44 120/63 12/01/24 03:58 112 92/65 100 Facial BiPAP Mask 40 12/01/24 03:50 147/97 12/01/24 03:40 113 27 100 Bi-Pap+ 40 40 40 12/01/24 03:38 98.4 113 27 125/96 (106) 100 98.4 12/01/24 03:30 112 12/01/24 03:25 98.6 109 20 127/65 99 98.6 Laboratory Tests Test 12/01/24 03:35 White Blood Count 10.4 10^3/uL (4.4-10.8) Medications Medications Dose Ordered Sig/Aubrie Route Start Time Stop Time Status Last Admin Dose Admin Furosemide 80 mg ONCE ONCE IV 12/01/24 04:00 12/01/24 04:01 DC 12/01/24 03:50 Hydromorphone HCl 0.5 mg ONCE ONCE IV 12/01/24 04:00 12/01/24 04:01 DC 12/01/24 04:02 Departure 1 Departure Time of Disposition: 04:35 Impression: Primary Impression: Acute respiratory failure with hypoxia Additional Impressions: Diastolic heart failure End stage renal disease on dialysis Disposition: ADMITTED INPATIENT Admit to: Tele Condition: Guarded Comments 49-year-old male with a history of congestive heart failure and end-stage renal disease on dialysis now presents with extreme shortness of breath. Patient was placed on BiPAP. Patient was given Lasix and morphine and nitro paste. His b reathing improved significantly. On lab review he is mildly anemic with H and H of 12 and 37. BUN creatinine are elevated at 33 and 1.64. Hyperkalemia 5.2. Patient will need to be admitted for dialysis and supportive care and further workup. Critical Care Note Critical Care Time?: Yes (35 min-critical care time only) Critical care comment: Total critical care time: Approximately 36 minutes Due to a high probability of clinically significant, life threatening deterioration, the patient required my highest level of preparedness to intervene emergently and I personally spent this critical care time directly and personally managing the patient. This critical care time included obtaining a history; examining the patient; pulse oximetry; ordering and review of studies; arranging urgent treatment with development of a management plan; evaluation of patient's response to treatment; frequent reassessment; and, discussions with other providers. This critical care time was performed to assess and manage the high probability of imminent, life-threatening deterioration that could result in multi-organ failure. It was exclusive of separately billable procedures and treating other patients. Stability Stability form required: No Heart Score Heart Score: Heart Score Response (Comments) Value History Moderate Suspicious 1 EKG Repolarization Disturb 1 Age 45-64 1 Risk Factors >3 or Hx ASHD 2 Troponin Normal limit 0 Total 5 I personally scribed for IGOR MONROE MD ([email or web address]) on 12/01/24 at 03:33. Electronically submitted by Remi Samano ([email or web address]). IGOR MONROE MD Dec 01, 2024 03:33
[2024-12-01] MEDS: FUROSEMIDE 100 MG/10ML VIAL IV ONE (03:50)
--- NOTE | 2024-12-01 03:51 | ECG ---
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
[2024-12-01 03:57] LABS: Base Excess -3.1 mmol/L (-2.0-3.0)
[2024-12-01 03:59] LABS: Hematocrit 37.0 % (41.0-53.0); Hemoglobin 12.4 g/dL (13.5-17.5); Mean Corpuscular Hemoglobin 27.2 pg (28.0-32.0); Mean Corpuscular Volume 81.4 fL (80.0-100.0); Nucleated Red Blood Cells % 0.0 %
[2024-12-01] MEDS: MORPHINE SULFATE INJ 2 MG/ml SYRG IV ONE (04:00)
[2024-12-01] MEDS: HYDROmorphone HCL 2 MG/ML VL/or syr IV ONE (04:02)
[2024-12-01 04:04] LABS: Alanine Aminotransferase 22 U/L (7-40); Anion Gap 9 (5-15); BUN/Creatinine Ratio 20.1 (10.0-20.0); Carbon Dioxide 25 mmol/L (20-31); Chloride 101 mmol/L (98-107); Total Protein 5.8 g/dL (5.7-8.2)
--- NOTE | 2024-12-01 04:04 | DVH ---
CHEST RADIOGRAPH Indication: SOB Technique: Single frontal view of the chest was obtained COMPARISON: XY CHEST XRAY 1 VIEW on DOS: 10/08/24, XY CHEST PORTABLE on DOS: 10/05/24, XY CHEST XRAY 1 EW on DOS: 10/03/24, XY CHEST XRAY 1 VIEW on DOS: 10/02/24, XY CHEST XRAY 1 VIEW on DOS: 10/01/24 FINDINGS: Lines and Tubes: Right PermCath tip projects over the distal superior vena cava. Lungs: Moderate bilateral pleural effusions, [id number]-right. Moderate diffuse increased prom inence of the pulmonary vasculature. No pneumothorax. Cardiomediastinal contours: Cardiomegaly. Bones: Unremarkable IMPRESSION: 1. Moderate bilateral pleural effusions, [id number]-right. 2. Cardiomegaly and pulmonary vascular congestion. 3. Right PermCath.
[2024-12-01 04:15] LABS: Albumin 3.0 g/dL (3.2-4.8); Alkaline Phosphatase 502 U/L (46-116); Bilirubin, Total 3.1 mg/dL (0.2-1.0); Blood Urea Nitrogen 33 mg/dL (9-23); Calcium 8.5 mg/dL (8.7-10.4); Glucose 111 mg/dL (74-106); Potassium 5.2 mmol/L (3.5-5.1); Sodium 135 mmol/L (136-145)
[2024-12-01 04:31] LABS: INR 1.11 (0.9-1.15); Partial Thromboplastin Time 33.0 SEC (24.5-34.5); Prothrombin Time 11.6 sec (9.3-11.8)
[2024-12-01] MEDS: NITROGLYCERIN 2% OINT 1GM PKG TD ONE (04:49)
--- NOTE | 2024-12-01 05:26 | DVHHPRES ---
History of Present Illness Resident Creating Document: RIVKA SANDOVAL History of Present Illness Tommy Quintanilla is a 49 year old male patient who presents to the ED via EMS with chief complaint of sudden onset of dyspnea in functional class IV. Patient reports missing two of his hemodialysis session (Friday and Friday, he follows [facility]). Patient also complains of dysuria and chills. Denies any other associated symptoms. Patient was brought via EMS with vital signs showing desaturation, tachypnea and tachycardia, in ED was manage with BiPAP and IV Lasix. 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 Denies current tobacco, alcohol and other drug abuse Allergies: Penicillin Home medication: Patient does not recall, per EMR on aspirin, atorvastatin, carvedilol, clopidogrel, doxycycline, escitalopram, famotidine, furosemide, gabapentin, [place], insulin, mupirocin, naltrexone, omeprazole, pantoprazole, ramipril, rifaximin, sucralfate, tamsulosin, trazodone Patient seen and examined at bedside. Currently on BiPAP with moderate distress, he can not speak full sentences. Patient has poor prognosis, currently on STEPHANIE status Review of Systems Allergies: Coded Allergies: Penicillins (Verified Allergy, Intermediate, RASH, 07/06/24) Medications Current Medications Medications Dose Ordered Sig/Aubrie Route Start Time Stop Time Status Last Admin Dose Admin Acetaminophen 325 mg Q4HP PRN PO 12/01/24 05:30 UNV Ondansetron HCl 4 mg Q4HP PRN IV 12/01/24 05:30 UNV Morphine Sulfate 2 mg Q4HPRN PRN IV 12/01/24 05:30 UNV Nitroglycerin 0.4 mg Q5MINP PRN SL 12/01/24 05:30 UNV Morphine Sulfate 2 mg Q30M PRN IV 12/01/24 05:30 UNV Exam Vital Signs Vital Signs Date Time Temp Pulse Resp B/P (MAP) Pulse Ox O2 Delivery O2 Flow Rate FiO2 12/01/24 04:49 127/86 12/01/24 04:32 117 28 12/01/24 04:13 100 40 12/01/24 03:58 Facial BiPAP Mask 12/01/24 03:40 40 12/01/24 03:38 98.4 98.4 Exam Patient lying in bed, in moderate acute distress General: Lucid, afebrile, mucosae are moist Cardiovascular: Normal S1 and S2. No murmurs, gallops or rubs Respiratory: Regular ventilation mechanics, tachypnea. Reduced lung sounds. Breathing with BiPAP machine Abdomen: Soft, nontender, no organomegaly, normal bowel sounds MSK/skin: Mobilizes 4 limbs. Skin is dry and warm. Neurological: Oriented in 3 spheres. No motor no sensitive deficits. Pupils are isocoric and reactive Labs/Xrays Labs Test 12/01/24 03:46 12/01/24 03:35 Range/Units Blood Gas Specimen Type Arterial Blood Gas Sample Site Right radial Blood Gas Patient Temperature 37.0 Arterial Blood Date Drawn [id number] Arterial Blood pH 7.413 7.350-7.450 Arterial Blood Partial Pressure CO2 33.1 L 35.0-48.0 mmHg Arterial Blood Partial Pressure O2 129.7 H 83.0-108.0 mmHg Arterial Blood HCO3 20.7 L 21.0-28.0 mmol/L Arterial Blood Oxygen Saturation 98.7 H 94.0-98.0 % Arterial Blood Base Excess -3.1 L -2.0-3.0 mmol/L Arterial Blood Oxyhemoglobin 97.5 94.0-98.0 % Arterial Blood Carboxyhemoglobin 0.8 0.5-1.5 % Arterial Blood Methemoglobin 0.4 0.0-1.5 % Onur Test Yes Blood Gas Total Hemoglobin 13.30 L 13.5-17.5 g/dL Blood Gas Modality Mask - bipap FiO2 % 40.0 White Blood Count 10.4 4.4-10.8 10^3/uL Red Blood Count 4.55 4.5-5.90 10^6/uL Hemoglobin 12.4 L 13.5-17.5 g/dL Hematocrit 37.0 L 41.0-53.0 % Mean Corpuscular Volume 81.4 80.0-100.0 fL Mean Corpuscular Hemoglobin 27.2 L 28.0-32.0 pg Mean Corpuscular Hemoglobin Concent 33.5 32.0-36.0 g/dL Red Cell Distribution Width 17.7 H 11.8-14.3 % Platelet Count 190 140-450 10^3/uL Mean Platelet Volume 8.1 6.9-10.8 fL Neutrophils (%) (Auto) 96.1 H 37.0-80.0 % Lymphocytes (%) (Auto) 1.2 L 10.0-50.0 % Monocytes (%) (Auto) 2.2 0.0-12.0 % Eosinophils (%) (Auto) 0.0 0.0-7.0 % Basophils (%) (Auto) 0.5 0.0-2.0 % Neutrophils # (Auto) 10.0 H 1.6-8.6 10 ^3/uL Lymphocytes # (Auto) 0.1 L 0.4-5.4 10 ^3/uL Monocytes # (Auto) 0.2 0-1.3 10 ^3/uL Eosinophils # (Auto) 0 0-0.8 10 ^3/uL Basophils # (Auto) 0.1 0-0.2 10 ^3/uL Nucleated Red Blood Cells 0.0 % Prothrombin Time 11.6 9.3-11.8 sec Prothrombin Time INR 1.11 0.9-1.15 Activated Partial Thromboplast Time 33.0 24.5-34.5 SEC Sodium Level 135 L 136-145 mmol/L Potassium Level 5.2 H 3.5-5.1 mmol/L Chloride Level 101 98-107 mmol/L Carbon Dioxide Level 25 20-31 mmol/L Anion Gap 9 5-15 Blood Urea Nitrogen 33 H 9-23 mg/dL Creatinine 1.64 H 0.700-1.30 mg/dL Glomerular Filtration Rate Calc 51 >90 mL/min BUN/Creatinine Ratio 20.1 H 10.0-20.0 Serum Glucose 111 H 74-106 mg/dL Calcium Level 8.5 L 8.7-10.4 mg/dL Total Bilirubin 3.1 H 0.2-1.0 mg/dL Aspartate Amino Transferase (AST) 51 H 13-40 U/L Alanine Aminotransferase (ALT) 22 7-40 U/L Alkaline Phosphatase 502 H 46-116 U/L Troponin I High Sensitivity 61 *H </=54 ng/L B-Type Natriuretic Peptide > 5000.00 0-100 pg/mL Total Protein 5.8 5.7-8.2 g/dL Albumin 3.0 L 3.2-4.8 g/dL SEPSIS Sepsis Screen Date sepsis recognized/suspect: Dec 01, 2024 Time Sepsis recognized/suspect: 329 Recent Procedure: No On Antibiotic Therapy: No Respiratory Rate >20: No Heart Rate >90: Yes Temp<36 C (96.8 F) or >38.3 C: No SBP <90 or MAP <65 mmHG: No New Acute Mental Status Change: No Is the patient on CPAP, BIPAP,: Yes Physician Orders Chest Portable (12/01/24 03:22) Troponin-I Hs (12/01/24 04:22) Troponin-I Hs (12/01/24 06:22) BIPAP (12/01/24 03:28) Abg W/ Co-Ox (12/01/24 03:49) Admit (12/01/24 05:22) Code Status (12/01/24 05:22) Acetaminophen Tablet (Tylenol Tablet) (12/01/24 05:30) Ondansetron Hcl (Zofran) (12/01/24 05:30) Npo (Nothing By Mouth) Diet (12/01/24 Breakfast) Echo 2d Mode Cardiac Dop (12/01/24 05:22) Morphine Sulfate Injection (12/01/24 05:30) Nitroglycerin Sublingual (Ntrostat Subli (12/01/24 05:30) Morphine Sulfate Injection (12/01/24 05:30) Oxygen By Nasal Cannula (12/01/24 05:22) Stat Ekg For Chest Pain (12/01/24 05:22) Notify Of Changes From Base (12/01/24 05:22) Machinist Helper For 24 Hours (12/01/24 05:22) Emergency Dysrhythmia Protocol (12/01/24 05:22) Rhythm Strips Once Every Shift (12/01/24 05:22) Vital Signs Date Time Temp Pulse Resp B/P (MAP) Pulse Ox O2 Delivery O2 Flow Rate FiO2 12/01/24 04:49 127/86 12/01/24 04:32 117 28 145/88 12/01/24 04:13 123 44 120/63 100 40 12/01/24 04:02 123 44 120/63 12/01/24 03:58 112 92/65 100 Facial BiPAP Mask 40 12/01/24 03:50 147/97 12/01/24 03:40 113 27 100 Bi-Pap+ 40 40 40 12/01/24 03:38 98.4 113 27 125/96 (106) 100 98.4 12/01/24 03:30 112 12/01/24 03:25 98.6 109 20 127/65 99 98.6 Laboratory Tests Test 12/01/24 03:35 White Blood Count 10.4 10^3/uL (4.4-10.8) Medications Medications Dose Ordered Sig/Aubrie Route Start Time Stop Time Status Last Admin Dose Admin Furosemide 80 mg ONCE ONCE IV 12/01/24 04:00 12/01/24 04:01 DC 12/01/24 03:50 80 MG Hydromorphone HCl 0.5 mg ONCE ONCE IV 12/01/24 04:00 12/01/24 04:01 DC 12/01/24 04:02 0.5 MG Nitroglycerin 1 pkg ONCE ONCE TD 12/01/24 03:30 12/01/24 03:31 DC 12/01/24 04:49 1 PKG Assessment/Plan Assessment/Plan Acute on chronic respiratory failure (home oxygen requirement with 4 L/min) COPD exacerbation Acute on chronic systolic congestive heart failure (HFrEF, LVEF 30%) Cardiorenal syndrome likely type III ESRD on hemodialysis session NSTEMI likely type 2 Patient currently on BiPAP machine with FiO2 40%, with regular response. Currently under oxygen therapy with BiPAP, IV steroids and bronchodilators Completed echocardiogram on 10/2024: Dilated cardiac chambers, LVEF 30%, hypokinetic LV and RV, mild pulmonary hypertension Evaluate need of new echocardiogram. Consulted nephrology for hemodialysis session Continue with IV diuretics (furosemide 40 mg t.i.d.) Completed echocardiogram which showed sinus tachycardia with complete right bundle-branch block, microvoltage. Sepsis probably secondary to pneumonia versus UTI Obtained pancultures (blood, sputum, urine) Currently under empiric IV antibiotic (ceftriaxone and azithromycin) Pending urine analysis Coronary artery disease status post CABG and PCI Peripheral artery disease Currently on DAPT with aspirin and clopidogrel Continue with atorvastatin Hypertension Dyslipidemia Diabetes Gave advice on healthy lifestyle habits On insulin sliding scale Morbid obesity Counseled strongly on weight loss Goals of care discussed with patient for over 18 minutes: Full code status Discussed plan with Dr. Lorenzo, patient and nurses: Patient currently on Stephanie status due to BiPAP requirement with high vent settings. Continue with IV diuretics, oxygen therapy, IV steroids and IV antibiotics. Consulted Nephrology for hemodialysis session. Patient has poor prognosis Plan discussed with: Patient, Other (Nurses) My Orders Orders - RIVKA SANDOVAL Procedure Category Date Status Time Admit ADMIT 12/01/24 Transmitted 05:22 Code Status CODE 12/01/24 Transmitted 05:22 Acetaminophen Tablet PHA 12/01/24 Logged (Tylenol Tablet) 05:30 Ondansetron Hcl PHA 12/01/24 Logged (Zofran) 05:30 Npo (Nothing By DIET 12/01/24 Transmitted Mouth) Diet Breakfast Echo 2d Mode Cardiac US 12/01/24 Logged DOP 05:22 Morphine Sulfate [facility] 12/01/24 Logged Injection 05:30 Nitroglycerin PHA 12/01/24 Logged Sublingual (Ntrostat 05:30 Morphine Sulfate PHA 12/01/24 Logged Injection 05:30 Oxygen By Nasal RT 12/01/24 Transmitted Cannula 05:22 Stat Ekg For Chest [facility] 12/01/24 In Process Pain 05:22 Notify Md Of Changes [facility] 12/01/24 In Process From Base 05:22 Machinist Helper For [facility] 12/01/24 In Process 24 Hours 05:22 Emergency Dysrhythmia [facility] 12/01/24 In Process Protocol 05:22 Rhythm Strips Once [facility] 12/01/24 In Process Every Shift 05:22 Date of Service: Dec 01, 2024 Billing Provider: ANTONIO GILBERT MD Common Visit Codes: [id number] INP/OBS CARE (HIGH) Secondary Visit Codes: [id number] CARE PLAN 30 MINUTES RIVKA SANDOVAL RESIDENT Dec 01, 2024 05:26
[2024-12-01] MEDS ORDERED: MORPHINE SULFATE INJ 2 MG/ml SYRG IV PRN (05:30)
[2024-12-01] MEDS ORDERED: NITROGLYCERIN 0.4 MG SL TAB SL PRN (05:30)
[2024-12-01] MEDS: FUROSEMIDE 40 MG/4 ML VIAL IV SCH (06:40)
[2024-12-01] MEDS: methylPREDNISolone SOD SUCC 40 MG/ML VL IV ONE (06:41)
[2024-12-01] MEDS: GABAPENTIN 300 MG CAP PO SCH (06:42)
[2024-12-01] MEDS: AZITHROMYCIN 500MG/ 250ML 250 ML IV ONE (07:04)
[2024-12-01] MEDS: SUCRALFATE 1 GM TAB PO SCH (07:10)
[2024-12-01] MEDS: MORPHINE SULFATE 4 MG/ML SYR/VIAL IV PRN (07:53)
[2024-12-01 08:19] LABS: Triglycerides 78.0 mg/dL (< 150)
[2024-12-01 08:20] LABS: Magnesium 1.8 mg/dL (1.6-2.6)
[2024-12-01 08:21] LABS: Cholesterol 168.0 mg/dL (< 200); HDL Cholesterol 43.0 mg/dL (40-59)
[2024-12-01] MEDS: NOREPINEPHRINE 8 MG/250ML KIT 250 ML IV ONE (08:26)
[2024-12-01] MEDS: NOREPINEPHRINE 8 MG/250ML KIT 250 ML IV SCH (08:30)
[2024-12-01 09:27] LABS: COVID19 ANTIGEN SOFIA FIA NEGATIVE (NEGATIVE)
--- NOTE | 2024-12-01 09:40 | DVH ---
Bilateral Chest Sonogram Date: 12/01/2024 06:51 AM Clinical history: Evaluate left pleural effusion Findings: Limited sonographic evaluation of the right and left chest was performed to localize and radha fluid f or thoracentesis. Moderate bilateral pleural effusions IMPRESSION: Moderate bilateral pleural effusions
[2024-12-01] MEDS ORDERED: FAMOTIDINE 20 MG TAB PO SCH (10:00)
[2024-12-01] MEDS ORDERED: CLOPIDOGREL BISULFATE 75 MG TAB PO SCH (10:00)
[2024-12-01] MEDS: IPRATROPIUM BROM 0.5 MG/2.5ML INH SOL NEB SCH (11:46)
[2024-12-01] MEDS: LEVALBUTEROL HCL 1.25 MG/3 ML NEB NEB SCH (11:46)
--- NOTE | 2024-12-01 11:54 | DVHPNRES ---
Progress Note Date Seen: Dec 01, 2024 Resident Creating Document: JOHNNY HOFFMAN RESDIENT Medical Necessity Reason Pt with a Central, PICC or Fol: Yes Subjective Review of Systems This is a 49-year-old male with past medical history of ESRD (on maintenance hemodialysis, Friday, Friday, and ), diabetes type 2, HFrEF (with the LVEF 30%, on home oxygen 4 L), coronary artery disease (status post CABG in 2020 and PCI in 2021), PID (status post stent placement on bilateral femoral artery) hypertension, dyslipidemia, and and COPD came to the hospital due to shortness of breaths since last night. He also reports of orthopnea, abdominal pain, chest discomfort, palpitation, dysuria, chills and nausea. He denies fever, incomplete PMHx: ESRD (on maintenance hemodialysis, Friday, Friday, and ), diabetes type 2, HFrEF (with the LVEF 30%, on home oxygen 4 L), coronary artery disease (status post CABG in 2020 and PCI in 2021), PID (status post stent placement on bilateral femoral artery) hypertension, dyslipidemia, and and COPD PSHx: CABG, right-sided tunneled catheter placement 20 days back, and PCI Social history: Denies smoking, alcohol or any other drug use. Lives his (which is next of kin), and [place]. Uses walker and wheelchair for mobility. Does not work, on disability. Home medication: Lasix 20 mg b.i.d., sucralfate, tamsulosin, carvedilol, and aspirin, per patient's he is compliant with medicine. He was previously using insulin and metformin for diabetes, which has stopped using due to controlled glucose level. Allergic history: Objective vital signs Vital Sign Date Time Temp Pulse Resp B/P (MAP) Pulse Ox O2 Delivery O2 Flow Rate FiO2 12/01/24 08:30 75/39 12/01/24 08:05 110 30 98 12/01/24 07:30 Nasal Cannula* 4 36 12/01/24 03:38 98.4 98.4 medications Current Medications Medications Dose Ordered Sig/Aubrie Route Start Time Stop Time Status Last Admin Dose Admin Acetaminophen 325 mg Q4HP PRN PO 12/01/24 05:30 Ondansetron HCl 4 mg Q4HP PRN IV 12/01/24 05:30 Nitroglycerin 0.4 mg Q5MINP PRN SL 12/01/24 05:30 Furosemide 40 mg TID IV 12/01/24 06:00 12/01/24 06:40 40 MG Aspirin 81 mg DAILY PO 12/01/24 10:00 Gabapentin 300 mg TID PO 12/01/24 06:00 12/01/24 06:42 300 MG Pantoprazole Sodium 40 mg BID PO 12/01/24 10:00 Tamsulosin HCl 0.4 mg DAILY PO 12/01/24 10:00 Trazodone HCl 50 mg HS PO 12/01/24 22:00 Atorvastatin Calcium 40 mg DAILY PO 12/01/24 10:00 Heparin Sodium (Porcine) 5,000 units Q12HR SC 12/01/24 10:00 Ceftriaxone Sodium 50 ml @ 100 mls/hr DAILY@09 IV 12/02/24 09:00 Azithromycin 250 ml @ 125 mls/hr DAILY IV 12/02/24 10:00 Norepinephrine Bitartrate 250 ml @ 3.75 mls/hr Q24H IV 12/01/24 08:30 12/01/24 08:30 3.75 MLS/HR Levalbuterol HCl 0.625 mg Q6HR NEB 12/01/24 12:00 Ipratropium [place] 0.5 mg Q6HR NEB 12/01/24 12:00 Hydromorphone HCl 0.5 mg Q4HPRN PRN IV 12/01/24 11:15 UNV Examination General Appearance: Alert, Oriented X3, Cooperative, in moderate respiratory distress, can not speak in full sentences HEENT: Atraumatic, PERRLA, EOMI, Mucous membrane moist/pink Respiratory: Bilateral mid zone crackles, absent breath sounds on lower zone Cardiovascular: Regular rate, Normal S1, Normal S2, No murmurs, no chest wall tenderness Abdominal: Mild abdominal tenderness Extremities: Bilateral grade 1 pedal edema Skin: 6 x 3 cm open ulcer on dorsal surface of left leg, with scant amount of purulent discharge Neuro: Normal gait, Normal speech, Strength at 5/5 X4 ext, Normal tone, Sensation intact, Cranial nerves 3-12 NL, Reflexes 2+ Psych/Mental Status: Mental status NL, Mood NL laboratory and microbiology Laboratory Tests 12/01/24 03:35 Test 12/01/24 03:35 Range/Units Serum Glucose 111 H 74-106 mg/dL Labs and/or images reviewed: Labs reviewed by me, Image(s) reviewed by me Problem List/Assessment/Plan Problem List/Assessment/Plan This is a 49-year-old male with past medical history of ESRD (on maintenance hemodialysis, Friday, Friday, and ), diabetes type 2, HFrEF (with the LVEF 30%, on home oxygen 4 L), coronary artery disease (status post CABG in 2020 and PCI in 2021), PID (status post stent placement on bilateral femoral artery) hypertension, dyslipidemia, and and COPD came to the hospital due to shortness of breaths, abdominal pain, chest discomfort, palpitation, dysuria, chills and nausea. Admitted on 12/01. NEURO: Insomnia * Plan: Trazodone CARDIOVASCULAR: Cardiogenic shock Acute on chronic systolic heart failure Volume overload, likely due to heart failure/missed dialysis Hypertension Dyslipidemia Coronary artery disease, status post PCI/CABG NSTEMI, likely type 2, due to above * EKGs shows partial RBBB with poor R-wave progression, no significant ST or T- wave changes * Echo shows dilated ventricle with EF 30% * Chest x-ray shows bilateral lower zone infiltration with Lantus with the ankle * Serial trop I is raised at 60s to 90s, BNP is raised >5000 * Plan: Aspirin, atorvastatin, Lasix 40 mg b.i.d., dialysis, Levophed RESPIRATORY: Acute on chronic hypoxic respiratory failure, likely due to heart failure/volume overload/pneumonia Possible pneumonia, likely due to Gram-positive/Gram-negative bacteria. Pleural effusion, moderate COPD * Plan: IV antibiotic, diuretics, and breathing treatment GENITOURINARY/FLUID: ESRD, on maintenance hemodialysis, missed last 3 cessation BPH * Plan: IV diuretic, Flomax, dialysis performed on 12/01 GASTROINTESTINAL/NUTRITION: Moderate protein malnutrition Possible diabetic gastroparesis * Plan: Protonix and Zofran INFECTIOUS DISEASE: Septic shock, due to sepsis Sepsis, likely due to pneumonia/wound infection * Plan: Panculture, meropenem (12/01), vancomycin 12/01 HEMATOLOGY: Mild anemia, due to ESRD ENDOCRINE: Diabetes type 2 , A1c is 7.4 METABOLIC: Hyperkalemia MSK/SKIN: Diabetic foot * Plan: Consulted Podiatry, Wound culture, wound consult, IV antibiotic DIET: Renal diet DVT prophylax: On heparin GI prophylaxis: Protonix Bowel regimen: None LINES/DEVICES IV access: Tunneled catheter to right IJ Drips: Levophed Disposition: Continue ICU status Family: Patients updated at the bedside. Critical care time: Spent > 68 min, spent in direct critical care, including evaluation, management, review of labs/imaging, and multidisciplinary/family discussions, (excluding any procedures). Case discussed with Dr. Graves Plan discussed with: Patient My Orders My Orders Orders - JOHNNY HOFFMAN Procedure Category Date Status Time Complete Blood Count LAB 12/01/24 Logged 11:06 Comprehensive LAB 12/01/24 Logged Metabolic Panel 11:06 Hydromorphone PHA 12/01/24 Logged Injection (Dilaudid 11:15 Communication Order ORDERS 12/01/24 Transmitted 11:13 Magnesium Sulfate PHA 12/01/24 In Process 1gm/100ml 11:15 Date of Service: Dec 01, 2024 Billing Provider: MELANIE GRAVES MD Common Visit Codes: [id number] CARE 30-74 MIN JOHNNY HOFFMAN RESDIENT Dec 01, 2024 11:54 MELANIE GRAVES MD Dec 02, 2024 11:46
[2024-12-01] MEDS ORDERED: IPRATROPIUM BROM 0.5 MG/2.5ML INH SOL NEB SCH (12:00)
[2024-12-01] MEDS ORDERED: VANCOMYCIN PER PHARMACY 0 MG IV SCH (12:15)
[2024-12-01] MEDS: TAMSULOSIN HYDROCHLORIDE 0.4 MG CAP PO SCH (12:18)
[2024-12-01] MEDS: CALCIUM GLUC 1,000mg/50ml-NS 50 ML IV ONE (12:18)
[2024-12-01] MEDS: ATORVASTATIN 20 MG TAB PO SCH (12:18)
[2024-12-01] MEDS: PANTOPRAZOLE 40 MG TAB PO SCH (12:18)
[2024-12-01] MEDS: ASPirin-EC 81 mg tab PO SCH (12:22)
[2024-12-01] MEDS: HEPARIN SODIUM (PORCINE) 5000 UNITS/ML 1ML VIAL SC SCH (12:27)
[2024-12-01 12:34] LABS: Hemoglobin 11.4 g/dL (13.5-17.5)
[2024-12-01 12:36] LABS: Hematocrit 35.0 % (41.0-53.0); Mean Corpuscular Hemoglobin 26.9 pg (28.0-32.0); Mean Corpuscular Volume 82.8 fL (80.0-100.0)
[2024-12-01 12:52] LABS: Alanine Aminotransferase 21 U/L (7-40); Albumin 2.8 g/dL (3.2-4.8); Alkaline Phosphatase 397 U/L (46-116); Anion Gap 11 (5-15); BUN/Creatinine Ratio 18.5 (10.0-20.0); Bilirubin, Total 3.0 mg/dL (0.2-1.0); Blood Urea Nitrogen 33 mg/dL (9-23); Calcium 8.0 mg/dL (8.7-10.4); Carbon Dioxide 22 mmol/L (20-31); Chloride 103 mmol/L (98-107); Glucose 93 mg/dL (74-106); Potassium 4.0 mmol/L (3.5-5.1); Sodium 136 mmol/L (136-145); Total Protein 5.5 g/dL (5.7-8.2)
[2024-12-01] MEDS: HYDROmorphone HCL 2 MG/ML VL/or syr IV PRN (12:55)
[2024-12-01] MEDS: MAGNESIUM SULFATE 1GM/100ML 100 ML IV ONE (13:04)
[2024-12-01 13:16] LABS: Total Cells Counted 100.0 (100)
[2024-12-01] MEDS ORDERED: methylPREDNISolone SOD SUCC 40 MG/ML VL IV SCH (14:00)
--- NOTE | 2024-12-01 14:56 | DVHINCON2 ---
DATE OF CONSULTATION: 12/01/2024 CONSULTING PHYSICIAN: Dr. Greene. REASON FOR CONSULTATION: Management of dialysis. HISTORY OF PRESENT ILLNESS: The patient is a 49-year-old gentleman who is a chronic dialysis patient in our clinic who has missed his last 2 treatments stating that he was weak and could not come to the dialysis. He instead came to the emergency room complaining of shortness of breath. He was found to have possible pneumonia with COPD exacerbation and during the first hours in the emergency room, his blood pressure apparently dropped, so now they had to start him on Levophed drip. Urinalysis is showing that he may have urine infection. He is a poor historian. He is noncompliant. I am being consulted to give him his dialysis treatment. REVIEW OF SYSTEMS: Otherwise unremarkable. He denies chest pain. No fever. PAST MEDICAL HISTORY: As stated above, significant for end-stage renal disease. He has a history of hypertension. He has also a history of anemia, hyperparathyroidism, heart disease. It is reported that he has diabetes, hyperlipidemia, and history of open heart surgery in 2019. FAMILY HISTORY: Significant for hypertension and diabetes. SOCIAL HISTORY: The patient used to smoke cigarettes in the past. Currently, he does not smoke cigarettes, drink alcohol or use illicit drugs. ALLERGIES: HE IS ALLERGIC TO PENICILLIN. MEDICATIONS: In the hospital, he is on Zosyn, trazodone, vancomycin, albuterol treatments, heparin, atorvastatin, tamsulosin, pantoprazole, and Levophed. PHYSICAL EXAMINATION: VITAL SIGNS: Blood pressure is 94/62, heart rate is 98, respirations 13, temperature 97.2. GENERAL: The patient is an adult gentleman who appears to be chronically ill. HEENT: He is blind in one eye. NECK: There is no jugular venous distention. LUNGS: Show bilateral crackles, scattered wheezing, and rhonchi. CARDIOVASCULAR: Shows mild tachycardia, a few extrasystoles, 1/6 systolic murmur. ABDOMEN: Soft, nontender. No organomegaly. EXTREMITIES: Show no clubbing or cyanosis. There is 1+ edema. Extremities otherwise unremarkable. NEUROLOGIC: Nonfocal. LABORATORY FINDINGS: His white blood cell count is 12.8, hemoglobin 7.4, platelet count 169. Sodium 136, potassium 4, creatinine 1.78. ASSESSMENT AND PLAN: The patient reportedly has end-stage renal disease, although at this point with his serum creatinine, the diagnosis is questionable. I do not recall seeing this patient in the past. At this point, I will arrange for him to have dialysis today, but after the first dialysis, we will closely monitor urine output and creatinine and electrolytes to determine if he indeed needs to continue having dialysis therapy. We will follow him closely. In the meantime, continue pressor support if needed, give intravenous antibiotics, treatment for COPD and pneumonia and possible UTI. Thank you for the consultation. MD JAMES Farris/SALTY TID: [id number] RECEIPT: [id number]
[2024-12-01 17:25] LABS: Urine Protein, UAD Negative (Negative)
[2024-12-01 17:28] LABS: Amphetamine Screen, Urine Neg (NEGATIVE); Barbiturate Scree,Urine Neg (NEGATIVE); Benzodiazephine Screen, Urine Neg (NEGATIVE); Cannabinoid Screen, Urine Neg (NEGATIVE); Cocaine Screen, Urine Neg (NEGATIVE); Opiate Scree,Urine Neg (NEGATIVE); Phencyclidine Screen, Urine Neg (NEGATIVE)
[2024-12-01] MEDS: SODIUM CHL 0.9% 1000 ML BAG XX ONE (20:06)
[2024-12-01] MEDS: MEROPENEM 1GM IVPB 50 ML IV ONE (20:16)
[2024-12-01] MEDS: VANCOMYCIN 1.5GM/250ML 250 ML IV ONE (21:21)
[2024-12-01] MEDS ORDERED: PIPERACILLIN-TAZOB 2.25GM 50 ML IV SCH (22:00)
[2024-12-01] MEDS ORDERED: DEXTROSE (50%) 50ML SYRG IV PRN (22:15)
[2024-12-02] VITALS (12 sets, daily range): PULSE 93–113; RESP 11–18; O2SAT 95–100
--- NOTE | 2024-12-02 00:25 | DVH ---
CHEST RADIOGRAPH Indication: pleural effusion Technique: Single frontal view of the chest was obtained COMPARISON: XY CHEST PORTABLE on DOS: 12/01/24, XY CHEST XRAY 1 VIEW on DOS: 10/08/24, XY CHEST PORTABLE on DOS: 10/05/24, XY CHEST XRAY 1 VIEW on DOS: 10/03/24, XY CHEST XRAY 1 VIEW on DOS: 10/02/24 FINDINGS: Lines and Tubes: Right permCath unchanged in position. Lungs: Accounting for differences in technique and positioning, there are stable appearing moderate b ilateral pleural effusions and diffuse increased prominence of the pulmonary vasculature. No pneumothorax. Cardiomediastinal contours: Unremarkable Bones: Unremarkable IMPRESSION: 1. Stable moderate bilateral pleural effusions and pulmonary vascular congestion. 2. Right PermCath.
[2024-12-02 04:08] LABS: Hemoglobin 11.4 g/dL (13.5-17.5); Mean Corpuscular Volume 81.1 fL (80.0-100.0); Nucleated Red Blood Cells % 0.0 %
[2024-12-02 04:09] LABS: Hematocrit 34.4 % (41.0-53.0); Mean Corpuscular Hemoglobin 26.9 pg (28.0-32.0)
[2024-12-02 04:30] LABS: Alanine Aminotransferase 24 U/L (7-40); Anion Gap 9 (5-15); BUN/Creatinine Ratio 21.2 (10.0-20.0); Carbon Dioxide 29 mmol/L (20-31); Chloride 101 mmol/L (98-107); Potassium 4.2 mmol/L (3.5-5.1); Sodium 139 mmol/L (136-145)
[2024-12-02 04:36] LABS: Albumin 2.5 g/dL (3.2-4.8); Alkaline Phosphatase 329 U/L (46-116); Bilirubin, Total 2.8 mg/dL (0.2-1.0); Blood Urea Nitrogen 31 mg/dL (9-23); Calcium 7.7 mg/dL (8.7-10.4); Glucose 122 mg/dL (74-106); Total Protein 4.8 g/dL (5.7-8.2)
[2024-12-02] MEDS: ACCU-CHEK COMFORT CURVE STRIP VI SCH (06:35)
[2024-12-02] MEDS: InsuLIN REG 1unit/0.01ml Soln (100units/ml) SC SCH (06:35)
[2024-12-02] MEDS ORDERED: AZITHROMYCIN 500MG/ 250ML 250 ML IV SCH (10:00)
[2024-12-02] MEDS: MEROPENEM 1GM IVPB 50 ML IV SCH (14:10)
--- NOTE | 2024-12-02 17:35 | DVHPN2 ---
Progress Note - Dictate Date Seen: Dec 02, 2024 Has the PT tested + for MRSA If YES, has PT been informed?: No Medical Necessity Reason Pt with a Central, PICC or Fol: Yes Subjective Sedated vital signs Vital Sign Date Time Temp Pulse Resp B/P (MAP) Pulse Ox O2 Delivery O2 Flow Rate FiO2 12/02/24 16:55 107 14 104/64 12/02/24 16:45 99 12/02/24 14:00 98.2 98.2 12/02/24 12:42 Nasal Cannula* 3 32 medications Current Medications Medications Dose Ordered Sig/Aubrie Route Start Time Stop Time Status Last Admin Dose Admin Acetaminophen 325 mg Q4HP PRN PO 12/01/24 05:30 Ondansetron HCl 4 mg Q4HP PRN IV 12/01/24 05:30 Nitroglycerin 0.4 mg Q5MINP PRN SL 12/01/24 05:30 Furosemide 40 mg TID IV 12/01/24 06:00 12/02/24 14:04 40 MG Aspirin 81 mg DAILY PO 12/01/24 10:00 12/01/24 12:22 81 MG Gabapentin 300 mg TID PO 12/01/24 06:00 12/02/24 14:10 300 MG Pantoprazole Sodium 40 mg BID PO 12/01/24 10:00 12/02/24 10:40 40 MG Tamsulosin HCl 0.4 mg DAILY PO 12/01/24 10:00 12/02/24 10:40 0.4 MG Trazodone HCl 50 mg HS PO 12/01/24 22:00 12/01/24 22:18 50 MG Atorvastatin Calcium 40 mg DAILY PO 12/01/24 10:00 12/02/24 10:40 40 MG Norepinephrine Bitartrate 250 ml @ 3.75 mls/hr Q24H IV 12/01/24 08:30 12/01/24 08:30 3.75 MLS/HR Levalbuterol HCl 0.625 mg Q6HR NEB 12/01/24 12:00 12/02/24 12:51 0.625 MG Ipratropium [place] 0.5 mg Q6HR NEB 12/01/24 12:00 12/02/24 12:51 0.5 MG Hydromorphone HCl 0.5 mg Q4HPRN PRN IV 12/01/24 11:15 12/02/24 16:24 0.5 MG Vancomycin HCl 0 ml @ 0 mls/hr UD IV 12/01/24 12:15 Diagnostic Test (Pha) 1 strip ACHS 12/02/24 07:00 12/02/24 17:06 1 STRIP Insulin Human Regular ACHS SC 12/02/24 07:00 Dextrose 50 ml UD PRN IV 12/01/24 22:15 Meropenem 50 ml @ 17 mls/hr Q8HR IV 12/02/24 14:00 12/02/24 14:10 17 MLS/HR Lactulose 30 ml BID PO 12/02/24 22:00 Rifaximin 550 mg BID PO 12/02/24 22:00 objective GENERAL: The patient is an adult gentleman who appears to be chronically ill. HEENT: He is blind in one eye. ETT in place NECK: There is no jugular venous distention. LUNGS: Show bilateral crackles, scattered wheezing, and rhonchi. CARDIOVASCULAR: Shows mild tachycardia, a few extrasystoles, 1/6 systolic murmur. ABDOMEN: Soft, nontender. No organomegaly. EXTREMITIES: Show no clubbing or cyanosis. There is 1+ edema. Extremities otherwise unremarkable. NEUROLOGIC: Nonfocal. laboratory and microbiology Laboratory Tests 12/02/24 03:14 Test 12/02/24 03:14 Range/Units Serum Glucose 122 H 74-106 mg/dL Assessment/Plan ASSESSMENT AND PLAN: 1. ESRD, scheduled for HD tomorrow. Will monitor creatinine and urine output closely 2. Respiratory failure 3. NSTEMI 4. CHF exacerbation 5. Sepsis 6. Left leg wound infection 7. DM2 8. Anemia of CKD HD tomorrow Continue pressor support if needed, give intravenous antibiotics, treatment for pneumonia and possible UTI. Cardiology follow up Plan discussed with: Other NASREEN PEDERSON MD Dec 02, 2024 17:35
[2024-12-02] MEDS: LIDOCAINE 5% TOPICAL PATCH TOP ONE (17:38)
[2024-12-02] MEDS: HYDROmorphone HCL 2 MG/ML VL/or syr IV ONE (18:01)
--- NOTE | 2024-12-02 19:42 | DVHPNRES ---
Progress Note Date Seen: Dec 02, 2024 Resident Creating Document: JOHNNY HOFFMAN ELIAS Has the PT tested + for MRSA If YES, has PT been informed?: No Medical Necessity Reason Pt with a Central, PICC or Fol: Yes Subjective Review of Systems This is a 49-year-old male with past medical history of ESRD (on maintenance hemodialysis, Friday, Friday, and ), diabetes type 2, HFrEF (with the LVEF 30%, on home oxygen 4 L), coronary artery disease (status post CABG in 2020 and PCI in 2021), PID (status post stent placement on bilateral femoral artery) hypertension, dyslipidemia, and and COPD came to the hospital due to shortness of breaths since last night. He also reports of orthopnea, abdominal pain, chest discomfort, palpitation, dysuria, chills and nausea. He denies fever, incomplete PMHx: ESRD (on maintenance hemodialysis, Friday, Friday, and ), diabetes type 2, HFrEF (with the LVEF 30%, on home oxygen 4 L), coronary artery disease (status post CABG in 2020 and PCI in 2021), PID (status post stent placement on bilateral femoral artery) hypertension, dyslipidemia, and and COPD, liver cirrhosis PSHx: CABG, right-sided tunneled catheter placement 20 days back, and PCI Social history: Denies smoking, alcohol or any other drug use. Lives his (which is next of kin), and [place]. Uses walker and wheelchair for mobility. Does not work, on disability. Home medication: Lasix 20 mg b.i.d., sucralfate, tamsulosin, carvedilol, and aspirin, per patient's he is compliant with medicine. He was previously using insulin and metformin for diabetes, which has stopped using due to controlled glucose level. Allergic history: Today, patient seen and examined at bedside. Patient is feeling better. Objective vital signs Vital Sign Date Time Temp Pulse Resp B/P (MAP) Pulse Ox O2 Delivery O2 Flow Rate FiO2 12/02/24 19:00 108 14 95/68 (77) 99 12/02/24 17:00 98.2 98.2 12/02/24 12:42 Nasal Cannula* 3 32 medications Current Medications Medications Dose Ordered Sig/Aubrie Route Start Time Stop Time Status Last Admin Dose Admin Acetaminophen 325 mg Q4HP PRN PO 12/01/24 05:30 Ondansetron HCl 4 mg Q4HP PRN IV 12/01/24 05:30 Nitroglycerin 0.4 mg Q5MINP PRN SL 12/01/24 05:30 Furosemide 40 mg TID IV 12/01/24 06:00 12/02/24 14:04 40 MG Aspirin 81 mg DAILY PO 12/01/24 10:00 12/01/24 12:22 81 MG Gabapentin 300 mg TID PO 12/01/24 06:00 12/02/24 14:10 300 MG Pantoprazole Sodium 40 mg BID PO 12/01/24 10:00 12/02/24 10:40 40 MG Tamsulosin HCl 0.4 mg DAILY PO 12/01/24 10:00 12/02/24 10:40 0.4 MG Trazodone HCl 50 mg HS PO 12/01/24 22:00 12/01/24 22:18 50 MG Atorvastatin Calcium 40 mg DAILY PO 12/01/24 10:00 12/02/24 10:40 40 MG Norepinephrine Bitartrate 250 ml @ 3.75 mls/hr Q24H IV 12/01/24 08:30 12/01/24 08:30 3.75 MLS/HR Levalbuterol HCl 0.625 mg Q6HR NEB 12/01/24 12:00 12/02/24 18:58 0.625 MG Ipratropium [place] 0.5 mg Q6HR NEB 12/01/24 12:00 12/02/24 18:58 0.5 MG Hydromorphone HCl 0.5 mg Q4HPRN PRN IV 12/01/24 11:15 12/02/24 16:24 0.5 MG Vancomycin HCl 0 ml @ 0 mls/hr UD IV 12/01/24 12:15 Diagnostic Test (Pha) 1 strip ACHS 12/02/24 07:00 12/02/24 17:06 1 STRIP Insulin Human Regular ACHS SC 12/02/24 07:00 Dextrose 50 ml UD PRN IV 12/01/24 22:15 Meropenem 50 ml @ 17 mls/hr Q8HR IV 12/02/24 14:00 12/02/24 14:10 17 MLS/HR Lactulose 30 ml BID PO 12/02/24 22:00 Rifaximin 550 mg BID PO 12/02/24 22:00 Examination General Appearance: Alert, Oriented X3, Cooperative, in moderate respiratory distress, can not speak in full sentences HEENT: Atraumatic, PERRLA, EOMI, Mucous membrane moist/pink Respiratory: Bilateral mid zone crackles, absent breath sounds on lower zone Cardiovascular: Regular rate, Normal S1, Normal S2, No murmurs, no chest wall tenderness Abdominal: Mild abdominal tenderness Extremities: Bilateral grade 1 pedal edema Skin: 6 x 3 cm open ulcer on dorsal surface of left leg, with scant amount of purulent discharge Neuro: Normal gait, Normal speech, Strength at 5/5 X4 ext, Normal tone, Sensation intact, Cranial nerves 3-12 NL, Reflexes 2+ Psych/Mental Status: Mental status NL, Mood NL laboratory and microbiology Laboratory Tests 12/02/24 03:14 Test 12/02/24 03:14 Range/Units Serum Glucose 122 H 74-106 mg/dL Microbiology Date/Time Source Procedure Growth Status 12/01/24 17:00 Voided Urine Urine Culture - Preliminary Resulted 12/01/24 07:24 Blood Blood Culture - Preliminary NO GROWTH AFTER 24 HOURS OF INCUBATION. Resulted Labs and/or images reviewed: Image(s) reviewed by me Problem List/Assessment/Plan Problem List/Assessment/Plan This is a 49-year-old male with past medical history of ESRD (on maintenance hemodialysis, Friday, Friday, and ), diabetes type 2, HFrEF (with the LVEF 30%, on home oxygen 4 L), coronary artery disease (status post CABG in 2020 and PCI in 2021), PID (status post stent placement on bilateral femoral artery) hypertension, dyslipidemia, and and COPD came to the hospital due to shortness of breaths, abdominal pain, chest discomfort, palpitation, dysuria, chills and nausea. Admitted on 12/01. NEURO: Insomnia * Plan: Trazodone CARDIOVASCULAR: Cardiogenic shock Acute on chronic systolic heart failure Volume overload, likely due to heart failure/missed dialysis Hypertension Dyslipidemia Coronary artery disease, status post PCI/CABG NSTEMI, likely type 2, due to above * EKGs shows partial RBBB with poor R-wave progression, no significant ST or T- wave changes * Echo shows dilated ventricle with EF 30% * Chest x-ray shows bilateral lower zone infiltration with Lantus with the ankle * Serial trop I is raised at 60s to 90s, BNP is raised >5000 * Plan: Aspirin, atorvastatin, Lasix 40 mg b.i.d., dialysis, Levophed RESPIRATORY: Acute on chronic hypoxic respiratory failure, likely due to heart failure/volume overload/pneumonia Possible pneumonia, likely due to Gram-positive/Gram-negative bacteria. Pleural effusion, moderate COPD * Plan: IV antibiotic, diuretics, and breathing treatment GENITOURINARY/FLUID: ESRD, on maintenance hemodialysis, missed last 3 cessation BPH * Plan: IV diuretic, Flomax, dialysis performed on 12/01 GASTROINTESTINAL/NUTRITION: Moderate protein malnutrition Possible diabetic gastroparesis Liver cirrhosis * Plan: Protonix and Zofran, rifaximin INFECTIOUS DISEASE: Septic shock, due to sepsis Sepsis, likely due to pneumonia/wound infection * Plan: Panculture, meropenem (12/01), vancomycin 12/01 HEMATOLOGY: Mild anemia, due to ESRD ENDOCRINE: Diabetes type 2 , A1c is 7.4 METABOLIC: Hyperkalemia MSK/SKIN: Diabetic foot * Plan: Wound culture, wound consult, IV antibiotic DIET: Renal diet DVT prophylax: On heparin GI prophylaxis: Protonix Bowel regimen: Lactulose LINES/DEVICES IV access: Tunneled catheter to right IJ Drips: Levophed Disposition: Continue ICU status Family: Patients updated at the bedside. Critical care time: Spent > 68 min, spent in direct critical care, including evaluation, management, review of labs/imaging, and multidisciplinary/family discussions, (excluding any procedures). Case discussed with Dr. Graves Plan discussed with: Other My Orders My Orders Orders - JOHNNY HOFFMAN RESDIDAISY Procedure Category Date Status Time Renal DIET 12/02/24 Transmitted Standard(2gna,3gk,Lopho) Breakfast Vancomycin,Random LAB 12/03/24 Verified 04:00 Creatinine LAB 12/03/24 Verified 04:00 Meropenem 1gm Ivpb PHA 12/02/24 In Process (Merrem 1gm/50ml) 14:00 Comprehensive LAB 12/03/24 Verified Metabolic Panel 04:00 Complete Blood Count LAB 12/03/24 Verified 04:00 Chest Xray 1 View XY 12/03/24 Logged 04:00 Cleanse Wound With DOV 12/02/24 In Process Wound Clean 16:48 * Dietary Consult CONS 12/02/24 Transmitted 17:31 Date of Service: Dec 02, 2024 Billing Provider: MELANIE GRAVES MD Common Visit Codes: [id number] CARE 30-74 MIN JOHNNY HOFFMAN Dec 02, 2024 19:42 MELANIE GRAVES MD Dec 04, 2024 11:38
[2024-12-02] MEDS: LACTULOSE 20Gm/30ML SOLN PO SCH (21:20)
[2024-12-03] VITALS (10 sets, daily range): PULSE 103–113; RESP 10–18; O2SAT 93–100
[2024-12-03 04:09] LABS: Hematocrit 32.9 % (41.0-53.0); Hemoglobin 11.1 g/dL (13.5-17.5); Mean Corpuscular Hemoglobin 27.2 pg (28.0-32.0); Mean Corpuscular Volume 80.9 fL (80.0-100.0); Nucleated Red Blood Cells % 0.1 %
[2024-12-03 04:34] LABS: Alanine Aminotransferase 22 U/L (7-40); Anion Gap 8 (5-15); BUN/Creatinine Ratio 18.0 (10.0-20.0); Carbon Dioxide 28 mmol/L (20-31); Potassium 4.6 mmol/L (3.5-5.1)
[2024-12-03 04:47] LABS: Albumin 2.8 g/dL (3.2-4.8); Alkaline Phosphatase 301 U/L (46-116); Bilirubin, Total 3.2 mg/dL (0.2-1.0); Blood Urea Nitrogen 37 mg/dL (9-23); Calcium 7.9 mg/dL (8.7-10.4); Chloride 98 mmol/L (98-107); Glucose 126 mg/dL (74-106); Sodium 134 mmol/L (136-145); Total Protein 5.5 g/dL (5.7-8.2)
--- NOTE | 2024-12-03 05:35 | DVH ---
CHEST RADIOGRAPH Indication: Pleural effusion Technique: Single frontal view of the chest was obtained COMPARISON: XY CHEST XRAY 1 VIEW on DOS: 12/02/24, XY CHEST PORTABLE on DOS: 12/01/24, XY CHEST XRAY 1 VIEW on DOS: 10/08/24, XY CHEST PORTABLE on DOS: 10/05/24, XY CHEST XRAY 1 VIEW on DOS: 10/03/24 FINDINGS: Lines and Tubes: Tunneled right central venous catheter in satisfactory position. Lungs: Pulmonary edema. Pleura: Moderate bilateral pleural effusions. Cardiomediastinal contours: Cardiomegaly. Bones: Unremarkable. IMPRESSION: No significant interval change.
[2024-12-03] MEDS: SODIUM CHL 0.9% 1000 ML BAG XX ONE (07:00)
[2024-12-03] MEDS: hydrOXYzine HCL 10 MG TAB PO ONE (08:35)
--- NOTE | 2024-12-03 10:58 | DVHPN2 ---
Progress Note - Dictate Date Seen: Dec 03, 2024 Has the PT tested + for MRSA If YES, has PT been informed?: No Medical Necessity Reason Pt with a Central, PICC or Fol: Yes Subjective Lethargic vital signs Vital Sign Date Time Temp Pulse Resp B/P (MAP) Pulse Ox O2 Delivery O2 Flow Rate FiO2 12/03/24 10:45 110 12 109/75 (86) 99 12/03/24 07:45 Nasal Cannula* 3 32 12/03/24 07:45 97.7 97.7 Total Intake and Output 12/02/24 12/02/24 12/03/24 15:00 23:00 07:00 Intake Total 90.00 ml 90.305 ml 15.000 ml Output Total 175 ml 125 ml Balance -85.00 ml -34.695 ml 15.000 ml medications Current Medications Medications Dose Ordered Sig/Aubrie Route Start Time Stop Time Status Last Admin Dose Admin Acetaminophen 325 mg Q4HP PRN PO 12/01/24 05:30 Ondansetron HCl 4 mg Q4HP PRN IV 12/01/24 05:30 Nitroglycerin 0.4 mg Q5MINP PRN SL 12/01/24 05:30 Furosemide 40 mg TID IV 12/01/24 06:00 12/03/24 06:26 40 MG Aspirin 81 mg DAILY PO 12/01/24 10:00 12/03/24 10:03 81 MG Gabapentin 300 mg TID PO 12/01/24 06:00 12/02/24 21:21 300 MG Pantoprazole Sodium 40 mg BID PO 12/01/24 10:00 12/03/24 10:03 40 MG Tamsulosin HCl 0.4 mg DAILY PO 12/01/24 10:00 12/03/24 10:03 0.4 MG Trazodone HCl 50 mg HS PO 12/01/24 22:00 12/02/24 21:19 50 MG Atorvastatin Calcium 40 mg DAILY PO 12/01/24 10:00 12/03/24 10:03 40 MG Norepinephrine Bitartrate 250 ml @ 3.75 mls/hr Q24H IV 12/01/24 08:30 12/01/24 08:30 3.75 MLS/HR Levalbuterol HCl 0.625 mg Q6HR NEB 12/01/24 12:00 12/03/24 06:38 0.625 MG Ipratropium [place] 0.5 mg Q6HR NEB 12/01/24 12:00 12/03/24 06:38 0.5 MG Hydromorphone HCl 0.5 mg Q4HPRN PRN IV 12/01/24 11:15 12/03/24 10:33 0.5 MG Vancomycin HCl 0 ml @ 0 mls/hr UD IV 12/01/24 12:15 Diagnostic Test (Pha) 1 strip ACHS 12/02/24 07:00 12/03/24 06:21 1 STRIP Insulin Human Regular ACHS SC 12/02/24 07:00 12/02/24 21:31 2 UNITS Dextrose 50 ml UD PRN IV 12/01/24 22:15 Meropenem 50 ml @ 17 mls/hr Q8HR IV 12/02/24 14:00 12/03/24 06:25 17 MLS/HR Lactulose 30 ml BID PO 12/02/24 22:00 12/03/24 10:03 30 ML Rifaximin 550 mg BID PO 12/02/24 22:00 12/03/24 10:03 550 MG Metolazone 5 mg DAILY PO 12/03/24 10:00 12/03/24 10:40 5 MG objective GENERAL: The patient is an adult gentleman who appears to be chronically ill. HEENT: Unremarkable NECK: There is no jugular venous distention. LUNGS: Show bilateral crackles, scattered wheezing, and rhonchi. CARDIOVASCULAR: Shows mild tachycardia, a few extrasystoles, 1/6 systolic murmur. ABDOMEN: Soft, nontender. No organomegaly. EXTREMITIES: Show no clubbing or cyanosis. There is 1+ edema. Extremities otherwise unremarkable. NEUROLOGIC: Nonfocal. laboratory and microbiology Laboratory Tests 12/03/24 03:22 Test 12/03/24 03:22 Range/Units Serum Glucose 126 H 74-106 mg/dL Assessment/Plan ASSESSMENT AND PLAN: 1. ESRD, scheduled for HD tomorrow. Will monitor creatinine and urine output closely 2. Respiratory failure 3. NSTEMI 4. CHF exacerbation 5. Sepsis 6. Left leg wound infection 7. DM2 8. Anemia of CKD HD today UF goal is 3 L Continue pressor support if needed, give intravenous antibiotics, treatment for pneumonia and possible UTI. Cardiology follow up Plan discussed with: Other NASREEN PEDERSON MD Dec 03, 2024 10:58
[2024-12-03] MEDS: ONDANSETRON HCL 4 MG/2 ML VIAL IV PRN (14:27)
--- NOTE | 2024-12-03 16:19 | DVHPNRES ---
Progress Note Date Seen: Dec 03, 2024 Resident Creating Document: JOHNNY HOFFMAN ELIAS Has the PT tested + for MRSA If YES, has PT been informed?: No Medical Necessity Reason Pt with a Central, PICC or Fol: Yes Subjective Review of Systems This is a 49-year-old male with past medical history of ESRD (on maintenance hemodialysis, Friday, Friday, and ), diabetes type 2, HFrEF (with the LVEF 30%, on home oxygen 4 L), coronary artery disease (status post CABG in 2020 and PCI in 2021), PID (status post stent placement on bilateral femoral artery) hypertension, dyslipidemia, and and COPD came to the hospital due to shortness of breaths since last night. He also reports of orthopnea, abdominal pain, chest discomfort, palpitation, dysuria, chills and nausea. He denies fever, incomplete PMHx: ESRD (on maintenance hemodialysis, Friday, Friday, and ), diabetes type 2, HFrEF (with the LVEF 30%, on home oxygen 4 L), coronary artery disease (status post CABG in 2020 and PCI in 2021), PID (status post stent placement on bilateral femoral artery) hypertension, dyslipidemia, and and COPD, liver cirrhosis PSHx: CABG, right-sided tunneled catheter placement 20 days back, and PCI Social history: Denies smoking, alcohol or any other drug use. Lives his (which is next of kin), and [place]. Uses walker and wheelchair for mobility. Does not work, on disability. Home medication: Lasix 20 mg b.i.d., sucralfate, tamsulosin, carvedilol, and aspirin, per patient's he is compliant with medicine. He was previously using insulin and metformin for diabetes, which has stopped using due to controlled glucose level. Allergic history: Today, patient seen and examined at bedside. Patient is feeling better. Objective vital signs Vital Sign Date Time Temp Pulse Resp B/P (MAP) Pulse Ox O2 Delivery O2 Flow Rate FiO2 12/03/24 16:11 109 12 127/87 12/03/24 16:00 98.0 99 98.0 12/03/24 12:29 Nasal Cannula* 2 28 Total Intake and Output 12/02/24 12/02/24 12/03/24 14:59 22:59 06:59 Intake Total 78.75 ml 101.555 ml 15.000 ml Output Total 175 ml 125 ml Balance -96.25 ml -23.445 ml 15.000 ml medications Current Medications Medications Dose Ordered Sig/Aubrie Route Start Time Stop Time Status Last Admin Dose Admin Acetaminophen 325 mg Q4HP PRN PO 12/01/24 05:30 Ondansetron HCl 4 mg Q4HP PRN IV 12/01/24 05:30 12/03/24 14:27 4 MG Nitroglycerin 0.4 mg Q5MINP PRN SL 12/01/24 05:30 Furosemide 40 mg TID IV 12/01/24 06:00 12/03/24 06:26 40 MG Aspirin 81 mg DAILY PO 12/01/24 10:00 12/03/24 10:03 81 MG Gabapentin 300 mg TID PO 12/01/24 06:00 12/02/24 21:21 300 MG Pantoprazole Sodium 40 mg BID PO 12/01/24 10:00 12/03/24 10:03 40 MG Tamsulosin HCl 0.4 mg DAILY PO 12/01/24 10:00 12/03/24 10:03 0.4 MG Trazodone HCl 50 mg HS PO 12/01/24 22:00 12/02/24 21:19 50 MG Atorvastatin Calcium 40 mg DAILY PO 12/01/24 10:00 12/03/24 10:03 40 MG Norepinephrine Bitartrate 250 ml @ 3.75 mls/hr Q24H IV 12/01/24 08:30 12/01/24 08:30 3.75 MLS/HR Levalbuterol HCl 0.625 mg Q6HR NEB 12/01/24 12:00 12/03/24 12:28 0.625 MG Ipratropium [place] 0.5 mg Q6HR NEB 12/01/24 12:00 12/03/24 12:28 0.5 MG Hydromorphone HCl 0.5 mg Q4HPRN PRN IV 12/01/24 11:15 12/03/24 15:13 0.5 MG Vancomycin HCl 0 ml @ 0 mls/hr UD IV 12/01/24 12:15 Diagnostic Test (Pha) 1 strip ACHS 12/02/24 07:00 12/03/24 11:30 1 STRIP Insulin Human Regular ACHS SC 12/02/24 07:00 12/03/24 12:01 2 UNITS Dextrose 50 ml UD PRN IV 12/01/24 22:15 Meropenem 50 ml @ 17 mls/hr Q8HR IV 12/02/24 14:00 12/03/24 06:25 17 MLS/HR Lactulose 30 ml BID PO 12/02/24 22:00 12/03/24 10:03 30 ML Rifaximin 550 mg BID PO 12/02/24 22:00 12/03/24 10:03 550 MG Metolazone 5 mg DAILY PO 12/03/24 10:00 12/03/24 10:40 5 MG Examination General Appearance: Alert, Oriented X3, Cooperative, in moderate respiratory distress, can not speak in full sentences HEENT: Atraumatic, PERRLA, EOMI, Mucous membrane moist/pink Respiratory: Bilateral mid zone crackles, absent breath sounds on lower zone Cardiovascular: Regular rate, Normal S1, Normal S2, No murmurs, no chest wall tenderness Abdominal: Mild abdominal tenderness Extremities: Bilateral grade 1 pedal edema Skin: 6 x 3 cm open ulcer on dorsal surface of left leg, with scant amount of purulent discharge Neuro: Normal gait, Normal speech, Strength at 5/5 X4 ext, Normal tone, Sensation intact, Cranial nerves 3-12 NL, Reflexes 2+ Psych/Mental Status: Mental status NL, Mood NL laboratory and microbiology Laboratory Tests 12/03/24 03:22 Test 12/03/24 03:22 Range/Units Serum Glucose 126 H 74-106 mg/dL Microbiology Date/Time Source Procedure Growth Status 12/02/24 16:50 Foot Gram Stain - Final Resulted 12/02/24 16:50 Foot Wound Culture - Preliminary Resulted 12/01/24 17:00 Voided Urine Urine Culture - Preliminary Resulted 12/01/24 07:24 Blood Blood Culture - Preliminary NO GROWTH AFTER 48 HOURS OF INCUBATION. Resulted Labs and/or images reviewed: Labs reviewed by me Problem List/Assessment/Plan Problem List/Assessment/Plan This is a 49-year-old male with past medical history of ESRD (on maintenance hemodialysis, Friday, Friday, and ), diabetes type 2, HFrEF (with the LVEF 30%, on home oxygen 4 L), coronary artery disease (status post CABG in 2020 and PCI in 2021), PID (status post stent placement on bilateral femoral artery) hypertension, dyslipidemia, and and COPD came to the hospital due to shortness of breaths, abdominal pain, chest discomfort, palpitation, dysuria, chills and nausea. Admitted on 12/01. NEURO: Insomnia * Plan: Trazodone CARDIOVASCULAR: Cardiogenic shock Acute on chronic systolic heart failure Volume overload, likely due to heart failure/missed dialysis Hypertension Dyslipidemia Coronary artery disease, status post PCI/CABG NSTEMI, likely type 2, due to above * EKGs shows partial RBBB with poor R-wave progression, no significant ST or T- wave changes * Echo shows dilated ventricle with EF 30% * Chest x-ray shows bilateral lower zone infiltration with Lantus with the ankle * Serial trop I is raised at 60s to 90s, BNP is raised >5000 * Plan: Aspirin, atorvastatin, Lasix 40 mg b.i.d., dialysis, Levophed RESPIRATORY: Acute on chronic hypoxic respiratory failure, likely due to heart failure/volume overload/pneumonia Possible pneumonia, likely due to Gram-positive/Gram-negative bacteria. Pleural effusion, moderate COPD * Plan: IV antibiotic, diuretics, and breathing treatment GENITOURINARY/FLUID: ESRD, on maintenance hemodialysis, missed last 3 cessation BPH * Plan: IV diuretic, Flomax, dialysis performed on 12/01 and 12/03 GASTROINTESTINAL/NUTRITION: Moderate protein malnutrition Possible diabetic gastroparesis Liver cirrhosis * Plan: Protonix and Zofran, rifaximin INFECTIOUS DISEASE: Septic shock, due to sepsis Sepsis, likely due to pneumonia/wound infection * Plan: Panculture, meropenem (12/01), vancomycin 12/01 HEMATOLOGY: Mild anemia, due to ESRD ENDOCRINE: Diabetes type 2 , A1c is 7.4 METABOLIC: Hyperkalemia MSK/SKIN: Diabetic foot * Plan: Wound culture, wound consult, IV antibiotic DIET: Renal diet DVT prophylax: On heparin GI prophylaxis: Protonix Bowel regimen: Lactulose LINES/DEVICES IV access: Tunneled catheter to right IJ Drips: Levophed Disposition: Continue ICU status Family: Patients updated at the bedside. Critical care time: Spent > 78 min, spent in direct critical care, including evaluation, management, review of labs/imaging, and multidisciplinary/family discussions, (excluding any procedures). Case discussed with Dr. Lopez Plan discussed with: Patient, Other My Orders My Orders Orders - JOHNNY HOFFMAN Procedure Category Date Status Time Cleanse Wound With DOV 12/02/24 In Process Wound Clean 16:48 * Dietary Consult CONS 12/02/24 Transmitted 17:31 Metolazone (Zaroxolyn) PHA 12/03/24 In Process 10:00 Vancomycin 500mg/100ml PHA 12/03/24 In Process 16:00 Vancomycin,Random LAB 12/04/24 Verified 04:00 Creatinine LAB 12/04/24 Verified 04:00 Dietary Evaluation Review Comments: Nutrition Recommendation 1) Consider CCHO 75gm + renal standard diet 2) Nephro-margarita 1 tab daily 3) Steven 1 pk daily, zinc sulfate 220mg daily x 10 days 4) Monitor PO intake, lab values, weight trend, and I/O Expected Outcomes/Goals: To meet >75% estimated needs Wound to improve Lab values to improve Fu 3-5 days JOHNNY HOFFMAN Dec 03, 2024 16:19
[2024-12-03] MEDS: VANCOMYCIN 500mg/100mL 100 ML IV ONE (18:28)
[2024-12-03] MEDS: BACITRACIN TOP OINT 1 UD PKG TOP ONE (19:52)
[2024-12-03] MEDS: LORazepam 0.5 MG TAB PO PRN (23:09)
[2024-12-04] VITALS (21 sets, daily range): BP systolic 108–125; BP diastolic 62–93; PULSE 98–114; RESP 16–22; TEMP 97.5–98.6; O2SAT 93–100
[2024-12-04 06:57] LABS: Hematocrit 32.7 % (41.0-53.0); Hemoglobin 11.1 g/dL (13.5-17.5); Mean Corpuscular Hemoglobin 27.1 pg (28.0-32.0); Mean Corpuscular Volume 79.9 fL (80.0-100.0); Nucleated Red Blood Cells % 0.1 %
[2024-12-04 07:18] LABS: Alanine Aminotransferase 26 U/L (7-40); Anion Gap 11 (5-15); BUN/Creatinine Ratio 19.4 (10.0-20.0); Carbon Dioxide 28 mmol/L (20-31); Glucose 96 mg/dL (74-106); Magnesium 2.0 mg/dL (1.6-2.6); Potassium 3.9 mmol/L (3.5-5.1)
[2024-12-04 07:20] LABS: Albumin 2.4 g/dL (3.2-4.8); Alkaline Phosphatase 427 U/L (46-116); Bilirubin, Total 4.2 mg/dL (0.2-1.0); Blood Urea Nitrogen 33 mg/dL (9-23); Calcium 7.6 mg/dL (8.7-10.4); Chloride 96 mmol/L (98-107); Sodium 135 mmol/L (136-145); Total Protein 4.8 g/dL (5.7-8.2)
--- NOTE | 2024-12-04 12:16 | DVHPN2 ---
Progress Note - Dictate Date Seen: Dec 04, 2024 Has the PT tested + for MRSA If YES, has PT been informed?: No Medical Necessity Reason Pt with a Central, PICC or Fol: Yes Subjective No new complaints vital signs Vital Sign Date Time Temp Pulse Resp B/P (MAP) Pulse Ox O2 Delivery O2 Flow Rate FiO2 12/04/24 11:54 112 18 100 12/04/24 09:47 111/72 12/04/24 09:00 97.8 97.8 12/04/24 08:00 Nasal Cannula* 3 32 Total Intake and Output 12/03/24 12/03/24 12/04/24 15:00 23:00 07:00 Intake Total 67 ml 450 ml Balance 67 ml 450 ml medications Current Medications Medications Dose Ordered Sig/Aubrie Route Start Time Stop Time Status Last Admin Dose Admin Acetaminophen 325 mg Q4HP PRN PO 12/01/24 05:30 Ondansetron HCl 4 mg Q4HP PRN IV 12/01/24 05:30 12/03/24 14:27 4 MG Nitroglycerin 0.4 mg Q5MINP PRN SL 12/01/24 05:30 Furosemide 40 mg TID IV 12/01/24 06:00 12/04/24 05:49 40 MG Aspirin 81 mg DAILY PO 12/01/24 10:00 12/03/24 10:03 81 MG Gabapentin 300 mg TID PO 12/01/24 06:00 12/04/24 05:42 300 MG Pantoprazole Sodium 40 mg BID PO 12/01/24 10:00 12/04/24 09:17 40 MG Tamsulosin HCl 0.4 mg DAILY PO 12/01/24 10:00 12/04/24 09:17 0.4 MG Trazodone HCl 50 mg HS PO 12/01/24 22:00 12/03/24 21:49 50 MG Atorvastatin Calcium 40 mg DAILY PO 12/01/24 10:00 12/04/24 09:18 40 MG Levalbuterol HCl 0.625 mg Q6HR NEB 12/01/24 12:00 12/04/24 11:44 0.625 MG Ipratropium [place] 0.5 mg Q6HR NEB 12/01/24 12:00 12/04/24 11:44 0.5 MG Hydromorphone HCl 0.5 mg Q4HPRN PRN IV 12/01/24 11:15 12/04/24 09:17 0.5 MG Vancomycin HCl 0 ml @ 0 mls/hr UD IV 12/01/24 12:15 Diagnostic Test (Pha) 1 strip ACHS 12/02/24 07:00 12/04/24 05:47 1 STRIP Insulin Human Regular ACHS SC 12/02/24 07:00 12/03/24 12:01 2 UNITS Dextrose 50 ml UD PRN IV 12/01/24 22:15 Meropenem 50 ml @ 17 mls/hr Q8HR IV 12/02/24 14:00 12/04/24 05:40 17 MLS/HR Lactulose 30 ml BID PO 12/02/24 22:00 12/04/24 09:16 30 ML Rifaximin 550 mg BID PO 12/02/24 22:00 12/03/24 21:49 550 MG Metolazone 2.5 mg DAILY PO 12/04/24 10:00 12/04/24 09:18 2.5 MG Lorazepam 0.5 mg Q8HP PRN PO 12/03/24 23:00 12/03/24 23:09 0.5 MG objective GENERAL: The patient is an adult gentleman who appears to be chronically ill. HEENT: Unremarkable NECK: There is no jugular venous distention. LUNGS: Show bilateral crackles, scattered wheezing, and rhonchi. CARDIOVASCULAR: Shows mild tachycardia, a few extrasystoles, 1/6 systolic murmur. ABDOMEN: Soft, nontender. No organomegaly. EXTREMITIES: Show no clubbing or cyanosis. There is 1+ edema. Extremities otherwise unremarkable. NEUROLOGIC: Nonfocal. laboratory and microbiology Laboratory Tests 12/04/24 04:31 Test 12/04/24 04:31 Range/Units Serum Glucose 96 74-106 mg/dL Assessment/Plan ASSESSMENT AND PLAN: 1. ESRD, scheduled for HD tomorrow. Will monitor creatinine and urine output closely, creatinine remains low 2. Respiratory failure 3. NSTEMI 4. CHF exacerbation 5. Sepsis 6. Left leg wound infection 7. DM2 8. Anemia of CKD No HD until Friday IV antibiotics for pneumonia and possible UTI. Cardiology follow up Dietary Evaluation Review Comments: Nutrition Recommendation 1) Consider [facility] 75gm + renal standard diet 2) Nephro-margarita 1 tab daily 3) Steven 1 pk daily, zinc sulfate 220mg daily x 10 days 4) Monitor PO intake, lab values, weight trend, and I/O Expected Outcomes/Goals: To meet >75% estimated needs Wound to improve Lab values to improve Fu 3-5 days Plan discussed with: Patient NASREEN PEDERSON MD Dec 04, 2024 12:16
--- NOTE | 2024-12-04 14:27 | DVHPN2 ---
Subjective I am assuming the care of the patient from today onwards who was under the care of the [facility]. Detailed sign out obtained. Patient was seen and evaluated by me in the presence of bedside RN Shantel, chart reviewed. Patient complaining of abdominal distention. 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 Medications Current Medications Medications Dose Ordered Sig/Aubrie Route Start Time Stop Time Status Last Admin Dose Admin Acetaminophen 325 mg Q4HP PRN PO 12/01/24 05:30 Ondansetron HCl 4 mg Q4HP PRN IV 12/01/24 05:30 12/03/24 14:27 4 MG Nitroglycerin 0.4 mg Q5MINP PRN SL 12/01/24 05:30 Furosemide 40 mg TID IV 12/01/24 06:00 12/04/24 14:12 40 MG Aspirin 81 mg DAILY PO 12/01/24 10:00 12/03/24 10:03 81 MG Gabapentin 300 mg TID PO 12/01/24 06:00 12/04/24 14:12 300 MG Pantoprazole Sodium 40 mg BID PO 12/01/24 10:00 12/04/24 09:17 40 MG Tamsulosin HCl 0.4 mg DAILY PO 12/01/24 10:00 12/04/24 09:17 0.4 MG Trazodone HCl 50 mg HS PO 12/01/24 22:00 12/03/24 21:49 50 MG Atorvastatin Calcium 40 mg DAILY PO 12/01/24 10:00 12/04/24 09:18 40 MG Levalbuterol HCl 0.625 mg Q6HR NEB 12/01/24 12:00 12/04/24 11:44 0.625 MG Ipratropium [place] 0.5 mg Q6HR NEB 12/01/24 12:00 12/04/24 11:44 0.5 MG Hydromorphone HCl 0.5 mg Q4HPRN PRN IV 12/01/24 11:15 12/04/24 14:13 0.5 MG Vancomycin HCl 0 ml @ 0 mls/hr UD IV 12/01/24 12:15 Diagnostic Test (Pha) 1 strip ACHS 12/02/24 07:00 12/04/24 11:30 1 STRIP Insulin Human Regular ACHS SC 12/02/24 07:00 12/03/24 12:01 2 UNITS Dextrose 50 ml UD PRN IV 12/01/24 22:15 Meropenem 50 ml @ 17 mls/hr Q8HR IV 12/02/24 14:00 12/04/24 14:12 17 MLS/HR Lactulose 30 ml BID PO 12/02/24 22:00 12/04/24 09:16 30 ML Rifaximin 550 mg BID PO 12/02/24 22:00 12/03/24 21:49 550 MG Metolazone 2.5 mg DAILY PO 12/04/24 10:00 12/04/24 09:18 2.5 MG Lorazepam 0.5 mg Q8HP PRN PO 12/03/24 23:00 12/03/24 23:09 0.5 MG Laboratory Results Laboratory Tests 12/04/24 04:31 Chemistry Test 12/04/24 04:31 Albumin 2.4 g/dL (3.2-4.8) L Calcium Level 7.6 mg/dL (8.7-10.4) L Magnesium Level 2.0 mg/dL (1.6-2.6) Total Protein 4.8 g/dL (5.7-8.2) L LFT Test 12/04/24 04:31 Alanine Aminotransferase (ALT) 26 U/L (7-40) Alkaline Phosphatase 427 U/L (46-116) H Aspartate Amino Transferase (AST) 62 U/L (13-40) H Total Bilirubin 4.2 mg/dL (0.2-1.0) H Urinalysis Test 12/01/24 17:00 Urine Color Yellow (Yellow) Urine Clarity Turbid (Clear) H Urine pH 5.0 (5.0-9.0) Urine Specific [place] 1.012 (1.001-1.035) Urine Protein Negative (Negative) Urine Ketones Negative (Negative) Urine Blood Negative /uL (Negative) Urine Nitrite Negative (Negative) Urine Bilirubin Negative (Negative) Urine Urobilinogen Normal mg/dL (Negative) Urine Leukocyte Esterase Negative /uL (Negative) Urine RBC 1 /hpf (0 - 3) Urine Microscopic WBC 6 /HPF (0-3) H Urine Squamous Epithelial Cells Few /hpf (<5) Urine Bacteria Few /hpf (None Seen) H Urine Hyaline Casts Few /lpf (0 - 2) Urine Sperm Present /hpf (None Seen) Urine Glucose Normal mg/dL (Normal) Microbiology Microbiology Date/Time Source Procedure Growth Status 12/02/24 16:50 Foot Gram Stain - Final Resulted 12/02/24 16:50 Foot Wound Culture - Preliminary Resulted 12/01/24 17:00 Voided Urine Urine Culture - Final Complete 12/01/24 07:24 Blood Blood Culture - Preliminary NO GROWTH AFTER 72 HOURS OF INCUBATION. Resulted Assessment/Plan Assessment/Plan 49-year-old male with a known history of end-stage renal disease on hemodialysis, diabetes mellitus type 2, congestive heart failure with systolic dysfunction, chronic respiratory failure on home O2, CAD status post CABG, status post PCI, peripheral vascular disease status post bilateral stents in the legs, hypertension, COPD presented to the hospital with increasing shortness of breaths found to have 1. Acute on chronic congestive heart failure with systolic dysfunction 2. Fluid overload with missed hemodialysis, status post hemodialysis 3. End-stage renal disease on hemodialysis 4. NSTEMI type 2 5. CAD status post CABG, status post PCI 6. Hypertension 7. COPD not in exacerbation 8. Suspected pneumonia likely Gram-positive and Gram-negative currently on IV antibiotics 9. Abdominal distention, IR consult for possible paracentesis 10. Chronic insomnia -hemodialysis per renal, IR consult for paracentesis, continue current management. Plan discussed with: Patient, Spouse My Orders Orders - VIANNEY EM MD Procedure Category Date Status Time * Radiologist Consult CONS 12/04/24 Transmitted 12:48 Date of Service: Dec 04, 2024 Billing Provider: VIANNEY EM MD Common Visit Codes: [id number] INP/OBS CARE(MOD) VIANNEY EM MD Dec 04, 2024 14:27
--- NOTE | 2024-12-04 18:36 | DVH ---
CLINICAL INDICATION: FALL TECHNIQUE: 2 radiographic views of the right knee were obtained. Comparison: None FINDINGS/IMPRESSION: Slight narrowing of the medial compartment of the right knee is seen. No fracture or dislocation No joint effusion
--- NOTE | 2024-12-04 18:57 | DVHPN2 ---
Progress Note - Dictate Date Seen: Dec 04, 2024 Has the PT tested + for MRSA If YES, has PT been informed?: No Medical Necessity Reason Pt with a Central, PICC or Fol: Yes vital signs Vital Sign Date Time Temp Pulse Resp B/P (MAP) Pulse Ox O2 Delivery O2 Flow Rate FiO2 12/04/24 17:00 98.6 114 17 121/89 (100) 96 98.6 12/04/24 10:00 Nasal Cannula* 3 32 Total Intake and Output 12/03/24 12/03/24 12/04/24 15:00 23:00 07:00 Intake Total 67 ml 450 ml Balance 67 ml 450 ml medications Current Medications Medications Dose Ordered Sig/Aubrie Route Start Time Stop Time Status Last Admin Dose Admin Acetaminophen 325 mg Q4HP PRN PO 12/01/24 05:30 Ondansetron HCl 4 mg Q4HP PRN IV 12/01/24 05:30 12/03/24 14:27 4 MG Nitroglycerin 0.4 mg Q5MINP PRN SL 12/01/24 05:30 Furosemide 40 mg TID IV 12/01/24 06:00 12/04/24 14:12 40 MG Aspirin 81 mg DAILY PO 12/01/24 10:00 12/03/24 10:03 81 MG Gabapentin 300 mg TID PO 12/01/24 06:00 12/04/24 14:12 300 MG Pantoprazole Sodium 40 mg BID PO 12/01/24 10:00 12/04/24 09:17 40 MG Tamsulosin HCl 0.4 mg DAILY PO 12/01/24 10:00 12/04/24 09:17 0.4 MG Trazodone HCl 50 mg HS PO 12/01/24 22:00 12/03/24 21:49 50 MG Atorvastatin Calcium 40 mg DAILY PO 12/01/24 10:00 12/04/24 09:18 40 MG Levalbuterol HCl 0.625 mg Q6HR NEB 12/01/24 12:00 12/04/24 11:44 0.625 MG Ipratropium [place] 0.5 mg Q6HR NEB 12/01/24 12:00 12/04/24 11:44 0.5 MG Hydromorphone HCl 0.5 mg Q4HPRN PRN IV 12/01/24 11:15 12/04/24 14:13 0.5 MG Vancomycin HCl 0 ml @ 0 mls/hr UD IV 12/01/24 12:15 Diagnostic Test (Pha) 1 strip ACHS 12/02/24 07:00 12/04/24 17:00 1 STRIP Insulin Human Regular ACHS SC 12/02/24 07:00 12/03/24 12:01 2 UNITS Dextrose 50 ml UD PRN IV 12/01/24 22:15 Meropenem 50 ml @ 17 mls/hr Q8HR IV 12/02/24 14:00 12/04/24 14:12 17 MLS/HR Lactulose 30 ml BID PO 12/02/24 22:00 12/04/24 09:16 30 ML Rifaximin 550 mg BID PO 12/02/24 22:00 12/03/24 21:49 550 MG Metolazone 2.5 mg DAILY PO 12/04/24 10:00 12/04/24 09:18 2.5 MG Lorazepam 0.5 mg Q8HP PRN PO 12/03/24 23:00 12/03/24 23:09 0.5 MG laboratory and microbiology Laboratory Tests 12/04/24 04:31 Test 12/04/24 04:31 Range/Units Serum Glucose 96 74-106 mg/dL Assessment/Plan Impression Acute hypoxemic respiratory failure Poorly controlled diabetes Sepsis UTI Patient seen and examined Events Low oxygen requirements On 4 liters nasal cannula No distress Labs and imaging reviewed Management Supplemental oxygen Titrate to maintain sats 90% or above Incentive spirometry Continue antibiotics F/u cultures Bronchodilators Monitor renal function Monitor electrolytes Supplement as needed Okay to discharge from pulmonary standpoint DVT prophylaxis Dietary Evaluation Review Comments: Nutrition Recommendation 1) Consider CCHO 75gm + renal standard diet 2) Nephro-margarita 1 tab daily 3) Steven 1 pk daily, zinc sulfate 220mg daily x 10 days 4) Monitor PO intake, lab values, weight trend, and I/O Expected Outcomes/Goals: To meet >75% estimated needs Wound to improve Lab values to improve Fu 3-5 days Plan discussed with: Patient SANA SEGAL MD Dec 04, 2024 18:57
[2024-12-05] VITALS (18 sets, daily range): BP systolic 99–144; BP diastolic 54–99; PULSE 95–113; RESP 14–20; TEMP 97.6–98.6; O2SAT 94–100
[2024-12-05 05:44] LABS: Hematocrit 31.4 % (41.0-53.0); Hemoglobin 10.6 g/dL (13.5-17.5); Mean Corpuscular Hemoglobin 27.0 pg (28.0-32.0); Mean Corpuscular Volume 80.3 fL (80.0-100.0); Nucleated Red Blood Cells % 0.0 %
[2024-12-05] MEDS ORDERED: SODIUM CHL 0.9% 1000 ML BAG XX ONE (11:15)
--- NOTE | 2024-12-05 11:18 | DVHPN2 ---
Progress Note - Dictate Date Seen: Dec 05, 2024 Has the PT tested + for MRSA If YES, has PT been informed?: No Medical Necessity Reason Pt with a Central, PICC or Fol: Yes Subjective Seems confused, restless vital signs Vital Sign Date Time Temp Pulse Resp B/P (MAP) Pulse Ox O2 Delivery O2 Flow Rate FiO2 12/05/24 11:09 95 14 100 12/05/24 09:54 112/81 12/05/24 09:00 98.6 98.6 12/05/24 05:58 Nasal Cannula 4.0 12/05/24 05:58 36 Total Intake and Output 12/04/24 12/04/24 12/05/24 15:00 23:00 07:00 Intake Total 525 ml 290 ml Output Total 120 ml Balance 525 ml 170 ml medications Current Medications Medications Dose Ordered Sig/Aubrie Route Start Time Stop Time Status Last Admin Dose Admin Acetaminophen 325 mg Q4HP PRN PO 12/01/24 05:30 Ondansetron HCl 4 mg Q4HP PRN IV 12/01/24 05:30 12/03/24 14:27 4 MG Nitroglycerin 0.4 mg Q5MINP PRN SL 12/01/24 05:30 Furosemide 40 mg TID IV 12/01/24 06:00 12/05/24 06:02 40 MG Aspirin 81 mg DAILY PO 12/01/24 10:00 12/05/24 09:55 81 MG Gabapentin 300 mg TID PO 12/01/24 06:00 12/05/24 05:24 300 MG Pantoprazole Sodium 40 mg BID PO 12/01/24 10:00 12/05/24 09:54 40 MG Tamsulosin HCl 0.4 mg DAILY PO 12/01/24 10:00 12/05/24 09:55 0.4 MG Trazodone HCl 50 mg HS PO 12/01/24 22:00 12/04/24 21:30 50 MG Atorvastatin Calcium 40 mg DAILY PO 12/01/24 10:00 12/05/24 09:54 40 MG Levalbuterol HCl 0.625 mg Q6HR NEB 12/01/24 12:00 12/05/24 10:58 0.625 MG Ipratropium [place] 0.5 mg Q6HR NEB 12/01/24 12:00 12/05/24 10:58 0.5 MG Hydromorphone HCl 0.5 mg Q4HPRN PRN IV 12/01/24 11:15 12/04/24 21:30 0.5 MG Vancomycin HCl 0 ml @ 0 mls/hr UD IV 12/01/24 12:15 Diagnostic Test (Pha) 1 strip ACHS 12/02/24 07:00 12/05/24 06:28 1 STRIP Insulin Human Regular ACHS SC 12/02/24 07:00 12/03/24 12:01 2 UNITS Dextrose 50 ml UD PRN IV 12/01/24 22:15 Meropenem 50 ml @ 17 mls/hr Q8HR IV 12/02/24 14:00 12/05/24 05:23 17 MLS/HR Lactulose 30 ml BID PO 12/02/24 22:00 12/05/24 09:55 30 ML Rifaximin 550 mg BID PO 12/02/24 22:00 12/04/24 21:31 550 MG Metolazone 2.5 mg DAILY PO 12/04/24 10:00 12/05/24 09:54 2.5 MG Lorazepam 0.5 mg Q8HP PRN PO 12/03/24 23:00 12/05/24 06:29 0.5 MG objective GENERAL: The patient is an adult gentleman who appears to be chronically ill. HEENT: Unremarkable NECK: There is no jugular venous distention. LUNGS: Show bilateral crackles, scattered wheezing, and rhonchi. CARDIOVASCULAR: Shows mild tachycardia, a few extrasystoles, 1/6 systolic murmur. ABDOMEN: Soft, nontender. No organomegaly. EXTREMITIES: Show no clubbing or cyanosis. There is 1+ edema. Extremities otherwise unremarkable. NEUROLOGIC: Nonfocal. laboratory and microbiology Laboratory Tests 12/05/24 04:03 12/04/24 04:31 Test 12/04/24 04:31 Range/Units Serum Glucose 96 74-106 mg/dL Assessment/Plan ASSESSMENT AND PLAN: 1. ESRD, scheduled for HD today. He is unable to tell me where is his HD center and how long he/s been on dialysis. His low creatinine could inficate he has regained some renal function but we'll need to do a 24 h urine collection. Will monitor creatinine and urine output closely 2. Respiratory failure, extubated 3. NSTEMI 4. CHF exacerbation 5. Sepsis 6. Left leg wound infection 7. DM2 8. Anemia of CKD 9. Pneumonia HD today IV antibiotics for pneumonia and possible UTI. Cardiology follow up Dietary Evaluation Review Comments: Nutrition Recommendation 1) Consider CCHO 75gm + renal standard diet 2) Nephro-margarita 1 tab daily 3) Steven 1 pk daily, zinc sulfate 220mg daily x 10 days 4) Monitor PO intake, lab values, weight trend, and I/O Expected Outcomes/Goals: To meet >75% estimated needs Wound to improve Lab values to improve Fu 3-5 days Plan discussed with: Patient NASREEN PEDERSON MD Dec 05, 2024 11:18
--- NOTE | 2024-12-05 13:25 | DVHPN2 ---
Subjective Patient was seen and evaluated by me in the presence of bedside RN Melissa lee reviewed. Patient complaining of abdominal distention. Family updated at bedside. Changes from previous H/P or p: No Changes Objective Vitals Vital Signs Date Time Temp Pulse Resp B/P (MAP) Pulse Ox O2 Delivery O2 Flow Rate FiO2 12/05/24 11:09 95 14 100 12/05/24 10:00 Nasal Cannula* 4 36 12/05/24 09:54 112/81 12/05/24 09:00 98.6 98.6 Intake/Output Intake and Output 12/05/24 07:00 Intake Total 815 ml Output Total 120 ml Balance 695 ml Intake Oral 765 ml IV Total 50 ml Output Urine Total 120 ml # Voids 2 # Bowel Movements 1 Exam HEENT pupils are reactive Neck is supple CV is S1-S2 regular rate and rhythm Respiratory diminished BS on bases GI positive bowel sounds soft positive distention without any tenderness or guarding or rigidity Extremity no edema [employer] no motor deficits Medications Current Medications Medications Dose Ordered Sig/Aubrie Route Start Time Stop Time Status Last Admin Dose Admin Acetaminophen 325 mg Q4HP PRN PO 12/01/24 05:30 Ondansetron HCl 4 mg Q4HP PRN IV 12/01/24 05:30 12/03/24 14:27 4 MG Nitroglycerin 0.4 mg Q5MINP PRN SL 12/01/24 05:30 Furosemide 40 mg TID IV 12/01/24 06:00 12/05/24 06:02 40 MG Aspirin 81 mg DAILY PO 12/01/24 10:00 12/05/24 09:55 81 MG Gabapentin 300 mg TID PO 12/01/24 06:00 12/05/24 05:24 300 MG Pantoprazole Sodium 40 mg BID PO 12/01/24 10:00 12/05/24 09:54 40 MG Tamsulosin HCl 0.4 mg DAILY PO 12/01/24 10:00 12/05/24 09:55 0.4 MG Trazodone HCl 50 mg HS PO 12/01/24 22:00 12/04/24 21:30 50 MG Atorvastatin Calcium 40 mg DAILY PO 12/01/24 10:00 12/05/24 09:54 40 MG Levalbuterol HCl 0.625 mg Q6HR NEB 12/01/24 12:00 12/05/24 10:58 0.625 MG Ipratropium [place] 0.5 mg Q6HR NEB 12/01/24 12:00 12/05/24 10:58 0.5 MG Hydromorphone HCl 0.5 mg Q4HPRN PRN IV 12/01/24 11:15 12/04/24 21:30 0.5 MG Vancomycin HCl 0 ml @ 0 mls/hr UD IV 12/01/24 12:15 Diagnostic Test (Pha) 1 strip ACHS 12/02/24 07:00 12/05/24 11:30 1 STRIP Insulin Human Regular ACHS SC 12/02/24 07:00 12/03/24 12:01 2 UNITS Dextrose 50 ml UD PRN IV 12/01/24 22:15 Meropenem 50 ml @ 17 mls/hr Q8HR IV 12/02/24 14:00 12/05/24 05:23 17 MLS/HR Lactulose 30 ml BID PO 12/02/24 22:00 12/05/24 09:55 30 ML Rifaximin 550 mg BID PO 12/02/24 22:00 12/04/24 21:31 550 MG Metolazone 2.5 mg DAILY PO 12/04/24 10:00 12/05/24 09:54 2.5 MG Lorazepam 0.5 mg Q8HP PRN PO 12/03/24 23:00 12/05/24 06:29 0.5 MG Laboratory Results Laboratory Tests 12/04/24 04:31 12/05/24 04:03 Urinalysis Test 12/01/24 17:00 Urine Color Yellow (Yellow) Urine Clarity Turbid (Clear) H Urine pH 5.0 (5.0-9.0) Urine Specific [place] 1.012 (1.001-1.035) Urine Protein Negative (Negative) Urine Ketones Negative (Negative) Urine Blood Negative /uL (Negative) Urine Nitrite Negative (Negative) Urine Bilirubin Negative (Negative) Urine Urobilinogen Normal mg/dL (Negative) Urine Leukocyte Esterase Negative /uL (Negative) Urine RBC 1 /hpf (0 - 3) Urine Microscopic WBC 6 /HPF (0-3) H Urine Squamous Epithelial Cells Few /hpf (<5) Urine Bacteria Few /hpf (None Seen) H Urine Hyaline Casts Few /lpf (0 - 2) Urine Sperm Present /hpf (None Seen) Urine Glucose Normal mg/dL (Normal) Microbiology Microbiology Date/Time Source Procedure Growth Status 12/02/24 16:50 Foot Gram Stain - Final Resulted 12/02/24 16:50 Wound Culture - Preliminary Methicillin Resistant S.aureus Resulted 12/01/24 17:00 Voided Urine Urine Culture - Final Complete 12/01/24 07:24 Blood Blood Culture - Preliminary NO GROWTH AFTER 72 HOURS OF INCUBATION. Resulted Assessment/Plan Assessment/Plan 49-year-old male with a known history of end-stage renal disease on hemodialysis, diabetes mellitus type 2, congestive heart failure with systolic dysfunction, chronic respiratory failure on home O2, CAD status post CABG, status post PCI, peripheral vascular disease status post bilateral stents in the legs, hypertension, COPD presented to the hospital with increasing shortness of breaths found to have 1. Acute on chronic congestive heart failure with systolic dysfunction 2. Fluid overload with missed hemodialysis, status post hemodialysis 3. End-stage renal disease on hemodialysis 4. NSTEMI type 2 5. CAD status post CABG, status post PCI 6. Hypertension 7. COPD not in exacerbation 8. Suspected pneumonia likely Gram-positive and Gram-negative currently on IV antibiotics 9. Abdominal distention, IR consult for possible paracentesis 10. Chronic insomnia 1. Acute metabolic encephalopathy -hemodialysis per renal, IR consult for paracentesis, continue current management. Plan discussed with: Patient, Spouse My Orders Orders - VIANNEY EM MD Procedure Category Date Status Time R Knee 2v Xray XY 12/04/24 Resulted 17:36 Date of Service: Dec 05, 2024 Billing Provider: VIANNEY EM MD Common Visit Codes: [id number] INP/OBS CARE(MOD) VIANNEY EM MD Dec 05, 2024 13:25
--- NOTE | 2024-12-05 15:34 | DVHPN2 ---
Progress Note - Dictate Date Seen: Dec 05, 2024 Medical Necessity Reason Pt with a Central, PICC or Fol: Yes vital signs Vital Sign Date Time Temp Pulse Resp B/P (MAP) Pulse Ox O2 Delivery O2 Flow Rate FiO2 12/05/24 15:18 87 23 150/99 12/05/24 13:00 97.6 98 97.6 12/05/24 10:00 Nasal Cannula* 4 36 Total Intake and Output 12/04/24 12/04/24 12/05/24 15:00 23:00 07:00 Intake Total 525 ml 290 ml Output Total 120 ml Balance 525 ml 170 ml medications Current Medications Medications Dose Ordered Sig/Aubrie Route Start Time Stop Time Status Last Admin Dose Admin Acetaminophen 325 mg Q4HP PRN PO 12/01/24 05:30 Ondansetron HCl 4 mg Q4HP PRN IV 12/01/24 05:30 12/03/24 14:27 4 MG Nitroglycerin 0.4 mg Q5MINP PRN SL 12/01/24 05:30 Furosemide 40 mg TID IV 12/01/24 06:00 12/05/24 06:02 40 MG Aspirin 81 mg DAILY PO 12/01/24 10:00 12/05/24 09:55 81 MG Gabapentin 300 mg TID PO 12/01/24 06:00 12/05/24 14:17 300 MG Pantoprazole Sodium 40 mg BID PO 12/01/24 10:00 12/05/24 09:54 40 MG Tamsulosin HCl 0.4 mg DAILY PO 12/01/24 10:00 12/05/24 09:55 0.4 MG Trazodone HCl 50 mg HS PO 12/01/24 22:00 12/04/24 21:30 50 MG Atorvastatin Calcium 40 mg DAILY PO 12/01/24 10:00 12/05/24 09:54 40 MG Levalbuterol HCl 0.625 mg Q6HR NEB 12/01/24 12:00 12/05/24 10:58 0.625 MG Ipratropium [place] 0.5 mg Q6HR NEB 12/01/24 12:00 12/05/24 10:58 0.5 MG Hydromorphone HCl 0.5 mg Q4HPRN PRN IV 12/01/24 11:15 12/05/24 15:18 0.5 MG Vancomycin HCl 0 ml @ 0 mls/hr UD IV 12/01/24 12:15 Diagnostic Test (Pha) 1 strip ACHS 12/02/24 07:00 12/05/24 11:30 1 STRIP Insulin Human Regular ACHS SC 12/02/24 07:00 12/03/24 12:01 2 UNITS Dextrose 50 ml UD PRN IV 12/01/24 22:15 Meropenem 50 ml @ 17 mls/hr Q8HR IV 12/02/24 14:00 12/05/24 05:23 17 MLS/HR Lactulose 30 ml BID PO 12/02/24 22:00 12/05/24 09:55 30 ML Rifaximin 550 mg BID PO 12/02/24 22:00 12/04/24 21:31 550 MG Metolazone 2.5 mg DAILY PO 12/04/24 10:00 12/05/24 09:54 2.5 MG Lorazepam 0.5 mg Q8HP PRN PO 12/03/24 23:00 12/05/24 14:17 0.5 MG laboratory and microbiology Laboratory Tests 12/05/24 04:03 12/04/24 04:31 Test 12/04/24 04:31 Range/Units Serum Glucose 96 74-106 mg/dL Assessment/Plan Impression Acute hypoxemic respiratory failure Poorly controlled diabetes Sepsis UTI Patient seen and examined Events Low oxygen requirements On 4 liters nasal cannula No acute events Labs and imaging reviewed Management Supplemental oxygen Titrate to maintain sats 90% or above Incentive spirometry Continue antibiotics F/u cultures Bronchodilators Monitor renal function Monitor electrolytes Supplement as needed Okay to discharge from pulmonary standpoint DVT prophylaxis Dietary Evaluation Review Comments: Nutrition Recommendation 1) Consider CCHO 75gm + renal standard diet 2) Nephro-margarita 1 tab daily 3) Steven 1 pk daily, zinc sulfate 220mg daily x 10 days 4) Monitor PO intake, lab values, weight trend, and I/O Expected Outcomes/Goals: To meet >75% estimated needs Wound to improve Lab values to improve Fu 3-5 days Plan discussed with: Patient SANA SEGAL MD Dec 05, 2024 15:34
[2024-12-05] MEDS: VANCOMYCIN 500mg/100mL 100 ML IV ONE (18:55)
[2024-12-06] VITALS (16 sets, daily range): BP systolic 103–136; BP diastolic 70–91; PULSE 78–109; RESP 16–24; TEMP 95.4–97.1; O2SAT 93–100
--- NOTE | 2024-12-06 05:46 | DVHPNRES ---
Progress Note Date Seen: Dec 06, 2024 Resident Creating Document: JOHNNY HOFFMAN RESDIENT Medical Necessity Reason Pt with a Central, PICC or Fol: Yes Subjective Review of Systems This is a 49-year-old male with past medical history of ESRD (on maintenance hemodialysis, Friday, Friday, and ), diabetes type 2, HFrEF (with the LVEF 30%, on home oxygen 4 L), coronary artery disease (status post CABG in 2020 and PCI in 2021), PID (status post stent placement on bilateral femoral artery) hypertension, dyslipidemia, and and COPD came to the hospital due to shortness of breaths since last night. He also reports of orthopnea, abdominal pain, chest discomfort, palpitation, dysuria, chills and nausea. He denies fever, incomplete PMHx: ESRD (on maintenance hemodialysis, Friday, Friday, and ), diabetes type 2, HFrEF (with the LVEF 30%, on home oxygen 4 L), coronary artery disease (status post CABG in 2020 and PCI in 2021), PID (status post stent placement on bilateral femoral artery) hypertension, dyslipidemia, and and COPD, liver cirrhosis PSHx: CABG, right-sided tunneled catheter placement 20 days back, and PCI Social history: Denies smoking, alcohol or any other drug use. Lives his (which is next of kin), and [place]. Uses walker and wheelchair for mobility. Does not work, on disability. Home medication: Lasix 20 mg b.i.d., sucralfate, tamsulosin, carvedilol, and aspirin, per patient's he is compliant with medicine. He was previously using insulin and metformin for diabetes, which has stopped using due to controlled glucose level. Allergic history: Today, patient seen and examined at bedside. Patient is feeling better. Objective vital signs Vital Sign Date Time Temp Pulse Resp B/P (MAP) Pulse Ox O2 Delivery O2 Flow Rate FiO2 12/06/24 05:00 106 22 110/70 (83) 93 12/05/24 20:00 Nasal Cannula* 4 36 12/05/24 17:00 97.9 97.9 Total Intake and Output 12/05/24 12/05/24 12/06/24 15:00 23:00 07:00 Intake Total 50 ml 100 ml 1020 ml Output Total 20 ml Balance 50 ml 100 ml 1000 ml medications Current Medications Medications Dose Ordered Sig/Aubrie Route Start Time Stop Time Status Last Admin Dose Admin Acetaminophen 325 mg Q4HP PRN PO 12/01/24 05:30 Ondansetron HCl 4 mg Q4HP PRN IV 12/01/24 05:30 12/03/24 14:27 4 MG Nitroglycerin 0.4 mg Q5MINP PRN SL 12/01/24 05:30 Furosemide 40 mg TID IV 12/01/24 06:00 12/05/24 06:02 40 MG Aspirin 81 mg DAILY PO 12/01/24 10:00 12/05/24 09:55 81 MG Gabapentin 300 mg TID PO 12/01/24 06:00 12/05/24 22:30 300 MG Pantoprazole Sodium 40 mg BID PO 12/01/24 10:00 12/05/24 22:30 40 MG Tamsulosin HCl 0.4 mg DAILY PO 12/01/24 10:00 12/05/24 09:55 0.4 MG Trazodone HCl 50 mg HS PO 12/01/24 22:00 12/05/24 22:29 50 MG Atorvastatin Calcium 40 mg DAILY PO 12/01/24 10:00 12/05/24 09:54 40 MG Levalbuterol HCl 0.625 mg Q6HR NEB 12/01/24 12:00 12/06/24 00:44 0.625 MG Ipratropium [place] 0.5 mg Q6HR NEB 12/01/24 12:00 12/06/24 00:44 0.5 MG Hydromorphone HCl 0.5 mg Q4HPRN PRN IV 12/01/24 11:15 12/05/24 15:18 0.5 MG Vancomycin HCl 0 ml @ 0 mls/hr UD IV 12/01/24 12:15 Diagnostic Test (Pha) 1 strip ACHS 12/02/24 07:00 12/05/24 22:00 1 STRIP Insulin Human Regular ACHS SC 12/02/24 07:00 12/03/24 12:01 2 UNITS Dextrose 50 ml UD PRN IV 12/01/24 22:15 Meropenem 50 ml @ 17 mls/hr Q8HR IV 12/02/24 14:00 12/05/24 05:23 17 MLS/HR Lactulose 30 ml BID PO 12/02/24 22:00 12/05/24 09:55 30 ML Rifaximin 550 mg BID PO 12/02/24 22:00 12/05/24 22:30 550 MG Metolazone 2.5 mg DAILY PO 12/04/24 10:00 12/05/24 09:54 2.5 MG Lorazepam 0.5 mg Q8HP PRN PO 12/03/24 23:00 12/05/24 22:29 0.5 MG Examination General Appearance: Alert, Oriented X3, Cooperative, in moderate respiratory distress, can not speak in full sentences HEENT: Atraumatic, PERRLA, EOMI, Mucous membrane moist/pink Respiratory: Bilateral mid zone crackles, absent breath sounds on lower zone Cardiovascular: Regular rate, Normal S1, Normal S2, No murmurs, no chest wall tenderness Abdominal: Mild abdominal tenderness Extremities: Bilateral grade 1 pedal edema Skin: 6 x 3 cm open ulcer on dorsal surface of left leg, with scant amount of purulent discharge Neuro: Normal gait, Normal speech, Strength at 5/5 X4 ext, Normal tone, Sensation intact, Cranial nerves 3-12 NL, Reflexes 2+ Psych/Mental Status: Mental status NL, Mood NL laboratory and microbiology Laboratory Tests 12/05/24 04:03 12/04/24 04:31 Test 12/04/24 04:31 Range/Units Serum Glucose 96 74-106 mg/dL Microbiology Date/Time Source Procedure Growth Status 12/02/24 16:50 Foot Gram Stain - Final Resulted 12/02/24 16:50 Wound Culture - Preliminary Methicillin Resistant S.aureus Resulted 12/01/24 17:00 Voided Urine Urine Culture - Final Complete 12/01/24 07:24 Blood Blood Culture - Preliminary NO GROWTH AFTER 72 HOURS OF INCUBATION. Resulted Labs and/or images reviewed: Image(s) reviewed by me Problem List/Assessment/Plan Problem List/Assessment/Plan This is a 49-year-old male with past medical history of ESRD (on maintenance hemodialysis, Friday, Friday, and ), diabetes type 2, HFrEF (with the LVEF 30%, on home oxygen 4 L), coronary artery disease (status post CABG in 2020 and PCI in 2021), PID (status post stent placement on bilateral femoral artery) hypertension, dyslipidemia, and and COPD came to the hospital due to shortness of breaths, abdominal pain, chest discomfort, palpitation, dysuria, chills and nausea. Admitted on 12/01. NEURO: Insomnia * Plan: Trazodone CARDIOVASCULAR: Cardiogenic shock Acute on chronic systolic heart failure Volume overload, likely due to heart failure/missed dialysis Hypertension Dyslipidemia Coronary artery disease, status post PCI/CABG NSTEMI, likely type 2, due to above * EKGs shows partial RBBB with poor R-wave progression, no significant ST or T- wave changes * Echo shows dilated ventricle with EF 30% * Chest x-ray shows bilateral lower zone infiltration with Lantus with the ankle * Serial trop I is raised at 60s to 90s, BNP is raised >5000 * Plan: Aspirin, atorvastatin, Lasix 40 mg t.i.d., dialysis RESPIRATORY: Acute on chronic hypoxic respiratory failure, likely due to heart failure/volume overload/pneumonia Possible pneumonia, likely due to Gram-positive/Gram-negative bacteria. Pleural effusion, moderate COPD * Plan: IV antibiotic, diuretics, and breathing treatment, consulted Radiology for thoracentesis of left-sided pleural effusion GENITOURINARY/FLUID: ESRD, on maintenance hemodialysis, missed last 3 cessation BPH * Plan: IV diuretic, Flomax, dialysis performed on 12/01 and 12/03 GASTROINTESTINAL/NUTRITION: Moderate protein malnutrition Possible diabetic gastroparesis Liver cirrhosis * Plan: Protonix and Zofran, rifaximin INFECTIOUS DISEASE: Septic shock, due to sepsis Sepsis, likely due to pneumonia/wound infection * Plan: Panculture, meropenem (12/01), vancomycin 12/01 HEMATOLOGY: Mild anemia, due to ESRD ENDOCRINE: Diabetes type 2 , A1c is 7.4 METABOLIC: Hyperkalemia MSK/SKIN: Diabetic foot * Plan: Wound culture, wound consult, IV antibiotic DIET: Renal diet DVT prophylax: On heparin GI prophylaxis: Protonix Bowel regimen: Lactulose LINES/DEVICES IV access: Tunneled catheter to right IJ Drips: Levophed Disposition: Continue ICU status Family: Patients updated at the bedside. Critical care time: Spent > 41 min, spent in direct critical care, including evaluation, management, review of labs/imaging, and multidisciplinary/family discussions, (excluding any procedures). Case discussed with Dr. Graves Plan discussed with: Other My Orders My Orders Orders - JOHNNY HOFFMAN Procedure Category Date Status Time Complete Blood Count LAB 12/06/24 Logged 04:00 Vancomycin,Random LAB 12/06/24 Logged 04:00 Dietary Evaluation Review Comments: Nutrition Recommendation 1) Consider CCHO 75gm + renal standard diet 2) Nephro-margarita 1 tab daily 3) Steven 1 pk daily, zinc sulfate 220mg daily x 10 days 4) Monitor PO intake, lab values, weight trend, and I/O Expected Outcomes/Goals: To meet >75% estimated needs Wound to improve Lab values to improve Fu 3-5 days Date of Service: Dec 07, 2024 Billing Provider: MELANIE GRAVES MD Common Visit Codes: [id number] CARE 30-74 MIN JOHNNY HOFFMAN Dec 06, 2024 05:46 MELANIE GRAVES MD Dec 07, 2024 15:41
--- NOTE | 2024-12-06 08:30 | DVH ---
CHEST RADIOGRAPH Indication: Pneumonia Technique: Single frontal view of the chest was obtained Comparison: XY CHEST XRAY 1 VIEW on DOS: 12/03/24, XY CHEST XRAY 1 VIEW on DOS: 12/02/24, XY CHEST PORT ABLE on DOS: 12/01/24, XY CHEST XRAY 1 VIEW on DOS: 10/08/24, XY CHEST PORTABLE on DOS: 10/05/24, XY CHEST XRAY 1 VIEW on DOS: 12/03/24 FINDINGS: Lines and Tubes: Tunneled right central venous catheter in satisfactory position. Lungs: Pulmonary edema. Pleura: Moderate bilateral pleural effusions. Cardiomediastinal contours: Cardiomegaly. Bones: Unremarkable. IMPRESSION: No significant interval change.
--- NOTE | 2024-12-06 09:11 | DVH ---
Bilateral Chest and at Sonogram Date: 12/06/2024 08:17 AM Clinical history: FLUID CHECK FOR POSSIBLE PARACENTESIS Findings: No fluid seen in the abdomen. Small bilateral pleural effusions. IMPRESSION: No fluid seen in the abdomen. Small bilateral pleural effusions. END IMPRESSION:
[2024-12-06] MEDS: PANTOPRAZOLE 40 MG TAB PO SCH (09:40)
--- NOTE | 2024-12-06 09:51 | DVH ---
Exam: CT CHST AB PEL WO CON-NO IV/ORAL History: Abdominal distension Comparison Study: XY CHEST XRAY 1 VIEW on DOS: 12/06/24, XY CHEST XRAY 1 VIEW on DOS: 12/03/24, XY CHES T XRAY 1 VIEW on DOS: 12/02/24, XY CHEST PORTABLE on DOS: 12/01/24, CT CT AB PEL WO CON-NO ORAL OR IV o n DOS: 10/21/24 Technique: Multidetector spiral CT of the chest, abdomen and pelvis was performed from lower neck to pubic symphysis Axial, coronal and sagittal multiplanar reformats were performed by the technologist on a separate workstation. Radiation Dose : Chest/Abdomen/Pelvis: CTDIvol 17.9 mGy, DLP 1292.24 mGy*cm. Findings: Lower neck: Normal thyroid. Lungs: Diffuse interlobular septal thickening with hazy ground glass opacity throughout both lungs. M oderate passive atelectatic changes throughout both lower lobes with near complete collapse of the le ft lower lobe. Heart/Vascular Structures: Previous anatomy. Severe coronary calcifications. Multi chamber cardiac en largement. Trace pericardial fluid. Lymph Nodes: No adenopathy Pleura: Moderate bilateral pleural effusions, increased when compared to the prior study. Liver: Liver appears cirrhotic. Gallbladder and biliary Tree: Unremarkable Spleen: Enlarged measuring 14.6 cm. Pancreas: The pancreas is normal in appearance without focal lesions. Adrenal Glands: Unremarkable Kidneys: Unremarkable. Bladder: Unremarkable Bowel: The stomach is grossly normal in appearance. Small bowel and colon are normal in caliber and d istribution. The appendix is not visualized; however, no secondary findings of acute appendicitis id entified. Ascites: Trace ascites. Lymphadenopathy: No mesenteric, retroperitoneal or periportal lymphadenopathy. Abdominal wall and Mesentery: Diffuse soft tissue edema. Vasculature: Moderate aortoiliac vascular calcifications. Pelvic Organs: Unremarkable Musculoskeletal: No aggressive focal bony lesions, acute fractures or dislocation. IMPRESSION: Cardiomegaly with moderate bilateral pleural effusions and underlying pulmonary edema. Diffuse soft tissue edema suggesting anasarca. Cirrhotic appearing liver with only a small volume of insides. Splenomegaly.
[2024-12-06 10:13] LABS: Hematocrit 32.4 % (41.0-53.0); Hemoglobin 10.8 g/dL (13.5-17.5); Mean Corpuscular Hemoglobin 26.7 pg (28.0-32.0); Mean Corpuscular Volume 80.2 fL (80.0-100.0)
[2024-12-06 10:25] LABS: Total Cells Counted 100.0 (100)
[2024-12-06 10:36] LABS: Anion Gap 9 (5-15); Carbon Dioxide 29 mmol/L (20-31); Potassium 3.8 mmol/L (3.5-5.1)
[2024-12-06 10:38] LABS: Calcium 8.2 mg/dL (8.7-10.4); Chloride 95 mmol/L (98-107); Sodium 133 mmol/L (136-145)
[2024-12-06 10:42] LABS: BUN/Creatinine Ratio 10.2 (10.0-20.0); Blood Urea Nitrogen 23 mg/dL (9-23); Glucose 118 mg/dL (74-106)
[2024-12-06] MEDS: VANCOMYCIN 500mg/100mL 100 ML IV ONE (11:47)
--- NOTE | 2024-12-06 17:46 | DVHPN2 ---
Progress Note - Dictate Date Seen: Dec 06, 2024 Medical Necessity Reason Pt with a Central, PICC or Fol: Yes Subjective sedated vital signs Vital Sign Date Time Temp Pulse Resp B/P (MAP) Pulse Ox O2 Delivery O2 Flow Rate FiO2 12/06/24 16:44 95.4 102 20 136/91 (106) 95 95.4 12/06/24 11:17 Nasal Cannula 3.0 12/06/24 11:17 32 Total Intake and Output 12/05/24 12/05/24 12/06/24 15:00 23:00 07:00 Intake Total 50 ml 100 ml 1020 ml Output Total 20 ml Balance 50 ml 100 ml 1000 ml medications Current Medications Medications Dose Ordered Sig/Aubrie Route Start Time Stop Time Status Last Admin Dose Admin Acetaminophen 325 mg Q4HP PRN PO 12/01/24 05:30 Ondansetron HCl 4 mg Q4HP PRN IV 12/01/24 05:30 12/03/24 14:27 4 MG Nitroglycerin 0.4 mg Q5MINP PRN SL 12/01/24 05:30 Furosemide 40 mg TID IV 12/01/24 06:00 12/06/24 13:42 40 MG Aspirin 81 mg DAILY PO 12/01/24 10:00 12/06/24 09:40 81 MG Gabapentin 300 mg TID PO 12/01/24 06:00 12/06/24 07:32 300 MG Tamsulosin HCl 0.4 mg DAILY PO 12/01/24 10:00 12/06/24 09:40 0.4 MG Trazodone HCl 50 mg HS PO 12/01/24 22:00 12/05/24 22:29 50 MG Atorvastatin Calcium 40 mg DAILY PO 12/01/24 10:00 12/06/24 09:41 40 MG Levalbuterol HCl 0.625 mg Q6HR NEB 12/01/24 12:00 12/06/24 11:17 0.625 MG Ipratropium [place] 0.5 mg Q6HR NEB 12/01/24 12:00 12/06/24 11:16 0.5 MG Hydromorphone HCl 0.5 mg Q4HPRN PRN IV 12/01/24 11:15 12/06/24 12:47 0.5 MG Vancomycin HCl 0 ml @ 0 mls/hr UD IV 12/01/24 12:15 Diagnostic Test (Pha) 1 strip ACHS 12/02/24 07:00 12/06/24 17:17 1 STRIP Insulin Human Regular ACHS SC 12/02/24 07:00 12/03/24 12:01 2 UNITS Dextrose 50 ml UD PRN IV 12/01/24 22:15 Meropenem 50 ml @ 17 mls/hr Q8HR IV 12/02/24 14:00 12/06/24 13:42 17 MLS/HR Lactulose 30 ml BID PO 12/02/24 22:00 12/06/24 09:39 30 ML Rifaximin 550 mg BID PO 12/02/24 22:00 12/06/24 09:40 550 MG Metolazone 2.5 mg DAILY PO 12/04/24 10:00 12/06/24 09:41 2.5 MG Lorazepam 0.5 mg Q8HP PRN PO 12/03/24 23:00 12/06/24 07:32 0.5 MG Pantoprazole Sodium 40 mg DAILY PO 12/06/24 10:00 12/06/24 09:40 40 MG objective GENERAL: The patient is an adult gentleman who appears to be chronically ill. HEENT: Unremarkable NECK: There is no jugular venous distention. LUNGS: Show bilateral crackles, scattered wheezing, and rhonchi. CARDIOVASCULAR: Shows mild tachycardia, a few extrasystoles, 1/6 systolic murmur. ABDOMEN: Soft, nontender. No organomegaly. EXTREMITIES: Show no clubbing or cyanosis. There is 1+ edema. Extremities otherwise unremarkable. NEUROLOGIC: sedated laboratory and microbiology Laboratory Tests 12/06/24 09:58 Test 12/06/24 09:58 Range/Units Serum Glucose 118 H 74-106 mg/dL Assessment/Plan ASSESSMENT: 1. ESRD, scheduled for HD today. He is unable to tell me where is his HD center and how long he/s been on dialysis. His low creatinine could indicate he has regained some renal function but we'll need to do a 24 h urine collection. Will monitor creatinine and urine output closely 2. Respiratory failure, extubated 3. NSTEMI 4. CHF exacerbation 5. Sepsis 6. Left leg wound infection 7. DM2 8. Anemia of CKD 9. Pneumonia Plan: HD schedule TTS Next HD on Friday IV antibiotics for pneumonia and possible UTI. Cardiology follow up Dietary Evaluation Review Comments: Nutrition Recommendation 1) Consider CCHO 75gm + renal standard diet 2) Nephro-margarita 1 tab daily 3) Steven 1 pk daily, zinc sulfate 220mg daily x 10 days 4) Monitor PO intake, lab values, weight trend, and I/O Expected Outcomes/Goals: To meet >75% estimated needs Wound to improve Lab values to improve Fu 3-5 days Plan discussed with: Other VALORIE BUCHANAN MD Dec 06, 2024 17:46
[2024-12-07] VITALS (18 sets, daily range): BP systolic 120–136; BP diastolic 58–91; PULSE 97–112; RESP 16–20; TEMP 97.1–98.9; O2SAT 94–100
[2024-12-07 06:24] LABS: Alanine Aminotransferase 24 U/L (7-40); Anion Gap 12 (5-15); BUN/Creatinine Ratio 11.5 (10.0-20.0); Carbon Dioxide 28 mmol/L (20-31); Glucose 97 mg/dL (74-106); Potassium 4.0 mmol/L (3.5-5.1)
[2024-12-07 06:28] LABS: Albumin 2.6 g/dL (3.2-4.8); Alkaline Phosphatase 464 U/L (46-116); Bilirubin, Total 4.2 mg/dL (0.2-1.0); Blood Urea Nitrogen 33 mg/dL (9-23); Calcium 7.9 mg/dL (8.7-10.4); Chloride 94 mmol/L (98-107); Sodium 134 mmol/L (136-145); Total Protein 5.4 g/dL (5.7-8.2)
[2024-12-07 06:29] LABS: Hematocrit 33.5 % (41.0-53.0); Hemoglobin 11.2 g/dL (13.5-17.5); Mean Corpuscular Hemoglobin 27.0 pg (28.0-32.0); Mean Corpuscular Volume 81.0 fL (80.0-100.0)
[2024-12-07] MEDS ORDERED: SODIUM CHL 0.9% 1000 ML BAG XX ONE (07:00)
[2024-12-07 07:03] LABS: Total Cells Counted 100.0 (100)
[2024-12-07] MEDS: FUROSEMIDE 40 MG/4 ML VIAL IV SCH (10:14)
--- NOTE | 2024-12-07 18:33 | DVHPN2 ---
Progress Note - Dictate Date Seen: Dec 07, 2024 Medical Necessity Reason Pt with a Central, PICC or Fol: Yes Subjective sleeping vital signs Vital Sign Date Time Temp Pulse Resp B/P (MAP) Pulse Ox O2 Delivery O2 Flow Rate FiO2 12/07/24 17:00 97.8 104 18 128/84 (99) 96 97.8 12/07/24 08:50 5.0 40 12/07/24 08:00 Nasal Cannula* Total Intake and Output 12/06/24 12/06/24 12/07/24 15:00 23:00 07:00 Intake Total 420 ml 250 ml Output Total 25 ml 0 ml Balance 395 ml 250 ml medications Current Medications Medications Dose Ordered Sig/Aubrie Route Start Time Stop Time Status Last Admin Dose Admin Acetaminophen 325 mg Q4HP PRN PO 12/01/24 05:30 Ondansetron HCl 4 mg Q4HP PRN IV 12/01/24 05:30 12/03/24 14:27 4 MG Nitroglycerin 0.4 mg Q5MINP PRN SL 12/01/24 05:30 Aspirin 81 mg DAILY PO 12/01/24 10:00 12/07/24 10:14 81 MG Gabapentin 300 mg TID PO 12/01/24 06:00 12/06/24 07:32 300 MG Tamsulosin HCl 0.4 mg DAILY PO 12/01/24 10:00 12/07/24 10:14 0.4 MG Trazodone HCl 50 mg HS PO 12/01/24 22:00 12/05/24 22:29 50 MG Atorvastatin Calcium 40 mg DAILY PO 12/01/24 10:00 12/07/24 10:14 40 MG Levalbuterol HCl 0.625 mg Q6HR NEB 12/01/24 12:00 12/07/24 18:16 0.625 MG Ipratropium Muddy 0.5 mg Q6HR NEB 12/01/24 12:00 12/07/24 18:16 0.5 MG Hydromorphone HCl 0.5 mg Q4HPRN PRN IV 12/01/24 11:15 12/07/24 04:10 0.5 MG Vancomycin HCl 0 ml @ 0 mls/hr UD IV 12/01/24 12:15 Diagnostic Test (Pha) 1 strip ACHS 12/02/24 07:00 12/07/24 11:30 1 STRIP Insulin Human Regular ACHS SC 12/02/24 07:00 12/03/24 12:01 2 UNITS Dextrose 50 ml UD PRN IV 12/01/24 22:15 Lactulose 30 ml BID PO 12/02/24 22:00 12/07/24 10:14 30 ML Rifaximin 550 mg BID PO 12/02/24 22:00 12/07/24 10:14 550 MG Lorazepam 0.5 mg Q8HP PRN PO 12/03/24 23:00 12/06/24 07:32 0.5 MG Pantoprazole Sodium 40 mg DAILY PO 12/06/24 10:00 12/07/24 10:14 40 MG Furosemide 80 mg DAILY IV 12/07/24 10:00 12/07/24 10:14 80 MG Meropenem 50 ml @ 17 mls/hr Q12HR IV 12/07/24 22:00 objective GENERAL: The patient is an adult gentleman who appears to be chronically ill. HEENT: Unremarkable NECK: There is no jugular venous distention. LUNGS: Show bilateral crackles, scattered wheezing, and rhonchi. CARDIOVASCULAR: Shows mild tachycardia, a few extrasystoles, 1/6 systolic murmur. ABDOMEN: Soft, nontender. No organomegaly. EXTREMITIES: Show no clubbing or cyanosis. There is 1+ edema. Extremities otherwise unremarkable. NEUROLOGIC: sedated laboratory and microbiology Laboratory Tests 12/07/24 04:42 Test 12/07/24 04:42 Range/Units Serum Glucose 97 74-106 mg/dL Assessment/Plan ASSESSMENT: 1. ESRD, scheduled for HD today. He is unable to tell me where is his HD center and how long he/s been on dialysis. His low creatinine could indicate he has regained some renal function but we'll need to do a 24 h urine collection. Will monitor creatinine and urine output closely 2. Respiratory failure, extubated 3. NSTEMI 4. CHF exacerbation 5. Sepsis 6. Left leg wound infection 7. DM2 8. Anemia of CKD 9. Pneumonia Plan: s/p HD today. net UF 2 L Next HD on HD schedule TTS Continue Lasix IV antibiotics for pneumonia and possible UTI. Cardiology follow up Dietary Evaluation Review Comments: Nutrition Recommendation 1) Consider CCHO 75gm + renal standard diet 2) Nephro-margarita 1 tab daily 3) Steven 1 pk daily, zinc sulfate 220mg daily x 10 days 4) Monitor PO intake, lab values, weight trend, and I/O Expected Outcomes/Goals: To meet >75% estimated needs Wound to improve Lab values to improve Fu 3-5 days Plan discussed with: Patient VALORIE BUCHANAN MD Dec 07, 2024 18:33
[2024-12-07] MEDS: ACETAMINOPHEN 325 MG TAB PO PRN (18:50)
--- NOTE | 2024-12-07 19:54 | DVHPNRES ---
Progress Note Date Seen: Dec 07, 2024 Resident Creating Document: JOHNNY HOFFMAN RESDIENT Medical Necessity Reason Pt with a Central, PICC or Fol: Yes Subjective Review of Systems This is a 49-year-old male with past medical history of ESRD (on maintenance hemodialysis, Friday, Friday, and ), diabetes type 2, HFrEF (with the LVEF 30%, on home oxygen 4 L), coronary artery disease (status post CABG in 2020 and PCI in 2021), PID (status post stent placement on bilateral femoral artery) hypertension, dyslipidemia, and and COPD came to the hospital due to shortness of breaths since last night. He also reports of orthopnea, abdominal pain, chest discomfort, palpitation, dysuria, chills and nausea. He denies fever, incomplete PMHx: ESRD (on maintenance hemodialysis, Friday, Friday, and ), diabetes type 2, HFrEF (with the LVEF 30%, on home oxygen 4 L), coronary artery disease (status post CABG in 2020 and PCI in 2021), PID (status post stent placement on bilateral femoral artery) hypertension, dyslipidemia, and and COPD, liver cirrhosis PSHx: CABG, right-sided tunneled catheter placement 20 days back, and PCI Social history: Denies smoking, alcohol or any other drug use. Lives his (which is next of kin), and [place]. Uses walker and wheelchair for mobility. Does not work, on disability. Home medication: Lasix 20 mg b.i.d., sucralfate, tamsulosin, carvedilol, and aspirin, per patient's he is compliant with medicine. He was previously using insulin and metformin for diabetes, which has stopped using due to controlled glucose level. Allergic history: Today, patient seen and examined at bedside. Patient is feeling better. Objective vital signs Vital Sign Date Time Temp Pulse Resp B/P (MAP) Pulse Ox O2 Delivery O2 Flow Rate FiO2 12/07/24 18:57 102 17 128/84 12/07/24 18:16 99 12/07/24 17:00 97.8 97.8 12/07/24 08:50 5.0 40 12/07/24 08:00 Nasal Cannula* Total Intake and Output 12/06/24 12/06/24 12/07/24 15:00 23:00 07:00 Intake Total 420 ml 250 ml Output Total 25 ml 0 ml Balance 395 ml 250 ml medications Current Medications Medications Dose Ordered Sig/Aubrie Route Start Time Stop Time Status Last Admin Dose Admin Acetaminophen 325 mg Q4HP PRN PO 12/01/24 05:30 12/07/24 18:50 325 MG Ondansetron HCl 4 mg Q4HP PRN IV 12/01/24 05:30 12/03/24 14:27 4 MG Nitroglycerin 0.4 mg Q5MINP PRN SL 12/01/24 05:30 Aspirin 81 mg DAILY PO 12/01/24 10:00 12/07/24 10:14 81 MG Gabapentin 300 mg TID PO 12/01/24 06:00 12/06/24 07:32 300 MG Tamsulosin HCl 0.4 mg DAILY PO 12/01/24 10:00 12/07/24 10:14 0.4 MG Trazodone HCl 50 mg HS PO 12/01/24 22:00 12/05/24 22:29 50 MG Atorvastatin Calcium 40 mg DAILY PO 12/01/24 10:00 12/07/24 10:14 40 MG Levalbuterol HCl 0.625 mg Q6HR NEB 12/01/24 12:00 12/07/24 18:16 0.625 MG Ipratropium Hubert 0.5 mg Q6HR NEB 12/01/24 12:00 12/07/24 18:16 0.5 MG Hydromorphone HCl 0.5 mg Q4HPRN PRN IV 12/01/24 11:15 12/07/24 18:57 0.5 MG Vancomycin HCl 0 ml @ 0 mls/hr UD IV 12/01/24 12:15 Diagnostic Test (Pha) 1 strip ACHS 12/02/24 07:00 12/07/24 18:36 1 STRIP Insulin Human Regular ACHS SC 12/02/24 07:00 12/03/24 12:01 2 UNITS Dextrose 50 ml UD PRN IV 12/01/24 22:15 Lactulose 30 ml BID PO 12/02/24 22:00 12/07/24 10:14 30 ML Rifaximin 550 mg BID PO 12/02/24 22:00 12/07/24 10:14 550 MG Lorazepam 0.5 mg Q8HP PRN PO 12/03/24 23:00 12/06/24 07:32 0.5 MG Pantoprazole Sodium 40 mg DAILY PO 12/06/24 10:00 12/07/24 10:14 40 MG Furosemide 80 mg DAILY IV 12/07/24 10:00 12/07/24 10:14 80 MG Meropenem 50 ml @ 17 mls/hr Q12HR IV 12/07/24 22:00 Examination General Appearance: Alert, Oriented X3, Cooperative, in moderate respiratory distress, can not speak in full sentences HEENT: Atraumatic, PERRLA, EOMI, Mucous membrane moist/pink Respiratory: Bilateral mid zone crackles, absent breath sounds on lower zone Cardiovascular: Regular rate, Normal S1, Normal S2, No murmurs, no chest wall tenderness Abdominal: Mild abdominal tenderness Extremities: Bilateral grade 1 pedal edema Skin: 6 x 3 cm open ulcer on dorsal surface of left leg, with scant amount of purulent discharge Neuro: Normal gait, Normal speech, Strength at 5/5 X4 ext, Normal tone, Sensation intact, Cranial nerves 3-12 NL, Reflexes 2+ Psych/Mental Status: Mental status NL, Mood NL laboratory and microbiology Laboratory Tests 12/07/24 04:42 Test 12/07/24 04:42 Range/Units Serum Glucose 97 74-106 mg/dL Microbiology Date/Time Source Procedure Growth Status 12/02/24 16:50 Foot Gram Stain - Final Complete 12/02/24 16:50 Wound Culture - Final Methicillin Resistant S.aureus Complete 12/01/24 17:00 Voided Urine Urine Culture - Final Complete 12/01/24 07:24 Blood Blood Culture - Final NO GROWTH AFTER 5 DAYS OF INCUBATION. Complete Labs and/or images reviewed: Image(s) reviewed by me Problem List/Assessment/Plan Problem List/Assessment/Plan This is a 49-year-old male with past medical history of ESRD (on maintenance hemodialysis, Friday, Friday, and ), diabetes type 2, HFrEF (with the LVEF 30%, on home oxygen 4 L), coronary artery disease (status post CABG in 2020 and PCI in 2021), PID (status post stent placement on bilateral femoral artery) hypertension, dyslipidemia, and and COPD came to the hospital due to shortness of breaths, abdominal pain, chest discomfort, palpitation, dysuria, chills and nausea. Admitted on 12/01. NEURO: Insomnia * Plan: Trazodone CARDIOVASCULAR: Cardiogenic shock Acute on chronic systolic heart failure Volume overload, likely due to heart failure/missed dialysis Hypertension Dyslipidemia Coronary artery disease, status post PCI/CABG NSTEMI, likely type 2, due to above * EKGs shows partial RBBB with poor R-wave progression, no significant ST or T- wave changes * Echo shows dilated ventricle with EF 30% * Chest x-ray shows bilateral lower zone infiltration with Lantus with the ankle * Serial trop I is raised at 60s to 90s, BNP is raised >5000 * Plan: Aspirin, atorvastatin, Lasix 80 mg daily., dialysis RESPIRATORY: Acute on chronic hypoxic respiratory failure, likely due to heart failure/volume overload/pneumonia Possible pneumonia, likely due to Gram-positive/Gram-negative bacteria. Pleural effusion, moderate COPD * Plan: IV antibiotic, diuretics, and breathing treatment, consulted Radiology for thoracentesis of left-sided pleural effusion GENITOURINARY/FLUID: ESRD, on maintenance hemodialysis, missed last 3 cessation BPH * Plan: IV diuretic, Flomax, dialysis performed on 12/01, 12/03, 12/05, 12/07 GASTROINTESTINAL/NUTRITION: Moderate protein malnutrition Possible diabetic gastroparesis Liver cirrhosis * Plan: Protonix and Zofran, rifaximin INFECTIOUS DISEASE: Septic shock, due to sepsis Sepsis, likely due to pneumonia/wound infection MRSA positive wound * Blood culture and urine culture 12/01, shows no growth * Plan: meropenem (12/01), vancomycin 12/01 HEMATOLOGY: Mild anemia, due to ESRD ENDOCRINE: Diabetes type 2 , A1c is 7.4 METABOLIC: Hyperkalemia MSK/SKIN: Diabetic foot * Plan: Wound culture, wound consult, IV antibiotic DIET: Renal diet DVT prophylax: On heparin GI prophylaxis: Protonix Bowel regimen: Lactulose LINES/DEVICES IV access: Tunneled catheter to right IJ Drips: Levophed Disposition: Continue ICU status Family: Patients updated at the bedside. Critical care time: Spent > 43 min, spent in direct critical care, including evaluation, management, review of labs/imaging, and multidisciplinary/family discussions, (excluding any procedures). Case discussed with Dr. Graves Plan discussed with: Patient, Spouse, Other My Orders My Orders Orders - JOHNNY HOFFMAN RESDIENT Procedure Category Date Status Time * Radiologist Consult CONS 12/06/24 Transmitted 20:30 Furosemide Injection PHA 12/07/24 In Process (Lasix Injection) 10:00 Creatinine LAB 12/08/24 Verified 04:00 Vancomycin,Random LAB 12/08/24 Verified 04:00 Meropenem 1gm Ivpb PHA 12/07/24 In Process (Merrem 1gm/50ml) 22:00 Dietary Evaluation Review Comments: Nutrition Recommendation 1) Consider CCHO 75gm + renal standard diet 2) Nephro-margarita 1 tab daily 3) Steven 1 pk daily, zinc sulfate 220mg daily x 10 days 4) Monitor PO intake, lab values, weight trend, and I/O Expected Outcomes/Goals: To meet >75% estimated needs Wound to improve Lab values to improve Fu 3-5 days Date of Service: Dec 07, 2024 Billing Provider: MELANIE GRAVES MD Common Visit Codes: 60082-PTTIECZM CARE 30-74 MIN JOHNNY HOFFMAN Dec 07, 2024 19:54 MELANIE GRAVES MD Dec 11, 2024 11:38
[2024-12-07] MEDS: MEROPENEM 1GM IVPB 50 ML IV SCH (21:49)
[2024-12-08] VITALS (8 sets, daily range): BP systolic 103–115; BP diastolic 75–78; PULSE 106–113; RESP 17–20; TEMP 97.5–98; O2SAT 85–100
[2024-12-08 07:07] LABS: Hematocrit 32.3 % (41.0-53.0); Hemoglobin 10.7 g/dL (13.5-17.5); Mean Corpuscular Hemoglobin 26.8 pg (28.0-32.0); Mean Corpuscular Volume 80.9 fL (80.0-100.0)
[2024-12-08 07:23] LABS: Alanine Aminotransferase 21 U/L (7-40); Anion Gap 11 (5-15); BUN/Creatinine Ratio 9.4 (10.0-20.0); Carbon Dioxide 30 mmol/L (20-31); Glucose 100 mg/dL (74-106); Potassium 4.0 mmol/L (3.5-5.1); Sodium 136 mmol/L (136-145)
[2024-12-08 07:27] LABS: Albumin 2.6 g/dL (3.2-4.8); Alkaline Phosphatase 480 U/L (46-116); Bilirubin, Total 4.0 mg/dL (0.2-1.0); Blood Urea Nitrogen 26 mg/dL (9-23); Calcium 7.7 mg/dL (8.7-10.4); Chloride 95 mmol/L (98-107); Total Protein 5.6 g/dL (5.7-8.2)
--- NOTE | 2024-12-08 08:27 | DVH ---
Bilateral Chest Sonogram Date: 12/08/2024 07:14 AM Clinical history: FLUID CHECK FOR POSSIBLE THORACENTESIS Findings: Limited sonographic evaluation of the right and left chest was performed to localize and radha fluid f or thoracentesis. Moderate bilateral pleural effusions IMPRESSION: Moderate bilateral pleural effusions
[2024-12-08 08:32] LABS: Total Cells Counted 100.0 (100)
--- NOTE | 2024-12-08 11:27 | RESUS ---
CODE BLUE ASSESSSMENT History of Events History of Events: Per nurse, patient was having thoracentesis done when he began complaining of pain. Procedure needle was removed and discarded, upon nurse returning to bedside, patient was unresponsive. Nurse and REEL BLADE BENDER FURNACE TENDER noticed patient lips were "purple." Upon assessment, he was unresponsive, apneic and pulseless. Code jessica called. CPR initiated. Initial Information Date: Dec 08, 2024 Time: : Location of Arrest: [facility] Witnessed: Yes CPR started initial time: : CPR started by whom: Hospital Staff Last seen well: 1025 Pre-Hospital Care: ACLS Type of arrest: Cardiac, Respiratory, Adult, Witnessed Spontaneous Respirations: No Pulse Present: No Monitoring: Pulse Oximetry, Telemetry Crash Cart Opened and Supplies: Yes Airway Ventilation Breathing at Onset: Apneic O2 Sat by Pulse Oximetry: 70 Oxygen Delivery Method: Ambu-Bag Artificial Ventilation: Bag/Mask, Bag/Endo tube Intubation Time: : Intubation Size: 8.0 cuffed Intubated by: Dr. Graves Intubation Attempts: 1 Intubated orally: Yes Intubated Nasaly: No Tube secured at: 24 Cricoid pressure done: Yes CO2 indicator used: Yes Confirmation: Auscultation, Exhaled CO2 Suctioning (Oral/Tracheal): Yes Circulation Circulation #1: Time: 10:27 Pulse Rate (adult): 0 Blood Pressure Systolic: 0 Blood Pressure Diastolic: 0 Circulation #2: Time: 10:29 Pulse Rate (adult): 0 Blood Pressure Systolic: 0 Blood Pressure Diastolic: 0 Circulation #3: Time: 10:31 Pulse Rate (adult): 31 Blood Pressure Systolic: 0 Blood Pressure Diastolic: 0 Circulation #4: Time: 10:53 Pulse Rate (adult): 0 Blood Pressure Systolic: 0 Blood Pressure Diastolic: 0 Temperature (Fahrenheit): 98.4 Circulation Comment: Temperature checked rectally. Procedure - IV Procedure - IV : IV Side: Right IV Location: Forearm Anterior IV Catheter Type: Peripheral IV IV Placed: In Hospital IV Gauge: 20 IV Line Care: Saline Flush Medications & Response Medications and Responses #1: Medication Time: 10:31 ADULT Medications Given ADULT: Epinephrine 1 mg Route of Administration: IV Heart Rate: 31 EKG Rhythm: Sinus Bradycardia Blood Pressure Systolic: 0 Blood Pressure Diastolic: 0 O2 Sat by Pulse Oximetry: 100 EKG Rhythm: PEA Medications and Responses #2: Medication Time: 10:34 ADULT Medications Given ADULT: Epinephrine 1 mg, Sodium Bacarbinate 50 meq Route of Administration: IV Heart Rate: 0 EKG Rhythm: PEA Blood Pressure Systolic: 0 Blood Pressure Diastolic: 0 EKG Rhythm: PEA Medications and Responses #3: Medication Time: 10:37 ADULT Medications Given ADULT: Epinephrine 1 mg, Calcium Chloride 10 mL Route of Administration: IV Heart Rate: 0 EKG Rhythm: PEA Blood Pressure Systolic: 0 Blood Pressure Diastolic: 0 EKG Rhythm: PEA Medications and Responses #4: Medication Time: 10:39 ADULT Medications Given ADULT: Epinephrine 1 mg Route of Administration: IV Heart Rate: 0 EKG Rhythm: PEA Blood Pressure Systolic: 0 Blood Pressure Diastolic: 0 EKG Rhythm: PEA Medications and Responses #5: Medication Time: 10:41 ADULT Medications Given ADULT: Sodium Bacarbinate 50 meq Route of Administration: IV Heart Rate: 0 EKG Rhythm: PEA Blood Pressure Systolic: 0 Blood Pressure Diastolic: 0 EKG Rhythm: PEA Medications and Responses #6: Medication Time: 10:42 ADULT Medications Given ADULT: Epinephrine 1 mg Route of Administration: IV Heart Rate: 0 EKG Rhythm: PEA Blood Pressure Systolic: 0 Blood Pressure Diastolic: 0 EKG Rhythm: PEA Medications and Responses #7: Medication Time: 10:45 ADULT Medications Given ADULT: Epinephrine 1 mg, Calcium Chloride 10 mL Route of Administration: IV Heart Rate: 0 EKG Rhythm: PEA Blood Pressure Systolic: 0 Blood Pressure Diastolic: 0 EKG Rhythm: Asystole Medications and Responses #8: Medication Time: 10:48 ADULT Medications Given ADULT: Epinephrine 1 mg Route of Administration: IV Heart Rate: 0 EKG Rhythm: Asystole Blood Pressure Systolic: 0 Blood Pressure Diastolic: 0 EKG Rhythm: Asystole Medications and Responses #9: Medication Time: 10:51 ADULT Medications Given ADULT: Epinephrine 1 mg Route of Administration: IV Heart Rate: 0 EKG Rhythm: Asystole Blood Pressure Systolic: 0 Blood Pressure Diastolic: 0 EKG Rhythm: Asystole Nurses Notes Correll Coma Scale Eye Opening: None (1) Correll Coma Scale Verbal: None (1) Correll Coma Scale Motor: None (1) Glascow Total: 3 Pupil Reaction: Non Reactive Bedside Blood Glucose: 110 EKG Rhythm: Sinus Bradycardia, PEA, Asystole Nurses Notes - Comment: 1039: 0.9% NS Bolus started per verbal order Dr. Graves. Total volume given = 200 ml. 1045: and mother brought to bedside during code blue. Time Code Ended Time Code Ended: 10:53 Post Arrest Status: Outcome of code: Unsuccessful Patient pronounced by: Dr. Graves Time patient pronounced: 10:53 Family notified: Yes Attending called: Yes Code Team Present: Addi Michaels LICENSE AND PERMIT SPECIALIST, Dr. Stringer (resident), Julia RT, Xavi RT, Luann RT, Mirian RN, Viji RN, Jimbo RN, Inocencio Fontana RN, Kelly SOLIMANA, Dee RN Post Resuscitation Neurologica Pupil Size: 4 Comment: Right eye blind, Left eye 4mm, fixed/dilated Date of Service: Dec 08, 2024 Billing Provider: MELANIE GRAVES MD Common Visit Codes: PROCEDURE ONLY Procedure Codes: [id number] CODE BLUE Dee Jaimes Dec 08, 2024 11:27 MELANIE GRAVES MD Dec 11, 2024 11:41
--- NOTE | 2024-12-08 12:26 | DVH ---
US THORACENTESIS, HISTORY: L PLEURAL EFFUSION PROCEDURE: Informed consent was obtained. The patient was decubitus on the bed. A limited localizatio n ultrasound of the left thorax was obtained, and the optimal approach was marked on the skin. The ar ea was prepped with chlorhexidine which was allowed to dry and draped in the usual sterile fashion. T cassidy out was performed. The skin and the soft tissues were infiltrated with 1% lidocaine. A 5.5 Hungarian centesis needle catheter was advanced into left pleural space. Following aspiration of natalya serous fluid, the catheter was advanced and the needle removed. Initial aspiration of natalya serous fluid fro m the catheter. I was present for the procedure, and when the natalya serous fluid started aspirating w ithout issue, I left the room to chart nearby. Soon thereafter a code blue was called for the patient and I returned shortly after it was called overhead. About 1500 cc of fluid was drained in total. FINDINGS: Large left pleural effusion. Aspirated fluid was initially natalya serous for the first 1.2L and then bloody in the second bottle with 0.3L removed. IMPRESSION: Left thoracentesis with 1.5L of initially natalya serous fluid removed which became more bloody on the second bottle. Uneventful initial aspiration of natalya serous fluid.
[2024-12-08] MEDS ORDERED: CALCIUM CHLOR(10%) 100MG/ML 10ML SYRINGE IV ONE (14:24)
--- NOTE | 2024-12-08 15:24 | DVHPN2 ---
Progress Note - Dictate Date Seen: Dec 08, 2024 Medical Necessity Reason Pt with a Central, PICC or Fol: Yes Subjective sleeping vital signs Vital Sign Date Time Temp Pulse Resp B/P (MAP) Pulse Ox O2 Delivery O2 Flow Rate FiO2 12/08/24 11:39 209.1 0 12/08/24 11:37 12/08/24 11:27 Ambu-Bag 12/08/24 09:37 103/76 12/08/24 09:00 20 12/08/24 06:45 5 40 Total Intake and Output 12/07/24 12/07/24 12/08/24 15:00 23:00 07:00 Intake Total 500 ml 1300 ml 350 ml Output Total 0 ml 0 ml Balance 500 ml 1300 ml 350 ml medications Current Medications Medications Dose Ordered Sig/Aubrie Route Start Time Stop Time Status Last Admin Dose Admin Acetaminophen 325 mg Q4HP PRN PO 12/01/24 05:30 12/07/24 18:50 325 MG Ondansetron HCl 4 mg Q4HP PRN IV 12/01/24 05:30 12/03/24 14:27 4 MG Aspirin 81 mg DAILY PO 12/01/24 10:00 12/08/24 09:35 81 MG Tamsulosin HCl 0.4 mg DAILY PO 12/01/24 10:00 12/08/24 09:35 0.4 MG Trazodone HCl 50 mg HS PO 12/01/24 22:00 12/07/24 21:49 50 MG Atorvastatin Calcium 40 mg DAILY PO 12/01/24 10:00 12/08/24 09:34 40 MG Levalbuterol HCl 0.625 mg Q6HR NEB 12/01/24 12:00 12/08/24 06:45 0.625 MG Ipratropium [place] 0.5 mg Q6HR NEB 12/01/24 12:00 12/08/24 06:45 0.5 MG Hydromorphone HCl 0.5 mg Q4HPRN PRN IV 12/01/24 11:15 12/07/24 23:41 0.5 MG Vancomycin HCl 0 ml @ 0 mls/hr UD IV 12/01/24 12:15 Lactulose 30 ml BID PO 12/02/24 22:00 12/08/24 09:34 30 ML Rifaximin 550 mg BID PO 12/02/24 22:00 12/08/24 09:34 550 MG Pantoprazole Sodium 40 mg DAILY PO 12/06/24 10:00 12/08/24 09:35 40 MG Furosemide 80 mg DAILY IV 12/07/24 10:00 12/08/24 09:37 80 MG Meropenem 50 ml @ 17 mls/hr Q12HR IV 12/07/24 22:00 12/08/24 09:34 17 MLS/HR objective GENERAL: The patient is an adult gentleman who appears to be chronically ill. HEENT: Unremarkable NECK: There is no jugular venous distention. LUNGS: Show bilateral crackles, scattered wheezing, and rhonchi. CARDIOVASCULAR: Shows mild tachycardia, a few extrasystoles, 1/6 systolic murmur. ABDOMEN: Soft, nontender. No organomegaly. EXTREMITIES: Show no clubbing or cyanosis. There is 1+ edema. Extremities otherwise unremarkable. NEUROLOGIC: sedated laboratory and microbiology Laboratory Tests 12/08/24 06:31 Test 12/08/24 06:31 Range/Units Serum Glucose 100 74-106 mg/dL Assessment/Plan ASSESSMENT: 1. ESRD, scheduled for HD today. He is unable to tell me where is his HD center and how long he/s been on dialysis. His low creatinine could indicate he has regained some renal function but we'll need to do a 24 h urine collection. Will monitor creatinine and urine output closely 2. Respiratory failure, extubated 3. NSTEMI 4. CHF exacerbation 5. Sepsis 6. Left leg wound infection 7. DM2 8. Anemia of CKD 9. Pneumonia Plan: s/p HD Friday. net UF 2 L Next HD on HD schedule TTS Continue Lasix IV antibiotics for pneumonia and possible UTI. Cardiology follow up Dietary Evaluation Review Comments: Nutrition Recommendation 1) Consider CCHO 75gm + renal standard diet 2) Nephro-margarita 1 tab daily 3) Steven 1 pk daily, zinc sulfate 220mg daily x 10 days 4) Monitor PO intake, lab values, weight trend, and I/O Expected Outcomes/Goals: To meet >75% estimated needs Wound to improve Lab values to improve Fu 3-5 days Plan discussed with: Patient VALORIE BUCHANAN MD Dec 08, 2024 15:24
--- NOTE | 2024-12-08 19:34 | DVHPNRES ---
Progress Note Date Seen: Dec 08, 2024 Resident Creating Document: JOHNNY HOFFMAN RESDIENT Medical Necessity Reason Pt with a Central, PICC or Fol: Yes Subjective Review of Systems This is a 49-year-old male with past medical history of ESRD (on maintenance hemodialysis, Friday, Friday, and ), diabetes type 2, HFrEF (with the LVEF 30%, on home oxygen 4 L), coronary artery disease (status post CABG in 2020 and PCI in 2021), PID (status post stent placement on bilateral femoral artery) hypertension, dyslipidemia, and and COPD came to the hospital due to shortness of breaths since last night. He also reports of orthopnea, abdominal pain, chest discomfort, palpitation, dysuria, chills and nausea. He denies fever, incomplete PMHx: ESRD (on maintenance hemodialysis, Friday, Friday, and ), diabetes type 2, HFrEF (with the LVEF 30%, on home oxygen 4 L), coronary artery disease (status post CABG in 2020 and PCI in 2021), PID (status post stent placement on bilateral femoral artery) hypertension, dyslipidemia, and and COPD, liver cirrhosis PSHx: CABG, right-sided tunneled catheter placement 20 days back, and PCI Social history: Denies smoking, alcohol or any other drug use. Lives his (which is next of kin), and [place]. Uses walker and wheelchair for mobility. Does not work, on disability. Home medication: Lasix 20 mg b.i.d., sucralfate, tamsulosin, carvedilol, and aspirin, per patient's he is compliant with medicine. He was previously using insulin and metformin for diabetes, which has stopped using due to controlled glucose level. Allergic history: Today morning, patient seen and examined at bedside. Objective vital signs Vital Sign Date Time Temp Pulse Resp B/P (MAP) Pulse Ox O2 Delivery O2 Flow Rate FiO2 12/08/24 11:39 209.1 0 12/08/24 11:37 12/08/24 11:27 Ambu-Bag 12/08/24 09:37 103/76 12/08/24 09:00 20 12/08/24 08:00 5 40 Total Intake and Output 12/07/24 12/07/24 12/08/24 15:00 23:00 07:00 Intake Total 500 ml 1300 ml 350 ml Output Total 0 ml 0 ml Balance 500 ml 1300 ml 350 ml Examination General Appearance: Alert, Oriented X3, Cooperative, in moderate respiratory distress, can not speak in full sentences HEENT: Atraumatic, PERRLA, EOMI, Mucous membrane moist/pink Respiratory: Bilateral mid zone crackles, absent breath sounds on lower zone Cardiovascular: Regular rate, Normal S1, Normal S2, No murmurs, no chest wall tenderness Abdominal: Mild abdominal tenderness Extremities: Bilateral grade 1 pedal edema Skin: 6 x 3 cm open ulcer on dorsal surface of left leg, with scant amount of purulent discharge Neuro: Normal gait, Normal speech, Strength at 5/5 X4 ext, Normal tone, Sensation intact, Cranial nerves 3-12 NL, Reflexes 2+ Psych/Mental Status: Mental status NL, Mood NL laboratory and microbiology Laboratory Tests 12/08/24 06:31 Test 12/08/24 06:31 Range/Units Serum Glucose 100 74-106 mg/dL Microbiology Date/Time Source Procedure Growth Status 12/02/24 16:50 Foot Gram Stain - Final Complete 12/02/24 16:50 Wound Culture - Final Methicillin Resistant S.aureus Complete 12/01/24 17:00 Voided Urine Urine Culture - Final Complete 12/01/24 07:24 Blood Blood Culture - Final NO GROWTH AFTER 5 DAYS OF INCUBATION. Complete Problem List/Assessment/Plan Problem List/Assessment/Plan This is a 49-year-old male with past medical history of ESRD (on maintenance hemodialysis, Friday, Friday, and ), diabetes type 2, HFrEF (with the LVEF 30%, on home oxygen 4 L), coronary artery disease (status post CABG in 2020 and PCI in 2021), PID (status post stent placement on bilateral femoral artery) hypertension, dyslipidemia, and and COPD came to the hospital due to shortness of breaths, abdominal pain, chest discomfort, palpitation, dysuria, chills and nausea. Admitted on 12/01. NEURO: Insomnia * Plan: Trazodone CARDIOVASCULAR: Cardiogenic shock Acute on chronic systolic heart failure Volume overload, likely due to heart failure/missed dialysis Hypertension Dyslipidemia Coronary artery disease, status post PCI/CABG NSTEMI, likely type 2, due to above * EKGs shows partial RBBB with poor R-wave progression, no significant ST or T- wave changes * Echo shows dilated ventricle with EF 30% * Chest x-ray shows bilateral lower zone infiltration with Lantus with the ankle * Serial trop I is raised at 60s to 90s, BNP is raised >5000 * Plan: Aspirin, atorvastatin, Lasix 80 mg daily., dialysis RESPIRATORY: Acute on chronic hypoxic respiratory failure, likely due to heart failure/volume overload/pneumonia Possible pneumonia, likely due to Gram-positive/Gram-negative bacteria. Pleural effusion, moderate COPD * Plan: IV antibiotic, diuretics, and breathing treatment, consulted Radiology for thoracentesis of left-sided pleural effusion GENITOURINARY/FLUID: ESRD, on maintenance hemodialysis, missed last 3 cessation BPH * Plan: IV diuretic, Flomax, dialysis performed on 12/01, 12/03, 12/05, 12/07 GASTROINTESTINAL/NUTRITION: Moderate protein malnutrition Possible diabetic gastroparesis Liver cirrhosis * Plan: Protonix and Zofran, rifaximin INFECTIOUS DISEASE: Septic shock, due to sepsis Sepsis, likely due to pneumonia/wound infection MRSA positive wound * Blood culture and urine culture 12/01, shows no growth * Plan: meropenem (12/01), vancomycin 12/01 HEMATOLOGY: Mild anemia, due to ESRD ENDOCRINE: Diabetes type 2 , A1c is 7.4 METABOLIC: Hyperkalemia MSK/SKIN: Diabetic foot * Plan: Wound culture, wound consult, IV antibiotic DIET: Renal diet DVT prophylax: On heparin GI prophylaxis: Protonix Bowel regimen: Lactulose LINES/DEVICES IV access: Tunneled catheter to right IJ Drips: Levophed Today, around 10:30 a.m., patient coded, cardiac monitoring was showing PEA, despite performing CPR fro 25 min, multiple dose of epinephrine, bicarbonate and calcium, patient could not revived and eventually . Family: Patients updated at the bedside. Critical care time: Spent >81 min, spent in direct critical care, including evaluation, management, review of labs/imaging, and multidisciplinary/family discussions, (excluding any procedures), excluding CPR. Case discussed with Dr. Graves Plan discussed with: Other My Orders My Orders Orders - JOHNNY HOFFMAN Procedure Category Date Status Time Thoracentesis 12/08/24 Resulted 09:58 Dietary Evaluation Review Comments: Nutrition Recommendation 1) Consider CCHO 75gm + renal standard diet 2) Nephro-margarita 1 tab daily 3) Steven 1 pk daily, zinc sulfate 220mg daily x 10 days 4) Monitor PO intake, lab values, weight trend, and I/O Expected Outcomes/Goals: To meet >75% estimated needs Wound to improve Lab values to improve Fu 3-5 days Date of Service: Dec 08, 2024 Billing Provider: MELANIE GRAVES MD Common Visit Codes: 15961-MIEINSBC CARE 30-74 MIN, 81323-FZKIAOUP CARE-EACH +30MIN JOHNNY HOFFMAN Dec 08, 2024 19:34 MELANIE GRAVES MD Dec 11, 2024 11:45
--- NOTE | 2024-12-08 19:35 | DVHDSRES ---
Discharge Summary Date of Admission Resident Creating Document: JOHNNY HOFFMAN Dec 01, 2024 at 05:22 Date of Discharge: Dec 08, 2024 Labs/Diagnostic Data: Laboratory Results Test 12/08/24 11:05 12/08/24 06:31 12/07/24 16:50 12/06/24 09:58 White Blood Count 10.3 10^3/uL (4.4-10.8) Red Blood Count 4.00 10^6/uL (4.5-5.90) Hemoglobin 10.7 g/dL (13.5-17.5) Hematocrit 32.3 % (41.0-53.0) Mean Corpuscular Volume 80.9 fL (80.0-100.0) Mean Corpuscular Hemoglobin 26.8 pg (28.0-32.0) Mean Corpuscular Hemoglobin Concent 33.1 g/dL (32.0-36.0) Red Cell Distribution Width 18.4 % (11.8-14.3) Platelet Count 126 10^3/uL (140-450) Mean Platelet Volume 8.2 fL (6.9-10.8) Neutrophils (%) (Auto) % (37.0-80.0) Lymphocytes (%) (Auto) % (10.0-50.0) Monocytes (%) (Auto) % (0.0-12.0) Basophils (%) (Auto) % (0.0-2.0) Neutrophils # (Auto) 10 ^3/uL (1.6-8.6) Lymphocytes # (Auto) 10 ^3/uL (0.4-5.4) Monocytes # (Auto) 10 ^3/uL (0-1.3) Differential Total Cells Counted 100.0 (100) Neutrophils % (Manual) 83 (37.0-80.0) Band Neutrophils % (Manual) 3 Lymphocytes % (Manual) 3 (10.0-50.0) Monocytes % (Manual) 9 (0-12) Eosinophils % (Manual) 1 (0-7) Basophils % (Manual) 0 (0.0-2.0) Metamyelocytes % (manual) 1 Myelocytes % (Manual) 0 Promyelocytes % (Manual) 0 Blast Cells % (Manual) 0 Reactive Lymphocytes 0 Platelet Estimate Decreased Sodium Level 136 mmol/L (136-145) Potassium Level 4.0 mmol/L (3.5-5.1) Chloride Level 95 mmol/L (98-107) Carbon Dioxide Level 30 mmol/L (20-31) Anion Gap 11 (5-15) Blood Urea Nitrogen 26 mg/dL (9-23) Creatinine 2.78 mg/dL (0.700-1.30) Glomerular Filtration Rate Calc 27 mL/min (>90) BUN/Creatinine Ratio 9.4 (10.0-20.0) Serum Glucose 100 mg/dL (74-106) Calcium Level 7.7 mg/dL (8.7-10.4) Total Bilirubin 4.0 mg/dL (0.2-1.0) Aspartate Amino Transferase (AST) 97 U/L (13-40) Alanine Aminotransferase (ALT) 21 U/L (7-40) Alkaline Phosphatase 480 U/L (46-116) Total Protein 5.6 g/dL (5.7-8.2) Albumin 2.6 g/dL (3.2-4.8) Random Vancomycin Level 15.0 ug/mL (5-10) POC Glucose 96 mg/dl (70-106) Magnesium Level 2.2 mg/dL (1.6-2.6) Ammonia < 10 umol/L (11-32) Test 12/05/24 04:03 12/01/24 17:00 12/01/24 08:00 12/01/24 07:14 Eosinophils (%) (Auto) 0.9 % (0.0-7.0) Eosinophils # (Auto) 0.1 10 ^3/uL (0-0.8) Basophils # (Auto) 0.1 10 ^3/uL (0-0.2) Nucleated Red Blood Cells 0.0 % Urine Color Yellow (Yellow) Urine Clarity Turbid (Clear) Urine pH 5.0 (5.0-9.0) Urine Specific [place] 1.012 (1.001-1.035) Urine Protein Negative (Negative) Urine Ketones Negative (Negative) Urine Blood Negative /uL (Negative) Urine Nitrite Negative (Negative) Urine Bilirubin Negative (Negative) Urine Urobilinogen Normal mg/dL (Negative) Urine Leukocyte Esterase Negative /uL (Negative) Urine RBC 1 /hpf (0 - 3) Urine Microscopic WBC 6 /HPF (0-3) Urine Squamous Epithelial Cells Few /hpf (<5) Urine Bacteria Few /hpf (None Seen) Urine Hyaline Casts Few /lpf (0 - 2) Urine Sperm Present /hpf (None Seen) Urine Glucose Normal mg/dL (Normal) Urine Opiates Screen Neg (NEGATIVE) Urine Fentanyl Screen Neg (NEGATIVE) Urine Barbiturates Screen Neg (NEGATIVE) Urine Phencyclidine Screen Neg (NEGATIVE) Urine Amphetamines Screen Neg (NEGATIVE) Urine Benzodiazepines Screen Neg (NEGATIVE) Urine Cocaine Screen Neg (NEGATIVE) Urine Cannabinoids Screen Neg (NEGATIVE) Influenza Type A Antigen Negative (Negative) Influenza Type B Antigen Negative (Negative) SARS-CoV-2 Antigen (Rapid) Negative (NEGATIVE) Hemoglobin A1c 7.4 % A1C (<5.7) Lactic Acid Level 1.4 mmol/L (0.4-2.0) Phosphorus Level 4.0 mg/dL (2.4-5.1) Troponin I High Sensitivity 90 ng/L (</=54) Triglycerides Level 78 mg/dL (< 150) Cholesterol Level 168 mg/dL (< 200) LDL Cholesterol 105 mg/dL (< 100) HDL Cholesterol 43 mg/dL (40-59) Vitamin B12 Level 883 pg/mL (211-911) Vitamin D 25-Hydroxy 54.1 ng/mL (30.0-100) Thyroid Stimulating Hormone (TSH) 6.69 uIU/mL (0.55-4.78) Hepatitis B Surface Antigen Negative (Negative) Test 12/01/24 03:46 12/01/24 03:35 Blood Gas Specimen Type Arterial Blood Gas Sample Site Right radial Blood Gas Patient Temperature 37.0 Arterial Blood Date Drawn [id number] Arterial Blood pH 7.413 (7.350-7.450) Arterial Blood Partial Pressure CO2 33.1 mmHg (35.0-48.0) Arterial Blood Partial Pressure O2 129.7 mmHg (83.0-108.0) Arterial Blood HCO3 20.7 mmol/L (21.0-28.0) Arterial Blood Oxygen Saturation 98.7 % (94.0-98.0) Arterial Blood Base Excess -3.1 mmol/L (-2.0-3.0) Arterial Blood Oxyhemoglobin 97.5 % (94.0-98.0) Arterial Blood Carboxyhemoglobin 0.8 % (0.5-1.5) Arterial Blood Methemoglobin 0.4 % (0.0-1.5) Onur Test Yes Blood Gas Total Hemoglobin 13.30 g/dL (13.5-17.5) Blood Gas Modality Mask - bipap FiO2 % 40.0 Prothrombin Time 11.6 sec (9.3-11.8) Prothrombin Time INR 1.11 (0.9-1.15) Activated Partial Thromboplast Time 33.0 SEC (24.5-34.5) B-Type Natriuretic Peptide > 5000.00 pg/mL (0-100) Other Laboratory Tests 12/08/24 06:31 Brief Hx & Hospital Course: HISTORY OF PRESENT ILLNESS: This 49-year-old male with extensive comorbidities of ESRD (on maintenance hemodialysis, Friday, Friday, and ), diabetes type 2, HFrEF (with the LVEF 30%, on home oxygen 4 L), coronary artery disease (status post CABG in 2020 and PCI in 2021), PID (status post stent placement on bilateral femoral artery) hypertension, dyslipidemia, and COPD presented with acute shortness of breath, orthopnea, abdominal pain, chest discomfort, palpitations, dysuria, chills, and nausea. He denied fever. He had missed his last three scheduled hemodialysis sessions. HOSPITAL COURSE: During this hospitalization, the patient was admitted with cardiogenic shock and acute on chronic respiratory failure, primarily due to missed dialysis sessions and volume overload in the setting of end-stage renal disease and heart failure with reduced ejection fraction (EF 30%). He also had symptoms suggestive of sepsis, including chills, dysuria, and nausea, and was found to have a MRSA- positive wound and possible pneumonia, for which was empiric broad-spectrum antibiotics (vancomycin and meropenem) were initiated. Serial troponins were elevated, EKGs showed, sinus tachycardia with no significant ST or T-wave changes, consistent with a type 2 NSTEMI, and imaging revealed bilateral pulmonary infiltrates and a moderate pleural effusion. He underwent dialysis on hospital days 1, 3, 5, and 7, which partially helped with fluid overload. For respiratory failure, the patient was given oxygen through nasal cannula. Nutritional support was provided for moderate protein malnutrition, and liver cirrhosis was managed with rifaximin and proton pump inhibitors. Insomnia was addressed with trazodone. Initially, the patient responded to medical management, but on subsequent days the patient's mental status was fluctuating. Follow up chest imaging showed persistent left-sided pleural effusion, Radiology consulted, and on 12/08 performed thoracentesis, drained almost 1.5 L dark natalya fluid. On 12/08/2024 at 10:27 a.m., the patient experienced a sudden clinical deterioration and went into cardiac arrest. Cardiopulmonary resuscitation (CPR) was immediately initiated, and oxygen was administered via bag-mask ventilation. The monitoring coordinator initially showed pulseless electrical activity (PEA). The patient was intubated, and advanced cardiac life support (ACLS) measures were implemented, including administration of epinephrine 1 mg and sodium bicarbonate. Despite five cycles of epinephrine, the rhythm progressed to asystole. CPR was continued for three additional cycles, during which the patient received further doses of epinephrine and calcium chloride. After approximately 25 minutes of resuscitative efforts, the patient remained in asystole with no signs of spontaneous circulation. Brainstem reflexes were absent, including fixed and dilated pupils, absent corneal and gag reflexes, and no carotid pulse or heart sounds on auscultation. CPR was discontinued, and vicky alvarengah was pronounced at 10:55 a.m. During the code, the patients , who is the next of kin, and patients mother was informed of the clinical status and ongoing interventions. Critical care time: Spent > 93 min, spent in direct critical care, multidisciplinary/family discussions, including CPR and intubation. FINAL DIAGNOSIS: at hospital, due to cardiopulmonary arrest Cardiogenic shock Acute on chronic systolic heart failure Volume overload, likely due to heart failure/missed dialysis Hypertension Dyslipidemia Coronary artery disease, status post PCI/CABG NSTEMI, likely type 2, due to above Acute on chronic hypoxic respiratory failure, likely due to heart failure/volume overload/pneumonia Possible pneumonia, likely due to Gram-positive/Gram-negative bacteria. Pleural effusion, moderate s/p thoracentesis COPD ESRD, on maintenance hemodialysis, missed last 3 cessation BPH Moderate protein malnutrition Possible diabetic gastroparesis Liver cirrhosis Septic shock, due to sepsis Sepsis, likely due to pneumonia/wound infection MRSA positive wound Mild anemia, due to ESRD Diabetes type 2 , A1c is 7.4 Hyperkalemia Diabetic foot Insomnia Condition at Discharge: Unstable () Final Diagnosis/Problems List . Discharge Disposition: at Hospital Discharge Instruct/Medications Scheduled Aspirin (Aspir-81), 1 TAB PO DAILY, (Reported) Atorvastatin Calcium (Atorvastatin Calcium), 1 TAB PO DAILY, (Reported) Carvedilol (Coreg), 1 TAB PO BID Clopidogrel Bisulfate (Clopidogrel), 75 MG PO DAILY Dextrose (Glucose), Unknown Dose PO PRN, (Reported) Doxycycline Monohydrate (Doxycycline Monohydrate), 100 MG PO Q12HR Escitalopram Oxalate (Lexapro), 2 TAB PO DAILY, (Reported) Famotidine (Famotidine), 20 MG PO BID, (Reported) Furosemide (Lasix), 1 TAB PO BID Gabapentin (Gabapentin), 300 MG PO TID, (Reported) Insulin Lispro (Humalog Kwikpen), 0 SC PER SLIDING SCALE, (Reported) Mupirocin Calcium (Topical) (Mupirocin), 2 % EX BID Naloxone HCl (Narcan), 4 MG NA ONCE Omeprazole (Gnp Omeprazole), 20 MG PO DAILY, (Reported) Pantoprazole Sodium Sesquihydr (Protonix), 40 MG PO BID Ramipril (Altace), 10 MG PO DAILY Rifaximin (Xifaxan), 550 MG PO BID Sucralfate (Sucralfate), 1 GM PO QIDACHS Sucralfate (Sucralfate), 1 GM PO QIDACHS Tamsulosin Hcl (Flomax), 1 CAP PO DAILY Tamsulosin Hcl (Flomax), 0.4 MG PO DAILY Trazodone Hcl (Trazodone Hcl), 50 MG PO HS, (Reported) Scheduled PRN Hydrocodone-Acetaminophen (Hydrocodone Bitartrate/AC 10-325 mg), 1 TAB PO Q8HP PRN Miscellaneous Medications Insulin Glargine (Lantus Solostar), 100 UNIT SC, (Reported) Discharge Statement: "Patient was advised to return to the ER or call 911 if any headaches, dizziness, shortness of breath, chest pain, abdominal pain, bleeding, fevers, or worsening of medical condition. Patient was counseled about treatment plan, medications, possible side effects, patientverbalized understanding. All questions were answered to the best of my ability. This discharge took greater then 30 minutes in planning, reviewing documentation, counseling the patient, and discussing with other team members." ASSESSMENT ASSESSMENT Assessment JOHNNY HOFFMAN Dec 08, 2024 19:35 MELANIE GRAVES MD Dec 11, 2024 11:48
--- NOTE | 2024-12-09 08:46 | DVHNC2 ---
Intubation Indication: Respiratory Insufficiency Intubation Approach: Orotracheal Intubation size: cm (8) Informed consent obtained: No Risks/benefits/alt described: No Date of Service: Dec 08, 2024 Billing Provider: MELANIE GRAVES MD Common Visit Codes: PROCEDURE ONLY Procedure Codes: [id number] MELANIE GRAVES MD Dec 09, 2024 08:46
[2024-12-10 13:07] LABS: Glucose, Body Fluid 65.0 mg/dL (.); LD, Body Fluid 518.0 IU/L (.)
--- NOTE | 2024-12-16 06:57 | ECG ---
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
--- NOTE | 2024-12-16 07:46 | ECG ---
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
== END 2024-12-08 10:52 | DRG 871 ==
LOC: EDBD 03:18 → ER 03:18 → OVERFLOW 05:22 → TELE-CENTR 12-03 23:50
PROVIDERS: ADMIT Internal Medicine; ATTEND Internal Medicine
PROC: 5A09357 Assistance with Respiratory Ventilation, Less than 24 Consecutive Hours, Continuous Positive Airway Pressure (ICD-10-PCS; 2024-12-01)
PROC: 5A1D70Z Performance of Urinary Filtration, Intermittent, Less than 6 Hours Per Day (ICD-10-PCS; 2024-12-01)
PROC: 5A1D70Z Performance of Urinary Filtration, Intermittent, Less than 6 Hours Per Day (ICD-10-PCS; 2024-12-03)
PROC: 5A1D70Z Performance of Urinary Filtration, Intermittent, Less than 6 Hours Per Day (ICD-10-PCS; 2024-12-05)
PROC: 5A1D70Z Performance of Urinary Filtration, Intermittent, Less than 6 Hours Per Day (ICD-10-PCS; 2024-12-07)
PROC: 0BH17EZ Insertion of Endotracheal Airway into Trachea, Via Natural or Artificial Opening (ICD-10-PCS; principal; 2024-12-08)
PROC: 5A12012 Performance of Cardiac Output, Single, Manual (ICD-10-PCS; 2024-12-08)
PROC: 0W9B3ZZ Drainage of Left Pleural Cavity, Percutaneous Approach (ICD-10-PCS; 2024-12-08)
DX: A41.59 Other Gram-negative sepsis (principal); G93.41 Metabolic encephalopathy; I21.A1 Myocardial infarction type 2; J15.69 Pneumonia due to other Gram-negative bacteria; N18.6 End stage renal disease; R65.21 Severe sepsis with septic shock; J96.21 Acute and chronic respiratory failure with hypoxia; I50.23 Acute on chronic systolic (congestive) heart failure; J15.9 Unspecified bacterial pneumonia; N39.0 Urinary tract infection, site not specified; E44.0 Moderate protein-calorie malnutrition; I13.2 Hypertensive heart and chronic kidney disease with heart failure and with stage 5 chronic kidney disease, or end stage renal disease; J44.0 Chronic obstructive pulmonary disease with (acute) lower respiratory infection; J91.8 Pleural effusion in other conditions classified elsewhere; Z68.41 Body mass index [BMI] 40.0-44.9, adult; R57.0 Cardiogenic shock; I46.9 Cardiac arrest, cause unspecified; K31.84 Gastroparesis; D63.1 Anemia in chronic kidney disease; E11.65 Type 2 diabetes mellitus with hyperglycemia; F51.04 Psychophysiologic insomnia; E87.5 Hyperkalemia; K74.60 Unspecified cirrhosis of liver; I25.10 Atherosclerotic heart disease of native coronary artery without angina pectoris; K21.9 Gastro-esophageal reflux disease without esophagitis; E78.5 Hyperlipidemia, unspecified; E11.22 Type 2 diabetes mellitus with diabetic chronic kidney disease; E66.01 Morbid (severe) obesity due to excess calories; I27.20 Pulmonary hypertension, unspecified; N40.0 Benign prostatic hyperplasia without lower urinary tract symptoms; E11.43 Type 2 diabetes mellitus with diabetic autonomic (poly)neuropathy; Z99.2 Dependence on renal dialysis; Z95.1 Presence of aortocoronary bypass graft; Z99.81 Dependence on supplemental oxygen; Z98.61 Coronary angioplasty status; Z88.0 Allergy status to penicillin; Z91.199 Patient's noncompliance with other medical treatment and regimen due to unspecified reason; Z83.3 Family history of diabetes mellitus; Z82.49 Family history of ischemic heart disease and other diseases of the circulatory system; Z87.891 Personal history of nicotine dependence
CPT/HCPCS: 32555; 36415; 36600; 71045; 71250; 73560; 74176; 76604; 76705; 76942; 80048; 80053; 80061; 80202; 80307; 81001; 82140; 82306; 82565; 82607; 82805; 82962; 83036; 83605; 83735; 83880; 83986; 84100; 84443; 84484; 85007; 85025; 85027; 85610; 85730; 87040; 87070; 87077; 87081; 87086; 87186; 87205; 87340; 87426; 87804; 89051; 90935; 92950; 93005; 94640; 94660; 96365; 97163; 99291; G0378; J1642; J1815; J2185; J2405